=== PATIENT | female | born 1965 | race Caucasian/White ===

== ENCOUNTER 2022-04-06 17:09 | Emergency (ER) | payer OTHER, SELFPAY ==
[2022-04-06 17:21] VITALS: BP 84/70; PULSE 93; RESP 18; O2SAT 96; BMI 19.2
--- NOTE | 2022-04-06 17:26 | W.ED.SYNCOPE ---
HPI - Syncope General: Chief Complaint: Syncope Stated Complaint: SYNCOPAL EPISODE, BACK PAIN Time Seen by Provider: 04/06/22 17:26 History of Present Illness: Ms. Mcguire is a 57-year-old lady with complex past medical history presents to the emergency department due to presyncope. She reports largely being at her baseline health the past few days without specific known changes. She was going to the store earlier and upon getting out of the vehicle had severe back pain and shortness of breath. She attempted albuterol treatments but continued to feel worse. She endorses lightheaded feeling and near syncope associated with her pain. She slumped over a shopping cart and was assisted to the ground however did not fall to the ground and did not suffer head strike. Since that time she has had worsening of her baseline back pain. Shortness of breath is improved. Has had similar episodes in the past with low blood pressure though did not seek medical care for this 1 episode. Intensity symptoms when present was moderate to severe. Course has improved. No other specific changes in health, exacerbating, or alleviating factors identified. Onset (ago): minute(s) Prodromal symptoms: lightheaded and shortness of breath Witnessed: Yes - by Bystander Review of Systems General: Reports: 10 or more systems reviewed and unremarkable except in HPI and below PFSH ED PFSH: Medical History COPD (chronic obstructive pulmonary disease) Fibromyalgia History and physical examination, immigration History of Graves' disease Surgical History History of cervical spinal surgery History of tubal ligation Social History Smoking and tobacco status: former smoker Physical Exam Const: COMMON NORMALS: alert GENERAL APPEARANCE: cooperative and well developed HENMT: COMMON NORMALS: normocephalic and atraumatic HEAD & SCALP: normocephalic and atraumatic THROAT: posterior oropharynx normal Eye: COMMON NORMALS: conjunctivae normal CONJUNCTIVA: Yes conjunctivae normal SCLERA: sclerae normal Neck/C-Spine: COMMON NORMALS: supple GENERAL: Yes trachea midline Resp: COMMON NORMALS: normal respiratory effort and clear to auscultation bilaterally EFFORT & INSPECTION: Yes able to speak in complete sentences AUSCULTATION: clear to auscultation bilaterally Cardio: COMMON NORMALS: regular rate and regular rhythm RATE: regular rate RHYTHM: regular rhythm GI: COMMON NORMALS: Soft to palpation PALPATION: Yes Soft to palpation and No Tenderness to palpation present (GI) PERCUSSION: normal to percussion Extremity: GENERAL: Yes normal exam except as noted and No edema Neuro: COMMON NORMALS: moves all extremities SENSORIUM/ORIENTATION: Yes alert and No Orientation impaired Psych: COMMON NORMALS: mental status grossly normal and Normal thought process present THOUGHT PROCESS: Normal thought process present Course ED course: - Patient was seen and evaluated by me at bedside - Patient placed on cardiac monitors, IV access obtained - Initial evaluation notable for exam as above - Labs and xrays personally interpreted by me. EKGs notable for sinus rhythm with nonspecific st segment abnormalities -Fluids given - Labs notable for leukocytosis, normal hemoglobin. Metabolic end with mild evidence of dehydration. Transaminitis uncertain etiology. Urinalysis without evidence of urinary tract infection. - Imaging notable for no acute pathology defined on CT imaging to explain symptoms. - Upon serial reexamination after treatment the patient was significantly improved - Based on patient history, evaluation, and testing as interpreted the most likely cause of the patient's condition is unclear presyncopal episode associated with pain - The results of ED evaluation were discussed with the patient including prescriptions and/or symptomatic cares (if applicable) including appropriate and responsible use, followup plan, and return precautions. The patient verbalized understanding and felt safe for discharge. - Patient discharged in satisfactory condition. Note: Click bubbles or prepopulated guidry in note writing are used for assistance with data collection and billing and are inherently more limited than narrative and other text portions of this note. Please use narrative for additional clinical history and defer to narrative/free test for any case of contradictory information. If information appears in only free text or click bubble it should be considered present or absent as reported. Please contact note marketing underwriter for clarifications of clinical information or contradictory information. MDM is a brief summary, contradictory or erroneous seeming information should be clarified and full note should be reviewed. Vital Signs: Vital signs: Vital Signs Pulse Rate 79 04/06/22 21:00 Respiratory Rate 16 04/06/22 18:07 Blood Pressure 104/63 04/06/22 21:00 Pulse Oximetry 97 04/06/22 18:07 MDM - Syncope Medical Decision Making 57-year-old lady presenting to the ER with symptoms of presyncope with pain and shortness of breath. No clear etiology identified on ED evaluation. Symptoms improved. Satisfactory outpatient management with strict return precautions. Medical Records I reviewed the patient's medical records. Lab Data I reviewed the patient's lab results. : 04/06/22 17:58 04/06/22 17:58 Radiology Impressions Chest/Abdomen/Pelvis CT 04/06/22 18:24 IMPRESSION: 1. Negative for pulmonary embolus or airspace infiltrate, thoracic aorta is intact. 2. Emphysematous changes. 3. Several prominent subcentimeter short axis mediastinal lymph nodes, nonspecific. IMPRESSION: Negative for acute inflammatory process in the abdomen or pelvis. Laboratory Results WBC 13.2 10^3/uL (4.0-10.0) H 04/06/22 17:58 RBC 4.06 10^6/uL (4.1-5.3) L 04/06/22 17:58 Hgb 13.3 g/dL (11.5-15.3) 04/06/22 17:58 Hct 39.5 % (37.0-47.0) 04/06/22 17:58 MCV 97.3 fl (81-99) 04/06/22 17:58 MCH 32.8 pg (28.0-34.0) 04/06/22 17:58 MCHC 33.7 g/dL (30.0-36.0) 04/06/22 17:58 RDW 13.2 % (12.1-15.1) 04/06/22 17:58 Plt Count 208 10^3/cmm (130-400) 04/06/22 17:58 MPV 10.7 fL (7.4-10.4) H 04/06/22 17:58 Neut % (Auto) 68.4 % 04/06/22 17:58 Lymph % (Auto) 22.8 % 04/06/22 17:58 [place]ison % (Auto) 6.8 % 04/06/22 17:58 Eos % (Auto) 0.9 % 04/06/22 17:58 Baso % (Auto) 0.7 % 04/06/22 17:58 Neut # (Auto) 9.01 10^3/uL (1.8-7.7) H 04/06/22 17:58 Lymph # (Auto) 3.0 10^3/uL (0.8-4.8) 04/06/22 17:58 [place]ison # (Auto) 0.9 10^3/uL (0.2-0.9) 04/06/22 17:58 Eos # (Auto) 0.1 10^3/uL (0.0-0.8) 04/06/22 17:58 Baso # (Auto) 0.1 10^3/uL (0.0-0.1) 04/06/22 17:58 Nucleated RBC % (auto) 0 % 04/06/22 17:58 Nucleated RBCs # 0.0 /100WBC 04/06/22 17:58 PT 12.90 SECONDS (12.1-14.9) 04/06/22 17:58 INR 0.94 (0.8-1.2) 04/06/22 17:58 APTT 25.7 SECONDS (23.9-36.7) 04/06/22 17:58 Sodium 139 mmol/L (136-145) 04/06/22 17:58 Potassium 3.8 mmol/L (3.5-5.1) 04/06/22 17:58 Chloride 102 mmol/L (98-107) 04/06/22 17:58 Carbon Dioxide 25 mmol/L (22-29) 04/06/22 17:58 Anion Gap 15.8 (5-19) 04/06/22 17:58 BUN 21 mg/dL (6-20) H 04/06/22 17:58 Creatinine 0.7 mg/dL (0.5-0.9) 04/06/22 17:58 GFR Calculation 86.6 mL/min (90-130) L 04/06/22 17:58 Glucose 127 mg/dL (65-115) H 04/06/22 17:58 Calculated Osmolality 293 mOsm/kg (285-295) 04/06/22 17:58 Lactic Acid 1.3 mmol/L (0.5-2.2) 04/06/22 18:19 Calcium 9.2 mg/dL (8.5-10.5) 04/06/22 17:58 Total Bilirubin 0.2 mg/dL (0.15-1.2) 04/06/22 17:58 AST 48 U/L (0-32) H 04/06/22 17:58 ALT 70 U/L (0-33) H 04/06/22 17:58 Alkaline Phosphatase 55 IU/L (35-105) 04/06/22 17:58 Troponin T Baseline 6 ng/L (0-10) 04/06/22 17:58 Troponin T 120 Minute 6.00 ng/L (0-10) 04/06/22 20:03 Delta Troponin T Not Reportable 04/06/22 20:03 Total Protein 6.9 g/dL (6.6-8.7) 04/06/22 17:58 Albumin 4.6 g/dL (3.5-5.2) 04/06/22 17:58 Globulin 2.3 g/dL (1.3-4.6) 04/06/22 17:58 Lipase 21 U/L (13-60) 04/06/22 17:58 Urine Color Yellow (Yellow) 04/06/22 18:05 Urine Appearance Clear (CLEAR) 04/06/22 18:05 Urine pH 5 (5-7) 04/06/22 18:05 Ur Specific [place] 1.020 (1.005-1.030) 04/06/22 18:05 Urine Protein Trace (Negative) 04/06/22 18:05 Urine Glucose (UA) Norm (Normal) 04/06/22 18:05 Urine Ketones 1+ (Negative) H 04/06/22 18:05 Urine Blood Neg (Negative) 04/06/22 18:05 Urine Nitrate Negative (Negative) 04/06/22 18:05 Urine Bilirubin 1+ (Negative) H 04/06/22 18:05 Urine Urobilinogen 4 mg/dL (Negative) H 04/06/22 18:05 Ur Leukocyte Esterase Trace (Negative) H 04/06/22 18:05 Urine RBC 5-10 /hpf (0-2) H 04/06/22 18:05 Urine WBC 5-10 /hpf (0-5) H 04/06/22 18:05 Ur Squamous Epith Cells 10-15 /hpf (0-5) H 04/06/22 18:05 Calcium Oxalate Crystal 5-10 /hpf H 04/06/22 18:05 Other Crystals Sulfa /hpf 04/06/22 18:05 Amorphous Sediment Not Reportable 04/06/22 18:05 Urine Bacteria 4+ /hpf (NONE) H 04/06/22 18:05 Urine Mucus 4+ /hpf 04/06/22 18:05 Discharge Plan Discharge Patient Disposition: Home Clinical Impression: Pre-syncope, Transaminitis, Leukocytosis Condition: Stable Prescriptions: No Action trazodone 50 mg tablet 50 - 150 mg PO BEDTIME PRN (Reason: Insomnia) 0RF tizanidine 4 mg tablet 4 mg PO TID PRN (Reason: Muscle Pain) 0RF hydrocodone-acetaminophen 5-325 mg tablet 1 tab PO TID PRN (Reason: Pain) 0RF levothyroxine 88 mcg tablet 88 mcg PO DAILY 0RF nitroglycerin 0.4 mg tablet, sublingual 0.4 mg sublingual Q5MIN PRN (Reason: Chest Pain) 0RF aspirin 81 mg Tablet,Chewable 81 mg PO DAILY 0RF albuterol sulfate 90 mcg/actuation HFA aerosol inhaler 2 puff INHALATION Q6H PRN (Reason: Shortness Of Breath) 0RF lamotrigine 100 mg tablet 50 mg PO BID PRN (Reason: Pain) 0RF ezetimibe 10 mg tablet 10 mg PO DAILY 0RF rosuvastatin 20 mg tablet 20 mg PO DAILY 0RF duloxetine 30 mg capsule,delayed release(DR/EC) 30 mg PO DAILY 0RF Symbicort 80-4.5 mcg/actuation HFA aerosol inhaler 2 puff INHALATION DAILY 0RF Discharge Orders: Discharge ED (Routine); Ordered 04/06/22 Ordered By: Ramy Casarez Referrals: Ruben Bernabe MD [Primary Care Provider] - Discharge Diet: Usual diet Discharge Activity: Increase activity as tolerated Patient Instructions: Near Syncope (ED) Activity Restrictions/Additional Instructions: Thank you for visiting the emergency department. You were seen and evaluated for near syncope. The exact cause of your symptoms is unclear. As discussed you do have mild elevation in your white blood cell count as well as your liver enzymes. Please follow-up with your primary care provider regarding this. Based on ED evaluation I do not believe that you need hospitalization at this time however you likely need further outpatient assessment for other causes of near syncope. Please return to the emergency department for recurrent symptoms or anything else that you are concerned about a feel needs emergency department evaluation. Coding Level of Care Code ED Food Preparer for Chg Fwd Exam Comprehensive
--- NOTE | 2022-04-06 17:34 | ECG_ITS ---
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 Measurements Intervals [place] Rate: 74 P: 80 [place]: 149 QRS: 71 QRSD: 82 T: 70 QT: 416 QTc: 463 Interpretive Statements SINUS RHYTHM NONSPECIFIC T-WAVE ABNORMALITY Compared to ECG 12/06/2018 10:47:20 No significant changes Electronically Signed On 04-06-2022 22:32:37 CDT by Juan Smith M.D. [email or web address] community hospitalMomentum Telecomholzer health systemZamplus Technology/store/[id number]
[2022-04-06 17:53] VITALS: BP 93/69; PULSE 101; RESP 16; O2SAT 97
[2022-04-06 18:07] VITALS: BP 90/71; PULSE 88; RESP 16; O2SAT 97
[2022-04-06] MEDS: sodium chloride 0.9% 1,000 ML 999 ML IV (18:08)
[2022-04-06 18:10] LABS: Basophils # 0.1 10^3/uL (0.0-0.1); Basophils % 0.7 %; Eosinophils # 0.1 10^3/uL (0.0-0.8); Eosinophils % 0.9 %; Hematocrit 39.5 % (37.0-47.0); Hemoglobin 13.3 g/dL (11.5-15.3); Lymphocytes % 22.8 %; Mean Corpuscular HGB Conc 33.7 g/dL (30.0-36.0); Mean Corpuscular Hemoglobin 32.8 pg (28.0-34.0); Mean Corpuscular Volume 97.3 fl (81-99); Mean Platelet Volume 10.7 fL (7.4-10.4); Monocytes # 0.9 10^3/uL (0.2-0.9); Monocytes % 6.8 %; Neutrophils # 9.01 10^3/uL (1.8-7.7); Neutrophils % 68.4 %; Nucleated Red Blood Cells % 0 %; Platelet Count 208 10^3/cmm (130-400); Red Blood Count 4.06 10^6/uL (4.1-5.3); Red Cell Distribution Width 13.2 % (12.1-15.1); White Blood Count 13.2 10^3/uL (4.0-10.0)
--- NOTE | 2022-04-06 18:24 | CTR_ITS ---
PROCEDURE INFORMATION: Exam: CTA Chest With Contrast Exam date and time: 04/06/2022 6:42 PM Age: 57 years old Clinical indication: Pain; Other: Posterior abdomen; On breathing; Prior surgery; Surgery date: 6+ months; Surgery type: Lumbar, thyroid, tubal ligation; Additional info: Back pain, hypotension, near syncope, HX pes TECHNIQUE: Imaging protocol: Computed tomographic angiography of the chest with contrast. 3D rendering (Not supervised by radiologist): MIP and/or 3D reconstructed images were created by the technologist. Radiation optimization: All CT scans at this facility use at least one of these dose optimization techniques: automated exposure control; mA and/or kV adjustment per patient size (includes targeted exams where dose is matched to clinical indication); or iterative reconstruction. Contrast material: OMNIPAQUE 300; Contrast volume: 90 ml; Contrast route: INTRAVENOUS (IV); COMPARISON: CTA Chest-Pulmonary Emb [id number] 01/21/2017 3:56 PM RADIATION DOSE METRICS: Total DLP (mGy-cm): 882.16 FINDINGS: Pulmonary arteries: Normal. No pulmonary emboli. Aorta: Unremarkable. No aortic aneurysm. No aortic dissection. Lungs: Emphysematous changes. Pleural spaces: Unremarkable. No pneumothorax. No pleural effusion. Heart: Unremarkable. No cardiomegaly. No pericardial effusion. Lymph nodes: Several prominent subcentimeter short axis mediastinal lymph nodes, nonspecific. Bones/joints: Unremarkable. No acute fracture. Soft tissues: Unremarkable. PROCEDURE INFORMATION: Exam: CT Abdomen And Pelvis With Contrast Exam date and time: 04/06/2022 6:42 PM Age: 57 years old Clinical indication: Pain; Other: Posterior abdomen; On breathing; Prior surgery; Surgery date: 6+ months; Surgery type: Lumbar, thyroid, tubal ligation; Additional info: Back pain, hypotension, near syncope, HX pes TECHNIQUE: Imaging protocol: Computed tomography of the abdomen and pelvis with contrast. Radiation optimization: All CT scans at this facility use at least one of these dose optimization techniques: automated exposure control; mA and/or kV adjustment per patient size (includes targeted exams where dose is matched to clinical indication); or iterative reconstruction. Contrast material: OMNIPAQUE 300; Contrast volume: 90 ml; Contrast route: INTRAVENOUS (IV); COMPARISON: CT Chest/Abdomen/Pelvis wo IV 12/06/2018 11:47 AM RADIATION DOSE METRICS: Total DLP (mGy-cm): 882.16 FINDINGS: Liver: Normal. No mass. Gallbladder and bile ducts: Normal. No calcified stones. No ductal dilation. Pancreas: Normal. No ductal dilation. Spleen: Normal. No splenomegaly. Adrenal glands: Normal. No mass. Kidneys and ureters: Normal. No hydronephrosis. Stomach and bowel: Unremarkable. No obstruction. No mucosal thickening. Appendix: No evidence of appendicitis. Intraperitoneal space: Unremarkable. No free air. No significant fluid collection. Vasculature: Unremarkable. No abdominal aortic aneurysm. Lymph nodes: Unremarkable. No enlarged lymph nodes. Urinary bladder: Unremarkable as visualized. Reproductive: Unremarkable as visualized. Bones/joints: Unremarkable. No acute fracture. Soft tissues: Unremarkable. CT/CT angio chest w abd pel w con IMPRESSION: 1. Negative for pulmonary embolus or airspace infiltrate, thoracic aorta is intact. 2. Emphysematous changes. 3. Several prominent subcentimeter short axis mediastinal lymph nodes, nonspecific. IMPRESSION: Negative for acute inflammatory process in the abdomen or pelvis.
[2022-04-06 18:31] LABS: Add Urine Microscopic? YES; Bilirubin Urine 1+ (Negative); Blood Urine Neg (Negative); Glucose Urine UA Norm (Normal); Ketones Urine 1+ (Negative); Leukocyte Esterase Urine Trace (Negative); Nitrate Urine Negative (Negative); Protein Urine Trace (Negative); Urine Appearance Clear (CLEAR); Urine Color Yellow (Yellow); Urobilinogen Urine 4 mg/dL (Negative); pH Urine 5 (5-7)
[2022-04-06 18:41] LABS: INR 0.94 (0.8-1.2); Partial Thromboplastin Time 25.7 SECONDS (23.9-36.7)
[2022-04-06 18:41] LABS: Bacteria Urine 4+ /hpf; Mucus Urine 4+ /hpf
[2022-04-06 18:42] LABS: Add Urine Culture? Yes; Other Crystals Urine SULFA /hpf
[2022-04-06] MEDS: iohexol 300 mg/mL 100 mL Btl IV (18:42)
[2022-04-06 18:53] LABS: Troponin(5th) Baseline 6 ng/L (0-10)
[2022-04-06 18:57] LABS: Alanine Aminotransferase 70 U/L (0-33); Albumin Level 4.6 g/dL (3.5-5.2); Alkaline Phosphatase 55 IU/L (35-105); Anion Gap 15.8 (5-19); Aspartate Amino Transferase 48 U/L (0-32); Blood Urea Nitrogen 21 mg/dL (6-20); Calcium 9.2 mg/dL (8.5-10.5); Carbon Dioxide 25 mmol/L (22-29); Chloride 102 mmol/L (98-107); Globulin 2.3 g/dL (1.3-4.6); Glomerular Filtration Rate 86.6 mL/min (90-130); Glucose 127 mg/dL (65-115); Lipase 21 U/L (13-60); Osmolality Calculated 293 mOsm/kg (285-295); Potassium 3.8 mmol/L (3.5-5.1); Sodium 139 mmol/L (136-145); Total Bilirubin 0.2 mg/dL (0.15-1.2); Total Protein 6.9 g/dL (6.6-8.7)
[2022-04-06] MEDS: HYDROcodone-acetaminophen 5-325 mg Tablet 1 TAB PO (19:16)
[2022-04-06 19:20] LABS: Lactic Sepsis W/Reflex 1.3 mmol/L (0.5-2.2)
--- NOTE | 2022-04-06 19:34 | ECG_ITS ---
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 Measurements Intervals [place] Rate: 79 P: 85 [place]: 155 QRS: 77 QRSD: 75 T: 89 QT: 366 QTc: 421 Interpretive Statements SINUS RHYTHM NONSPECIFIC T-WAVE ABNORMALITY Compared to ECG 04/06/2022 18:26:13 No significant changes Electronically Signed On 04-06-2022 22:37:19 CDT by Juan Smith M.D. [email or web address] [email or web address] clinicBobby Bear Fun & Fitness/store/[id number]
[2022-04-06 21:00] VITALS: BP 101/71; BP 104/63; BP 107/75; PULSE 79; PULSE 80; PULSE 82
== END 2022-04-06 21:50 | disposition home or self-care (01) ==
PROVIDERS: Emergency Provider Emergency Medicine; PCP Family Medicine
DX: R55 Syncope and collapse (principal); R74.01 Elevation of levels of liver transaminase levels; D72.829 Elevated white blood cell count, unspecified; M54.9 Dorsalgia, unspecified; Z79.82 Long term (current) use of aspirin; Z87.891 Personal history of nicotine dependence
CPT/HCPCS: 71275; 74177; 80053; 81001; 83605; 83690; 84484; 85025; 85610; 85730; 87040; 87086; 87205; 93005; 96360; 99284; J7030; Q9967

== ENCOUNTER → 2022-06-06 14:50 | Outpatient (BNVA) | payer OTHER, MEDICARE, SELFPAY | PROVIDERS: Visit Provider Family Medicine | DX: E03.9 Hypothyroidism, unspecified (principal); J44.9 Chronic obstructive pulmonary disease, unspecified; M79.7 Fibromyalgia; Z76.89 Persons encountering health services in other specified circumstances; F41.1 Generalized anxiety disorder; E78.2 Mixed hyperlipidemia; F31.61 Bipolar disorder, current episode mixed, mild; G47.00 Insomnia, unspecified | CPT/HCPCS: 80053; 80061; 84439; 84443; 85025 ==

== ENCOUNTER → 2023-03-22 12:46 | Outpatient (BNVA) | payer MEDICARE, SELFPAY | PROVIDERS: PCP Family Medicine; Visit Provider Family Medicine | DX: E03.9 Hypothyroidism, unspecified (principal); M25.511 Pain in right shoulder; M54.12 Radiculopathy, cervical region; E78.2 Mixed hyperlipidemia; M54.2 Cervicalgia; M54.9 Dorsalgia, unspecified; G89.29 Other chronic pain; F31.61 Bipolar disorder, current episode mixed, mild; G47.00 Insomnia, unspecified; J44.9 Chronic obstructive pulmonary disease, unspecified; M79.7 Fibromyalgia; Z76.89 Persons encountering health services in other specified circumstances | CPT/HCPCS: 80048; 80061; 84443 ==

== ENCOUNTER 2023-08-05 14:35 | Emergency (ER) | payer MEDICARE, MEDICAID, SELFPAY ==
[2023-08-05 14:43] VITALS: BP 110/73; PULSE 79; RESP 16; TEMP 36.5; O2SAT 96; BMI 20.1
--- NOTE | 2023-08-05 14:59 | ED_ITS ---
HPI - Back Pain/Injury General: Chief Complaint: Back Pain/Injury Stated Complaint: very bad back pain Time Seen by Provider: 08/05/23 14:52 Source: patient Mode of arrival: ambulatory Limitations: no limitations History of Present Illness: Patient is here with chronic back pain. She states that she used to be followed by local physician for her medications but she missed a couple appointments and has not been to see him since that time. She denies any change in her back pain other than she is increasing more symptoms since she has been out of medications. She denies any fevers or chills loss of bowel or bladder control etc. She is a regular tobacco user. She denies any focal weakness, recent injury etc. MD elicited complaint: back pain Pertinent past history: prior back pain Onset (ago): year(s) Timing: intermittent Associated symptoms: Deny abdominal pain, chills, dysuria, fever(s), nausea or vomiting Review of Systems Const: Denies: fever(s) or chills ENMT: Denies: throat pain, odynophagia, nasal discharge or nasal congestion Card: Denies: chest pain, palpitations or irregular heart rhythm Resp: Denies: dyspnea, productive cough or non-productive cough GI: Denies: abdominal pain, nausea or vomiting : Denies: flank pain, difficulty voiding, dysuria or urinary frequency Musc: Reports: neck pain and back pain; Denies: extremity pain or extremity swelling Skin/Breast: Denies: rash Neuro: Denies: headache(s), numbness in extremities or weakness in extremities PFSH ED PFSH: Medical History Acquired hypothyroidism Bipolar 1 disorder, mixed, mild Chronic neck and back pain COPD (chronic obstructive pulmonary disease) Fibromyalgia Generalized anxiety disorder History of Graves' disease Insomnia Mixed dyslipidemia Surgical History History of cervical spinal surgery C5/6 fusion History of hernia repair History of thyroidectomy History of tubal ligation Family History Mother Lung disease Psychiatric illness Father Psychiatric illness Other Stroke Denies family history of Diabetes CAD (coronary artery disease) Dementia Hyperlipidemia Chronic kidney disease (CKD) Suicide Anesthesia complication Bleeding disorder Family history of premature coronary artery disease Cancer Hypertension Social History (Updated 03/22/23 @ 12:25 by Odessa Ruth MD) Smoking and tobacco status: former smoker Quit status (tobacco): has quit using tobacco Year quit tobacco: 2009 Alcohol intake: never Substance/Drug Use: current Substance/Drug use frequency: daily Adopted: No Lives independently: Yes Household members: spouse, children and other Details: 3 grandchilden Housing: House Marital status: Number of children: 2 Number of grandchildren: 6 Highest education level completed: High School Graduate service: No Current occupational status: disabled Leisure activites: other Leisure activities details: swimming, playing w/ kids Agree to transfusion: Yes Female Reproductive History: Spontaneous abortions: No Physical Exam Narrative: EXAM NARRATIVE: Thin woman who appears to be in no acute distress answers questions appropriately. Const: COMMON NORMALS: no acute distress, patient oriented x3 and alert GENERAL APPEARANCE: cooperative NUTRITIONAL APPEARANCE: thin HENMT: COMMON NORMALS: normocephalic, atraumatic and moist oral mucous membranes HEAD & SCALP: normocephalic and atraumatic Eye: COMMON NORMALS: Equal, round and reactive pupils present, EOMs intact bilaterally and conjunctivae normal CONJUNCTIVA: Yes conjunctivae normal PUPIL: Yes Equal, round and reactive pupils present Neck/C-Spine: COMMON NORMALS: full ROM, Thyroid normal and No carotid bruits THYROID: Thyroid normal Resp: COMMON NORMALS: normal respiratory effort, No retractions, No use of accessory muscles and clear to auscultation bilaterally EFFORT & INSPECTION: Yes able to speak in complete sentences AUSCULTATION: clear to auscultation bilaterally Cardio: COMMON NORMALS: regular rate, regular rhythm, No murmurs present (Cardio) and Peripheral pulses 2+ throughout RATE: regular rate RHYTHM: regular rhythm PERIPHERAL PULSES: Peripheral pulses 2+ throughout GI: COMMON NORMALS: Normal to inspection, nondistended, normoactive bowel sounds present and Soft to palpation PALPATION: Yes Soft to palpation Back/Pelvis: COMMON NORMALS: thoracic and lumbar spine normal to inspection and straight leg raise negative bilaterally SACROILIAC JOINTS: Yes SI joints normal OTHER: She has normal spinal curves. She is tender points throughout the all the soft tissue of her axial spine from her suboccipital region down to her lumbar region. There is no skin changes, ecchymosis,. Extremity: COMMON NORMALS: normal to inspection, full ROM, no calf tenderness and no pedal edema Neuro: COMMON NORMALS: patient oriented x3, moves all extremities, no focal motor deficits, no sensory deficits noted and deep tendon reflexes 2+ bilaterally SENSORIUM/ORIENTATION: Yes alert Course Vital Signs: Vital signs: Vital Signs Temperature 97.7 F 08/05/23 14:43 Pulse Rate 79 08/05/23 14:43 Respiratory Rate 16 08/05/23 14:43 Blood Pressure 110/73 08/05/23 14:43 Pulse Oximetry 96 08/05/23 14:43 Oxygen Delivery Me thod Room Air 08/05/23 14:43 MDM - Back Pain/Injury Medical Decision Making This patient with a history of chronic back pain without any new findings to include injury, fever, neurologic symptoms such as loss of bowel or bowel bladder control focal weakness etc. Clinical examination reveals multiple trigger points without any evidence of focal neurologic findings. Patient was informed that we do not prescribe opiates the emergency department. We were happy to give her a prescription for gabapentin and perhaps a muscle relaxant and a referral for case management for a primary care follow-up. She voiced understanding. We also admonished her that she should discontinue her smoking habit that that is not conducive to her long-term health. No radiology studies performed this visit Discharge Plan Discharge Patient Disposition: Home Clinical Impression: Chronic neck and back pain, Fibromyalgia Condition: Stable Prescriptions: New gabapentin 400 mg capsule 400 mg PO BID Qty: 60 0RF celecoxib [Celebrex] 50 mg capsule 50 mg PO DAILY Qty: 30 0RF No Action prednisone 20 mg tablet 40 mg PO DAILY Qty: 10 0RF doxycycline hyclate 100 mg tablet 100 mg PO DAILY Qty: 11 0RF ondansetron 4 mg tablet,disintegrating 4 mg PO Q8H PRN (Reason: nausea and vomiting) Qty: 10 0RF Symbicort 80-4.5 mcg/actuation HFA aerosol inhaler 2 puff INHALATION DAILY Qty: 10.2 2RF celecoxib 200 mg capsule 200 mg PO BID Qty: 60 1RF duloxetine 60 mg capsule,delayed release(DR/EC) 60 mg PO DAILY Qty: 90 2RF ezetimibe 10 mg tablet 10 mg PO DAILY Qty: 90 1RF hydrocodone-acetaminophen 5-325 mg tablet 1 tab PO TID 30 Days Qty: 90 0RF lamotrigine 100 mg tablet 50 mg PO BID PRN (Reason: Pain) Qty: 60 2RF trazodone 50 mg tablet 50 - 150 mg PO BEDTIME 90 Days Qty: 270 1RF levothyroxine 100 mcg tablet 100 mcg PO DAILY Qty: 60 0RF rosuvastatin 40 mg tablet 40 mg PO DAILY Qty: 90 1RF albuterol sulfate 90 mcg/actuation HFA aerosol inhaler See Rx Instructions .ROUTE .COMPLEX Qty: 6.7 11RF Dose Instruction: INHALE TWO PUFFS BY MOUTH EVERY 6 HOURS NEEDED FOR SHORTNESS OF BREATH OR FOR WHEEZING (BULK) Rx Instructions: INHALE TWO PUFFS BY MOUTH EVERY 6 HOURS NEEDED FOR SHORTNESS OF BREATH OR FOR WHEEZING (BULK) nitroglycerin 0.4 mg tablet, sublingual 0.4 mg sublingual Q5MIN PRN (Reason: Chest Pain) aspirin 81 mg Tablet,Chewable 81 mg PO DAILY Discharge Orders: Discharge ED (Routine); Ordered 08/05/23 Ordered By: Wilfrido Walker Discharge Diet: Usual diet Discharge Activity: Increase activity as tolerated Patient Instructions: Opioid Safety, Pain Management Activity Restrictions/Additional Instructions: Do not smoke cigarettes. We have prescribed prescribed 2 of your medication to help with your pain. We have also placed a consult into case management to arrange a follow-up with her primary care doctor. If you have any new or worsening symptoms you are welcome to return to the emergency department for reevaluation. 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
[2023-08-05] MEDS: ketorolac 30 mg/mL INJ 15 MG IM (15:09)
--- NOTE | 2023-08-06 09:29 | PC.SOCIAL ---
PCP Message sent to [facility] requesting appt to establish care. Clinic will contact patient with appt date/time.
== END 2023-08-05 15:40 | disposition home or self-care (01) ==
PROVIDERS: Emergency Provider Emergency Medicine
DX: G89.29 Other chronic pain (principal); M54.2 Cervicalgia; M54.9 Dorsalgia, unspecified; M79.7 Fibromyalgia; Z79.82 Long term (current) use of aspirin; Z87.891 Personal history of nicotine dependence; J44.9 Chronic obstructive pulmonary disease, unspecified; E78.2 Mixed hyperlipidemia
CPT/HCPCS: 96372; 99284; J1885

== ENCOUNTER → 2023-08-29 11:44 | Outpatient (BNVA) | payer MEDICARE, MEDICAID, SELFPAY | PROVIDERS: PCP Family Medicine; Visit Provider Family Medicine | DX: E03.9 Hypothyroidism, unspecified (principal); E78.2 Mixed hyperlipidemia | CPT/HCPCS: 80061; 84443 ==

== ENCOUNTER → 2024-02-04 08:27 | Outpatient (BNVA) | payer MEDICARE, SELFPAY | PROVIDERS: PCP Family Medicine Adult Medicine; Visit Provider Orthopaedic Surgery | DX: M54.2 Cervicalgia (principal); M54.9 Dorsalgia, unspecified; G89.29 Other chronic pain; M54.6 Pain in thoracic spine | CPT/HCPCS: 72072; 99204 ==

== ENCOUNTER 2024-02-28 15:51 | Emergency (ER) | payer MEDICARE, SELFPAY ==
[2024-02-28 15:58] VITALS: BP 122/80; PULSE 91; RESP 16; TEMP 36.7; O2SAT 98
[2024-02-28] MEDS: orphenadrine 30 mg/mL Inj 2 mL 60 MG IM (17:04)
[2024-02-28] MEDS: ketorolac 30 mg/mL INJ IM (17:05)
[2024-02-28 17:42] LABS: Blood Urine Neg (Negative); Glucose Urine UA Norm (Normal); Ketones Urine Negative (Negative); Nitrate Urine Negative (Negative); Protein Urine Neg (Negative); Urine Appearance Clear (CLEAR); Urine Color Yellow (Yellow); pH Urine 5 (5-7)
[2024-02-28 17:43] LABS: Bilirubin Urine 1+ (Negative); Leukocyte Esterase Urine Negative (Negative); Urobilinogen Urine 4 mg/dL (Negative)
--- NOTE | 2024-02-28 17:48 | W.ED.BACK ---
HPI - Back Pain/Injury General: Chief Complaint: Back Pain/Injury Stated Complaint: back pains Time Seen by Provider: 02/28/24 16:14 History of Present Illness: 59-year-old female presents emerged part with complaints of low back pain for the previous 3 days. She states the pain is currently a 10 out of 10 at this time. She states it is an aching type back pain. She states she has been taking Tylenol and that has not helped her. She states she does have a history of cervical spine surgery and fusion. She denies numbness or tingling to the extremities. She denies urinary retention or incontinence. Review of Systems General: Reports: 10 or more systems reviewed and unremarkable except in HPI and below Musc: Reports: back pain PFSH ED PFSH: Medical History (Updated 02/28/24 @ 18:03 by Terrance Kendall MD) Smoker decreased to 1/2 ppd 09/03/2023 Former smoker, stopped smoking in distant past Chronic neck and back pain Insomnia Bipolar 1 disorder, mixed, mild Mixed dyslipidemia Generalized anxiety disorder Acquired hypothyroidism History of Graves' disease Fibromyalgia COPD (chronic obstructive pulmonary disease) Surgical History History of hernia repair History of thyroidectomy History of tubal ligation History of cervical spinal surgery C5/6 fusion Family History Mother Lung disease Psychiatric illness Father Psychiatric illness Other Stroke Denies family history of Diabetes CAD (coronary artery disease) Dementia Hyperlipidemia Chronic kidney disease (CKD) Suicide Anesthesia complication Bleeding disorder Family history of premature coronary artery disease Cancer Hypertension Social History (Updated 09/03/23 @ 13:54 by Jt Levy MD) Smoking and tobacco/nicotine status: current every day tobacco/nicotine user Quit status (tobacco/nicotine): has tried quititng Alcohol intake: never Substance/Drug Use: current Substance/Drug use frequency: daily Adopted: No Lives independently: Yes Household members: spouse, children and other Details: 3 grandchilden Housing: House Marital status: Number of children: 2 Number of grandchildren: 6 Highest education level completed: High School Graduate service: No Current occupational status: disabled Leisure activites: other Leisure activities details: swimming, playing w/ kids Agree to transfusion: Yes Female Reproductive History: Spontaneous abortions: No Physical Exam Narrative: EXAM NARRATIVE: General: Alert, no acute distress. Skin: Warm, dry, Intact. Head: Normocephalic, atraumatic. Neck: Supple, trachea midline. Eye: Extraocular movements are intact. PERRLA Ears, nose, mouth and throat: mucosa moist. Cardiovascular: Regular, Normal peripheral perfusion. Respiratory: Lungs are clear to auscultation, respirations are non-labored, breath sounds are equal, Symmetrical chest wall expansion. Gastrointestinal: Soft, Nontender, Non distended, Normal bowel sounds. Musculoskeletal: Normal ROM, no deformity. Neurological: Alert and oriented, No focal neurological deficit observed. Psychiatric: Cooperative, appropriate mood & affect. Course Vital Signs: Vital signs: Vital Signs Temperature 98.1 F 02/28/24 15:58 Pulse Rate 91 02/28/24 15:58 Respiratory Rate 16 02/28/24 15:58 Blood Pressure 122/80 02/28/24 15:58 Pulse Oximetry 98 02/28/24 15:58 Oxygen Delivery Me thod Room Air 02/28/24 15:58 MDM - Back Pain/Injury Medical Decision Making Physical exam completed document I did obtain a urinalysis and have provided Toradol and Norflex for muscle relaxer. I will discharge patient home and have her follow-up with her primary care provider. Medical Records I reviewed the patient's medical records. Labs I reviewed the patient's lab results. Laboratory Results Urine Color Yellow (Yellow) 02/28/24 17:32 Urine Appearance Clear (CLEAR) 02/28/24 17:32 Urine pH 5 (5-7) 02/28/24 17:32 Ur Specific [place] 1.020 (1.005-1.030) 02/28/24 17:32 Urine Protein Neg (Negative) 02/28/24 17:32 Urine Glucose (UA) Norm (Normal) 02/28/24 17:32 Urine Ketones Negative (Negative) 02/28/24 17:32 Urine Blood Neg (Negative) 02/28/24 17:32 Urine Nitrate Negative (Negative) 02/28/24 17:32 Urine Bilirubin 1+ (Negative) H 02/28/24 17:32 Urine Urobilinogen 4 mg/dL (Negative) H 02/28/24 17:32 Ur Leukocyte Esterase Negative (Negative) 02/28/24 17:32 Amorphous Sediment Not Reportable 02/28/24 17:32 No radiology studies performed this visit Discharge Plan Discharge Patient Disposition: Home Clinical Impression: Low back pain Qualifiers: Chronicity: acute Back pain laterality: bilateral Sciatica presence: without sciatica Qualified Code(s): M54.50 - Low back pain, unspecified Strain of lumbar region Qualifiers: Encounter type: initial encounter Qualified Code(s): S39.012A - Strain of muscle, fascia and tendon of lower back, initial encounter Condition: Stable Prescriptions: New hydrocodone-acetaminophen 5-325 mg tablet 1 tab PO Q8H PRN (Reason: pain) Qty: 14 0RF No Action celecoxib 200 mg capsule 200 mg PO BID Qty: 60 1RF cyclobenzaprine 10 mg tablet 10 mg PO TID Qty: 90 0RF Symbicort 80-4.5 mcg/actuation HFA aerosol inhaler 2 puff INHALATION DAILY Qty: 10.2 2RF albuterol sulfate 90 mcg/actuation HFA aerosol inhaler See Rx Instructions .ROUTE .COMPLEX Qty: 6.7 11RF Dose Instruction: INHALE TWO PUFFS BY MOUTH EVERY 6 HOURS NEEDED FOR SHORTNESS OF BREATH OR FOR WHEEZING (BULK) Rx Instructions: INHALE TWO PUFFS BY MOUTH EVERY 6 HOURS NEEDED FOR SHORTNESS OF BREATH OR FOR WHEEZING (BULK) levothyroxine 88 mcg tablet 88 mcg PO DAILY Qty: 60 0RF rosuvastatin 40 mg tablet 40 mg PO DAILY Qty: 90 1RF Discharge Orders: Discharge ED (Routine); Ordered 02/28/24 Ordered By: Terrance Kendall Referrals: Jt Levy MD [Primary Care Provider] - Discharge Diet: Usual diet Discharge Activity: Resume usual activity Patient Instructions: Opioid Safety, Pain Management Activity Restrictions/Additional Instructions: Activity Restrictions/Additional Instructions: Thank you for choosing [facility] for your healthcare needs today. Please realize that you were seen in the Emergency Department and that we are providing you with an emergency medical screening exam and this may not be a complete and all inclusive of all the testing and or medical work-up that you may need to determine your ailment or severity of your illness. It is very important that you follow-up as instructed with your Primary care provider or Specialist for additional evaluation and to discuss your medical treatment plan. 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
[2024-02-28 17:53] LABS: Bacteria Urine TRACE /hpf; Mucus Urine 1+ /hpf; Squamous Epithelial Cell Urine 0-4 /hpf (0-5)
[2024-02-28 17:54] LABS: Add Urine Culture? No; Calcium Oxalate Crystals Urine 25-40 /hpf
[2024-02-28 18:13] VITALS: BP 124/78; PULSE 87; RESP 16; TEMP 36.7; O2SAT 97
== END 2024-02-28 18:14 | disposition home or self-care (01) ==
PROVIDERS: Emergency Provider Internal Medicine; PCP Family Medicine Adult Medicine
DX: S39.012A Strain of muscle, fascia and tendon of lower back, initial encounter (principal); Z72.0 Tobacco use; E78.2 Mixed hyperlipidemia; J44.9 Chronic obstructive pulmonary disease, unspecified; X58.XXXA Exposure to other specified factors, initial encounter
CPT/HCPCS: 81001; 96372; 99284; J1885; J2360

== ENCOUNTER 2024-03-21 10:42 | Emergency (ER) | payer MEDICARE, SELFPAY ==
[2024-03-21 11:44] VITALS: BP 119/75; PULSE 64; RESP 18; TEMP 36.8; O2SAT 99; BMI 20.2
--- NOTE | 2024-03-21 12:49 | XRR_ITS ---
PROCEDURE INFORMATION: Exam: XR Thoracic Spine Exam date and time: 03/21/2024 12:53 PM Age: 59 years old Clinical indication: Injury or trauma; Prior surgery; Surgery date: 6+ months; Surgery type: C-spine fusion; Patient HX: Upper mid back pain post fall TECHNIQUE: Imaging protocol: Radiologic exam of the thoracic spine. Views: 3 views. COMPARISON: CR XR thoracic spine 3V* [id number] 02/04/2024 8:42 AM FINDINGS: Bones/joints: Stable mild dextrocurvature and moderate degenerative disc disease. Stable mild wedge deformity of the lower thoracic vertebral body. No new thoracic spine abnormality is seen. Prior ACDF. Soft tissues: No significant soft tissue pathology. Lungs: Coarsening of the basilar pulmonary interstitium again seen. XR/XR thoracic spine 3V* [id number] IMPRESSION: No acute pathology or significant interval change.
--- NOTE | 2024-03-21 13:18 | ED_ITS ---
HPI - Back Pain/Injury General: Chief Complaint: Back Pain/Injury Stated Complaint: back pain Time Seen by Provider: 03/21/24 12:19 Source: patient Mode of arrival: ambulatory History of Present Illness: 59-year-old female presents to the emerg ency room complaining of midthoracic back pain for 1 week she states she fell like she is about to fall off of a porch. This and critically keep her from falling and she twisted a bit and complained of back pain that is since that episode. No difficulty was chest pain. No trauma no previous injury to the mid back. No history of cancer or osteoporosis fractures. MD elicited complaint: back pain Onset (ago): day(s) Timing: constant Severity: moderate Quality: sharp Location: thoracic spine Exacerbating factors: none Relieving factors: none Associated symptoms: Deny abdominal pain, arthralgias, chills, change in bowel habits, difficulty walking, dysuria, fatigue, fecal incontinence, fever(s), hematuria, myalgias, nausea, numbness, syncope, tingling/numbness/burning, urinary frequency, urinary urgency, vomiting or weakness Review of Systems Const: Denies: fever(s), chills, fatigue or malaise Card: Denies: chest pain or syncope Resp: Denies: dyspnea, productive cough or non-productive cough GI: Denies: abdominal pain, nausea, vomiting, fecal incontinence or change in bowel habits : Denies: dysuria, urinary urgency or hematuria Musc: Reports: back pain; Denies: neck pain Skin/Breast: Denies: rash Neuro: Denies: difficulty walking PFS ED PFSH: Medical History Smoker decreased to 1/2 ppd 09/03/2023 Former smoker, stopped smoking in distant past Chronic neck and back pain Insomnia Bipolar 1 disorder, mixed, mild Mixed dyslipidemia Generalized anxiety disorder Acquired hypothyroidism History of Graves' disease Fibromyalgia COPD (chronic obstructive pulmonary disease) Surgical History History of hernia repair History of thyroidectomy History of tubal ligation History of cervical spinal surgery C5/6 fusion Family History Mother Lung disease Psychiatric illness Father Psychiatric illness Other Stroke Denies family history of Diabetes CAD (coronary artery disease) Dementia Hyperlipidemia Chronic kidney disease (CKD) Suicide Anesthesia complication Bleeding disorder Family history of premature coronary artery disease Cancer Hypertension Social History Smoking and tobacco/nicotine status: current every day tobacco/nicotine user Quit status (tobacco/nicotine): has tried quititng Alcohol intake: never Substance/Drug Use: current Substance/Drug use frequency: daily Adopted: No Lives independently: Yes Household members: spouse, children and other Details: 3 grandchilden Housing: House Marital status: Number of children: 2 Number of grandchildren: 6 Highest education level completed: High School Graduate service: No Current occupational status: disabled Leisure activites: other Leisure activities details: swimming, playing w/ kids Agree to transfusion: Yes Female Reproductive History: Spontaneous abortions: No Physical Exam Const: GENERAL APPEARANCE: cooperative ORIENTATION/CONSCIOUSNESS: Yes awake, Yes oriented to person, Yes oriented to place and Yes oriented to time HENMT: COMMON NORMALS: normocephalic, atraumatic and hearing grossly normal bilaterally HEAD & SCALP: normocephalic and atraumatic Resp: COMMON NORMALS: normal respiratory effort, No retractions, No use of accessory muscles and clear to auscultation bilaterally AUSCULTATION: clear to auscultation bilaterally Cardio: COMMON NORMALS: regular rate, regular rhythm and No murmurs present (Cardio) RATE: regular rate RHYTHM: regular rhythm GI: COMMON NORMALS: Soft to palpation and No hepatosplenomegaly present AUSCULTATION: Yes normoactive bowel sounds PALPATION: Yes Soft to palpation, No Tenderness to palpation present (GI), No Guarding due to palpation present (GI) and Yes No hepatosplenomegaly present Back/Pelvis: OTHER: Pain in the mid thoracic spine with palpation no crepitus no deformity Extremity: COMMON NORMALS: normal to inspection, capillary refill normal, no clubbing, cyanosis or edema, no calf tenderness and no pedal edema Neuro: SENSORIUM/ORIENTATION: Yes oriented to person, Yes oriented to place and Yes oriented to time Skin: COMMON NORMALS: no rashes or lesions noted GENERAL SKIN EXAM: no rashes or lesions noted Course Vital Signs: Vital signs: Vital Signs Temperature 98.2 F 03/21/24 14:09 Pulse Rate 67 03/21/24 14:09 Respiratory Rate 16 03/21/24 14:09 Blood Pressure 118/76 03/21/24 14:09 Pulse Oximetry 98 03/21/24 14:09 Oxygen Delivery Me thod Room Air 03/21/24 11:44 MDM - Back Pain/Injury Medical Decision Making Thoracic back pain most likely musculoskeletal in nature thoracic x-rays do not show any acute fractures. Treat for musculoskeletal back pain if symptoms worsen or do not improve follow-up with primary care for referral to PT for further evaluation including advanced imaging if appropriate Medical Records I reviewed the patient's medical records. Labs I reviewed the patient's lab results. Radiology Impressions Thoracic Spine X-Ray 03/21/24 12:49 IMPRESSION: No acute pathology or significant interval change. Laboratory Results Urine Color Yellow (Yellow) 03/21/24 13:48 Urine Appearance Clear (CLEAR) 03/21/24 13:48 Urine pH 7 (5-7) 03/21/24 13:48 Ur Specific [place] 1.005 (1.005-1.030) 03/21/24 13:48 Urine Protein Neg (Negative) 03/21/24 13:48 Urine Glucose (UA) Norm (Normal) 03/21/24 13:48 Urine Ketones Negative (Negative) 03/21/24 13:48 Urine Blood Neg (Negative) 03/21/24 13:48 Urine Nitrate Negative (Negative) 03/21/24 13:48 Urine Bilirubin Neg (Negative) 03/21/24 13:48 Urine Urobilinogen Norm mg/dL (Negative) 03/21/24 13:48 Ur Leukocyte Esterase Negative (Negative) 03/21/24 13:48 All radiology interpretation(s) finalized by discharge Discharge Plan Discharge Patient Disposition: Home Clinical Impression: Back pain, thoracic Condition: Stable Prescriptions: New prednisone 20 mg tablet 20 mg PO TID Qty: 15 0RF Rx Instructions: 1 p.o. 3 times daily x3 days, 1 p.o. twice daily x2 days, 1 p.o. daily x2 days diclofenac sodium 75 mg tablet,delayed release (DR/EC) 75 mg PO Q12H PRN (Reason: pain) Qty: 20 0RF No Action methocarbamol 750 mg tablet 750 mg PO TID Qty: 90 2RF celecoxib 200 mg capsule 200 mg PO BID Qty: 60 1RF Symbicort 80-4.5 mcg/actuation HFA aerosol inhaler 2 puff INHALATION DAILY Qty: 10.2 2RF albuterol sulfate 90 mcg/actuation HFA aerosol inhaler See Rx Instructions .ROUTE .COMPLEX Qty: 6.7 11RF Dose Instruction: INHALE TWO PUFFS BY MOUTH EVERY 6 HOURS NEEDED FOR SHORTNESS OF BREATH OR FOR WHEEZING (BULK) Rx Instructions: INHALE TWO PUFFS BY MOUTH EVERY 6 HOURS NEEDED FOR SHORTNESS OF BREATH OR FOR WHEEZING (BULK) levothyroxine 88 mcg tablet 88 mcg PO DAILY Qty: 60 0RF rosuvastatin 40 mg tablet See Rx Instructions .ROUTE .COMPLEX Qty: 90 0RF Dose Instruction: TAKE ONE TABLET BY MOUTH DAILY AT 5PM Rx Instructions: TAKE ONE TABLET BY MOUTH DAILY AT 5PM hydrocodone-acetaminophen 5-325 mg tablet 1 tab PO Q8H PRN (Reason: pain) Qty: 14 0RF Discharge Orders: Discharge ED (Routine); Ordered 03/21/24 Ordered By: Matt Montano Referrals: Jt Levy MD [Primary Care Provider] - Discharge Diet: Usual diet Discharge Activity: Increase activity as tolerated Patient Instructions: Opioid Safety, Pain Management Activity Restrictions/Additional Instructions: Thank you for choosing [facility] for your healthcare needs today. Please realize this is an emergency room and that we are providing you with a medical screening exam and this may not be complete and all inclusive of all the testing and or work up that you may need to determine your ailment or severity of your illness. It is very important that you follow up as instructed or that you return to the Emergency Department should you have concerns or if your condition changes or worsens in any way. You were seen today for thoracic back pain x-ray of your spine did not show significant abnormality. You are given steroids pain medications and muscle relaxers in the emergency room continue to use the methocarbamol you were prescribed previously we will discharge you home with a steroid taper to begin tomorrow. Diclofenac to take in place of Celebrex. 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
[2024-03-21] MEDS: diazePAM 5 mg Tablet PO (13:42)
[2024-03-21] MEDS: morphine 4 mg/mL SDV 1 mL IM (13:43)
[2024-03-21] MEDS: dexamethasone 10 mg/mL INJ IM (13:43)
[2024-03-21] MEDS: ketorolac 30 mg/mL INJ IM (13:43)
[2024-03-21 14:07] LABS: Add Urine Microscopic? NO; Charge for UA Resulting for Rev
[2024-03-21 14:09] VITALS: BP 118/76; PULSE 67; RESP 16; TEMP 36.8; O2SAT 98
[2024-03-21 14:13] LABS: Bilirubin Urine Neg (Negative); Blood Urine Neg (Negative); Glucose Urine UA Norm (Normal); Ketones Urine Negative (Negative); Leukocyte Esterase Urine Negative (Negative); Nitrate Urine Negative (Negative); Protein Urine Neg (Negative); Specific Gravity, Urine 1.005 (1.005-1.030); Urine Appearance Clear (CLEAR); Urine Color Yellow (Yellow); Urobilinogen Urine Norm (Negative); pH Urine 7 (5-7)
== END 2024-03-21 14:05 | disposition home or self-care (01) ==
PROVIDERS: Emergency Provider Family Medicine; PCP Family Medicine Adult Medicine
DX: M54.6 Pain in thoracic spine (principal); F17.200 Nicotine dependence, unspecified, uncomplicated
CPT/HCPCS: 72072; 81003; 96372; 99284; J1100; J1885; J2270

== ENCOUNTER 2024-03-23 08:51 | Outpatient (CLI) | payer MEDICARE, SELFPAY ==
--- NOTE | 2024-03-23 08:45 | MR_ITS ---
WS: [id number] MRI THORACIC SPINE WITHOUT CONTRAST TECHNIQUE: Sagittal T1, T2 and STIR imaging. Axial T2 imaging. Noncontrast imaging obtained. CLINICAL INFORMATION: back pain COMPARISON: MRI [id number] FINDINGS: Prior postoperative changes ACDF C6-7. Mild thoracic curve. Moderate thoracic kyphosis. No acute comp ression. No high-grade central canal stenosis. Cord signal is normal. No significant disc protrusions or extrusions. Disc space heights and vertebral body heights are well-maintained. Mild disc bulging in the cervical spine at C4-5 and C5-6 with mild central canal stenosis. Normal caliber thoracic aorta. Normal paravertebral soft tissues. MR/MR thoracic spin wo con* [id number] IMPRESSION: 1. Mild thoracic curve with moderate thoracic kyphosis slightly increased comp ared to 2013. 2. Cord signal is normal. No significant central canal stenosis. 3. No significant disc protrusions or extrusions. 4. Mild facet arthropathy lower thoracic spine. 5. Mild central canal stenosis cervical spine at C4-C5 and C5-C6 with small di sc osteophyte protrusions. 6. Prior ACDF C6-7
== END 2024-03-23 08:52 | disposition home or self-care (01) ==
LOC: RAD 08:52
PROVIDERS: PCP Family Medicine Adult Medicine; Visit Provider Orthopaedic Surgery
DX: M40.294 Other kyphosis, thoracic region (principal); M46.94 Unspecified inflammatory spondylopathy, thoracic region; M48.02 Spinal stenosis, cervical region; M43.22 Fusion of spine, cervical region
CPT/HCPCS: 72146

== ENCOUNTER → 2024-03-31 10:24 | Outpatient (BNVA) | payer MEDICARE, SELFPAY | PROVIDERS: PCP Family Medicine Adult Medicine; Visit Provider Orthopaedic Surgery | DX: M54.6 Pain in thoracic spine (principal); G89.29 Other chronic pain | CPT/HCPCS: 99214 ==

== ENCOUNTER → 2024-05-26 11:05 | Outpatient (BNVA) | payer MEDICARE, MEDICAID, SELFPAY | PROVIDERS: PCP Family Medicine Adult Medicine; Visit Provider Orthopaedic Surgery | DX: M40.294 Other kyphosis, thoracic region (principal); S22.080D Wedge compression fracture of T11-T12 vertebra, subsequent encounter for fracture with routine healing; M47.894 Other spondylosis, thoracic region | CPT/HCPCS: 72072; 99214 ==

== ENCOUNTER 2024-08-16 12:31 | Emergency (ER) | payer MEDICARE, MEDICAID, SELFPAY ==
[2024-08-16 13:05] VITALS: BP 172/98; PULSE 65; RESP 16; TEMP 36.4; O2SAT 97
--- NOTE | 2024-08-16 14:50 | XRR_ITS ---
PROCEDURE INFORMATION: Exam: XR Chest Exam date and time: 08/16/2024 3:17 PM Age: 59 years old Clinical indication: Smoker's cough; Patient HX: Cough; Current every day smoker; Mid/upper back pain x 2 mo; No known injury; PT states pain comes and goes but always stays in area between shoulder blades TECHNIQUE: Imaging protocol: Radiologic exam of the chest. Views: 1 view. COMPARISON: CT angio chest w abd pel w con 04/06/2022 6:42 PM FINDINGS: Lungs: COPD morphology of the chest. There are emphysematous changes in the lungs. Pleural spaces: Unremarkable. No pleural effusion. No pneumothorax. Heart/Mediastinum: Unremarkable. No cardiomegaly. Bones/joints: There are degenerative changes in the visualized spine. XR/XR chest 1V portable [id number] IMPRESSION: Pulmonary emphysema.
--- NOTE | 2024-08-16 14:50 | XRR_ITS ---
PROCEDURE INFORMATION: Exam: XR Thoracic Spine Exam date and time: 08/16/2024 3:17 PM Age: 59 years old Clinical indication: Pain in thoracic spine; Prior surgery; Surgery date: 6+ months; Surgery type: Cervical fusion 2009; Patient HX: Mid/upper back pain x 2 mo; No known injury; PT states pain comes and goes but always stays in area between shoulder blades TECHNIQUE: Imaging protocol: Radiologic exam of the thoracic spine. Views: 3 views. COMPARISON: CR XR thoracic spine 3V* [id number] 05/26/2024 11:22 AM FINDINGS: Bones/joints: There are degenerative changes throughout the visualized spine including marginal osteophyte formations, endplate degenerative changes, and facet arthropathy. Multilevel disc space narrowing. Status post C6-C7 anterior cervical discectomy and fusion. An anterior plate and screw fixation device is in place. Soft tissues: Unremarkable. XR/XR thoracic spine 2V [id number] IMPRESSION: There are degenerative changes as described above. No evidence for acute fracture.
[2024-08-16] MEDS: ondansetron 4 MG Tablet PO (15:14)
[2024-08-16] MEDS: ketorolac 30 mg/mL INJ IM (15:15)
[2024-08-16 15:16] VITALS: RESP 18
[2024-08-16] MEDS: morphine 4 mg/mL SDV 1 mL IM (15:16)
[2024-08-16 15:19] VITALS: BP 128/90; PULSE 65; O2SAT 100
[2024-08-16 17:30] VITALS: BP 119/76; PULSE 58; O2SAT 95
--- NOTE | 2024-08-16 19:15 | W.ED.BACK ---
HPI - Back Pain/Injury General: Chief Complaint: Back Pain/Injury Stated Complaint: back pain Time Seen by Provider: 08/16/24 14:44 History of Present Illness: This patient is a 59-year-old white female who presents to the emergency department complaining of thoracic back pain. She states this started about 5 days ago. No injury. She states she had some similar symptoms about 2 years ago. She states she has had some cold symptoms over the past several days as well with some coughing. She does have a history of asthma and COPD. She does continue to smoke. Related Data Previous Rx's Medication Instructions Recorded budesonide-formoterol HFA 80 2 puff inhalation DAILY #10.2 grams 01/14/23 mcg-4.5 mcg/actuation aerosol inhaler (Symbicort) levothyroxine 88 mcg tablet 88 mcg PO DAILY #60 tabs 08/30/23 methocarbamol 750 mg tablet 750 mg PO TID back/muscle spasm 03/04/24 #90 tabs rosuvastatin 40 mg tablet See Rx Instructions .Route 03/13/24 .COMPLEX #90 tabs diclofenac sodium 75 mg 75 mg PO Q12H PRN pain #20 tabs 03/21/24 tablet,delayed release prednisone 20 mg tablet 20 mg PO TID #15 tabs 03/21/24 hydrocodone 5 mg-acetaminophen 325 1 tab PO Q8H PRN pain 7 days #14 05/26/24 mg tablet tabs diazepam 5 mg tablet (Valium) 5 mg PO TID PRN muscle spasm 14 06/10/24 days #42 tabs albuterol sulfate 90 mcg/actuation See Rx Instructions .Route 06/22/24 aerosol inhaler .COMPLEX #6.7 grams celecoxib 200 mg capsule 200 mg PO BID chronic pain #60 caps 07/25/24 methocarbamol 750 mg tablet 750 mg PO Q8H #30 tabs 07/25/24 prednisone 20 mg tablet 20 mg PO DAILY 5 days #15 tabs 07/25/24 hydrocodone 5 mg-acetaminophen 325 1 tab PO Q4H PRN pain #30 tabs 08/16/24 mg tablet Allergies Allergy/AdvReac Type Severity Reaction Status Date / Time aspirin Allergy hives Verified 08/16/24 13:12 Penicillins Allergy ALGY-Anaphy Verified 08/16/24 13:12 laxis tizanidine Allergy tongue Verified 08/16/24 13:12 swelling tramadol Allergy ALGY-Rash Verified 08/16/24 13:12 Review of Systems General: Reports: 10 or more systems reviewed and unremarkable except in HPI and below Musc: Reports: back pain PFSH ED PFSH: Medical History Smoker decreased to 1/2 ppd 09/03/2023 Former smoker, stopped smoking in distant past Chronic neck and back pain Insomnia Bipolar 1 disorder, mixed, mild Mixed dyslipidemia Generalized anxiety disorder Acquired hypothyroidism History of Graves' disease Fibromyalgia COPD (chronic obstructive pulmonary disease) Surgical History History of hernia repair History of thyroidectomy History of tubal ligation History of cervical spinal surgery C5/6 fusion Family History Mother Lung disease Psychiatric illness Father Psychiatric illness Other Stroke Denies family history of Diabetes CAD (coronary artery disease) Dementia Hyperlipidemia Chronic kidney disease (CKD) Suicide Anesthesia complication Bleeding disorder Family history of premature coronary artery disease Cancer Hypertension Social History Smoking and tobacco/nicotine status: unknown if used tobacco/nicotine Quit status (tobacco/nicotine): has tried quititng Alcohol intake: never Substance/Drug Use: current Substance/Drug use frequency: daily Adopted: No Lives independently: Yes Household members: spouse, children and other Details: 3 grandchilden Housing: House Marital status: Number of children: 2 Number of grandchildren: 6 Highest education level completed: High School Graduate service: No Current occupational status: disabled Leisure activites: other Leisure activities details: swimming, playing w/ kids Agree to transfusion: Yes Female Reproductive History: Spontaneous abortions: No Physical Exam Const: COMMON NORMALS: no acute distress, patient oriented x3 and no limitations GENERAL APPEARANCE: cooperative and comfortable HENMT: COMMON NORMALS: normocephalic, atraumatic, Normal nasal mucous membranes and turbinates present, moist oral mucous membranes and oropharynx normal HEAD & SCALP: normal to inspection, normocephalic and atraumatic FACE & SINUS: normal facial exam NOSE: Normal nasal mucous membranes and turbinates present Eye: COMMON NORMALS: Equal, round and reactive pupils present, EOMs intact bilaterally and conjunctivae normal GENERAL EYE: appearance normal, both eyes and all related structures CONJUNCTIVA: Yes conjunctivae normal PUPIL: Yes Equal, round and reactive pupils present Neck/C-Spine: COMMON NORMALS: supple and no JVD Chest: COMMONS NORMALS: normal inspection of the chest Resp: COMMON NORMALS: normal respiratory effort and clear to auscultation bilaterally AUSCULTATION: clear to auscultation bilaterally Cardio: COMMON NORMALS: no JVD, regular rate, regular rhythm, No gallops present (Cardio), No murmurs present (Cardio) and No rub (Cardio) RATE: regular rate RHYTHM: regular rhythm GI: COMMON NORMALS: Normal to inspection, nondistended, normoactive bowel sounds present, Soft to palpation and non-tender AUSCULTATION: Yes normoactive bowel sounds PALPATION: Yes Soft to palpation Back/Pelvis: THORACIC SPINE/UPPER BACK: Yes thoracic spinal tenderness Extremity: COMMON NORMALS: normal to inspection Neuro: COMMON NORMALS: patient oriented x3 and CN's II-XII intact bilaterally Psych: COMMON NORMALS: mental status grossly normal, Normal thought process present and cooperative THOUGHT PROCESS: Normal thought process present Skin: COMMON NORMALS: no rashes or lesions noted, turgor normal and no jaundice GENERAL SKIN EXAM: no rashes or lesions noted and turgor normal Course Vital Signs: Vital signs: Vital Signs Temperature 97.6 F 08/16/24 13:05 Pulse Rate 58 L 08/16/24 17:30 Respiratory Rate 18 08/16/24 15:16 Blood Pressure 119/76 08/16/24 17:30 Pulse Oximetry 95 08/16/24 17:30 Oxygen Delivery Me thod Room Air 08/16/24 15:19 MDM - Back Pain/Injury Medical Decision Making Chest x-ray is consistent with COPD. No infiltrates. Thoracic spine x-rays were read by the radiologist. Diffuse joint degenerative changes. No fractures. Patient was given injections of Toradol and morphine for pain in the emergency department. She is feeling better. I did place her on hydrocodone. Recommended she follow-up with her primary care provider for ongoing management. She was discharged in stable condition. Labs Radiology Impressions Chest X-Ray 08/16/24 14:50 IMPRESSION: Pulmonary emphysema. Thoracic Spine X-Ray 08/16/24 14:50 IMPRESSION: There are degenerative changes as described above. No evidence for acute fracture. All radiology interpretation(s) finalized by discharge Discharge Plan Discharge Patient Disposition: Home Clinical Impression: Thoracic back pain Condition: Stable Prescriptions: New hydrocodone-acetaminophen 5-325 mg tablet 1 tab PO Q4H PRN (Reason: pain) Qty: 30 0RF No Action methocarbamol 750 mg tablet 750 mg PO TID Qty: 90 2RF hydrocodone-acetaminophen 5-325 mg tablet 1 tab PO Q8H PRN (Reason: pain) 7 Days Qty: 14 0RF methocarbamol 750 mg tablet 750 mg PO Q8H Qty: 30 0RF prednisone 20 mg tablet 20 mg PO DAILY 5 Days Qty: 15 0RF celecoxib 200 mg capsule 200 mg PO BID Qty: 60 1RF Symbicort 80-4.5 mcg/actuation HFA aerosol inhaler 2 puff INHALATION DAILY Qty: 10.2 2RF levothyroxine 88 mcg tablet 88 mcg PO DAILY Qty: 60 0RF rosuvastatin 40 mg tablet See Rx Instructions .ROUTE .COMPLEX Qty: 90 0RF Dose Instruction: TAKE ONE TABLET BY MOUTH DAILY AT 5PM Rx Instructions: TAKE ONE TABLET BY MOUTH DAILY AT 5PM diazepam [Valium] 5 mg tablet 5 mg PO TID PRN (Reason: muscle spasm) 14 Days Qty: 42 0RF albuterol sulfate 90 mcg/actuation HFA aerosol inhaler See Rx Instructions .ROUTE .COMPLEX Qty: 6.7 11RF Dose Instruction: INHALE TWO PUFFS BY MOUTH EVERY 6 HOURS NEEDED FOR SHORTNESS OF BREATH OR FOR WHEEZING (BULK) Rx Instructions: INHALE TWO PUFFS BY MOUTH EVERY 6 HOURS NEEDED FOR SHORTNESS OF BREATH OR FOR WHEEZING (BULK) prednisone 20 mg tablet 20 mg PO TID Qty: 15 0RF Rx Instructions: 1 p.o. 3 times daily x3 days, 1 p.o. twice daily x2 days, 1 p.o. daily x2 days diclofenac sodium 75 mg tablet,delayed release (DR/EC) 75 mg PO Q12H PRN (Reason: pain) Qty: 20 0RF Discharge Orders: Discharge ED (Routine); Ordered 08/16/24 Ordered By: Wilmar Olmstead Patient Instructions: Opioid Safety, Pain Management Coding Level of Care Code ED Recycling Coordinator for Gavinog Yesi
== END 2024-08-16 17:30 | disposition home or self-care (01) ==
PROVIDERS: Emergency Provider Emergency Medicine
DX: M54.6 Pain in thoracic spine (principal); E78.2 Mixed hyperlipidemia; J44.9 Chronic obstructive pulmonary disease, unspecified
CPT/HCPCS: 71045; 72070; 96372; 99284; J1885; J2270; Q0162

== ENCOUNTER 2025-01-04 12:32 | Inpatient (IN) | payer MEDICARE, SELFPAY ==
[2025-01-04] VITALS (34 sets, daily range): BP systolic 89–132; BP diastolic 60–94; PULSE 52–82; RESP 9–26; TEMP 36.4–37.1; O2SAT 80–100; BMI 20.5
--- NOTE | 2025-01-04 12:40 | ECG_ITS ---
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 Measurements Intervals [place] Rate: 63 P: -14 ID: 122 QRS: -16 QRSD: 80 T: -28 QT: 384 QTc: 396 Interpretive Statements SINUS RHYTHM INFERIOR MYOCARDIAL INFARCTION , OF INDETERMINATE AGE [40+ ms Q WAVE AND/OR ST/T ABNORMALITY IN II/aVF] Compared to ECG 04/06/2022 20:03:39 Myocardial infarct finding now present T-wave abnormality no longer present Electronically Signed On 01-09-2025 18:16:46 FAST FOOD RESTAURANT MANAGER by Juan Smith M.D. [email or web address]
--- NOTE | 2025-01-04 12:40 | XRR_ITS ---
PROCEDURE INFORMATION: Exam: XR Chest Exam date and time: 01/04/2025 12:59 PM Age: 59 years old Clinical indication: Cough and dyspnea; Additional info: Dyspnea/cough TECHNIQUE: Imaging protocol: Radiologic exam of the chest. Views: 1 view. COMPARISON: CR XR chest 1V portable [id number] 08/16/2024 3:17 PM FINDINGS: Lungs: Interval development of patchy alveolar airspace disease in the left lower lobe. Findings are suspicious for pneumonia. Pleural spaces: No pleural effusion. No pneumothorax. Heart/Mediastinum: Stable mild enlargement of the cardiac silhouette. Mediastinal contours are unremarkable. Bones/joints: Degenerative changes in the spine and shoulders. Bones are diffusely osteopenic. Mild dextroscoliosis in the thoracic spine. Postsurgical changes consistent with previous fusion in the lower cervical spine. Osseous findings are stable. XR/XR chest 1V portable [id number] IMPRESSION: 1. Interval development of patchy alveolar airspace disease in the left lower lobe. Findings are suspicious for pneumonia. Recommend followup chest imaging to insure resolution of these findings. 2. Incidental/nonacute findings are listed in the report.
[2025-01-04] MEDS: ondansetron 2 mg/ML SDV 2 mL 4 MG IVP (12:50)
[2025-01-04] MEDS: dexamethasone 10 mg/mL INJ IM (12:50)
[2025-01-04] MEDS: ipratropium-albuterol 3 mL Neb INHALATION ×2 (12:51→19:56)
[2025-01-04 13:01] LABS: ABG PCO2 55.8 mmHg (35-45); ABG PH Result 7.39 (7.35-7.45); Alveolar-Arterial Oxygen Gradi 18.6 mmHg (5-10); Arterial Blood Gas Hematocrit 38.2 % (37-47); Base Excess ABG 7.1 mmol/L (-2.0-2.0); Blood Gas Allen Test Pos; Blood Gas Operator Identificat MONRO; Blood Gas Sample Site Brachial, right; Blood Gas Sample Type Arterial; Carboxyhemoglobin 1.2 %THgb (0.4-20.1); HCO3 ABG 33.7 mmol/L (22-26); HGB O2 Sat 78.8 % (95-100); Ionized Calcium Level - ABG 1.2 mmol/L (1.1-1.4); Methemoglobin 0.5 % (0.4-1.5); Oxygen Device NC; Oxygen Saturation ABG 80.2; PO2 ABG 46.2 mmHg (80.0-100.0); PO2 FiO2 Ratio Arterial Blood 128; Potassium Level - ABG 3.8 mmol/L (3.5-5.0); Total Hemoglobin 12.5 g/dL (12-16)
[2025-01-04 13:09] LABS: Basophils % 0.3 %; Eosinophils # 0.1 10^3/uL (0.0-0.8); Eosinophils % 0.6 %; Hematocrit 39.3 % (36-47); Lymphocytes # 1.4 10^3/uL (0.8-4.8); Mean Corpuscular HGB Conc 33.3 g/dL (30-55); Mean Corpuscular Hemoglobin 34.4 pg (27-33); Mean Corpuscular Volume 103.1 fl (85-98); Mean Platelet Volume 9.8 fL (7.4-10.4); Monocytes # 0.5 10^3/uL (0.2-0.9); Monocytes % 4.9 %; Neutrophils # 8.41 10^3/uL (1.8-7.7); Neutrophils % 80.8 %; Nucleated Red Blood Cells % 0 %; Platelet Count 223 10^3/cmm (157-399); Red Blood Count 3.81 10^6/uL (3.85-5.65); Red Cell Distribution Width 13.2 % (12.1-15.1)
[2025-01-04 13:41] LABS: Alanine Aminotransferase 48 U/L (0-33); Albumin Level 4.4 g/dL (3.5-5.2); Alkaline Phosphatase 79 U/L (35-105); Anion Gap 13.4 (5-19); Aspartate Amino Transferase 58 U/L (0-32); Blood Urea Nitrogen 16 mg/dL (6-20); Calcium 9.4 mg/dL (8.5-10.5); Carbon Dioxide 33 mmol/L (22-29); Chloride 95 mmol/L (98-107); Creatinine Clr Calc Pharmacy 60.5253; Globulin 3.4 g/dL (1.3-4.6); Glomerular Filtration Rate 73.7 mL/min (90-130); Glucose 94 mg/dL (65-115); Osmolality Calculated 285 mOsm/kg (285-295); Potassium 4.4 mmol/L (3.5-5.1); Sodium 137 mmol/L (136-145); Total Bilirubin 0.2 mg/dL (0.15-1.2); Total Protein 7.8 g/dL (6.6-8.7)
[2025-01-04 13:47] LABS: Troponin(5th) Baseline 61 ng/L (0-10)
[2025-01-04] MEDS: AZITHROMYCIN ADD-Vantage 500 MG in 0.9% NaCl ADD-Vantage 250 ML 250 MG IV (13:57)
[2025-01-04] MEDS: cefTRIAXone 1,000 mg SDV 1000 MG IVP (13:57)
[2025-01-04 14:39] LABS: Troponin 5 2HR 47.19 ng/L (0-10)
[2025-01-04 14:40] LABS: ABG PCO2 52.9 mmHg (35-45); ABG PH Result 7.39 (7.35-7.45); Alveolar-Arterial Oxygen Gradi 66.1 mmHg (5-10); Arterial Blood Gas Hematocrit 36.3 % (37-47); Base Excess ABG 5.4 mmol/L (-2.0-2.0); Blood Gas Allen Test Pos; Blood Gas Operator Identificat MONRO; Blood Gas Sample Site Brachial, left; Blood Gas Sample Type Arterial; Carboxyhemoglobin 0.9 %THgb (0.4-20.1); HCO3 ABG 31.7 mmol/L (22-26); HGB O2 Sat 91.1 % (95-100); Ionized Calcium Level - ABG 1.1 mmol/L (1.1-1.4); Methemoglobin 0.5 % (0.4-1.5); Oxygen Device NC; Oxygen Saturation ABG 92.4; PO2 ABG 67.2 mmHg (80.0-100.0); PO2 FiO2 Ratio Arterial Blood 74; Potassium Level - ABG 3.9 mmol/L (3.5-5.0); Total Hemoglobin 11.9 g/dL (12-16)
[2025-01-04 14:41] LABS: Troponin 5 2HR Delta -13.81 ABS# (0-10)
--- NOTE | 2025-01-04 14:41 | ECG_ITS ---
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 Measurements Intervals [place] Rate: 64 P: 76 MN: 118 QRS: 77 QRSD: 73 T: 87 QT: 419 QTc: 435 Interpretive Statements SINUS RHYTHM WITH SHORT MN INTERVAL NONSPECIFIC T-WAVE ABNORMALITY Compared to ECG 01/04/2025 12:57:07 Short MN interval now present T-wave abnormality now present Myocardial infarct finding no longer present Electronically Signed On 01-09-2025 19:49:16 CHARGING PLUG PLACER by Juan Smith M.D. [email or web address]
--- NOTE | 2025-01-04 15:19 | ED_ITS ---
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 Normally does not wear he has had on arrival here she is on oxime mask satting in the upper 80s. She did receive Solu-Medrol and 2 breathing treatments en route with some improvement she denies any chest pain she has had a mildly productive cough and fever myalgias accompanying this as well. She denies any any vomiting but has had some loose stools. Associated symptoms: Reports chest congestion; Deny abdominal pain, chest pain, fever(s), nausea or vomiting Related Data Home Medications ?Medication ?Instructions ?Recorded ?Confirmed albuterol sulfate 90 mcg/actuation 2 puff inhalation Q 6H PRN 01/04/25 01/04/25 aerosol inhaler Shortness Of Breath Or Wheez ing Allergies Allergy/AdvReac Type Severity Reaction Status Date / Time aspirin Allergy hives Verified 08/27/24 13:48 Penicillins Allergy ALGY-Anaphy Verified 08/27/24 13:48 laxis tizanidine Allergy tongue Verified 08/27/24 13:48 swelling tramadol Allergy ALGY-Rash Verified 08/27/24 13:48 Review of Systems 2 Const: Denies: fever(s) or chills Card: Denies: chest pain Resp: Reports: dyspnea, non-productive cough, wheezing and chest congestion GI: Reports: diarrhea; Denies: abdominal pain, nausea or vomiting : Denies: dysuria, urinary frequency or urinary urgency Musc: Denies: neck pain or back pain Skin/Breast: Denies: rash PFSH ED 2 PFSH: Medical History (Updated 01/08/25 @ 13:00 by Matt Montano DO) 3 para 2 Smoker decreased to 1/2 ppd 09/03/2023 Chronic neck and back pain Insomnia Bipolar 1 disorder, mixed, mild Mixed dyslipidemia Generalized anxiety disorder Acquired hypothyroidism History of Graves' disease Fibromyalgia COPD (chronic obstructive pulmonary disease) Surgical History (Updated 01/04/25 @ 20:01 by Alanna Bo MD) History of carpal tunnel release right History of hernia repair History of thyroidectomy and thyroid ablation History of tubal ligation History of cervical spinal surgery C5/6 fusion Family History Mother Lung disease Psychiatric illness Father Psychiatric illness Other Stroke Denies family history of Diabetes CAD (coronary artery disease) Dementia Hyperlipidemia Chronic kidney disease (CKD) Suicide Anesthesia complication Bleeding disorder Family history of premature coronary artery disease Cancer Hypertension Social History (Updated 01/04/25 @ 19:49 by Alanna Bo MD) Smoking and tobacco/nicotine status: current every day tobacco/nicotine user cigarettes [ Other cigarette details: Half pack a day] Quit status (tobacco/nicotine): has tried quititng Alcohol intake: never Substance/Drug Use: current Substance/Drug use frequency: daily Substance/Drug use type: Marijuana Adopted: No Lives independently: Yes Household members: spouse, children and other Details: 3 grandchilden Housing: House Marital status: Number of children: 2 Number of grandchildren: 6 Highest education level completed: High School Graduate service: No Current occupational status: disabled Leisure activites: other Leisure activities details: swimming, playing w/ kids Agree to transfusion: Yes Female Reproductive History: Spontaneous abortions: No Physical Exam 2 Const: COMMON NORMALS: no acute distress GENERAL APPEARANCE: cooperative and comfortable ORIENTATION/CONSCIOUSNESS: Yes awake, Yes oriented to person, Yes oriented to place and Yes oriented to time HENMT: COMMON NORMALS: normocephalic, atraumatic and hearing grossly normal bilaterally HEAD & SCALP: normocephalic and atraumatic Resp: EFFORT & INSPECTION: Yes tachypneic, Yes respiratory distress and Yes uses accessory muscles AUSCULTATION: rhonchi, wheezes and diminished lung sounds Cardio: COMMON NORMALS: regular rate, regular rhythm and No murmurs present (Cardio) RATE: regular rate RHYTHM: regular rhythm GI: COMMON NORMALS: Soft to palpation and No hepatosplenomegaly present A USCULTATION: Yes normoactive bowel sounds PALPATION: Yes Soft to palpation, No Tenderness to palpation present (GI), No Guarding due to palpation present (GI) and Yes No hepatosplenomegaly present Extremity: COMMON NORMALS: normal to inspection, capillary refill normal, no clubbing, cyanosis or edema, no calf tenderness and no pedal edema Neuro: SENSORIUM/ORIENTATION: Yes oriented to person, Yes oriented to place and Yes oriented to time Skin: COMMON NORMALS: no rashes or lesions noted GENERAL SKIN EXAM: no rashes or lesions noted Course 2 Vital Signs: Vital signs: Vital Signs Temperature 98.7 F 01/08/25 08:06 Pulse Rate 65 01/08/25 08:06 Respiratory Rate 21 H 01/08/25 08:06 Blood Pressure 149/84 01/08/25 08:06 Pulse Oximetry 95 01/08/25 08:06 Oxygen Delivery Me thod Nasal Cannula 01/08/25 08:06 Oxygen Flow Rate 10 01/08/25 08:06 Fraction of Inspir ed Oxygen 51 01/07/25 10:00 MDM - SOB/Dyspnea Medical Decision Making Respiratory distress with exacerbation of COPD and hypoxia caused by RSV. Discussed with hospitalist will admit started on antibiotics for secondary infection aggressive pulmonary toilet. Medical Records I reviewed the patient's medical records. Lab Data I reviewed the patient's lab results. 01/08/25 04:30 01/08/25 04:30 Labs/Radiology: Radiology Impressions Chest X-Ray 01/04/25 12:40 IMPRESSION: 1. Interval development of patchy alveolar airspace disease in the left lower lobe. Findings are suspicious for pneumonia. Recommend followup chest imaging to insure resolution of these findings. 2. Incidental/nonacute findings are listed in the report. Chest CTA 01/04/25 20:06 IMPRESSION: 1. Negative for pulmonary artery embolism. 2. Nonspecific bronchial inflammatory changes. Consider bronchitis, multifocal pneumonia, aspiration not excluded. COMMENTS: The presence of pulmonary emphysema on CT is an independent risk factor for lung cancer. In the absence of a history or active diagnosis of lung cancer, it is recommended that this patient with emphysema be evaluated for enrollment in a low dose CT lung cancer screening program. Laboratory Results WBC 10.40 10^3/uL (3.29-11.43) 01/04/25 12:03 RBC 3.81 10^6/uL (3.85-5.65) L 01/04/25 12:03 Hgb 13.10 g/dL (11.27-16.99) 01/04/25 12:03 Hct 39.3 % (36-47) 01/04/25 12:03 MCV 103.1 fl (85-98) H 01/04/25 12:03 MCH 34.4 pg (27-33) H 01/04/25 12:03 MCHC 33.3 g/dL (30-55) 01/04/25 12:03 RDW 13.2 % (12.1-15.1) 01/04/25 12:03 Plt Count 223 10^3/cmm (157-399) 01/04/25 12:03 MPV 9.8 fL (7.4-10.4) 01/04/25 12:03 Neut % (Auto) 80.8 % 01/04/25 12:03 Lymph % (Auto) 13.0 % 01/04/25 12:03 Ceiba % (Auto) 4.9 % 01/04/25 12:03 Eos % (Auto) 0.6 % 01/04/25 12:03 Baso % (Auto) 0.3 % 01/04/25 12:03 Neut # (Auto) 8.41 10^3/uL (1.8-7.7) H 01/04/25 12:03 Lymph # (Auto) 1.4 10^3/uL (0.8-4.8) 01/04/25 12:03 Ceiba # (Auto) 0.5 10^3/uL (0.2-0.9) 01/04/25 12:03 Eos # (Auto) 0.1 10^3/uL (0.0-0.8) 01/04/25 12:03 Baso # (Auto) 0.0 10^3/uL (0.0-0.1) 01/04/25 12:03 Nucleated RBC % (auto) 0 % 01/04/25 12:03 Nucleated RBCs # 0.0 /100WBC 01/04/25 12:03 Specimen Type Arterial 01/04/25 12:48 Sample Site Brachial, right 01/04/25 12:48 ABG pH 7.39 (7.35-7.45) 01/04/25 12:48 ABG pCO2 55.8 mmHg (35-45) H 01/04/25 12:48 ABG pO2 46.2 mmHg (80.0-100.0) L 01/04/25 12:48 ABG PO2/FiO2 Ratio 128 01/04/25 12:48 ABG HCO3 33.7 mmol/L (22-26) H 01/04/25 12:48 ABG O2 Saturation 80.2 01/04/25 12:48 ABG Base Excess 7.1 mmol/L (-2.0-2.0) H 01/04/25 12:48 Chris Test Pos 01/04/25 12:48 A-a O2 Gradient 18.6 mmHg (5-10) H 01/04/25 12:48 Hematocrit 38.2 % (37-47) 01/04/25 12:48 Hgb O2 Saturation 78.8 % (95-100) L 01/04/25 12:48 Carboxyhemoglobin 1.2 %THgb (0.4-20.1) 01/04/25 12:48 Methemoglobin 0.5 % (0.4-1.5) 01/04/25 12:48 Total Hemoglobin 12.5 g/dL (12-16) 01/04/25 12:48 Sodium 141.0 mmol/L (131-143) 01/04/25 12:48 Potassium 3.8 mmol/L (3.5-5.0) 01/04/25 12:48 Glucose 94.0 mg/dL (70-115) 01/04/25 12:48 Ionized Calcium 1.2 mmol/L (1.1-1.4) 01/04/25 12:48 O2 Delivery Device Nc 01/04/25 12:48 O2 Liters/Min 4.0 % 01/04/25 12:48 FiO2 36.0 % 01/04/25 12:48 Welding Machine Operator Gas Metal Arc ID [place] 01/04/25 12:48 Sodium 137 mmol/L (136-145) 01/04/25 12:03 Potassium 4.4 mmol/L (3.5-5.1) 01/04/25 12:03 Chloride 95 mmol/L (98-107) L 01/04/25 12:03 Carbon Dioxide 33 mmol/L (22-29) H 01/04/25 12:03 Anion Gap 13.4 (5-19) 01/04/25 12:03 BUN 16 mg/dL (6-20) 01/04/25 12:03 Creatinine 0.8 mg/dL (0.5-0.9) 01/04/25 12:03 GFR Calculation 73.7 mL/min (90-130) L 01/04/25 12:03 Glucose 94 mg/dL (65-115) 01/04/25 12:03 Calculated Osmolality 285 mOsm/kg (285-295) 01/04/25 12:03 Calcium 9.4 mg/dL (8.5-10.5) 01/04/25 12:03 Total Bilirubin 0.2 mg/dL (0.15-1.2) 01/04/25 12:03 AST 58 U/L (0-32) H 01/04/25 12:03 ALT 48 U/L (0-33) H 01/04/25 12:03 Alkaline Phosphatase 79 U/L (35-105) 01/04/25 12:03 Troponin T Baseline 61 ng/L (0-10) H 01/04/25 12:03 Troponin T 120 Minute 47.19 ng/L (0-10) H 01/04/25 14:11 Delta Troponin T -13.81 ABS# (0-10) L 01/04/25 14:11 Total Protein 7.8 g/dL (6.6-8.7) 01/04/25 12:03 Albumin 4.4 g/dL (3.5-5.2) 01/04/25 12:03 Globulin 3.4 g/dL (1.3-4.6) 01/04/25 12:03 All radiology interpretation(s) finalized by discharge Discharge Plan Discharge Patient Disposition: Admitted As Inpatient Admit Provider: Alanna Bo Clinical Impression: Acute hypoxic respiratory failure, COPD (chronic obstructive pulmonary disease), Respiratory syncytial virus (RSV) as cause of acute bronchitis, Pneumonia, Elevated troponin Condition: Stable Coding Level of Care Code ED Lead Data Architect for Hannah Key
--- NOTE | 2025-01-04 16:00 | P.HP_ITS ---
Providers/Chief Complaint 2 Admitting Physician: Alanna Bo MD Primary Care Provider: No primary care provider presently; she has had multiple no-shows at multiple providers affiliated with [facility] in the past Chief Complaint: respiratory distress History of Present Illness Nola Mcguire is a 59 year old female who presented to the emergency room with chief complaint of difficulty breathing. Symptoms began 2 days ago. Initial symptom was a cough. She feels like she needs to cough something up but has not been getting anything up. No blood has been noted. Cough is progressively worsened over the past 2 days. She initially had some subjective fevers. She has been very short of breath. She has been using albuterol inhaler without much improvement in her symptoms. Has not been on any recent antibiotics or steroids. Does not currently have a primary care provider. She was brought in by EMS. She had significant distress with oxygen saturations reported to be in the 60s to 70s at home. She received Solu-Medrol, DuoNeb and an additional albuterol treatment and route. She is not normally on oxygen. On arrival here she was satting in the low 80s on 4 L by nasal cannula. She was subsequently switched over to heated high flow at 45 flow rate and 90% FiO2 with improvement in her oxygen saturations. Second ABG was improved though still requiring high FiO2. The hospitalist were called for admission to the intensive care unit. She received dexamethasone in the ER along with ceftriaxone and azithromycin. She has not had any recent healthcare contact. Chest x-ray showed left lower lobe opacity concerning for early pneumonia. Viral testing revealed RSV positivity. She is not sure that she necessarily feels better at the moment but she does not feel that her breathing is any worse. No reports of chest pain. Has only been hospitalized 1 prior time for breathing difficulties. Never required intubation or other assisted respiratory care be on supplemental oxygen that 1 time. She does continue to smoke about a half a pack of cigarettes a day. Review of Systems 2 General: Reports: Other (ROS as per HPI or as otherwise noted here) Const: Reports: fever(s) (Subjective), chills, fatigue and malaise; Denies: change in weight ENMT: Reports: hoarseness and nasal congestion; Denies: throat pain Card: Reports: palpitations and dyspnea on exertion; Denies: chest pain, edema or orthopnea Resp: Reports: dyspnea, non-productive cough, wheezing and chest congestion; Denies: hemoptysis GI: Reports: nausea and diarrhea; Denies: abdominal pain, vomiting, constipation or hematochezia : Denies: difficulty voiding Musc: Reports: neck pain, back pain and other (Muscle aches) Skin/Breast: Denies: rash Neuro: Reports: headache(s); Denies: weakness in extremities or sensory changes Endo: Reports: other (Has been out of her thyroid medication for quite some time) Isaac/Lymph: Denies: easy bleeding Medications/Allergies Home Medications ?Medication ?Instructions ?Recorded ?Confirmed ?Last Taken ?Type albuterol sulfate 90 mcg/actuation 2 puff inhalation Q 6H PRN 01/04/25 01/04/25 Unknown History aerosol inhaler Shortness Of Breath Or Wheez ing Allergies Allergy/AdvReac Type Severity Reaction Status Date / Time aspirin Allergy hives Verified 08/27/24 13:48 Penicillins Allergy ALGY-Anaphy Verified 08/27/24 13:48 laxis tizanidine Allergy tongue Verified 08/27/24 13:48 swelling tramadol Allergy ALGY-Rash Verified 08/27/24 13:48 PFSH Acute 2 PFSH: Medical History (Updated 01/04/25 @ 20:33 by Alanna Bo MD) 3 para 2 Smoker decreased to 1/2 ppd 09/03/2023 Chronic neck and back pain Insomnia Bipolar 1 disorder, mixed, mild Mixed dyslipidemia Generalized anxiety disorder Acquired hypothyroidism History of Graves' disease Fibromyalgia COPD (chronic obstructive pulmonary disease) Surgical History (Updated 01/04/25 @ 20:01 by Alanna Bo MD) History of carpal tunnel release right History of hernia repair History of thyroidectomy and thyroid ablation History of tubal ligation History of cervical spinal surgery C5/6 fusion Family History Mother Lung disease Psychiatric illness Father Psychiatric illness Other Stroke Denies family history of Diabetes CAD (coronary artery disease) Dementia Hyperlipidemia Chronic kidney disease (CKD) Suicide Anesthesia complication Bleeding disorder Family history of premature coronary artery disease Cancer Hypertension Social History (Updated 01/04/25 @ 19:49 by Alanna Bo MD) Smoking and tobacco/nicotine status: current every day tobacco/nicotine user cigarettes [ Other cigarette details: Half pack a day] Quit status (tobacco/nicotine): has tried quititng Alcohol intake: never Substance/Drug Use: current Substance/Drug use frequency: daily Substance/Drug use type: Marijuana Adopted: No Lives independently: Yes Household members: spouse, children and other Details: 3 grandchilden Housing: House Marital status: Number of children: 2 Number of grandchildren: 6 Highest education level completed: High School Graduate service: No Current occupational status: disabled Leisure activites: other Leisure activities details: swimming, playing w/ kids Agree to transfusion: Yes Female Reproductive History: Spontaneous abortions: No Vitals/I&O/Wt Last Vital Signs Temp 97.5 F L 01/04/25 12:33 Pulse 82 01/04/25 15:03 Resp 14 01/04/25 13:42 BP 114/78 01/04/25 15:03 Pulse Ox 96 01/04/25 15:03 O2 Del Method Heated High Flow 01/04/25 15:07 O2 Flow Rate 45 01/04/25 13:42 FiO2 90 01/04/25 13:20 01/04/25 01/04/25 01/04/25 06:59 14:59 22:59 Intake Total 250 / 250 Balance 250 / 250 Weight last 48 hrs Weight 51 kg Weight 49.895 kg Physical Exam 2 Narrative: Patient is asleep, easily arousable. Looks acutely ill. Heated high flow oxygen cannula in place though noted to be mouth breathing when asleep. Maintaining saturations but remains on 90% FiO2. Proptosis noted bilaterally. Pupils are equally round and reactive to light. Extraocular movements are intact. No double vision. Nasopharynx not evaluated. Oropharynx with dry membranes. Neck is supple. Audible wheezing. No rhonchi noted but difficult to hear. Tachypneic with conversation. Supraclavicular retractions with conversation, had some intercostal retractions with sleep. No sputum production during evaluation. Regular rate and rhythm. Heart sounds difficult to hear due to the degree of wheezing. Pulses are equal x 4 with brisk capillary refill. Abdomen is soft, nontender with positive bowel sounds. Extremities no pitting edema or calf tenderness. Moves all extremities. Oriented to person, place and situation. Normal affect, cooperative. Data 01/04/25 12:03 01/04/25 12:03 Other Labs: Radiology Impressions Chest X-Ray 01/04/25 12:40 IMPRESSION: 1. Interval development of patchy alveolar airspace disease in the left lower lobe. Findings are suspicious for pneumonia. Recommend followup chest imaging to insure resolution of these findings. 2. Incidental/nonacute findings are listed in the report. Laboratory Results WBC 10.40 10^3/uL (3.29-11.43) 01/04/25 12:03 RBC 3.81 10^6/uL (3.85-5.65) L 01/04/25 12:03 Hgb 13.10 g/dL (11.27-16.99) 01/04/25 12:03 Hct 39.3 % (36-47) 01/04/25 12:03 MCV 103.1 fl (85-98) H 01/04/25 12:03 MCH 34.4 pg (27-33) H 01/04/25 12:03 MCHC 33.3 g/dL (30-55) 01/04/25 12:03 RDW 13.2 % (12.1-15.1) 01/04/25 12:03 Plt Count 223 10^3/cmm (157-399) 01/04/25 12:03 MPV 9.8 fL (7.4-10.4) 01/04/25 12:03 Neut % (Auto) 80.8 % 01/04/25 12:03 Lymph % (Auto) 13.0 % 01/04/25 12:03 [place] % (Auto) 4.9 % 01/04/25 12:03 Eos % (Auto) 0.6 % 01/04/25 12:03 Baso % (Auto) 0.3 % 01/04/25 12:03 Neut # (Auto) 8.41 10^3/uL (1.8-7.7) H 01/04/25 12:03 Lymph # (Auto) 1.4 10^3/uL (0.8-4.8) 01/04/25 12:03 [place] # (Auto) 0.5 10^3/uL (0.2-0.9) 01/04/25 12:03 Eos # (Auto) 0.1 10^3/uL (0.0-0.8) 01/04/25 12:03 Baso # (Auto) 0.0 10^3/uL (0.0-0.1) 01/04/25 12:03 Nucleated RBC % (auto) 0 % 01/04/25 12:03 Nucleated RBCs # 0.0 /100WBC 01/04/25 12:03 Specimen Type Arterial 01/04/25 14:27 Sample Site Brachial, left 01/04/25 14:27 ABG pH 7.39 (7.35-7.45) 01/04/25 14:27 ABG pCO2 52.9 mmHg (35-45) H 01/04/25 14:27 ABG pO2 67.2 mmHg (80.0-100.0) L 01/04/25 14:27 ABG PO2/FiO2 Ratio 74 01/04/25 14:27 ABG HCO3 31.7 mmol/L (22-26) H 01/04/25 14:27 ABG O2 Saturation 92.4 01/04/25 14:27 ABG Base Excess 5.4 mmol/L (-2.0-2.0) H 01/04/25 14:27 Chris Test Pos 01/04/25 14:27 A-a O2 Gradient 66.1 mmHg (5-10) H 01/04/25 14:27 Hematocrit 36.3 % (37-47) L 01/04/25 14:27 Hgb O2 Saturation 91.1 % (95-100) L 01/04/25 14:27 Carboxyhemoglobin 0.9 %THgb (0.4-20.1) 01/04/25 14:27 Methemoglobin 0.5 % (0.4-1.5) 01/04/25 14:27 Total Hemoglobin 11.9 g/dL (12-16) L 01/04/25 14:27 Sodium 140.0 mmol/L (131-143) 01/04/25 14:27 Potassium 3.9 mmol/L (3.5-5.0) 01/04/25 14:27 Glucose 123.0 mg/dL (70-115) H 01/04/25 14:27 Ionized Calcium 1.1 mmol/L (1.1-1.4) 01/04/25 14:27 O2 Delivery Device Nc 01/04/25 14:27 O2 Liters/Min 45.0 % 01/04/25 14:27 FiO2 90.0 % 01/04/25 14:27 Drier Transfer Car Operator ID Kimberli 01/04/25 14:27 Sodium 137 mmol/L (136-145) 01/04/25 12:03 Potassium 4.4 mmol/L (3.5-5.1) 01/04/25 12:03 Chloride 95 mmol/L (98-107) L 01/04/25 12:03 Carbon Dioxide 33 mmol/L (22-29) H 01/04/25 12:03 Anion Gap 13.4 (5-19) 01/04/25 12:03 BUN 16 mg/dL (6-20) 01/04/25 12:03 Creatinine 0.8 mg/dL (0.5-0.9) 01/04/25 12:03 GFR Calculation 73.7 mL/min (90-130) L 01/04/25 12:03 Glucose 94 mg/dL (65-115) 01/04/25 12:03 Calculated Osmolality 285 mOsm/kg (285-295) 01/04/25 12:03 Calcium 9.4 mg/dL (8.5-10.5) 01/04/25 12:03 Total Bilirubin 0.2 mg/dL (0.15-1.2) 01/04/25 12:03 AST 58 U/L (0-32) H 01/04/25 12:03 ALT 48 U/L (0-33) H 01/04/25 12:03 Alkaline Phosphatase 79 U/L (35-105) 01/04/25 12:03 Troponin T Baseline 61 ng/L (0-10) H 01/04/25 12:03 Troponin T 120 Minute 47.19 ng/L (0-10) H 01/04/25 14:11 Delta Troponin T -13.81 ABS# (0-10) L 01/04/25 14:11 Total Protein 7.8 g/dL (6.6-8.7) 01/04/25 12:03 Albumin 4.4 g/dL (3.5-5.2) 01/04/25 12:03 Globulin 3.4 g/dL (1.3-4.6) 01/04/25 12:03 A&P Assessment and plan (1) Acute hypoxic respiratory failure: As evidenced by degree of hypoxemia noted both in the field and on initial ABG here where PaO2 was in the 40s. With initiation of high flow oxygen at high FiO2 PaO2 has improved though still not within typically normal range. Does have hypercapnia though I suspect that that is likely chronic to some degree. At high risk of progressively worsening respiratory status based on initial presentation differential includes RSV, bacterial pneumonia and do have to also keep in mind thromboembolic disease. AA gradient is elevated though may be in relation to the degree of hypoxemia she had at initial presentation. She has a downward trend of cardiac enzymes but unremarkable EKGs beyond low voltage. Suspect type II process given available information. Unclear at this point in time how untreated hypothyroidism or other medical conditions may be contributing to current presentation. - ICU level care given severity of respiratory status - Continue heated high flow oxygen - Monitor respiratory status closely with low threshold to switch to noninvasive ventilation if needed - Reviewed with patient that intubation with mechanical ventilation is still a possibility should she have any acute worsening - Will repeat ABGs today and again in the morning - CTA of the chest to evaluate given elevated Aa gradient and possible history of blood clots in the past - Systemic steroids with oral prednisone if able to take by mouth versus IV Solu-Medrol - Scheduled and as needed breathing treatments including inhaled steroids - Will continue Rocephin and azithromycin initiated in the emergency room given left shift (2) Respiratory syncytial virus (RSV) as cause of acute bronchitis: Viral pneumonia also within the differential - Breathing treatments - Flutter device - Guaifenesin - Supportive care (3) Pneumonia: Left lower lobe, may be viral related to RSV or secondary bacterial infection. At this point, organism unknown. - Given severity of presentation, antibiotics started - Blood cultures not done before initiation of antibiotics (4) COPD (chronic obstructive pulmonary disease): Acute exacerbation related to RSV and/or pneumonia - Management as noted above Qualifiers: COPD type: COPD with acute exacerbation Qualified Code(s): J44.1 - Chronic obstructive pulmonary disease with (acute) exacerbation (5) Elevated troponin: With downward trend noted. Given degree of hypoxemia at presentation, suspect demand ischemia, type II process with improvement over time. Has had significant difficulty breathing x 2 days. That said, the has had significant elevations in lipid panel lst few times checked. No known CAD. - Continue serial cardiac enzymes - Echo - Statin and plavix, aspirin allergy (6) Acquired hypothyroidism: History of Graves' disease with thyroid ablation and thyroidectomy. Off of thyroid medication for some time due to not having a primary care provider/missed appointments. Has obvious proptosis on examination. - Check TSH - Will start levothyroxine at 25 mcg daily; had been on 88 mcg daily when last prescribed/filled which appears to have been sometime ago (7) Mixed dyslipidemia: Previously on statin therapy. Last time lipid panels have been checked total cholesterol has been around 300. Not on treatment for unclear timeframe but suspect for quite a while. - Check lipid panel - Resume statin therapy with formulary equivalent, had been on Crestor in the past outpatient (8) Chronic neck and back pain: Previously prescribed narcotics in the outpatient setting but has been off for some time. Has been prescribed several different NSAIDs and medications for muscle relaxers in the past. - Supportive care, trying to minimize narcotics as able (9) Smoker: Longtime smoker both tobacco and daily marijuana - Nicotine patch if needed Plan - Macrocystosis, no reported history of ETOH use, will check b12 and folate - eGFR at 73.7, BUN/Cr not - Records indicate a history of generalized anxiety disorder and bipolar disorder type I though not on any chronic medications for such and with normal affect today. Symptoms suggesting these diagnoses may have been related to substance use both prescribed and nonprescribed but not apparent at this moment in time. Inpatient admission Case management for assistance with discharge planning given challenges around primary care provider follow-up VTE prophylaxis: Lovenox GI Prophylaxis: PPI Antibiotics: Azithromycin initiated 01/04/2025, Rocephin initiated 01/04/2025 Pending studies: TSH, lipid panel Telemetry: Ordered secondary to respiratory status Collazo: not currently indicated Line(s): peripheral IVs Disposition plan: Home with outpatient follow up anticipated though review of records shows that she has been dismissed by several physicians due to repeated no-shows. Does not currently have a primary care provider and has not been on needed medications. Recommend utilizing meds to beds at the time of discharge which patient seems agreeable to consider. Code Status: Full Code Supportive care otherwise Findings, concerns and plans were discussed with patient and she was given an opportunity to ask questions PDMP PDMP Reviewed: Last Reviewed 01/04/25 19:43 by Alanna Bo MD Attestations 2 Medical Necessity Statement*: Anticipated stay greater than two midnights in this patient who is requiring significant respiratory support with 90% FiO2 at a flow rate of 45 and may very well end up requiring noninvasive ventilation overnight. She is RSV positive and has evidence of pneumonia. Left shift is concerning for secondary bacterial pneumonia rather than just viral process. Additionally she has elevated troponins which I suspect is due to demand ischemia as well as an elevated AA gradient and possible history of pulmonary emboli in the past. Workup and management for these and other acute issues as noted above. Currently at high risk of rapid clinical decline. Diagnoses Acute hypoxic respiratory failure J96.01 Respiratory syncytial virus (RSV) as cause of acute bronchitis J20.5 Pneumonia J18.9 Chronic obstructive pulmonary disease with acute exacerbation J44.1 COPD type: COPD with acute exacerbation Elevated troponin R79.89 Acquired hypothyroidism E03.9 Mixed dyslipidemia E78.2 Chronic neck and back pain M54.2; M54.9; G89.29 Smoker F17.200
[2025-01-04 16:03] LABS: Influenza A NEGATIVE (Negative); Influenza B NEGATIVE (Negative); SARS-CoV-2 PCR NEGATIVE (Negative)
[2025-01-04 16:13] LABS: Respiratory Syncytial Virus Ce POSITIVE (Negative)
[2025-01-04] MEDS: enoxaparin 40 mg/0.4 mL Syringe SUBCUT (16:27)
--- NOTE | 2025-01-04 17:09 | ECG_ITS ---
[facility] BAG Test Date: 2025-01-04 Pat Name: Nola Mcguire Department: Room: ICU01 Gender: Female Sociology Adjunct Instructor: : 1965 Requested By: Matt Griffith Order Number: [id number] Brandon MD: Juan Smith M.D. Measurements Intervals [place] Rate: 57 P: 84 [place]: 152 QRS: 60 QRSD: 86 T: 92 QT: 421 QTc: 413 Interpretive Statements SINUS BRADYCARDIA NONSPECIFIC ST & T-WAVE ABNORMALITY Compared to ECG 01/04/2025 15:03:16 Sinus rhythm no longer present Short [place] interval no longer present T-wave abnormality still present Electronically Signed On 01-09-2025 19:47:44 ENVIRONMENTAL HEALTH OFFICER by Juan Smith M.D. [email or web address]
[2025-01-04] MEDS: docusate sodium 100 mg Capsule PO (17:24)
[2025-01-04] MEDS: budesonide 0.5 mg/2 mL Neb INHALATION (19:56)
--- NOTE | 2025-01-04 20:06 | CTR_ITS ---
PROCEDURE INFORMATION: Exam: CTA Chest With Contrast Exam date and time: 01/05/2025 5:08 AM Age: 59 years old Clinical indication: Abnormal findings; Abnormal diagnostic tests; Abnormal wbc; Shortness of breath; Prior surgery; Surgery date: 6+ months; Surgery type: Cervical fusion. Thyroidectomy; SOB with hypoxemia. Moderately elevated aa gradient. History of pulmonary embolisim. Rsv positive. ; Additional info: Elevated aa gradient, hypoxemia, rsv positive and May have lll pneumonia but aa gradient TECHNIQUE: Imaging protocol: Computed tomographic angiography of the chest with contrast. Exam focused on the arteries. 3D rendering (Not supervised by radiologist): MIP and/or 3D reconstructed images were created by the technologist. Radiation optimization: All CT scans at this facility use at least one of these dose optimization techniques: automated exposure control; mA and/or kV adjustment per patient size (includes targeted exams where dose is matched to clinical indication); or iterative reconstruction. Contrast material: OMNI 350; Contrast volume: 65 ml; Contrast route: INTRAVENOUS (IV); COMPARISON: CT angio chest w abd pel w con 04/06/2022 6:42 PM RADIATION DOSE METRICS: Total DLP (mGy-cm): 176.2 FINDINGS: Pulmonary arteries: Normal. No pulmonary emboli. Aorta: Unremarkable. No aortic aneurysm. No aortic dissection. Lungs: Pulmonary hyperinflation. Emphysematous lung disease. Bronchial wall thickening. Scattered poorly defined ground-glass foci within posterior left upper lobe and scattered throughout bilateral lower lobes. Lower lobe segmental and subsegmental level endobronchial secretions with mild volume loss. Streaky peribronchial opacities. Subsegmental atelectasis peripherally in the posteroinferior lower lobes. Negative for peripheral honeycombing. Pleural spaces: Unremarkable. No pneumothorax. No pleural effusion. Heart: Unremarkable. No cardiomegaly. No pericardial effusion. Lymph nodes: Unremarkable. No enlarged lymph nodes. Bones/joints: Unremarkable. No acute fracture. Soft tissues: Unremarkable. CT/CT angio chest PE protcl [id number] IMPRESSION: 1. Negative for pulmonary artery embolism. 2. Nonspecific bronchial inflammatory changes. Consider bronchitis, multifocal pneumonia, aspiration not excluded. COMMENTS: The presence of pulmonary emphysema on CT is an independent risk factor for lung cancer. In the absence of a history or active diagnosis of lung cancer, it is recommended that this patient with emphysema be evaluated for enrollment in a low dose CT lung cancer screening program.
[2025-01-04 20:07] LABS: ABG PH Result 7.42 (7.35-7.45); Arterial Blood Gas Hematocrit 37.7 % (37-47); Base Excess ABG 5.5 mmol/L (-2.0-2.0); Blood Gas Allen Test Pos; Blood Gas Sample Type Arterial
[2025-01-04 20:08] LABS: Blood Gas Operator Identificat ED; Blood Gas Sample Site Radial, left; PO2 FiO2 Ratio Arterial Blood 127
[2025-01-04] MEDS: atorvastatin 40 mg Tablet 20 MG PO (21:01)
[2025-01-04 22:24] LABS: Troponin 5 6HR 39.07 ng/L (0-10)
[2025-01-04 22:25] LABS: Troponin 5 6HR Delta -21.93 ng/L (0-12)
[2025-01-05] VITALS (85 sets, daily range): BP systolic 92–146; BP diastolic 60–89; PULSE 46–71; RESP 8–24; TEMP 36–37.2; O2SAT 82–100
[2025-01-05] MEDS: ipratropium-albuterol 3 mL Neb INHALATION ×4 (02:03→20:04)
[2025-01-05 03:56] LABS: ABG PCO2 55.2 mmHg (35-45); ABG PH Result 7.39 (7.35-7.45); Arterial Blood Gas Hematocrit 37.7 % (37-47); Base Excess ABG 6.6 mmol/L (-2.0-2.0); Blood Gas Allen Test Pos; Blood Gas Sample Type Arterial; HCO3 ABG 33.1 mmol/L (22-26); PO2 ABG 88.5 mmHg (80.0-100.0)
[2025-01-05 03:57] LABS: Blood Gas Operator Identificat ED; Blood Gas Sample Site Radial, left; Oxygen Device BIPAP; PO2 FiO2 Ratio Arterial Blood 98
[2025-01-05 04:37] LABS: Basophils % 0.1 %; Hematocrit 35.9 % (36-47); Lymphocytes # 1.2 10^3/uL (0.8-4.8); Mean Corpuscular Hemoglobin 33.5 pg (27-33); Mean Corpuscular Volume 104.7 fl (85-98); Mean Platelet Volume 9.6 fL (7.4-10.4); Monocytes # 0.2 10^3/uL (0.2-0.9); Monocytes % 1.9 %; Neutrophils % 86.6 %; Nucleated Red Blood Cells % 0 %; Platelet Count 211 10^3/cmm (157-399); Red Blood Count 3.43 10^6/uL (3.85-5.65); White Blood Count 10.97 10^3/uL (3.29-11.43)
[2025-01-05 04:59] LABS: Alanine Aminotransferase 44 U/L (0-33); Albumin Level 4.1 g/dL (3.5-5.2); Alkaline Phosphatase 85 U/L (35-105); Anion Gap 15.4 (5-19); Aspartate Amino Transferase 51 U/L (0-32); Blood Urea Nitrogen 15 mg/dL (6-20); Calcium 9.2 mg/dL (8.5-10.5); Carbon Dioxide 31 mmol/L (22-29); Chloride 96 mmol/L (98-107); Creatinine Clr Calc Pharmacy 54.2756; Globulin 3.4 g/dL (1.3-4.6); Glomerular Filtration Rate 64.3 mL/min (90-130); Glucose 119 mg/dL (65-115); Magnesium 2.3 mg/dL (1.7-2.3); Osmolality Calculated 288 mOsm/kg (285-295); Potassium 4.4 mmol/L (3.5-5.1); Sodium 138 mmol/L (136-145); Total Bilirubin 0.2 mg/dL (0.15-1.2); Total Protein 7.5 g/dL (6.6-8.7)
[2025-01-05 05:13] LABS: Folate Level 9.2 ng/mL (4.8-37.3); Vitamin B12 655 pg/mL (232-1245)
[2025-01-05] MEDS: iohexol 350 mg/mL 500 mL Btl (per mL) IV (05:15)
[2025-01-05] MEDS: levothyroxine 25 mcg Tablet PO (05:54)
--- NOTE | 2025-01-05 06:00 | USCV_ITS ---
Nola Mcguire Age: 59 Gender: F : 1965 Exam Date: 01/05/2025 00:41 Ordering Phys: Alanna Bo MD Technologist: JIMMY Exam Location: [facility] Indication: elevated troponins, downard trend, SOB, hypoxia in 60s and 70s. BP: 110 / 60 HR: 49 Rhythm: Sinus bradycardia Technical Quality: Adequate MEASUREMENTS (Male / Female) Normal Values 2D ECHO LV Diastolic Diameter PLAX 3.5 cm 4.2 - 5.9 / 3.9 - 5.3 cm IVS Diastolic Thickness 1.2 cm 0.6 - 1.0 / 0.6 - 0.9 cm IVS Systolic Thickness 1.2 cm LVPW Diastolic Thickness 1.3 cm 0.6 - 1.0 / 0.6 - 0.9 cm LVPW Systolic Thickness 1.3 cm LVOT Diameter 1.7 cm LV Ejection Fraction 2D Teich 56.5 % LV Ejection Fraction MOD 4C 61.2 % LV Ejection Fraction MOD 2C 72.7 % LV Ejection Fraction 2C AL 74.6 % LA Diameter 2.5 cm Aorta at Sinotubular Diameter 2.2 cm IVC Diameter 1.0 cm M-MODE LA Ao Ratio MM 0.8 AV Cusp Separation MM 1.5 cm DOPPLER AV Peak Velocity 125.0 cm/s LVOT Peak Velocity 82.0 cm/s AV Area Cont Eq vti 1.6 cm squared AV Area Cont Eq pk 1.5 cm squared MV Peak Velocity 124.0 cm/s MV Area PHT 3.3 cm squared Mitral E to A Ratio 1.2 TV Peak Velocity 215.0 cm/s TR Peak Velocity 220.0 cm/s TR Peak Gradient 19.4 mmHg TV Peak E Velocity 42.0 cm/s PV Peak Velocity 69.0 cm/s FINDINGS Left Ventricle Normal left ventricular size, systolic function and wall thickness, with no regional wall motion abnormalities. Left ventricular ejection fraction is estimated at 60 %. Normal diastolic function. Right Ventricle The right ventricle is normal in size and function. Right Atrium The right atrium is normal in size. Left Atrium The left atrium is normal in size. Mitral Valve Structurally normal mitral valve without significant stenosis or prolapse. There is no mitral regurgitation. Aortic Valve Structurally normal aortic valve without significant sclerosis or stenosis. There is no aortic regurgitation. Tricuspid Valve Mild tricuspid valve regurgitation. Pulmonic Valve Structurally normal pulmonic valve without significant stenosis. There is no pulmonic regurgitation. Pericardium Normal pericardium without effusion. Aorta Normal ascending aorta dimension. IVC The inferior vena cava appears normal. CONCLUSIONS Normal left ventricular size, systolic function and wall thickness, with no regional wall motion abnormalities. Left ventricular ejection fraction is estimated at 60 %. Normal diastolic function. Mild tricuspid valve regurgitation. There is no pericardial effusion. Right atrial pressure is around 5 mm of mercury. Hilton Lambert MD (Electronically Signed) Final Date: 05 January 2025 08:55 S
[2025-01-05] MEDS: clopidogrel 75 mg Tablet PO (08:16)
[2025-01-05] MEDS: predniSONE 20 mg Tablet 40 MG PO (08:16)
[2025-01-05] MEDS: pantoprazole DR 40 mg Tablet PO (08:16)
[2025-01-05] MEDS: docusate sodium 100 mg Capsule PO ×2 (08:16→17:15)
[2025-01-05] MEDS: budesonide 0.5 mg/2 mL Neb INHALATION ×2 (08:35→20:04)
[2025-01-05 10:27] LABS: Bilirubin Urine Negative (Negative); Blood Urine Negative (Negative); Glucose Urine UA Negative (Normal); Ketones Urine Negative (Negative); Leukocyte Esterase Urine Negative (Negative); Nitrate Urine Positive (Negative); Protein Urine Trace (Negative); Urine Appearance Clear (CLEAR); Urine Color Yellow (Yellow); pH Urine 5.5 (5-7)
[2025-01-05 10:29] LABS: Specific Gravity, Urine 1.049 (1.005-1.030); UA Manual Slide Review YES
[2025-01-05 10:58] LABS: Add Urine Microscopic? YES; RBC Urine RARE /hpf (0-2); Squamous Epithelial Cell Urine 0-4 /hpf (0-5); WBC Urine 0-4 /hpf (0-5)
[2025-01-05 10:59] LABS: Add Urine Culture? No; Bacteria Urine 2+ /hpf; Hyaline Casts Urine 0-4 /lpf; Mucus Urine 2+ /hpf
[2025-01-05] MEDS: AZITHROMYCIN ADD-Vantage 500 MG in 0.9% NaCl ADD-Vantage 250 ML 250 MG IV (15:41)
[2025-01-05] MEDS: enoxaparin 40 mg/0.4 mL Syringe SUBCUT (15:42)
[2025-01-05] MEDS: cefTRIAXone 1,000 mg SDV 1000 MG IVP (15:42)
--- NOTE | 2025-01-05 19:24 | P.PN_ITS ---
Subjective 2 Subjective: She is feeling slightly better this morning. He is not having much cough. No nausea or vomiting. Vitals/I&O/Wt Last Vital Signs Temp 98.9 F 01/05/25 08:15 Pulse 59 L 01/05/25 18:00 Resp 23 H 01/05/25 18:00 BP 109/72 01/05/25 18:00 Pulse Ox 88 L 01/05/25 18:00 O2 Del Method Heated High Flow 01/05/25 18:00 O2 Flow Rate 45 01/05/25 17:53 FiO2 65 01/05/25 18:00 01/05/25 01/05/25 01/05/25 06:59 14:59 22:59 Intake Total 240 / 970 960 / 960 480 / 1440 Output Total 600 / 600 Balance 240 / 970 360 / 360 480 / 840 Weight last 48 hrs Weight 50.998 kg Weight 51 kg Weight 49.895 kg Physical Exam 2 Const: COMMON NORMALS: patient oriented x3 and alert GENERAL APPEARANCE: c ooperative ORIENTATION/CONSCIOUSNESS: Yes awake HENMT: COMMON NORMALS: oropharynx normal Neck/C-Spine: COMMON NORMALS: no JVD Resp: AUSCULTATION: wheezes and diminished lung sounds Cardio: COMMON NORMALS: no JVD, regular rhythm, S1 normal heart sound present, S2 normal heart sound present and No murmurs present (Cardio) RHYTHM: regular rhythm HEART SOUNDS: S1 normal heart sound present and S2 normal heart sound present GI: COMMON NORMALS: Normal to inspection, nondistended, normoactive bowel sounds present, Soft to palpation and non-tender PALPATION: Yes Soft to palpation Extremity: COMMON NORMALS: no joint enlargement and no pedal edema Neuro: COMMON NORMALS: patient oriented x3 and moves all extremities S ENSORIUM/ORIENTATION: Yes alert Skin: COMMON NORMALS: no rashes or lesions noted GENERAL SKIN EXAM: no rashes or lesions noted Data 01/05/25 04:09 01/05/25 04:09 A&P Assessment and plan (1) Acute hypoxic respiratory failure: Still respiratory failure with hypoxia, suspected severe exacerbation of COPD triggered by RSV. Requiring 65% FiO2, although slightly better compared to yesterday. Still with wheezing, diminished air entry, discussed with her switching from oral to IV steroids. Treatment requested Solu-Medrol. Monitor for risk of hyperglycemia, encephalopathy, gastritis, hypertension with IV steroid. Continue breathing treatments. Continue oxygen support, wean down as tolerating. Empiric antibiotics for now continued with ceftriaxone azithromycin. Discussed with respiratory, nursing, case technician. Reviewed CTA. Reviewed vitals, CBC, CMP. (2) Respiratory syncytial virus (RSV) as cause of acute bronchitis: Viral pneumonia also within the differential - Breathing treatments - Flutter device - Guaifenesin - Supportive care (3) Pneumonia: Left lower lobe, may be viral related to RSV or secondary bacterial infection. At this point, organism unknown. - Given severity of presentation, antibiotics started - Blood cultures not done before initiation of antibiotics (4) COPD (chronic obstructive pulmonary disease): Severe exacerbation of COPD with respiratory failure, as above. Acute exacerbation related to RSV and/or pneumonia - Management as noted above Qualifiers: COPD type: COPD with acute exacerbation Qualified Code(s): J44.1 - Chronic obstructive pulmonary disease with (acute) exacerbation (5) Elevated troponin: Reviewed troponin series. She is free of chest pain. Monitor on telemetry. Reviewed echocardiogram. Suspect type II/demand ischemia. With downward trend noted. Given degree of hypoxemia at presentation, suspect demand ischemia, type II process with improvement over time. Has had significant difficulty breathing x 2 days. That said, the has had significant elevations in lipid panel lst few times checked. No known CAD. - Continue serial cardiac enzymes - Echo - Statin and plavix, aspirin allergy (6) Acquired hypothyroidism: History of Graves' disease with thyroid ablation and thyroidectomy. Off of thyroid medication for some time due to not having a primary care provider/missed appointments. Has obvious proptosis on examination. - Check TSH - Will start levothyroxine at 25 mcg daily; had been on 88 mcg daily when last prescribed/filled which appears to have been sometime ago (7) Mixed dyslipidemia: Previously on statin therapy. Last time lipid panels have been checked total cholesterol has been around 300. Not on treatment for unclear timeframe but suspect for quite a while. - Check lipid panel - Resume statin therapy with formulary equivalent, had been on Crestor in the past outpatient (8) Chronic neck and back pain: Previously prescribed narcotics in the outpatient setting but has been off for some time. Has been prescribed several different NSAIDs and medications for muscle relaxers in the past. - Supportive care, trying to minimize narcotics as able (9) Smoker: She is agreeable to nicotine replacement, switch nicotine patch to scheduled, add lozenges as needed for cravings. Longtime smoker both tobacco and daily marijuana Plan - Macrocystosis, no reported history of ETOH use, will check b12 and folate - eGFR at 73.7, BUN/Cr not - Records indicate a history of generalized anxiety disorder and bipolar disorder type I though not on any chronic medications for such and with normal affect today. Symptoms suggesting these diagnoses may have been related to substance use both prescribed and nonprescribed but not apparent at this moment in time. VTE prophylaxis: Lovenox GI Prophylaxis: PPI Antibiotics: Azithromycin initiated 01/04/2025, Rocephin initiated 01/04/2025 Disposition plan: Home with outpatient follow up anticipated though review of records shows that she has been dismissed by several physicians due to repeated no-shows. Does not currently have a primary care provider and has not been on needed medications. Recommend utilizing meds to beds at the time of discharge which patient seems agreeable to consider. Code Status: Full Code PDMP PDMP Reviewed: Not Reviewed Attestations 2 Medical Necessity Statement*: Continue admission for assessment management of respiratory failure. Coding Level of Care Code Critical Care >/= 30 minutes Critical care time (in minutes): 35 The high probability of a clinically significant, sudden or life threatening deterioration, as referenced in this documentation, required my full and direct attention, intervention and personal management. The critical care time shown is in addition to time spent performing any reported separately billable procedures and includes the following: [x] Data and vital sign review and interpretation [x ] Patient assessment, examination and intervention [x] Medication orders and management [x] Patient/Family updates as able [x] Care Coordination and Documentation. Diagnoses Acute hypoxic respiratory failure J96.01 Respiratory syncytial virus (RSV) as cause of acute bronchitis J20.5 Pneumonia J18.9 Chronic obstructive pulmonary disease with acute exacerbation J44.1 COPD type: COPD with acute exacerbation Elevated troponin R79.89 Acquired hypothyroidism E03.9 Mixed dyslipidemia E78.2 Chronic neck and back pain M54.2; M54.9; G89.29 Smoker F17.200
[2025-01-05] MEDS: methylPREDNISolone sod succ 40 mg/mL INJ IVP (20:13)
[2025-01-05] MEDS: atorvastatin 40 mg Tablet 20 MG PO (20:15)
[2025-01-05] MEDS: nicotine 14 mg Patch 1 PATCH TRANSDERMA (20:16)
[2025-01-05] MEDS: LORazepam 2 mg/mL INJ 1 mL 0.5 MG IVP (23:03)
[2025-01-06] VITALS (86 sets, daily range): BP systolic 95–169; BP diastolic 67–105; PULSE 51–89; RESP 10–27; TEMP 36.2–37.7; O2SAT 86–100
[2025-01-06] MEDS: ipratropium-albuterol 3 mL Neb INHALATION ×4 (02:44→20:33)
[2025-01-06] MEDS: methylPREDNISolone sod succ 40 mg/mL INJ IVP ×3 (03:41→18:33)
[2025-01-06 04:08] LABS: Basophils % 0.2 %; Eosinophils % 0.1 %; Hematocrit 36.6 % (36-47); Lymphocytes # 1.4 10^3/uL (0.8-4.8); Lymphocytes % 11.2 %; Mean Corpuscular HGB Conc 32.8 g/dL (30-55); Mean Corpuscular Volume 103.7 fl (85-98); Mean Platelet Volume 9.6 fL (7.4-10.4); Monocytes # 0.3 10^3/uL (0.2-0.9); Monocytes % 2.6 %; Neutrophils # 10.36 10^3/uL (1.8-7.7); Neutrophils % 85.2 %; Nucleated Red Blood Cells % 0 %; Platelet Count 238 10^3/cmm (157-399); Red Blood Count 3.53 10^6/uL (3.85-5.65); Red Cell Distribution Width 12.9 % (12.1-15.1); White Blood Count 12.16 10^3/uL (3.29-11.43)
[2025-01-06 04:37] LABS: Anion Gap 16.4 (5-19); Blood Urea Nitrogen 11 mg/dL (6-20); Calcium 9.2 mg/dL (8.5-10.5); Carbon Dioxide 30 mmol/L (22-29); Chloride 98 mmol/L (98-107); Creatinine Clr Calc Pharmacy 61.0591; Glomerular Filtration Rate 73.7 mL/min (90-130); Glucose 115 mg/dL (65-115); Osmolality Calculated 290 mOsm/kg (285-295); Potassium 4.4 mmol/L (3.5-5.1); Sodium 140 mmol/L (136-145)
[2025-01-06] MEDS: levothyroxine 25 mcg Tablet PO (05:25)
[2025-01-06] MEDS: budesonide 0.5 mg/2 mL Neb INHALATION ×2 (08:18→20:33)
[2025-01-06] MEDS: pantoprazole DR 40 mg Tablet PO (08:44)
[2025-01-06] MEDS: docusate sodium 100 mg Capsule PO ×2 (08:44→17:39)
[2025-01-06] MEDS: clopidogrel 75 mg Tablet PO (08:44)
[2025-01-06] MEDS: nicotine 14 mg Patch 1 PATCH TRANSDERMA (08:45)
--- NOTE | 2025-01-06 12:33 | PC.SOCIAL ---
IMM Update pg 2 of IMM Updated and reviewed w/ patient. Copy provided and copy dated, initialed and placed in chart.
[2025-01-06] MEDS: AZITHROMYCIN ADD-Vantage 500 MG in 0.9% NaCl ADD-Vantage 250 ML 250 MG IV (14:31)
[2025-01-06] MEDS: cefTRIAXone 1,000 mg SDV 1000 MG IVP (14:32)
[2025-01-06] MEDS: enoxaparin 40 mg/0.4 mL Syringe SUBCUT (15:49)
[2025-01-06] MEDS: acetaminophen 325 mg Tablet 650 MG PO ×2 (15:49→17:56)
--- NOTE | 2025-01-06 17:50 | PC.NURSE ---
Patient is reporting back pain. Patient was given Tylenol PRN for pain. Patient was okay then started hurting again. Dr. Wells as notified and he ordered to give an extra dose of Tylenol and to place Lidocaine patch for pain.
--- NOTE | 2025-01-06 18:08 | P.PN_ITS ---
Subjective 2 Subjective: She is feeling slightly better today, showing gradual improvement. Vitals/I&O/Wt Last Vital Signs Temp 98.7 F 01/06/25 16:45 Pulse 75 01/06/25 17:30 Resp 16 01/06/25 16:00 BP 139/92 01/06/25 17:45 Pulse Ox 89 L 01/06/25 17:45 O2 Del Method Heated High Flow 01/06/25 16:45 O2 Flow Rate 60 01/06/25 16:00 FiO2 45 01/06/25 16:45 01/06/25 01/06/25 01/06/25 06:59 14:59 22:59 Intake Total 120 / 2050 960 / 960 240 / 1200 Output Total 1400 / 2000 550 / 550 Balance -1280 / 50 410 / 410 240 / 650 Weight last 48 hrs Weight 52.325 kg Weight 50.998 kg Physical Exam 2 Const: COMMON NORMALS: patient oriented x3 and alert GENERAL APPEARANCE: c ooperative ORIENTATION/CONSCIOUSNESS: Yes awake HENMT: COMMON NORMALS: oropharynx normal Neck/C-Spine: COMMON NORMALS: no JVD Resp: AUSCULTATION: wheezes and diminished lung sounds Cardio: COMMON NORMALS: no JVD, regular rhythm, S1 normal heart sound present, S2 normal heart sound present and No murmurs present (Cardio) RHYTHM: regular rhythm HEART SOUNDS: S1 normal heart sound present and S2 normal heart sound present GI: COMMON NORMALS: Normal to inspection, nondistended, normoactive bowel sounds present, Soft to palpation and non-tender PALPATION: Yes Soft to palpation Extremity: COMMON NORMALS: no joint enlargement and no pedal edema Neuro: COMMON NORMALS: patient oriented x3 and moves all extremities S ENSORIUM/ORIENTATION: Yes alert Skin: COMMON NORMALS: no rashes or lesions noted GENERAL SKIN EXAM: no rashes or lesions noted Data 01/06/25 03:55 01/06/25 03:55 A&P Assessment and plan (1) Acute hypoxic respiratory failure: Slow to improve, still with wheezing, diminished air entry, significant hypoxia, still requiring 60% FiO2 this morning. Increase Solu-Medrol frequency to every 6 hours. Continue to wean down negative high flow oxygen support. Move out of ICU. Reviewed vitals, CBC, noted WBC 12. Continue treatment requested Solu-Medrol. Monitor for risk of hyperglycemia, encephalopathy, gastritis, hypertension with IV steroid. Continue breathing treatments. Continue oxygen support, wean down as tolerating. Empiric antibiotics for now continued with ceftriaxone azithromycin. Discussed with respiratory, nursing, corrections caseworker. Likely will need oxygen at discharge. Additional on review of CTA with possible aspiration pneumonia. Discussed with speech therapist. Dysphagia diet. Reviewed CTA. Reviewed vitals, CBC, CMP. (2) Respiratory syncytial virus (RSV) as cause of acute bronchitis: RSV infection - Breathing treatments - Flutter device - Guaifenesin - Supportive care (3) Pneumonia: Left lower lobe, may be viral related to RSV or secondary bacterial infection. At this point, organism unknown. - Given severity of presentation, antibiotics started - Blood cultures not done before initiation of antibiotics (4) COPD (chronic obstructive pulmonary disease): Severe exacerbation of COPD with respiratory failure, as above. Acute exacerbation related to RSV and/or pneumonia - Management as noted above Qualifiers: COPD type: COPD with acute exacerbation Qualified Code(s): J44.1 - Chronic obstructive pulmonary disease with (acute) exacerbation (5) Elevated troponin: Reviewed troponin series. She is free of chest pain. Monitor on telemetry. Reviewed echocardiogram. Suspect type II/demand ischemia. With downward trend noted. Given degree of hypoxemia at presentation, suspect demand ischemia, type II process with improvement over time. Has had significant difficulty breathing x 2 days. That said, the has had significant elevations in lipid panel lst few times checked. No known CAD. - Continue serial cardiac enzymes - Echo - Statin and plavix, aspirin allergy (6) Acquired hypothyroidism: History of Graves' disease with thyroid ablation and thyroidectomy. Off of thyroid medication for some time due to not having a primary care provider/missed appointments. Has obvious proptosis on examination. -Requested TSH - levothyroxine at 25 mcg daily; had been on 88 mcg daily when last prescribed/filled which appears to have been sometime ago (7) Mixed dyslipidemia: Previously on statin therapy. Last time lipid panels have been checked total cholesterol has been around 300. Not on treatment for unclear timeframe but suspect for quite a while. - Check lipid panel - Resume statin therapy with formulary equivalent, had been on Crestor in the past outpatient (8) Chronic neck and back pain: Previously prescribed narcotics in the outpatient setting but has been off for some time. Has been prescribed several different NSAIDs and medications for muscle relaxers in the past. - Supportive care, trying to minimize narcotics as able (9) Smoker: She is agreeable to nicotine replacement, switch nicotine patch to scheduled, add lozenges as needed for cravings. Longtime smoker both tobacco and daily marijuana Plan - Macrocystosis, no reported history of ETOH use, will check b12 and folate - eGFR at 73.7, BUN/Cr not - Records indicate a history of generalized anxiety disorder and bipolar disorder type I though not on any chronic medications for such and with normal affect today. Symptoms suggesting these diagnoses may have been related to substance use both prescribed and nonprescribed but not apparent at this moment in time. VTE prophylaxis: Lovenox GI Prophylaxis: PPI Antibiotics: Azithromycin initiated 01/04/2025, Rocephin initiated 01/04/2025 Disposition plan: Home with outpatient follow up anticipated though review of records shows that she has been dismissed by several physicians due to repeated no-shows. Does not currently have a primary care provider and has not been on needed medications. Recommend utilizing meds to beds at the time of discharge which patient seems agreeable to consider. Code Status: Full Code PDMP PDMP Reviewed: Not Reviewed Attestations 2 Medical Necessity Statement*: Continue admission for assessment management of respiratory failure with severe COPD exacerbation with RSV infection. and High MDM includes amount and/or complexity of data reviewed/ordered [ previous or external records, resulted lab(s)/test(s), ordered lab(s)/test(s) and other healthcare professional discussion] and described risk of complication, morbidity or mortality of management as documented Diagnoses Acute hypoxic respiratory failure J96.01 Respiratory syncytial virus (RSV) as cause of acute bronchitis J20.5 Pneumonia J18.9 Chronic obstructive pulmonary disease with acute exacerbation J44.1 COPD type: COPD with acute exacerbation Elevated troponin R79.89 Acquired hypothyroidism E03.9 Mixed dyslipidemia E78.2 Chronic neck and back pain M54.2; M54.9; G89.29 Smoker F17.200
[2025-01-06 19:11] LABS: Thyroid Stimulating Hormone 26.64 uIU/mL (0.27-4.20)
[2025-01-06] MEDS: atorvastatin 40 mg Tablet 20 MG PO (21:24)
[2025-01-06] MEDS: lidocaine 5% Patch 1 PATCH TOPICAL (21:25)
[2025-01-07] VITALS (25 sets, daily range): BP systolic 121–168; BP diastolic 76–122; PULSE 57–95; RESP 12–24; TEMP 36.1–36.5; O2SAT 79–100
[2025-01-07] MEDS: methylPREDNISolone sod succ 40 mg/mL INJ IVP ×4 (00:44→17:16)
--- NOTE | 2025-01-07 01:40 | ECG_ITS ---
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 Measurements Intervals [place] Rate: 63 P: 89 NV: 138 QRS: 59 QRSD: 84 T: 70 QT: 401 QTc: 413 Interpretive Statements SINUS RHYTHM MINIMAL ST DEPRESSION [0.025+ mV ST DEPRESSION] Compared to ECG 01/04/2025 17:09:57 ST (T wave) deviation now present Sinus bradycardia no longer present T-wave abnormality no longer present Electronically Signed On 01-09-2025 19:24:09 PRESS LOADER by Juan Smith M.D. [email or web address]
[2025-01-07] MEDS: ipratropium-albuterol 3 mL Neb INHALATION ×4 (02:01→21:17)
--- NOTE | 2025-01-07 04:07 | PC.NURSE ---
Spoke with Dr. Fletcher in reference to patient's increasing back pain and anxiousness with inability to get comfortable. Received order for one time 2mg morphine IVP.
[2025-01-07] MEDS: morphine 4 mg/mL SDV 1 mL 2 MG IVP (04:44)
[2025-01-07 04:54] LABS: Basophils % 0.2 %; Hematocrit 39.6 % (36-47); Lymphocytes % 9.1 %; Mean Corpuscular HGB Conc 32.3 g/dL (30-55); Mean Platelet Volume 9.7 fL (7.4-10.4); Monocytes # 0.3 10^3/uL (0.2-0.9); Monocytes % 2.3 %; Neutrophils # 9.76 10^3/uL (1.8-7.7); Nucleated Red Blood Cells % 0 %; Platelet Count 288 10^3/cmm (157-399); Red Blood Count 3.77 10^6/uL (3.85-5.65); Red Cell Distribution Width 12.9 % (12.1-15.1); White Blood Count 11.22 10^3/uL (3.29-11.43)
[2025-01-07 05:18] LABS: Anion Gap 15.2 (5-19); Blood Urea Nitrogen 7 mg/dL (6-20); Calcium 9.7 mg/dL (8.5-10.5); Carbon Dioxide 33 mmol/L (22-29); Chloride 97 mmol/L (98-107); Creatinine Clr Calc Pharmacy 61.7014; Glomerular Filtration Rate 73.7 mL/min (90-130); Glucose 160 mg/dL (65-115); Osmolality Calculated 293 mOsm/kg (285-295); Potassium 4.2 mmol/L (3.5-5.1); Sodium 141 mmol/L (136-145)
[2025-01-07] MEDS: levothyroxine 25 mcg Tablet PO (06:32)
[2025-01-07] MEDS: budesonide 0.5 mg/2 mL Neb INHALATION ×2 (07:57→21:18)
[2025-01-07 08:27] LABS: ABG PCO2 49.6 mmHg (35-45); ABG PH Result 7.45 (7.35-7.45); Arterial Blood Gas Hematocrit 31.2 % (37-47); Blood Gas Allen Test Pos; Blood Gas Operator Identificat CAK; Blood Gas Sample Site Brachial, left; Blood Gas Sample Type Arterial; HCO3 ABG 34.3 mmol/L (22-26); Oxygen Device HAG; PO2 ABG 59.5 mmHg (80.0-100.0); PO2 FiO2 Ratio Arterial Blood 148
[2025-01-07] MEDS: lidocaine 5% Patch 1 PATCH TOPICAL ×2 (08:42→21:25)
[2025-01-07] MEDS: nicotine 14 mg Patch 1 PATCH TRANSDERMA (08:42)
[2025-01-07] MEDS: pantoprazole DR 40 mg Tablet PO (08:42)
[2025-01-07] MEDS: clopidogrel 75 mg Tablet PO (08:42)
--- NOTE | 2025-01-07 09:56 | P.PN_ITS ---
Subjective 2 Subjective: She is showing some gradual improvement. She is not having a lot of cough. Not bringing up phlegm. Still having wheezing, coarse breath sounds. Vitals/I&O/Wt Last Vital Signs Temp 97.4 F L 01/07/25 04:00 Pulse 69 01/07/25 08:00 Resp 18 01/07/25 08:00 BP 140/91 01/07/25 06:00 Pulse Ox 93 01/07/25 08:00 O2 Del Method Heated High Flow 01/07/25 06:00 O2 Flow Rate 40 01/07/25 08:00 FiO2 55 01/07/25 08:00 01/06/25 01/07/25 01/07/25 22:59 06:59 14:59 Intake Total 490 / 1450 222 / 1672 Output Total 150 / 700 400 / 1100 Balance 340 / 750 -178 / 572 Weight last 48 hrs Weight 52 kg Weight 52.325 kg Physical Exam 2 Const: COMMON NORMALS: patient oriented x3 and alert GENERAL APPEARANCE: c ooperative ORIENTATION/CONSCIOUSNESS: Yes awake HENMT: COMMON NORMALS: oropharynx normal Neck/C-Spine: COMMON NORMALS: no JVD Resp: AUSCULTATION: wheezes and diminished lung sounds Cardio: COMMON NORMALS: no JVD, regular rhythm, S1 normal heart sound present, S2 normal heart sound present and No murmurs present (Cardio) RHYTHM: regular rhythm HEART SOUNDS: S1 normal heart sound present and S2 normal heart sound present GI: COMMON NORMALS: Normal to inspection, nondistended, normoactive bowel sounds present, Soft to palpation and non-tender PALPATION: Yes Soft to palpation Extremity: COMMON NORMALS: no joint enlargement and no pedal edema Neuro: COMMON NORMALS: patient oriented x3 and moves all extremities S ENSORIUM/ORIENTATION: Yes alert Skin: COMMON NORMALS: no rashes or lesions noted GENERAL SKIN EXAM: no rashes or lesions noted Data 01/07/25 03:57 01/07/25 03:57 A&P Assessment and plan (1) Acute hypoxic respiratory failure: Slow improvement. Still wheezing, diminished entry on exam, but with slight improvement. Continue IV steroids 40 mg of Solu-Medrol every 6 hours. Breathing treatments. Empiric antibiotic coverage with ceftriaxone, azithromycin. Appreciate speech therapy evaluation, pur?ed diet for now while awaiting her dentures. Once dentures arrive may transition to soft and bite sized foods. Continue aspiration precautions. Reviewed ABG, still hypoxemic on 55 L, 40% FiO2. pO2 59.5. Trial of high flow nasal cannula 10 L, 51%. Discussed with her due to prolonged recovery, consideration of continued recovery and rehabilitation LTAC. Discussed with clinical case manager. Move to medical surgical floor. Reviewed vitals. Reviewed CBC, leukocytosis resolved. She is afebrile. Continue treatment requested Solu-Medrol. Monitor for risk of hyperglycemia, encephalopathy, gastritis, hypertension with IV steroid. Continue breathing treatments. Continue oxygen support, wean down as tolerating. Empiric antibiotics for now continued with ceftriaxone azithromycin. Discussed with respiratory, nursing, clinical case manager. Likely will need oxygen at discharge. Additional on review of CTA with possible aspiration pneumonia. Discussed with speech therapist. Dysphagia diet. Reviewed CTA. Reviewed vitals, CBC, CMP. Per discussion with speech therapist (2) Respiratory syncytial virus (RSV) as cause of acute bronchitis: RSV infection. Continue isolation. - Breathing treatments - Flutter device - Guaifenesin - Supportive care (3) Pneumonia: Possible aspiration pneumonia. Discussed with speech therapist, appreciate evaluation. Dysphagia diet. Aspiration precautions. Left lower lobe, may be viral related to RSV or secondary bacterial infection. At this point, organism unknown. - Given severity of presentation, antibiotics started - Blood cultures not done before initiation of antibiotics (4) COPD (chronic obstructive pulmonary disease): Continue higher dose IV steroid. Continue breathing treatments. Empiric antibiotic. Has not phlegm to give a sputum sample. Severe exacerbation of COPD with respiratory failure, as above. Acute exacerbation related to RSV and/or pneumonia - Management as noted above Qualifiers: COPD type: COPD with acute exacerbation Qualified Code(s): J44.1 - Chronic obstructive pulmonary disease with (acute) exacerbation (5) Elevated troponin: She is free of chest pain. Monitor on telemetry. Reviewed echocardiogram. Suspect type II/demand ischemia. With downward trend noted. Given degree of hypoxemia at presentation, suspect demand ischemia, type II process with improvement over time. Has had significant difficulty breathing x 2 days. That said, the has had significant elevations in lipid panel lst few times checked. No known CAD. - Continue serial cardiac enzymes - Echo - Statin and plavix, aspirin allergy (6) Acquired hypothyroidism: History of Graves' disease with thyroid ablation and thyroidectomy. Off of thyroid medication for some time due to not having a primary care provider/missed appointments. Has obvious proptosis on examination. -Requested TSH - levothyroxine at 25 mcg daily; had been on 88 mcg daily when last prescribed/filled which appears to have been sometime ago (7) Mixed dyslipidemia: Previously on statin therapy. Last time lipid panels have been checked total cholesterol has been around 300. Not on treatment for unclear timeframe but suspect for quite a while. - Check lipid panel - Resume statin therapy with formulary equivalent, had been on Crestor in the past outpatient (8) Chronic neck and back pain: Previously prescribed narcotics in the outpatient setting but has been off for some time. Has been prescribed several different NSAIDs and medications for muscle relaxers in the past. - Supportive care, trying to minimize narcotics as able (9) Smoker: She is agreeable to nicotine replacement, switch nicotine patch to scheduled, add lozenges as needed for cravings. Longtime smoker both tobacco and daily marijuana Plan - Macrocystosis, no reported history of ETOH use, will check b12 and folate - eGFR at 73.7, BUN/Cr not - Records indicate a history of generalized anxiety disorder and bipolar disorder type I though not on any chronic medications for such and with normal affect today. Symptoms suggesting these diagnoses may have been related to substance use both prescribed and nonprescribed but not apparent at this moment in time. VTE prophylaxis: Lovenox GI Prophylaxis: PPI Antibiotics: Azithromycin initiated 01/04/2025, Rocephin initiated 01/04/2025 Disposition plan: Home with outpatient follow up anticipated though review of records shows that she has been dismissed by several physicians due to repeated no-shows. Does not currently have a primary care provider and has not been on needed medications. Recommend utilizing meds to beds at the time of discharge which patient seems agreeable to consider. Code Status: Full Code PDMP PDMP Reviewed: Not Reviewed Attestations 2 Medical Necessity Statement*: Continue admission for assessment management of respiratory failure with severe COPD exacerbation with RSV infection. and High MDM includes amount and/or complexity of data reviewed/ordered [ resulted lab(s)/test(s), ordered lab(s)/test(s) and other healthcare professional discussion] and described risk of complication, morbidity or mortality of management as documented Diagnoses Acute hypoxic respiratory failure J96.01 Respiratory syncytial virus (RSV) as cause of acute bronchitis J20.5 Pneumonia J18.9 Chronic obstructive pulmonary disease with acute exacerbation J44.1 COPD type: COPD with acute exacerbation Elevated troponin R79.89 Acquired hypothyroidism E03.9 Mixed dyslipidemia E78.2 Chronic neck and back pain M54.2; M54.9; G89.29 Smoker F17.200
--- NOTE | 2025-01-07 10:41 | PC.NURSE ---
Kulwant Mcguire, , called and notified of impedning move to room 259-2. Requested dentures be brought in so she can have a different diet than celar liquids. stated he would bring them in.
--- NOTE | 2025-01-07 10:51 | PC.NURSE ---
Report given to Erum Ken.
--- NOTE | 2025-01-07 11:20 | PC.NURSE ---
Pt transferred to [facility] room 259-2 via W/C. All her belongings( clothing and jewelry) with her.
[2025-01-07] MEDS: AZITHROMYCIN ADD-Vantage 500 MG in 0.9% NaCl ADD-Vantage 250 ML 250 MG IV (14:34)
[2025-01-07] MEDS: cefTRIAXone 1,000 mg SDV 1000 MG IVP (14:34)
[2025-01-07] MEDS: docusate sodium 100 mg Capsule PO (17:16)
[2025-01-07] MEDS: enoxaparin 40 mg/0.4 mL Syringe SUBCUT (17:16)
[2025-01-07] MEDS: HYDROcodone-acetaminophen 5-325 mg Tablet 1 TAB PO (21:23)
[2025-01-07] MEDS: atorvastatin 40 mg Tablet 20 MG PO (21:23)
[2025-01-07] MEDS: acetaminophen 325 mg Tablet 650 MG PO (21:23)
[2025-01-07] MEDS: trazodone 50 mg Tablet 25 MG PO (23:17)
[2025-01-08] VITALS (10 sets, daily range): BP systolic 132–153; BP diastolic 75–91; PULSE 53–82; RESP 16–21; TEMP 36.3–37.1; O2SAT 90–100
[2025-01-08 05:22] LABS: Basophils % 0.1 %; Lymphocytes # 1.3 10^3/uL (0.8-4.8); Lymphocytes % 12.3 %; Mean Corpuscular HGB Conc 32.9 g/dL (30-55); Mean Corpuscular Hemoglobin 34.2 pg (27-33); Mean Corpuscular Volume 104.2 fl (85-98); Mean Platelet Volume 9.7 fL (7.4-10.4); Monocytes # 0.6 10^3/uL (0.2-0.9); Monocytes % 5.9 %; Neutrophils # 8.54 10^3/uL (1.8-7.7); Neutrophils % 80.3 %; Nucleated Red Blood Cells % 0 %; Platelet Count 275 10^3/cmm (157-399); Red Blood Count 3.36 10^6/uL (3.85-5.65); Red Cell Distribution Width 12.7 % (12.1-15.1); White Blood Count 10.64 10^3/uL (3.29-11.43)
[2025-01-08] MEDS: methylPREDNISolone sod succ 40 mg/mL INJ IVP ×3 (05:40→18:23)
[2025-01-08] MEDS: levothyroxine 25 mcg Tablet PO (05:40)
[2025-01-08 05:44] LABS: Anion Gap 14.8 (5-19); Blood Urea Nitrogen 15 mg/dL (6-20); Calcium 9.5 mg/dL (8.5-10.5); Carbon Dioxide 33 mmol/L (22-29); Chloride 99 mmol/L (98-107); Creatinine Clr Calc Pharmacy 67.8922; Glomerular Filtration Rate 85.9 mL/min (90-130); Glucose 112 mg/dL (65-115); Osmolality Calculated 298 mOsm/kg (285-295); Potassium 3.8 mmol/L (3.5-5.1); Sodium 143 mmol/L (136-145)
[2025-01-08] MEDS: ipratropium-albuterol 3 mL Neb INHALATION ×3 (07:26→19:57)
[2025-01-08] MEDS: budesonide 0.5 mg/2 mL Neb INHALATION ×2 (07:26→19:57)
--- NOTE | 2025-01-08 10:10 | PC.SOCIAL ---
IMM Updated Updated pt on IMM. No questions voiced. Provided pt a copy. Initialed, dated, & timed copy in chart.
[2025-01-08] MEDS: clopidogrel 75 mg Tablet PO (10:45)
[2025-01-08] MEDS: pantoprazole DR 40 mg Tablet PO (10:46)
[2025-01-08] MEDS: AZITHROMYCIN ADD-Vantage 500 MG in 0.9% NaCl ADD-Vantage 250 ML 250 MG IV (13:27)
[2025-01-08] MEDS: cefTRIAXone 1,000 mg SDV 1000 MG IVP (13:27)
--- NOTE | 2025-01-08 15:15 | PM.PN ---
Subjective Subjective: She is feeling slightly better today. Breathing is gradually proving. He is not producing phlegm. Vitals/I&O/Wt Last Vital Signs Temp 97.4 F L 01/08/25 11:32 Pulse 71 01/08/25 13:43 Resp 18 01/08/25 13:43 BP 134/83 01/08/25 11:32 Pulse Ox 92 01/08/25 13:43 O2 Del Method High Flow Nasal Cannula 01/08/25 13:43 O2 Flow Rate 10 01/08/25 13:43 FiO2 51 01/07/25 10:00 01/08/25 01/08/25 01/08/25 06:59 14:59 22:59 Intake Total 200 / 1590 640 / 640 Balance 200 / 1590 640 / 640 Weight last 48 hrs Weight 47.582 kg Weight 52 kg Physical Exam Const: COMMON NORMALS: patient oriented x3 and alert GENERAL APPEARANCE: cooperative ORIENTATION/CONSCIOUSNESS: Yes awake HENMT: COMMON NORMALS: oropharynx normal Neck/C-Spine: COMMON NORMALS: no JVD Resp: AUSCULTATION: wheezes (Mild) and diminished lung sounds OTHER: Wheezing is improving. Cardio: COMMON NORMALS: no JVD, regular rhythm, S1 normal heart sound present, S2 normal heart sound present and No murmurs present (Cardio) RHYTHM: regular rhythm HEART SOUNDS: S1 normal heart sound present and S2 normal heart sound present GI: COMMON NORMALS: Normal to inspection, nondistended, normoactive bowel sounds present, Soft to palpation and non-tender PALPATION: Yes Soft to palpation Extremity: COMMON NORMALS: no joint enlargement and no pedal edema Neuro: COMMON NORMALS: patient oriented x3 and moves all extremities SENSORIUM/ORIENTATION: Yes alert Skin: COMMON NORMALS: no rashes or lesions noted GENERAL SKIN EXAM: no rashes or lesions noted Data 01/08/25 04:30 01/08/25 04:30 A&P Assessment and plan (1) Acute hypoxic respiratory failure: Slow to improve respiratory failure. Continues to require high flow oxygen, on 12 L this morning, but able to decrease down to 10 L today. Showing improvement in wheezing, although still mild wheezing is present. Diminished air entry. Continue IV steroids currently unchanged, does not. Responding to treatment. Continue Solu-Medrol 40 mg IV every 6 hours. Monitor for hyperglycemia, hypertension, encephalopathy, gastritis with IV steroids. Glucose currently is doing well, 112. Blood pressure close to target. Continue ceftriaxone and azithromycin. Reviewed BMP, renal function remained stable. Budesonide. Breathing treatments. Continue to mobilize. Discussed with RT, nursing, family preservation caseworker. Consideration of LTAC versus inpatient acute rehabilitation versus SNF. Still requiring bit too much oxygen currently for acute patient rehabilitation, however, if oxygen requirement continues to decrease below 10 L consistently, may be able to proceed to the acute inpatient rehabilitation through [facility] and she would be agreeable to it as per discussion. With her dentures broaden diet advance to soft and bite-size. Maintain aspiration precautions. Reviewed vitals. Reviewed CBC, leukocytosis resolved. She is afebrile. Continue treatment requested Solu-Medrol. Monitor for risk of hyperglycemia, encephalopathy, gastritis, hypertension with IV steroid. Continue breathing treatments. Continue oxygen support, wean down as tolerating. Empiric antibiotics for now continued with ceftriaxone azithromycin. Discussed with respiratory, nursing, family preservation caseworker. Likely will need oxygen at discharge. Additional on review of CTA with possible aspiration pneumonia. Discussed with speech therapist. Dysphagia diet. Reviewed CTA. Reviewed vitals, CBC, CMP. Per discussion with speech therapist (2) Respiratory syncytial virus (RSV) as cause of acute bronchitis: RSV infection. Remains afebrile, gradually improving symptoms, symptoms started last week on Saturday. Can discontinue isolation. - Breathing treatments - Flutter device - Guaifenesin - Supportive care (3) Pneumonia: Possible aspiration pneumonia. Discussed with speech therapist, appreciate evaluation. Dysphagia diet. Aspiration precautions. Continue ceftriaxone, azithromycin. Reviewed CBC, leukocytosis. Afebrile. Is not producing phlegm. Will check procalcitonin, consider de-escalation of antibiotics. Left lower lobe, may be viral related to RSV or secondary bacterial infection. At this point, organism unknown. - Given severity of presentation, antibiotics started - Blood cultures not done before initiation of antibiotics (4) COPD (chronic obstructive pulmonary disease): Continue higher dose IV steroid. Continue breathing treatments. Empiric antibiotic. Has not phlegm to give a sputum sample. Severe exacerbation of COPD with respiratory failure, as above. Acute exacerbation related to RSV and/or pneumonia - Management as noted above Qualifiers: COPD type: COPD with acute exacerbation Qualified Code(s): J44.1 - Chronic obstructive pulmonary disease with (acute) exacerbation (5) Elevated troponin: She is free of chest pain. Monitor on telemetry. Reviewed echocardiogram. Suspect type II/demand ischemia. With downward trend noted. Given degree of hypoxemia at presentation, suspect demand ischemia, type II process with improvement over time. Has had significant difficulty breathing x 2 days. That said, the has had significant elevations in lipid panel lst few times checked. No known CAD. - Continue serial cardiac enzymes - Echo - Statin and plavix, aspirin allergy (6) Acquired hypothyroidism: History of Graves' disease with thyroid ablation and thyroidectomy. Off of thyroid medication for some time due to not having a primary care provider/missed appointments. Has obvious proptosis on examination. -Requested TSH - levothyroxine at 25 mcg daily; had been on 88 mcg daily when last prescribed/filled which appears to have been sometime ago (7) Mixed dyslipidemia: Previously on statin therapy. Last time lipid panels have been checked total cholesterol has been around 300. Not on treatment for unclear timeframe but suspect for quite a while. - Check lipid panel - Resume statin therapy with formulary equivalent, had been on Crestor in the past outpatient (8) Chronic neck and back pain: Previously prescribed narcotics in the outpatient setting but has been off for some time. Has been prescribed several different NSAIDs and medications for muscle relaxers in the past. - Supportive care, trying to minimize narcotics as able (9) Smoker: She is agreeable to nicotine replacement, switch nicotine patch to scheduled, add lozenges as needed for cravings. Longtime smoker both tobacco and daily marijuana Plan - Macrocystosis, no reported history of ETOH use, will check b12 and folate - eGFR at 73.7, BUN/Cr not - Records indicate a history of generalized anxiety disorder and bipolar disorder type I though not on any chronic medications for such and with normal affect today. Symptoms suggesting these diagnoses may have been related to substance use both prescribed and nonprescribed but not apparent at this moment in time. VTE prophylaxis: Lovenox GI Prophylaxis: PPI Antibiotics: Azithromycin initiated 01/04/2025, Rocephin initiated 01/04/2025 Disposition plan: Home with outpatient follow up anticipated though review of records shows that she has been dismissed by several physicians due to repeated no-shows. Does not currently have a primary care provider and has not been on needed medications. Recommend utilizing meds to beds at the time of discharge which patient seems agreeable to consider. Code Status: Full Code PDMP PDMP Reviewed: Not Reviewed Attestations Medical Necessity Statement*: Continue admission for assessment management of respiratory failure with severe COPD exacerbation with RSV infection. and High MDM includes amount and/or complexity of data reviewed/ordered [ resulted lab(s)/test(s) and other healthcare professional discussion] and described risk of complication, morbidity or mortality of management as documented Diagnoses Acute hypoxic respiratory failure J96.01 Respiratory syncytial virus (RSV) as cause of acute bronchitis J20.5 Pneumonia J18.9 Chronic obstructive pulmonary disease with acute exacerbation J44.1 COPD type: COPD with acute exacerbation Elevated troponin R79.89 Acquired hypothyroidism E03.9 Mixed dyslipidemia E78.2 Chronic neck and back pain M54.2; M54.9; G89.29 Smoker F17.200
[2025-01-08] MEDS: trazodone 50 mg Tablet 25 MG PO (19:46)
[2025-01-08] MEDS: atorvastatin 40 mg Tablet 20 MG PO (19:47)
[2025-01-08] MEDS: lidocaine 5% Patch 1 PATCH TOPICAL (23:51)
[2025-01-09] VITALS (10 sets, daily range): BP systolic 107–155; BP diastolic 69–90; PULSE 56–75; RESP 16–19; TEMP 36.3–36.8; O2SAT 93–99
[2025-01-09] MEDS: HYDROcodone-acetaminophen 5-325 mg Tablet 1 TAB PO ×2 (04:16→09:31)
[2025-01-09 04:31] LABS: Basophils % 0.2 %; Hematocrit 34.6 % (36-47); Lymphocytes # 1.1 10^3/uL (0.8-4.8); Lymphocytes % 10.8 %; Mean Corpuscular HGB Conc 31.8 g/dL (30-55); Mean Corpuscular Hemoglobin 33.4 pg (27-33); Mean Corpuscular Volume 105.2 fl (85-98); Mean Platelet Volume 9.7 fL (7.4-10.4); Monocytes # 0.6 10^3/uL (0.2-0.9); Monocytes % 5.7 %; Neutrophils # 8.13 10^3/uL (1.8-7.7); Nucleated Red Blood Cells % 0 %; Platelet Count 261 10^3/cmm (157-399); Red Blood Count 3.29 10^6/uL (3.85-5.65); Red Cell Distribution Width 12.7 % (12.1-15.1); White Blood Count 10.03 10^3/uL (3.29-11.43)
[2025-01-09 04:59] LABS: Procalcitonin 0.06 ng/mL (0-0.5)
[2025-01-09 05:01] LABS: Anion Gap 14.5 (5-19); Blood Urea Nitrogen 19 mg/dL (6-20); Calcium 9.5 mg/dL (8.5-10.5); Carbon Dioxide 33 mmol/L (22-29); Chloride 96 mmol/L (98-107); Creatinine Clr Calc Pharmacy 67.8922; Glomerular Filtration Rate 85.9 mL/min (90-130); Glucose 134 mg/dL (65-115); Osmolality Calculated 292 mOsm/kg (285-295); Potassium 4.5 mmol/L (3.5-5.1); Sodium 139 mmol/L (136-145)
[2025-01-09] MEDS: methylPREDNISolone sod succ 40 mg/mL INJ IVP ×4 (05:53→21:01)
[2025-01-09] MEDS: levothyroxine 25 mcg Tablet PO (05:53)
--- NOTE | 2025-01-09 09:08 | PC.SLP ---
Attempted check on current diet. Patient reported no concerns with current diet but more problem with pain (not related to swallow). Nursing notified.
[2025-01-09] MEDS: budesonide 0.5 mg/2 mL Neb INHALATION ×2 (09:10→19:37)
[2025-01-09] MEDS: ipratropium-albuterol 3 mL Neb INHALATION ×3 (09:10→19:38)
[2025-01-09] MEDS: pantoprazole DR 40 mg Tablet PO (09:31)
[2025-01-09] MEDS: clopidogrel 75 mg Tablet PO (09:31)
[2025-01-09] MEDS: docusate sodium 100 mg Capsule PO (09:31)
[2025-01-09] MEDS: ALPRAZolam 0.5 mg Tablet 0.25 MG PO (12:11)
--- NOTE | 2025-01-09 14:46 | PM.PN ---
Subjective Subjective: Continues to have significant wheezing to auscultation bilaterally. Oxygen requirements are stable at 8 L/min. Patient complaining of generalized weakness. Vitals/I&O/Wt Last Vital Signs Temp 97.9 F 01/09/25 11:43 Pulse 67 01/09/25 13:58 Resp 16 01/09/25 13:58 BP 155/90 01/09/25 11:43 Pulse Ox 96 01/09/25 13:58 O2 Del Method High Flow Nasal Cannula 01/09/25 13:58 O2 Flow Rate 8 01/09/25 13:58 FiO2 51 01/07/25 10:00 01/08/25 01/09/25 01/09/25 22:59 06:59 14:59 Intake Total 450 / 1090 360 / 360 Balance 450 / 1090 360 / 360 Weight last 48 hrs Weight 48.58 kg Weight 47.582 kg Physical Exam Narrative: General: No acute distress, AO x3 HEENT: PERRLA, pupils bilaterally equal and reactive, pallors not present Chest: Normal vesicular breath sounds, no added sounds, equal good air entry bilaterally CVS: S1-S2 regular, no murmurs, no tachycardia, no gallops, no rubs Abdomen: Soft, nontender, no organomegaly, bowel sounds present Neuro: No focal deficits, no facial deformity, AO x3, power 5/5 in all limbs Data 01/09/25 03:36 01/09/25 03:36 A&P Assessment and plan (1) Acute hypoxic respiratory failure: Slow to improve respiratory failure. Continues to require high flow oxygen, on 12 L this morning, but able to decrease down to 10 L today. Showing improvement in wheezing, although still mild wheezing is present. Diminished air entry. Continue IV steroids currently unchanged, does not. Responding to treatment. Continue Solu-Medrol 40 mg IV every 6 hours. Monitor for hyperglycemia, hypertension, encephalopathy, gastritis with IV steroids. Glucose currently is doing well, 112. Blood pressure close to target. Continue ceftriaxone and azithromycin. Reviewed BMP, renal function remained stable. Budesonide. Breathing treatments. Continue to mobilize. Discussed with RT, nursing, machine adjuster leader case trim. Consideration of LTAC versus inpatient acute rehabilitation versus SNF. Still requiring bit too much oxygen currently for acute patient rehabilitation, however, if oxygen requirement continues to decrease below 10 L consistently, may be able to proceed to the acute inpatient rehabilitation through [facility] and she would be agreeable to it as per discussion. With her dentures broaden diet advance to soft and bite-size. Maintain aspiration precautions. Reviewed vitals. Reviewed CBC, leukocytosis resolved. She is afebrile. Continue treatment requested Solu-Medrol. Monitor for risk of hyperglycemia, encephalopathy, gastritis, hypertension with IV steroid. Continue breathing treatments. Continue oxygen support, wean down as tolerating. Empiric antibiotics for now continued with ceftriaxone azithromycin. Discussed with respiratory, nursing, machine adjuster leader case trim. Likely will need oxygen at discharge. Additional on review of CTA with possible aspiration pneumonia. Discussed with speech therapist. Dysphagia diet. Reviewed CTA. Reviewed vitals, CBC, CMP. Per discussion with speech therapist (2) Respiratory syncytial virus (RSV) as cause of acute bronchitis: RSV infection. Remains afebrile, gradually improving symptoms, symptoms started last week on Saturday. Can discontinue isolation. - Breathing treatments - Flutter device - Guaifenesin - Supportive care (3) Pneumonia: Possible aspiration pneumonia. Discussed with speech therapist, appreciate evaluation. Dysphagia diet. Aspiration precautions. Continue ceftriaxone, azithromycin. Reviewed CBC, leukocytosis. Afebrile. Is not producing phlegm. Will check procalcitonin, consider de-escalation of antibiotics. Left lower lobe, may be viral related to RSV or secondary bacterial infection. At this point, organism unknown. - Given severity of presentation, antibiotics started - Blood cultures not done before initiation of antibiotics (4) COPD (chronic obstructive pulmonary disease): Continue higher dose IV steroid. Continue breathing treatments. Empiric antibiotic. Has not phlegm to give a sputum sample. Severe exacerbation of COPD with respiratory failure, as above. Acute exacerbation related to RSV and/or pneumonia - Management as noted above Qualifiers: COPD type: COPD with acute exacerbation Qualified Code(s): J44.1 - Chronic obstructive pulmonary disease with (acute) exacerbation (5) Elevated troponin: She is free of chest pain. Monitor on telemetry. Reviewed echocardiogram. Suspect type II/demand ischemia. With downward trend noted. Given degree of hypoxemia at presentation, suspect demand ischemia, type II process with improvement over time. Has had significant difficulty breathing x 2 days. That said, the has had significant elevations in lipid panel lst few times checked. No known CAD. - Continue serial cardiac enzymes - Echo - Statin and plavix, aspirin allergy (6) Acquired hypothyroidism: History of Graves' disease with thyroid ablation and thyroidectomy. Off of thyroid medication for some time due to not having a primary care provider/missed appointments. Has obvious proptosis on examination. -Requested TSH - levothyroxine at 25 mcg daily; had been on 88 mcg daily when last prescribed/filled which appears to have been sometime ago (7) Mixed dyslipidemia: Previously on statin therapy. Last time lipid panels have been checked total cholesterol has been around 300. Not on treatment for unclear timeframe but suspect for quite a while. - Check lipid panel - Resume statin therapy with formulary equivalent, had been on Crestor in the past outpatient (8) Chronic neck and back pain: Previously prescribed narcotics in the outpatient setting but has been off for some time. Has been prescribed several different NSAIDs and medications for muscle relaxers in the past. - Supportive care, trying to minimize narcotics as able (9) Smoker: She is agreeable to nicotine replacement, switch nicotine patch to scheduled, add lozenges as needed for cravings. Longtime smoker both tobacco and daily marijuana Plan - Macrocystosis, no reported history of ETOH use, will check b12 and folate - eGFR at 73.7, BUN/Cr not - Records indicate a history of generalized anxiety disorder and bipolar disorder type I though not on any chronic medications for such and with normal affect today. Symptoms suggesting these diagnoses may have been related to substance use both prescribed and nonprescribed but not apparent at this moment in time. VTE prophylaxis: Lovenox GI Prophylaxis: PPI Antibiotics: Azithromycin initiated 01/04/2025, Rocephin initiated 01/04/2025 Disposition plan: Home with outpatient follow up anticipated though review of records shows that she has been dismissed by several physicians due to repeated no-shows. Does not currently have a primary care provider and has not been on needed medications. Recommend utilizing meds to beds at the time of discharge which patient seems agreeable to consider. Code Status: Full Code January 09, 2025 Patient continues to have significant wheezing to auscultation bilaterally all areas, no oxygen requirement remained stable. Will continue with methylprednisolone 40 mg IV every 6 hours for now. Continue scheduled nebulization with DuoNeb and budesonide. Continue empiric antibiotic coverage with ceftriaxone and azithromycin. Obtain sputum culture if able to expectorate PDMP PDMP Reviewed: Not Reviewed Attestations Medical Necessity Statement*: Continued need of IV steroids, scheduled nebulization, appropriate disposition planning Coding Level of Care Code Acute Code for Chg Fwd Diagnoses Acute hypoxic respiratory failure J96.01 Respiratory syncytial virus (RSV) as cause of acute bronchitis J20.5 Pneumonia J18.9 Chronic obstructive pulmonary disease with acute exacerbation J44.1 COPD type: COPD with acute exacerbation Elevated troponin R79.89 Acquired hypothyroidism E03.9 Mixed dyslipidemia E78.2 Chronic neck and back pain M54.2; M54.9; G89.29 Smoker F17.200
[2025-01-09] MEDS: AZITHROMYCIN ADD-Vantage 500 MG in 0.9% NaCl ADD-Vantage 250 ML 250 MG IV (15:04)
[2025-01-09] MEDS: cefTRIAXone 1,000 mg SDV 1000 MG IVP (15:04)
[2025-01-09] MEDS: atorvastatin 40 mg Tablet 20 MG PO (20:29)
[2025-01-09] MEDS: trazodone 50 mg Tablet 25 MG PO (20:29)
[2025-01-09] MEDS: lidocaine 5% Patch 1 PATCH TOPICAL (20:33)
[2025-01-10] VITALS (13 sets, daily range): BP systolic 122–153; BP diastolic 71–83; PULSE 67–99; RESP 16–22; TEMP 36.4–36.8; O2SAT 83–98
[2025-01-10] MEDS: ipratropium-albuterol 3 mL Neb INHALATION ×3 (01:25→19:43)
[2025-01-10] MEDS: methylPREDNISolone sod succ 40 mg/mL INJ IVP ×4 (03:32→22:13)
[2025-01-10] MEDS: HYDROcodone-acetaminophen 5-325 mg Tablet 1 TAB PO ×2 (03:33→19:31)
[2025-01-10] MEDS: acetaminophen 325 mg Tablet 650 MG PO (04:12)
[2025-01-10 04:22] LABS: Basophils % 0.3 %; Hematocrit 35.8 % (36-47); Lymphocytes # 0.8 10^3/uL (0.8-4.8); Lymphocytes % 7.5 %; Mean Corpuscular HGB Conc 31.3 g/dL (30-55); Mean Corpuscular Hemoglobin 33.8 pg (27-33); Mean Corpuscular Volume 108.2 fl (85-98); Mean Platelet Volume 9.7 fL (7.4-10.4); Monocytes # 0.6 10^3/uL (0.2-0.9); Monocytes % 5.4 %; Neutrophils # 9.09 10^3/uL (1.8-7.7); Neutrophils % 82.9 %; Nucleated Red Blood Cells % 0 %; Platelet Count 277 10^3/cmm (157-399); Red Blood Count 3.31 10^6/uL (3.85-5.65); Red Cell Distribution Width 12.7 % (12.1-15.1); White Blood Count 10.96 10^3/uL (3.29-11.43)
[2025-01-10 04:42] LABS: Alanine Aminotransferase 80 U/L (0-33); Albumin Level 4.4 g/dL (3.5-5.2); Alkaline Phosphatase 80 U/L (35-105); Anion Gap 12.5 (5-19); Aspartate Amino Transferase 58 U/L (0-32); Blood Urea Nitrogen 23 mg/dL (6-20); Calcium 10.2 mg/dL (8.5-10.5); Carbon Dioxide 38 mmol/L (22-29); Chloride 94 mmol/L (98-107); Creatinine Clr Calc Pharmacy 59.8888; Globulin 2.6 g/dL (1.3-4.6); Glomerular Filtration Rate 73.7 mL/min (90-130); Glucose 148 mg/dL (65-115); Osmolality Calculated 296 mOsm/kg (285-295); Potassium 4.5 mmol/L (3.5-5.1); Sodium 140 mmol/L (136-145); Total Bilirubin 0.2 mg/dL (0.15-1.2)
[2025-01-10] MEDS: levothyroxine 25 mcg Tablet PO (05:00)
[2025-01-10] MEDS: pantoprazole DR 40 mg Tablet PO (08:25)
[2025-01-10] MEDS: nicotine 4 mg lozenge MUCOUS MEM (08:25)
[2025-01-10] MEDS: clopidogrel 75 mg Tablet PO (08:25)
[2025-01-10] MEDS: AZITHROMYCIN ADD-Vantage 500 MG in 0.9% NaCl ADD-Vantage 250 ML 250 MG IV (14:21)
[2025-01-10] MEDS: cefTRIAXone 1,000 mg SDV 1000 MG IVP (14:22)
--- NOTE | 2025-01-10 16:41 | P.PN_ITS ---
Subjective 2 Subjective: Oxygen requirement is improving today at 4 L/min. Patient is extremely anxious. Vitals/I&O/Wt Last Vital Signs Temp 98.2 F 01/10/25 12:00 Pulse 99 01/10/25 14:34 Resp 16 01/10/25 14:34 BP 148/74 01/10/25 12:00 Pulse Ox 95 01/10/25 14:34 O2 Del Method High Flow Nasal Cannula 01/10/25 14:34 O2 Flow Rate 4 01/10/25 14:34 FiO2 51 01/07/25 10:00 01/10/25 01/10/25 01/10/25 07:59 14:59 22:59 Intake Total 840 / 840 250 / 1090 Balance 840 / 840 250 / 1090 Weight last 48 hrs Weight 48.716 kg Weight 48.58 kg Physical Exam 2 Narrative: General: No acute distress, AO x3 HEENT: PERRLA, pupils bilaterally equal and reactive, pallors not present Chest: Normal vesicular breath sounds, no added sounds, equal good air entry bilaterally CVS: S1-S2 regular, no murmurs, no tachycardia, no gallops, no rubs Abdomen: Soft, nontender, no organomegaly, bowel sounds present Neuro: No focal deficits, no facial deformity, AO x3, power 5/5 in all limbs Data 01/10/25 01:56 01/10/25 01:56 A&P Assessment and plan (1) Acute hypoxic respiratory failure: Slow to improve respiratory failure. Continues to require high flow oxygen, on 12 L this morning, but able to decrease down to 10 L today. Showing improvement in wheezing, although still mild wheezing is present. Diminished air entry. Continue IV steroids currently unchanged, does not. Responding to treatment. Continue Solu-Medrol 40 mg IV every 6 hours. Monitor for hyperglycemia, hypertension, encephalopathy, gastritis with IV steroids. Glucose currently is doing well, 112. Blood pressure close to target. Continue ceftriaxone and azithromycin. Reviewed BMP, renal function remained stable. Budesonide. Breathing treatments. Continue to mobilize. Discussed with RT, nursing, case assistant. Consideration of LTAC versus inpatient acute rehabilitation versus SNF. Still requiring bit too much oxygen currently for acute patient rehabilitation, however, if oxygen requirement continues to decrease below 10 L consistently, may be able to proceed to the acute inpatient rehabilitation through [facility] and she would be agreeable to it as per discussion. With her dentures broaden diet advance to soft and bite-size. Maintain aspiration precautions. Reviewed vitals. Reviewed CBC, leukocytosis resolved. She is afebrile. Continue treatment requested Solu-Medrol. Monitor for risk of hyperglycemia, encephalopathy, gastritis, hypertension with IV steroid. Continue breathing treatments. Continue oxygen support, wean down as tolerating. Empiric antibiotics for now continued with ceftriaxone azithromycin. Discussed with respiratory, nursing, case assistant. Likely will need oxygen at discharge. Additional on review of CTA with possible aspiration pneumonia. Discussed with speech therapist. Dysphagia diet. Reviewed CTA. Reviewed vitals, CBC, CMP. Per discussion with speech therapist (2) Respiratory syncytial virus (RSV) as cause of acute bronchitis: RSV infection. Remains afebrile, gradually improving symptoms, symptoms started last week on Saturday. Can discontinue isolation. - Breathing treatments - Flutter device - Guaifenesin - Supportive care (3) Pneumonia: Possible aspiration pneumonia. Discussed with speech therapist, appreciate evaluation. Dysphagia diet. Aspiration precautions. Continue ceftriaxone, azithromycin. Reviewed CBC, leukocytosis. Afebrile. Is not producing phlegm. Will check procalcitonin, consider de-escalation of antibiotics. Left lower lobe, may be viral related to RSV or secondary bacterial infection. At this point, organism unknown. - Given severity of presentation, antibiotics started - Blood cultures not done before initiation of antibiotics (4) COPD (chronic obstructive pulmonary disease): Continue higher dose IV steroid. Continue breathing treatments. Empiric antibiotic. Has not phlegm to give a sputum sample. Severe exacerbation of COPD with respiratory failure, as above. Acute exacerbation related to RSV and/or pneumonia - Management as noted above Qualifiers: COPD type: COPD with acute exacerbation Qualified Code(s): J44.1 - Chronic obstructive pulmonary disease with (acute) exacerbation (5) Elevated troponin: She is free of chest pain. Monitor on telemetry. Reviewed echocardiogram. Suspect type II/demand ischemia. With downward trend noted. Given degree of hypoxemia at presentation, suspect demand ischemia, type II process with improvement over time. Has had significant difficulty breathing x 2 days. That said, the has had significant elevations in lipid panel lst few times checked. No known CAD. - Continue serial cardiac enzymes - Echo - Statin and plavix, aspirin allergy (6) Acquired hypothyroidism: History of Graves' disease with thyroid ablation and thyroidectomy. Off of thyroid medication for some time due to not having a primary care provider/missed appointments. Has obvious proptosis on examination. -Requested TSH - levothyroxine at 25 mcg daily; had been on 88 mcg daily when last prescribed/filled which appears to have been sometime ago (7) Mixed dyslipidemia: Previously on statin therapy. Last time lipid panels have been checked total cholesterol has been around 300. Not on treatment for unclear timeframe but suspect for quite a while. - Check lipid panel - Resume statin therapy with formulary equivalent, had been on Crestor in the past outpatient (8) Chronic neck and back pain: Previously prescribed narcotics in the outpatient setting but has been off for some time. Has been prescribed several different NSAIDs and medications for muscle relaxers in the past. - Supportive care, trying to minimize narcotics as able (9) Smoker: She is agreeable to nicotine replacement, switch nicotine patch to scheduled, add lozenges as needed for cravings. Longtime smoker both tobacco and daily marijuana Plan - Macrocystosis, no reported history of ETOH use, will check b12 and folate - eGFR at 73.7, BUN/Cr not - Records indicate a history of generalized anxiety disorder and bipolar disorder type I though not on any chronic medications for such and with normal affect today. Symptoms suggesting these diagnoses may have been related to substance use both prescribed and nonprescribed but not apparent at this moment in time. VTE prophylaxis: Lovenox GI Prophylaxis: PPI Antibiotics: Azithromycin initiated 01/04/2025, Rocephin initiated 01/04/2025 Disposition plan: Home with outpatient follow up anticipated though review of records shows that she has been dismissed by several physicians due to repeated no-shows. Does not currently have a primary care provider and has not been on needed medications. Recommend utilizing meds to beds at the time of discharge which patient seems agreeable to consider. Code Status: Full Code January 09, 2025 Patient continues to have significant wheezing to auscultation bilaterally all areas, no oxygen requirement remained stable. Will continue with methylprednisolone 40 mg IV every 6 hours for now. Continue scheduled nebulization with DuoNeb and budesonide. Continue empiric antibiotic coverage with ceftriaxone and azithromycin. Obtain sputum culture if able to expectorate January 10, 2025 Patient continues to have significant wheezing to auscultation bilaterally, however it does appear marginally improved compared to yesterday. Her oxygen ox requirement is improved to 4 L/min today. Will continue with scheduled nebulization with DuoNeb and budesonide. Continue methylprednisolone IV. Continue ceftriaxone but discontinue azithromycin as she has completed 6 days of infusion today. Increase Xanax to 0.5 mg 3 times daily as needed PDMP PDMP Reviewed: Not Reviewed Attestations 2 Medical Necessity Statement*: continued admission for iv steroids, scheduled nebs, 02 saturationtrending down today at 4lpm via [facility] Coding Level of Care Code Acute Code for [facility] Diagnoses Acute hypoxic respiratory failure J96.01 Respiratory syncytial virus (RSV) as cause of acute bronchitis J20.5 Pneumonia J18.9 Chronic obstructive pulmonary disease with acute exacerbation J44.1 COPD type: COPD with acute exacerbation Elevated troponin R79.89 Acquired hypothyroidism E03.9 Mixed dyslipidemia E78.2 Chronic neck and back pain M54.2; M54.9; G89.29 Smoker F17.200
[2025-01-10] MEDS: budesonide 0.5 mg/2 mL Neb INHALATION (19:43)
[2025-01-10] MEDS: trazodone 50 mg Tablet 25 MG PO (20:18)
[2025-01-10] MEDS: atorvastatin 40 mg Tablet 20 MG PO (20:18)
[2025-01-10] MEDS: lidocaine 5% Patch 1 PATCH TOPICAL (20:22)
[2025-01-10] MEDS: ALPRAZolam 0.5 mg Tablet PO (21:39)
[2025-01-11] VITALS (11 sets, daily range): BP systolic 108–149; BP diastolic 68–86; PULSE 61–101; RESP 14–28; TEMP 36.3–37; O2SAT 90–96
[2025-01-11] MEDS: ipratropium-albuterol 3 mL Neb INHALATION ×5 (01:24→21:39)
[2025-01-11 03:02] LABS: Basophils % 0.3 %; Hematocrit 33.6 % (36-47); Mean Corpuscular HGB Conc 31.8 g/dL (30-55); Mean Corpuscular Hemoglobin 33.1 pg (27-33); Mean Platelet Volume 9.8 fL (7.4-10.4); Monocytes # 0.6 10^3/uL (0.2-0.9); Monocytes % 6.3 %; Neutrophils # 7.88 10^3/uL (1.8-7.7); Neutrophils % 78.6 %; Nucleated Red Blood Cells % 0 %; Platelet Count 266 10^3/cmm (157-399); Red Blood Count 3.23 10^6/uL (3.85-5.65); Red Cell Distribution Width 12.5 % (12.1-15.1); White Blood Count 10.02 10^3/uL (3.29-11.43)
[2025-01-11 03:26] LABS: Alanine Aminotransferase 90 U/L (0-33); Alkaline Phosphatase 71 U/L (35-105); Anion Gap 11.3 (5-19); Aspartate Amino Transferase 67 U/L (0-32); Blood Urea Nitrogen 19 mg/dL (6-20); Calcium 9.4 mg/dL (8.5-10.5); Carbon Dioxide 36 mmol/L (22-29); Chloride 96 mmol/L (98-107); Globulin 2.7 g/dL (1.3-4.6); Glomerular Filtration Rate 64.3 mL/min (90-130); Glucose 153 mg/dL (65-115); Osmolality Calculated 293 mOsm/kg (285-295); Potassium 4.3 mmol/L (3.5-5.1); Sodium 139 mmol/L (136-145); Total Bilirubin 0.2 mg/dL (0.15-1.2); Total Protein 6.7 g/dL (6.6-8.7)
[2025-01-11] MEDS: methylPREDNISolone sod succ 40 mg/mL INJ IVP ×4 (04:05→22:03)
[2025-01-11] MEDS: levothyroxine 25 mcg Tablet PO (06:02)
[2025-01-11] MEDS: budesonide 0.5 mg/2 mL Neb INHALATION ×2 (08:34→21:38)
[2025-01-11] MEDS: nicotine 4 mg lozenge MUCOUS MEM (09:46)
[2025-01-11] MEDS: clopidogrel 75 mg Tablet PO (09:46)
[2025-01-11] MEDS: pantoprazole DR 40 mg Tablet PO (09:46)
[2025-01-11] MEDS: ALPRAZolam 0.5 mg Tablet PO ×2 (11:18→19:54)
--- NOTE | 2025-01-11 12:15 | PC.SOCIAL ---
IMM Update pg 2 of IMM Updated and reviewed w/ patient. Copy provided and copy dated, initialed and placed in chart.
--- NOTE | 2025-01-11 13:22 | PM.PN ---
Subjective Subjective: Seen this morning. Patient is requiring 6L nasal cannula at this time. She gets very short of breath 70 surgeon. She is saturating 89 to 90% on 6 L. At baseline she is very active and takes care of her grandchildren. Patient prefers to stay longer in the hospital to get better as opposed to going to a [facility] facility however will consider it if it is needed. Vitals/I&O/Wt Last Vital Signs Temp 97.4 F L 01/11/25 11:14 Pulse 71 01/11/25 11:20 Resp 20 H 01/11/25 11:20 BP 140/71 01/11/25 11:14 Pulse Ox 90 01/11/25 11:20 O2 Del Method High Flow Nasal Cannula 01/11/25 11:20 O2 Flow Rate 6 01/11/25 11:20 FiO2 51 01/07/25 10:00 01/10/25 01/11/25 01/11/25 22:59 06:59 14:59 Intake Total 730 / 1570 960 / 960 Balance 730 / 1570 960 / 960 Weight last 48 hrs Weight 49.442 kg Weight 50.077 kg Weight 48.716 kg Physical Exam Narrative: General: No acute distress, AO x3 HEENT: PERRLA, pupils bilaterally equal and reactive, pallors not present Chest: Normal vesicular breath sounds, no added sounds, equal good air entry bilaterally CVS: S1-S2 regular, no murmurs, no tachycardia, no gallops, no rubs Abdomen: Soft, nontender, no organomegaly, bowel sounds present Neuro: No focal deficits, no facial deformity, AO x3, power 5/5 in all limbs Data 01/11/25 02:30 01/11/25 02:30 A&P Assessment and plan (1) Acute hypoxic respiratory failure: Slow to improve respiratory failure. Continues to require high flow oxygen, on 12 L this morning, but able to decrease down to 10 L today. Showing improvement in wheezing, although still mild wheezing is present. Diminished air entry. Continue IV steroids currently unchanged, does not. Responding to treatment. Continue Solu-Medrol 40 mg IV every 6 hours. Monitor for hyperglycemia, hypertension, encephalopathy, gastritis with IV steroids. Glucose currently is doing well, 112. Blood pressure close to target. Continue ceftriaxone and azithromycin. Reviewed BMP, renal function remained stable. Budesonide. Breathing treatments. Continue to mobilize. Discussed with RT, nursing, caseworker protective services. Consideration of LTAC versus inpatient acute rehabilitation versus SNF. Still requiring bit too much oxygen currently for acute patient rehabilitation, however, if oxygen requirement continues to decrease below 10 L consistently, may be able to proceed to the acute inpatient [facility] through [facility] and she would be agreeable to it as per discussion. With her dentures broaden diet advance to soft and bite-size. Maintain aspiration precautions. Reviewed vitals. Reviewed CBC, leukocytosis resolved. She is afebrile. Continue treatment requested Solu-Medrol. Monitor for risk of hyperglycemia, encephalopathy, gastritis, hypertension with IV steroid. Continue breathing treatments. Continue oxygen support, wean down as tolerating. Empiric antibiotics for now continued with ceftriaxone azithromycin. Discussed with respiratory, nursing, caseworker protective services. Likely will need oxygen at discharge. Additional on review of CTA with possible aspiration pneumonia. Discussed with speech therapist. Dysphagia diet. Reviewed CTA. Reviewed vitals, CBC, CMP. Per discussion with speech therapist (2) Respiratory syncytial virus (RSV) as cause of acute bronchitis: RSV infection. Remains afebrile, gradually improving symptoms, symptoms started last week on Saturday. Can discontinue isolation. - Breathing treatments - Flutter device - Guaifenesin - Supportive care (3) Pneumonia: Possible aspiration pneumonia. Discussed with speech therapist, appreciate evaluation. Dysphagia diet. Aspiration precautions. Continue ceftriaxone, azithromycin. Reviewed CBC, leukocytosis. Afebrile. Is not producing phlegm. Will check procalcitonin, consider de-escalation of antibiotics. Left lower lobe, may be viral related to RSV or secondary bacterial infection. At this point, organism unknown. - Given severity of presentation, antibiotics started - Blood cultures not done before initiation of antibiotics (4) COPD (chronic obstructive pulmonary disease): Continue higher dose IV steroid. Continue breathing treatments. Empiric antibiotic. Has not phlegm to give a sputum sample. Severe exacerbation of COPD with respiratory failure, as above. Acute exacerbation related to RSV and/or pneumonia - Management as noted above Qualifiers: COPD type: COPD with acute exacerbation Qualified Code(s): J44.1 - Chronic obstructive pulmonary disease with (acute) exacerbation (5) Elevated troponin: She is free of chest pain. Monitor on telemetry. Reviewed echocardiogram. Suspect type II/demand ischemia. With downward trend noted. Given degree of hypoxemia at presentation, suspect demand ischemia, type II process with improvement over time. Has had significant difficulty breathing x 2 days. That said, the has had significant elevations in lipid panel lst few times checked. No known CAD. - Continue serial cardiac enzymes - Echo - Statin and plavix, aspirin allergy (6) Acquired hypothyroidism: History of Graves' disease with thyroid ablation and thyroidectomy. Off of thyroid medication for some time due to not having a primary care provider/missed appointments. Has obvious proptosis on examination. -Requested TSH - levothyroxine at 25 mcg daily; had been on 88 mcg daily when last prescribed/filled which appears to have been sometime ago (7) Mixed dyslipidemia: Previously on statin therapy. Last time lipid panels have been checked total cholesterol has been around 300. Not on treatment for unclear timeframe but suspect for quite a while. - Check lipid panel - Resume statin therapy with formulary equivalent, had been on Crestor in the past outpatient (8) Chronic neck and back pain: Previously prescribed narcotics in the outpatient setting but has been off for some time. Has been prescribed several different NSAIDs and medications for muscle relaxers in the past. - Supportive care, trying to minimize narcotics as able (9) Smoker: She is agreeable to nicotine replacement, switch nicotine patch to scheduled, add lozenges as needed for cravings. Longtime smoker both tobacco and daily marijuana Plan - Macrocystosis, no reported history of ETOH use, will check b12 and folate - eGFR at 73.7, BUN/Cr not - Records indicate a history of generalized anxiety disorder and bipolar disorder type I though not on any chronic medications for such and with normal affect today. Symptoms suggesting these diagnoses may have been related to substance use both prescribed and nonprescribed but not apparent at this moment in time. VTE prophylaxis: Lovenox GI Prophylaxis: PPI Antibiotics: Azithromycin initiated 01/04/2025, Rocephin initiated 01/04/2025 Disposition plan: Home with outpatient follow up anticipated though review of records shows that she has been dismissed by several physicians due to repeated no-shows. Does not currently have a primary care provider and has not been on needed medications. Recommend utilizing meds to beds at the time of discharge which patient seems agreeable to consider. Code Status: Full Code January 09, 2025 Patient continues to have significant wheezing to auscultation bilaterally all areas, no oxygen requirement remained stable. Will continue with methylprednisolone 40 mg IV every 6 hours for now. Continue scheduled nebulization with DuoNeb and budesonide. Continue empiric antibiotic coverage with ceftriaxone and azithromycin. Obtain sputum culture if able to expectorate January 10, 2025 Patient continues to have significant wheezing to auscultation bilaterally, however it does appear marginally improved compared to yesterday. Her oxygen ox requirement is improved to 4 L/min today. Will continue with scheduled nebulization with DuoNeb and budesonide. Continue methylprednisolone IV. Continue ceftriaxone but discontinue azithromycin as she has completed 6 days of infusion today. Increase Xanax to 0.5 mg 3 times daily as needed 01/11/2025 Patient continues to have significant wheezing bilaterally. She is on 6 L nasal cannula however was on 4 L yesterday. I will continue methylprednisolone every 6 hours at this time. Continue ceftriaxone. Continue Xanax 0.5 3 times daily. Referral to LTAC has been placed. PDMP PDMP Reviewed: Not Reviewed Attestations Medical Necessity Statement*: continued admission for iv steroids, scheduled nebs, she is requiring high oxygen requirement at this time. Diagnoses Acute hypoxic respiratory failure J96.01 Respiratory syncytial virus (RSV) as cause of acute bronchitis J20.5 Pneumonia J18.9 Chronic obstructive pulmonary disease with acute exacerbation J44.1 COPD type: COPD with acute exacerbation Elevated troponin R79.89 Acquired hypothyroidism E03.9 Mixed dyslipidemia E78.2 Chronic neck and back pain M54.2; M54.9; G89.29 Smoker F17.200
[2025-01-11] MEDS: cefTRIAXone 1,000 mg SDV 1000 MG IVP (14:30)
[2025-01-11] MEDS: acetaminophen 325 mg Tablet 650 MG PO (19:54)
[2025-01-11] MEDS: atorvastatin 40 mg Tablet 20 MG PO (19:54)
[2025-01-11] MEDS: lidocaine 5% Patch 1 PATCH TOPICAL (19:55)
[2025-01-11] MEDS: trazodone 50 mg Tablet 25 MG PO (19:55)
[2025-01-12] VITALS (11 sets, daily range): BP systolic 107–165; BP diastolic 56–83; PULSE 60–86; RESP 14–20; TEMP 36.3–36.9; O2SAT 91–98; BMI 19.9
[2025-01-12] MEDS: HYDROcodone-acetaminophen 5-325 mg Tablet 1 TAB PO ×4 (02:12→22:28)
[2025-01-12] MEDS: ipratropium-albuterol 3 mL Neb INHALATION ×4 (02:19→22:40)
[2025-01-12] MEDS: methylPREDNISolone sod succ 40 mg/mL INJ IVP ×3 (03:06→18:06)
[2025-01-12] MEDS: ALPRAZolam 0.5 mg Tablet PO ×3 (04:22→22:34)
[2025-01-12 04:40] LABS: Basophils % 0.3 %; Hematocrit 37.3 % (36-47); Lymphocytes # 0.8 10^3/uL (0.8-4.8); Mean Corpuscular HGB Conc 32.4 g/dL (30-55); Mean Corpuscular Hemoglobin 34.1 pg (27-33); Mean Corpuscular Volume 105.1 fl (85-98); Mean Platelet Volume 9.8 fL (7.4-10.4); Monocytes # 0.5 10^3/uL (0.2-0.9); Monocytes % 4.5 %; Neutrophils # 9.58 10^3/uL (1.8-7.7); Neutrophils % 82.6 %; Nucleated Red Blood Cells % 0 %; Platelet Count 364 10^3/cmm (157-399); Red Blood Count 3.55 10^6/uL (3.85-5.65); Red Cell Distribution Width 12.7 % (12.1-15.1); White Blood Count 11.59 10^3/uL (3.29-11.43)
[2025-01-12 04:58] LABS: Anion Gap 14.5 (5-19); Blood Urea Nitrogen 23 mg/dL (6-20); Calcium 9.9 mg/dL (8.5-10.5); Carbon Dioxide 35 mmol/L (22-29); Chloride 97 mmol/L (98-107); Glomerular Filtration Rate 73.7 mL/min (90-130); Glucose 148 mg/dL (65-115); Magnesium 2.4 mg/dL (1.7-2.3); Osmolality Calculated 300 mOsm/kg (285-295); Potassium 4.5 mmol/L (3.5-5.1); Sodium 142 mmol/L (136-145)
[2025-01-12 05:22] LABS: Slide Review Slide Review Perform
[2025-01-12] MEDS: levothyroxine 25 mcg Tablet PO (05:41)
[2025-01-12] MEDS: budesonide 0.5 mg/2 mL Neb INHALATION ×2 (07:39→22:40)
[2025-01-12] MEDS: docusate sodium 100 mg Capsule PO ×2 (08:00→18:05)
[2025-01-12] MEDS: pantoprazole DR 40 mg Tablet PO (08:00)
[2025-01-12] MEDS: lidocaine 5% Patch 1 PATCH TOPICAL ×2 (08:01→20:16)
[2025-01-12] MEDS: clopidogrel 75 mg Tablet PO (08:01)
--- NOTE | 2025-01-12 11:25 | P.PN_ITS ---
Subjective 2 Subjective: Patient reports significant shortness of breath, worse with any exertion. She is currently on 6 L. She denies prior home oxygen needs. Denies fevers or chills. Reports appetite is okay. Spoke with her partner via phone and gave update. Medications: Reviewed: Yes Vitals/I&O/Wt Last Vital Signs Temp 97.8 F 01/12/25 08:02 Pulse 63 01/12/25 08:02 Resp 14 01/12/25 08:02 BP 126/77 01/12/25 08:02 Pulse Ox 97 01/12/25 08:02 O2 Del Method Nasal Cannula 01/12/25 08:02 O2 Flow Rate 6 01/12/25 07:41 FiO2 51 01/07/25 10:00 01/11/25 01/12/25 01/12/25 22:59 06:59 14:59 Intake Total 480 / 1440 240 / 240 Balance 480 / 1440 240 / 240 Weight last 48 hrs Weight 49.442 kg Weight 49.442 kg Weight 50.077 kg Physical Exam 2 Narrative: General: Patient is awake and alert. Head: Normocephalic. Atraumatic. EOM intact. Neck: No JVD. Cardiovascular: RRR. No gallops. No murmurs. No peripheral edema. Lungs: Very poor air movement throughout bilateral lung guidry. End expiratory wheezing throughout bilateral lung guidry. Conversational dyspnea. Increased work of breathing. On supplemental oxygen support. Skin: No jaundice. No rashes. Abdomen: Normal bowel sounds, abdomen soft and nontender. Genito Urinary: Genital exam not performed since complaints not related. Rectal: Rectal exam not performed since no symptoms indicated blood loss. Extremities: No cyanosis or clubbing. Musculoskeletal: No swollen or erythematous joints. Neurological: Moves all 4 extremities. No myoclonus. Data 01/12/25 04:00 01/12/25 04:00 A&P Assessment and plan (1) Acute hypoxic respiratory failure: Acute COPD exacerbation Continue Pulmicort Continue scheduled breathing treatments Continue IV steroids, will reduce dose Encourage pulmonary toilet Continue supplemental oxygen support, wean as tolerated She has had a prolonged recovery, referrals have been sent for inpatient rehabilitation (2) Pneumonia: Aspiration pneumonia Continue broad-spectrum antibiotics Speech therapy has evaluated (3) COPD (chronic obstructive pulmonary disease): Management as above Qualifiers: COPD type: COPD with acute exacerbation Qualified Code(s): J44.1 - Chronic obstructive pulmonary disease with (acute) exacerbation (4) Elevated troponin: No signs or symptoms of ischemia Telemetry monitoring (5) Acquired hypothyroidism: TSH was elevated on admission Request free thyroxine level Continue current Synthroid dosing (6) Mixed dyslipidemia: Continue atorvastatin (7) Chronic neck and back pain: Supportive care (8) Smoker: Continue nicotine replacement (9) Respiratory syncytial virus (RSV) as cause of acute bronchitis: Now off isolation Plan Debility and physical deconditioning -Continue therapy, will likely need postacute care Anxiety -Continue Xanax Dysphagia -Continue modified diet -Speech therapy following DVT prophylaxis: Lovenox PDMP PDMP Reviewed: Not Reviewed Attestations 2 Medical Necessity Statement*: Patient requires ongoing hospitalization for IV antibiotics, IV steroids, breathing treatments, therapy, and supportive care. Coding Level of Care Code Acute Code for [facility] Diagnoses Acute hypoxic respiratory failure J96.01 Pneumonia J18.9 Chronic obstructive pulmonary disease with acute exacerbation J44.1 COPD type: COPD with acute exacerbation Elevated troponin R79.89 Acquired hypothyroidism E03.9 Mixed dyslipidemia E78.2 Chronic neck and back pain M54.2; M54.9; G89.29 Smoker F17.200 Respiratory syncytial virus (RSV) as cause of acute bronchitis J20.5
[2025-01-12] MEDS: cefTRIAXone 1,000 mg SDV 1000 MG IVP (13:55)
[2025-01-12] MEDS: enoxaparin 40 mg/0.4 mL Syringe SUBCUT (16:29)
[2025-01-12] MEDS: acetaminophen 325 mg Tablet 650 MG PO (20:12)
[2025-01-12] MEDS: atorvastatin 40 mg Tablet 20 MG PO (20:12)
[2025-01-12] MEDS: trazodone 50 mg Tablet 25 MG PO (20:15)
[2025-01-13] VITALS (13 sets, daily range): BP systolic 124–157; BP diastolic 70–90; PULSE 65–88; RESP 16–20; TEMP 36.4–36.8; O2SAT 91–99; BMI 19.9
[2025-01-13] MEDS: ipratropium-albuterol 3 mL Neb INHALATION ×4 (03:37→21:03)
[2025-01-13] MEDS: levothyroxine 25 mcg Tablet PO (06:08)
[2025-01-13] MEDS: methylPREDNISolone sod succ 40 mg/mL INJ IVP ×2 (06:08→10:27)
[2025-01-13] MEDS: budesonide 0.5 mg/2 mL Neb INHALATION ×2 (07:38→21:03)
--- NOTE | 2025-01-13 10:25 | PC.SOCIAL ---
IMM Update pg 2 of IMM Updated and reviewed w/ patient. Copy provided and copy dated, initialed and placed in chart.
[2025-01-13] MEDS: docusate sodium 100 mg Capsule PO ×2 (10:26→17:24)
[2025-01-13] MEDS: ALPRAZolam 0.5 mg Tablet PO ×2 (10:26→20:48)
[2025-01-13] MEDS: clopidogrel 75 mg Tablet PO (10:26)
[2025-01-13] MEDS: HYDROcodone-acetaminophen 5-325 mg Tablet 1 TAB PO ×3 (10:27→22:35)
[2025-01-13] MEDS: pantoprazole DR 40 mg Tablet PO (10:27)
--- NOTE | 2025-01-13 11:46 | P.PN_ITS ---
Subjective 2 Subjective: Patient reports her breathing is about the same today. She reports respiratory distress when trying to get to the restroom. She has been on 3 to 6 L. Notified by case management this morning regarding peer to peer for postacute. Daughter is bedside inquires about skilled rehabilitation. Medications: Reviewed: Yes Vitals/I&O/Wt Last Vital Signs Temp 97.5 F L 01/13/25 07:35 Pulse 69 01/13/25 07:45 Resp 18 01/13/25 07:37 BP 150/90 01/13/25 07:35 Pulse Ox 98 01/13/25 07:37 O2 Del Method Nasal Cannula 01/13/25 07:37 O2 Flow Rate 6 01/13/25 07:37 FiO2 51 01/07/25 10:00 01/12/25 01/13/25 01/13/25 22:59 06:59 14:59 Intake Total 240 / 840 480 / 480 Balance 240 / 840 480 / 480 Weight last 48 hrs Weight 49.442 kg Weight 49.442 kg Physical Exam 2 Narrative: General: Patient is awake and alert. Mild respiratory distress. Head: Normocephalic. Atraumatic. EOM intact. Neck: No JVD. Cardiovascular: RRR. No gallops. No murmurs. No peripheral edema. Lungs: Persistently poor air movement throughout bilateral lung guidry. End expiratory wheezing throughout bilateral lung guidry, similar to prior exam. Conversational dyspnea. Increased work of breathing. On supplemental oxygen support. Skin: No jaundice. No rashes. Abdomen: Normal bowel sounds, abdomen soft and nontender. Genito Urinary: Genital exam not performed since complaints not related. Rectal: Rectal exam not performed since no symptoms indicated blood loss. Extremities: No cyanosis or clubbing. Musculoskeletal: No swollen or erythematous joints. Neurological: Moves all 4 extremities. No myoclonus. Data 01/12/25 04:00 01/12/25 04:00 A&P Assessment and plan (1) Acute hypoxic respiratory failure: Acute COPD exacerbation Continue Pulmicort Continue scheduled breathing treatments Continue IV steroids, will reduce dose to daily; hope to transition to prednisone soon Encourage pulmonary toilet Continue supplemental oxygen support, wean as tolerated She has had a prolonged recovery, referrals have been sent for inpatient rehabilitation Attempted peer to peer with insurance; left voice mail as recording said no one was currently available (2) Pneumonia: Aspiration pneumonia Continue broad-spectrum antibiotics Speech therapy has evaluated (3) COPD (chronic obstructive pulmonary disease): Management as above Qualifiers: COPD type: COPD with acute exacerbation Qualified Code(s): J44.1 - Chronic obstructive pulmonary disease with (acute) exacerbation (4) Elevated troponin: No signs or symptoms of ischemia Telemetry monitoring (5) Acquired hypothyroidism: TSH was elevated on admission Request free thyroxine level Continue Synthroid (6) Mixed dyslipidemia: Continue atorvastatin (7) Chronic neck and back pain: Supportive care (8) Smoker: Continue nicotine replacement (9) Respiratory syncytial virus (RSV) as cause of acute bronchitis: Now off isolation Plan Debility and physical deconditioning -Continue therapy Anxiety -Continue Xanax Dysphagia -Continue modified diet DVT prophylaxis: Lovenox PDMP PDMP Reviewed: Not Reviewed Attestations 2 Medical Necessity Statement*: Patient requires ongoing hospitalization for IV antibiotics, IV steroids, breathing treatments, therapy, and supportive care. Coding Level of Care Code Acute Code for [facility] Diagnoses Acute hypoxic respiratory failure J96.01 Pneumonia J18.9 Chronic obstructive pulmonary disease with acute exacerbation J44.1 COPD type: COPD with acute exacerbation Elevated troponin R79.89 Acquired hypothyroidism E03.9 Mixed dyslipidemia E78.2 Chronic neck and back pain M54.2; M54.9; G89.29 Smoker F17.200 Respiratory syncytial virus (RSV) as cause of acute bronchitis J20.5
[2025-01-13 12:57] LABS: Free T4 Free Thyroxine 0.16 ng/dL (0.82-1.77)
[2025-01-13] MEDS: cefTRIAXone 1,000 mg SDV 1000 MG IVP (17:24)
[2025-01-13] MEDS: enoxaparin 40 mg/0.4 mL Syringe SUBCUT (17:24)
[2025-01-13] MEDS: atorvastatin 40 mg Tablet 20 MG PO (20:48)
[2025-01-13] MEDS: trazodone 50 mg Tablet 25 MG PO (20:48)
[2025-01-13] MEDS: guaiFENesin 100 mg/5 mL UDC 10 mL 200 MG PO (21:36)
--- NOTE | 2025-01-13 21:39 | ECG_ITS ---
[facility] Date: 2025-01-13 Pat Name: Nola Mcguire Department: Room: 259 Gender: Female Mononitrotoluene Operator: : 1965 Requested By: Hilton Fletcher Order Number: [id number] Taylor MD: Juan Smith M.D. Measurements Intervals [place] Rate: 74 P: 74 NM: 137 QRS: 31 QRSD: 78 T: 59 QT: 377 QTc: 420 Interpretive Statements SINUS RHYTHM Compared to ECG 01/07/2025 01:40:28 ST (T wave) deviation no longer present Electronically Signed On 01-15-2025 19:08:22 CDT by Juan Smith M.D. [email or web address]
[2025-01-14] VITALS (12 sets, daily range): BP systolic 122–150; BP diastolic 72–84; PULSE 68–97; RESP 16–20; TEMP 36.6–36.8; O2SAT 90–97; BMI 19.9
[2025-01-14] MEDS: ipratropium-albuterol 3 mL Neb INHALATION ×4 (02:40→19:56)
[2025-01-14] MEDS: guaiFENesin 100 mg/5 mL UDC 10 mL 200 MG PO (04:23)
[2025-01-14] MEDS: HYDROcodone-acetaminophen 5-325 mg Tablet 1 TAB PO ×4 (04:23→19:15)
[2025-01-14] MEDS: levothyroxine 25 mcg Tablet PO (06:02)
[2025-01-14] MEDS: predniSONE 20 mg Tablet 40 MG PO (08:05)
[2025-01-14] MEDS: pantoprazole DR 40 mg Tablet PO (08:06)
[2025-01-14] MEDS: docusate sodium 100 mg Capsule PO ×2 (08:06→17:32)
[2025-01-14] MEDS: clopidogrel 75 mg Tablet PO (08:06)
[2025-01-14] MEDS: ALPRAZolam 0.5 mg Tablet PO ×2 (08:06→20:09)
[2025-01-14] MEDS: budesonide 0.5 mg/2 mL Neb INHALATION ×2 (08:55→19:56)
--- NOTE | 2025-01-14 10:19 | PM.PN ---
Subjective Subjective: Patient reports her breathing is about the same as yesterday. She is currently on 3 L nasal cannula support. Discussed at length that [facility] refused to pay for inpatient rehabilitation. Discussed with medical economics consultant at [facility] yesterday. She stated that she would not qualify for postacute SNF based upon their qualification criteria. I discussed this with the patient. [facility] medical economics consultant did note that she likely qualify for home health services. Patient does not have a nebulizer at home. She likely would benefit from a nebulizer at home. Discussed thyroid results. No castillo currently managing her thyroid. She states that she needs a new PCP. Discussed recommendation I will increase her thyroid medication but she will need repeat thyroid function testing in 4 to 8 weeks. Medications: Reviewed: Yes Vitals/I&O/Wt Last Vital Signs Temp 98.2 F 01/14/25 07:31 Pulse 68 01/14/25 08:55 Resp 20 H 01/14/25 08:55 BP 132/80 01/14/25 07:31 Pulse Ox 90 01/14/25 08:55 O2 Del Method Nasal Cannula 01/14/25 08:55 O2 Flow Rate 3 01/14/25 08:55 FiO2 4 01/14/25 02:41 01/13/25 01/14/25 01/14/25 22:59 06:59 14:59 Intake Total 480 / 1320 240 / 240 Balance 480 / 1320 240 / 240 Weight last 48 hrs Weight 49.85 kg Weight 49.442 kg Weight 49.442 kg Weight 49.442 kg Physical Exam Narrative: General: Patient is awake and alert. Conversational. Appears fatigued. Head: Normocephalic. Atraumatic. EOM intact. Neck: No JVD. Cardiovascular: RRR. No gallops. No murmurs. No peripheral edema. Lungs: Moderate air movement throughout bilateral lung guidry. End expiratory wheezing throughout bilateral lung guidry. Conversational dyspnea. On 3 L nasal cannula. Skin: No jaundice. No rashes. Abdomen: Normal bowel sounds, abdomen soft and nontender. Extremities: No cyanosis or clubbing. Musculoskeletal: No swollen or erythematous joints. Neurological: Moves all 4 extremities. No myoclonus. Data 01/12/25 04:00 01/12/25 04:00 A&P Assessment and plan (1) Acute hypoxic respiratory failure: Acute COPD exacerbation Continue Pulmicort Continue scheduled breathing treatments Continue prednisone Encourage pulmonary toilet Continue supplemental oxygen support, wean as tolerated Insurance has denied inpatient rehabilitation (2) Pneumonia: Aspiration pneumonia Continue antibiotics Speech therapy has evaluated (3) COPD (chronic obstructive pulmonary disease): Management as above Qualifiers: COPD type: COPD with acute exacerbation Qualified Code(s): J44.1 - Chronic obstructive pulmonary disease with (acute) exacerbation (4) Elevated troponin: No signs or symptoms of ischemia Telemetry monitoring (5) Acquired hypothyroidism: Continue Synthroid, dose was increased She will need thyroid function rechecked in 4 to 8 weeks, discussed with patient (6) Mixed dyslipidemia: Continue atorvastatin (7) Chronic neck and back pain: Supportive care (8) Smoker: Continue nicotine replacement (9) Respiratory syncytial virus (RSV) as cause of acute bronchitis: Now off isolation Plan Debility and physical deconditioning -Continue optimizing respiratory status Anxiety -Continue Xanax Dysphagia -Continue modified diet DVT prophylaxis: Lovenox PDMP PDMP Reviewed: Not Reviewed Attestations Medical Necessity Statement*: Patient requires ongoing hospitalization for antibiotics, steroids, breathing treatments, arrangement of postacute plans, and supportive care. Coding Level of Care Code Acute Code for [facility] Diagnoses Acute hypoxic respiratory failure J96.01 Pneumonia J18.9 Chronic obstructive pulmonary disease with acute exacerbation J44.1 COPD type: COPD with acute exacerbation Elevated troponin R79.89 Acquired hypothyroidism E03.9 Mixed dyslipidemia E78.2 Chronic neck and back pain M54.2; M54.9; G89.29 Smoker F17.200 Respiratory syncytial virus (RSV) as cause of acute bronchitis J20.5
[2025-01-14] MEDS: cefdinir 300 MG CAPSULE PO (17:32)
[2025-01-14] MEDS: atorvastatin 40 mg Tablet 20 MG PO (20:08)
[2025-01-14] MEDS: trazodone 50 mg Tablet 25 MG PO (20:08)
[2025-01-15] VITALS: BP 128/72; PULSE 94; RESP 18; TEMP 36.5; O2SAT 93
[2025-01-15] MEDS: HYDROcodone-acetaminophen 5-325 mg Tablet 1 TAB PO (01:17)
[2025-01-15 04:00] VITALS: BP 128/62; PULSE 78; RESP 16; TEMP 36.6; O2SAT 93
[2025-01-15] MEDS: levothyroxine 25 mcg Tablet 50 MCG PO (05:45)
[2025-01-15 07:45] VITALS: BP 130/77; PULSE 73; RESP 18; TEMP 36.6; O2SAT 93
[2025-01-15 07:51] VITALS: PULSE 72; RESP 18; O2SAT 95
[2025-01-15] MEDS: budesonide 0.5 mg/2 mL Neb INHALATION (07:51)
[2025-01-15] MEDS: ipratropium-albuterol 3 mL Neb INHALATION (07:51)
[2025-01-15] MEDS: predniSONE 20 mg Tablet 40 MG PO (08:26)
[2025-01-15] MEDS: cefdinir 300 MG CAPSULE PO (08:27)
[2025-01-15] MEDS: clopidogrel 75 mg Tablet PO (08:27)
[2025-01-15] MEDS: docusate sodium 100 mg Capsule PO (08:27)
[2025-01-15] MEDS: pantoprazole DR 40 mg Tablet PO (08:27)
--- NOTE | 2025-01-15 08:40 | P.DS_ITS ---
Discharge Providers Date of Admission: 01/04/25 14:25 Date of Discharge: January 15, 2025 Attending Provider at Admission: Alanna Bo MD Attending Provider at Discharge: Tristen Diaz MD Diagnoses at Discharge Discharge Diagnosis (1) Acute hypoxic respiratory failure: Status: Acute (2) Pneumonia: Status: Resolved (3) COPD (chronic obstructive pulmonary disease): Status: Chronic Qualifiers: COPD type: COPD with acute exacerbation Qualified Code(s): J44.1 - Chronic obstructive pulmonary disease with (acute) exacerbation (4) Elevated troponin: Status: Resolved (5) Acquired hypothyroidism: Status: Chronic (6) Mixed dyslipidemia: Status: Chronic (7) Chronic neck and back pain: Status: Chronic (8) Smoker: Status: Acute Permanent problem details: decreased to 1/2 ppd 09/03/2023 (9) Respiratory syncytial virus (RSV) as cause of acute bronchitis: Status: Resolved Reason for Visit Reason for Visit: respiratory distress Hospital Course Hospital Course Nola Mcguire is a 59-year-old female with a past medical history significant for insomnia, bipolar 1 disorder, dyslipidemia, generalized anxiety disorder history of Graves' disease, hypothyroidism, fibromyalgia, and COPD who presented with respiratory distress, found to have severe COPD exacerbation, RSV infection, acute hypoxic respiratory failure, community-acquired aspiration pneumonia, elevated troponin, abnormal thyroid function, and multiple other comorbidities. She is treated with IV steroids, IV antibiotics, breathing treatments and pulmonary toilet. Her recovery was slow and longer than expected due to persistent respiratory symptoms and persistent respiratory failure. She worked with therapy. She did show some improvement throughout her hospitalization. Patient is being discharged for postacute skilled rehabilitation. Patient discharged to rehab in stable condition. She is to establish care with outpatient providers upon completion of her rehab stent. The patient was a tobacco smoker prior to admission. She was counseled on 5 minutes on the day of discharge regarding smoking cessation. She will be discharged home continue nicotine replacement treatment. She was found to have significant hypothyroidism with underdosed Synthroid. Her Synthroid dose was changed from 25 mcg to 75 mcg daily. Patient will need repeat thyroid function testing in 4 to 8 weeks to monitor response to dose change. Physical Exam Narrative: General: Patient is awake and alert. Very pleasant. Head: Normocephalic. Atraumatic. EOM intact. Neck: No JVD. Cardiovascular: RRR. No gallops. No murmurs. No peripheral edema. Lungs: Moderate air movement throughout bilateral lung guidry. Improved wheezing. On supplemental nasal cannula support. Skin: No jaundice. No rashes. Abdomen: Normal bowel sounds, abdomen soft and nontender. Extremities: No cyanosis or clubbing. Musculoskeletal: No swollen or erythematous joints. Neurological: Moves all 4 extremities. No myoclonus. Discharge Data Studies Completed and Pending Completed Studies During Hospitalization Category Date Time Status CTA chest [CT angio chest PE protcl [id number]] Urgent Cat Scan 01/04/25 20:06 Completed XR chest 1V portable [id number] Stat Exams 01/04/25 12:40 Completed CV. echo complete* [id number] Routine Ultrasound 01/05/25 06:00 Completed Pending at discharge Category Date Time Status SARS Covid-2 Antigen Routine Lab 01/15/25 06:00 Uncollected Radiology Impressions Chest X-Ray 01/04/25 12:40 IMPRESSION: 1. Interval development of patchy alveolar airspace disease in the left lower lobe. Findings are suspicious for pneumonia. Recommend followup chest imaging to insure resolution of these findings. 2. Incidental/nonacute findings are listed in the report. Chest CTA 01/04/25 20:06 IMPRESSION: 1. Negative for pulmonary artery embolism. 2. Nonspecific bronchial inflammatory changes. Consider bronchitis, multifocal pneumonia, aspiration not excluded. COMMENTS: The presence of pulmonary emphysema on CT is an independent risk factor for lung cancer. In the absence of a history or active diagnosis of lung cancer, it is recommended that this patient with emphysema be evaluated for enrollment in a low dose CT lung cancer screening program. Laboratory Results WBC 11.59 10^3/uL (3.29-11.43) H 01/12/25 04:00 RBC 3.55 10^6/uL (3.85-5.65) L 01/12/25 04:00 Hgb 12.10 g/dL (11.27-16.99) 01/12/25 04:00 Hct 37.3 % (36-47) 01/12/25 04:00 MCV 105.1 fl (85-98) H 01/12/25 04:00 MCH 34.1 pg (27-33) H 01/12/25 04:00 MCHC 32.4 g/dL (30-55) 01/12/25 04:00 RDW 12.7 % (12.1-15.1) 01/12/25 04:00 Plt Count 364 10^3/cmm (157-399) D 01/12/25 04:00 MPV 9.8 fL (7.4-10.4) 01/12/25 04:00 Neut % (Auto) 82.6 % 01/12/25 04:00 Lymph % (Auto) 7.0 % 01/12/25 04:00 [place] % (Auto) 4.5 % 01/12/25 04:00 Eos % (Auto) 0.0 % 01/12/25 04:00 Baso % (Auto) 0.3 % 01/12/25 04:00 Neut # (Auto) 9.58 10^3/uL (1.8-7.7) H 01/12/25 04:00 Lymph # (Auto) 0.8 10^3/uL (0.8-4.8) 01/12/25 04:00 [place] # (Auto) 0.5 10^3/uL (0.2-0.9) 01/12/25 04:00 Eos # (Auto) 0.0 10^3/uL (0.0-0.8) 01/12/25 04:00 Baso # (Auto) 0.0 10^3/uL (0.0-0.1) 01/12/25 04:00 Nucleated RBC % (auto) 0 % 01/12/25 04:00 Nucleated RBCs # 0.0 /100WBC 01/12/25 04:00 Specimen Type Arterial 01/07/25 08:10 Sample Site Brachial, left 01/07/25 08:10 ABG pH 7.45 (7.35-7.45) 01/07/25 08:10 ABG pCO2 49.6 mmHg (35-45) H 01/07/25 08:10 ABG pO2 59.5 mmHg (80.0-100.0) L 01/07/25 08:10 ABG PO2/FiO2 Ratio 148 01/07/25 08:10 ABG HCO3 34.3 mmol/L (22-26) H 01/07/25 08:10 ABG O2 Saturation 92.4 01/04/25 14:27 ABG Base Excess 9.0 mmol/L (-2.0-2.0) H 01/07/25 08:10 Chris Test Pos 01/07/25 08:10 A-a O2 Gradient 66.1 mmHg (5-10) H 01/04/25 14:27 Hematocrit 31.2 % (37-47) L 01/07/25 08:10 Hgb O2 Saturation 91.1 % (95-100) L 01/04/25 14:27 Carboxyhemoglobin 0.9 %THgb (0.4-20.1) 01/04/25 14:27 Methemoglobin 0.5 % (0.4-1.5) 01/04/25 14:27 Total Hemoglobin 11.9 g/dL (12-16) L 01/04/25 14:27 Sodium 140.0 mmol/L (131-143) 01/04/25 14:27 Potassium 3.9 mmol/L (3.5-5.0) 01/04/25 14:27 Glucose 123.0 mg/dL (70-115) H 01/04/25 14:27 Ionized Calcium 1.1 mmol/L (1.1-1.4) 01/04/25 14:27 O2 Delivery Device Hag 01/07/25 08:10 O2 Liters/Min 55.0 % 01/07/25 08:10 FiO2 40.0 % 01/07/25 08:10 Spanish Speaking Nanny ID Cak 01/07/25 08:10 Sodium 142 mmol/L (136-145) 01/12/25 04:00 Potassium 4.5 mmol/L (3.5-5.1) 01/12/25 04:00 Chloride 97 mmol/L (98-107) L 01/12/25 04:00 Carbon Dioxide 35 mmol/L (22-29) H 01/12/25 04:00 Anion Gap 14.5 (5-19) 01/12/25 04:00 BUN 23 mg/dL (6-20) H 01/12/25 04:00 Creatinine 0.8 mg/dL (0.5-0.9) 01/12/25 04:00 GFR Calculation 73.7 mL/min (90-130) L 01/12/25 04:00 Glucose 148 mg/dL (65-115) H 01/12/25 04:00 Calculated Osmolality 300 mOsm/kg (285-295) H 01/12/25 04:00 Calcium 9.9 mg/dL (8.5-10.5) 01/12/25 04:00 Magnesium 2.4 mg/dL (1.7-2.3) H 01/12/25 04:00 Total Bilirubin 0.2 mg/dL (0.15-1.2) 01/11/25 02:30 AST 67 U/L (0-32) H 01/11/25 02:30 ALT 90 U/L (0-33) H 01/11/25 02:30 Alkaline Phosphatase 71 U/L (35-105) 01/11/25 02:30 Troponin T Baseline 61 ng/L (0-10) H 01/04/25 12:03 Troponin T 120 Minute 47.19 ng/L (0-10) H 01/04/25 14:11 Delta Troponin T -13.81 ABS# (0-10) L 01/04/25 14:11 Troponin T Hi Sens 6Hr 39.07 ng/L (0-10) H 01/04/25 21:35 Troponin T Hi Sens 6Hr Delta -21.93 ng/L (0-12) L 01/04/25 21:35 Total Protein 6.7 g/dL (6.6-8.7) 01/11/25 02:30 Albumin 4.0 g/dL (3.5-5.2) 01/11/25 02:30 Globulin 2.7 g/dL (1.3-4.6) 01/11/25 02:30 Vitamin B12 655 pg/mL (232-1245) 01/05/25 04:09 Folate 9.2 ng/mL (4.8-37.3) 01/05/25 04:09 Procalcitonin 0.06 ng/mL (0-0.5) 01/09/25 03:36 TSH 26.64 uIU/mL (0.27-4.20) H 01/06/25 03:55 Free T4 0.16 ng/dL (0.82-1.77) L 01/13/25 04:00 Urine Color Yellow (Yellow) 01/05/25 10:21 Urine Appearance Clear (CLEAR) 01/05/25 10:21 Urine pH 5.5 (5-7) 01/05/25 10:21 Ur Specific [place] 1.049 (1.005-1.030) H 01/05/25 10:21 Urine Protein Trace (Negative) A 01/05/25 10:21 Urine Glucose (UA) Negative (Normal) 01/05/25 10:21 Urine Ketones Negative (Negative) 01/05/25 10:21 Urine Blood Negative (Negative) 01/05/25 10:21 Urine Nitrate Positive (Negative) A 01/05/25 10:21 Urine Bilirubin Negative (Negative) 01/05/25 10:21 Urine Urobilinogen 1.0 mg/dL (Negative) 01/05/25 10:21 Ur Leukocyte Esterase Negative (Negative) 01/05/25 10:21 Urine RBC Rare /hpf (0-2) 01/05/25 10:21 Urine WBC 0-4 /hpf (0-5) H 01/05/25 10:21 Ur Squamous Epith Cells 0-4 /hpf (0-5) H 01/05/25 10:21 Amorphous Sediment Not Reportable 01/05/25 10:21 Urine Bacteria 2+ /hpf (NONE) H 01/05/25 10:21 Hyaline Casts 0-4 /lpf H 01/05/25 10:21 Urine Mucus 2+ /hpf 01/05/25 10:21 Influenza A (PCR) Negative (Negative) 01/04/25 15:00 Influenza Type B (PCR) Negative (Negative) 01/04/25 15:00 RSV (PCR) Positive (Negative) A 01/04/25 15:00 SARS-CoV-2 (PCR) Negative (Negative) 01/04/25 15:00 Vitals Last Vital Signs Temp 97.8 F 01/15/25 07:45 Pulse 72 01/15/25 07:51 Resp 18 01/15/25 07:51 BP 130/77 01/15/25 07:45 Pulse Ox 95 01/15/25 07:51 O2 Del Method Nasal Cannula 01/15/25 07:51 O2 Flow Rate 3 01/15/25 07:51 FiO2 4 01/14/25 02:41 Discharge Plan Discharge Patient Disposition: Xfer SNF Condition: Stable Prescriptions: New trazodone 50 mg Tablet 25 mg PO BEDTIME Qty: 30 0RF prednisone 20 mg Tablet See Taper PO DAILY Qty: 19 0RF Taper: predniSONE 60-10 60 mg Daily for 3 Days and 0 Hour 40 mg Daily for 3 Days and 0 Hour 20 mg Daily for 3 Days and 0 Hour 10 mg Daily for 2 Days and 0 Hour Rx Instructions: TAPER: 60 mg daily for 3 Days; 40 mg daily for 3 Days; 20 mg daily for 3 Days; 10 mg daily for 2 Days atorvastatin 40 mg Tablet 20 mg PO BEDTIME 30 Days Qty: 30 0RF nicotine 14 mg/24 hr Patch 24 Hour 1 patch transdermal DAILY 30 Days Qty: 30 0RF ipratropium-albuterol 0.5 mg-3 mg(2.5 mg base)/3 mL Solution For Nebulization 3 ml inhalation Q4H 30 Days Qty: 540 0RF hydrocodone-acetaminophen 5-325 mg Tablet 1 tab PO Q4H PRN (Reason: Mild Pain) 7 Days Qty: 20 0RF clopidogrel 75 mg Tablet 75 mg PO DAILY 30 Days Qty: 30 0RF guaifenesin 100 mg/5 mL Liquid 200 mg PO Q4H PRN (Reason: Cough And Congestion) 30 Days Qty: 120 0RF alprazolam 0.5 mg Tablet 0.5 mg PO TID PRN (Reason: Anxiety) 30 Days Qty: 90 0RF lidocaine 5 % Adhesive Patch,Medicated 1 patch topical [id number] 30 Days Qty: 30 0RF nicotine (polacrilex) 4 mg Lozenge 4 mg mucous membrane Q4H PRN (Reason: Nicotine Cravings) 30 Days Qty: 100 0RF budesonide-formoterol [Symbicort] 160-4.5 mcg/actuation HFA aerosol inhaler 1 inh inhalation BID Qty: 10.2 0RF levothyroxine 75 mcg capsule 75 mcg PO DAILY 30 Days Qty: 30 0RF Continued albuterol sulfate 90 mcg/actuation HFA aerosol inhaler 2 puff inhalation Q6H PRN (Reason: Shortness Of Breath Or Wheezing) Discharge Orders: Discharge Order (Routine); Ordered 01/15/25 Ordered By: Tristen Diaz Other Ambulatory Orders: DME: Camilo (Order) Location: None Selected Ordered By: Zane Wells Referrals: [facility] [Outside] Petty Horton, [employer] [Referring] - (Patient will need a follow up appointment with PCP or facility physician within 4-7 days. ) Discharge Diet: Advance as tolerated and Usual diet Discharge Activity: Resume usual activity and Increase activity as tolerated Patient Instructions: COPD, Bacterial Pneumonia (DC), Acute Respiratory Failure (GEN), Opioid Safety Activity Restrictions/Additional Instructions: Take medications as prescribed. Establish care with provider at facility within 7 days of arrival. Will need to establish PCP prior to the end of your rehab stent. Would recommend home nebulizer near the end of your rehab stay. Continue postacute rehabilitation. Discharge Attestations Time Spent in Discharge Care*: greater than 30 min Quality Metrics Clinical Quality Measures [ No reported AMI, CVA or VTE this stay] Coding Level of Care Code Acute Code for [facility] Diagnoses Acute hypoxic respiratory failure J96.01 Pneumonia J18.9 Chronic obstructive pulmonary disease with acute exacerbation J44.1 COPD type: COPD with acute exacerbation Elevated troponin R79.89 Acquired hypothyroidism E03.9 Mixed dyslipidemia E78.2 Chronic neck and back pain M54.2; M54.9; G89.29 Smoker F17.200 Respiratory syncytial virus (RSV) as cause of acute bronchitis J20.5
[2025-01-15 10:44] LABS: SARS Covid-2 Antigen Negative (Negative)
--- NOTE | 2025-01-15 11:18 | PC.NURSE ---
Called report to [facility] and spoke to Licha to give report.
[2025-01-15 11:20] VITALS: BP 153/74; PULSE 78; RESP 18; TEMP 36.6; O2SAT 91
[2025-01-15 12:52] VITALS: BP 153/74; PULSE 78; RESP 16; TEMP 36.4; O2SAT 91
--- NOTE | 2025-01-15 12:57 | PC.SOCIAL ---
IMM Update pg 2 of IMM Updated and reviewed w/ patient. Copy provided and copy dated, initialed and placed in chart.
== END 2025-01-15 12:54 | disposition skilled nursing facility (03) | DRG 177 ==
LOC: ER 12:40 → ICU 14:26 → MEDSURG 01-07 11:12
PROVIDERS: Internal Medicine; Student in an Organized Health Care Education/Training Program; Admitting Provider Hospitalist; Emergency Provider Family Medicine; Visit Provider Internal Medicine
DX: J69.0 Pneumonitis due to inhalation of food and vomit (principal); J96.01 Acute respiratory failure with hypoxia; J44.0 Chronic obstructive pulmonary disease with (acute) lower respiratory infection; J44.1 Chronic obstructive pulmonary disease with (acute) exacerbation; I24.89 Other forms of acute ischemic heart disease; F31.61 Bipolar disorder, current episode mixed, mild; J20.5 Acute bronchitis due to respiratory syncytial virus; F17.210 Nicotine dependence, cigarettes, uncomplicated; E78.2 Mixed hyperlipidemia; M79.7 Fibromyalgia; E89.0 Postprocedural hypothyroidism; M54.9 Dorsalgia, unspecified; M54.2 Cervicalgia; G89.29 Other chronic pain; G47.00 Insomnia, unspecified; F41.1 Generalized anxiety disorder; Z88.5 Allergy status to narcotic agent; Z88.8 Allergy status to other drugs, medicaments and biological substances; Z88.0 Allergy status to penicillin; Z98.1 Arthrodesis status; Z11.52 Encounter for screening for COVID-19
CPT/HCPCS: 36415; 36600; 71045; 71275; 80048; 80051; 80053; 81001; 82330; 82607; 82746; 82803; 82805; 83735; 84145; 84439; 84443; 84484; 85025; 87426; 87637; 92526; 92610; 93005; 93306; 94640; 94660; 96365; 96372; 96374; 96375; 96376; 97110; 97116; 97161; 97167; 97530; 97535; 99285; A9281; J0456; J0696; J1100; J1650; J2060; J2270; J2405; J2919; J7050; J7512; J7626; J9999

== ENCOUNTER 2025-05-08 10:48 | Emergency (ER) | payer MEDICARE, SELFPAY ==
--- OUTSIDE RECORDS SUMMARY | 2021-04-28 09:45 | XMS_ITS | Continuity of Care Document ---
Author Organization [facility] Address [id number] [address] Phone Care Team Providers Care Director Web Name Role Phone Luis Gordon DDS Unavailable Unavailable Allergies, Adverse Reactions, Alerts Substance Reaction Status Criticality tramadol Active No Information aspirin Active No Information PENICILLIN Active No Information Medications Medication Instructions Dosage Effective Dates (start - stop) Status Comments Eliquis 5 mg tablet take 1 tablet by oral route 2 times every day 5 MG - Active All Day Allergy (cetirizine) 10 mg capsule - Active Tirosint 75 mcg capsule take 1 capsule by oral route every day 75 MCG - Active hydrocodone 5 mg-acetaminophen 325 mg tablet take 1 tablet by oral route every 6 hours as needed for pain 1.00 tablet - Active trazodone 50 mg tablet take 1 tablet by oral route every day at bedtime 50 MG - Active gabapentin 600 mg tablet take 1 tablet by oral route 3 times every day 600 MG - Active duloxetine 30 mg capsule,delayed release take 1 capsule by oral route every day 30 MG - Active tizanidine 4 mg capsule take 1 capsule by oral route every 6 - 8 hours as needed not to exceed 3 doses in 24 hours 4 MG - Active rosuvastatin 20 mg tablet take 1 tablet by oral route every day 20 MG - Active Procedures Procedure Date Treatment Plan Complete Denture Adjustment EDR Approval Note Complete Denture Maxillary Complete Denture Mandibular EDR Approval Note Wax Try-In EDR Approval Note Denture Bites And Records EDR Approval Note Denture Impression Secondary EDR Approval Note Denture Impression Primary EDR Approval Note Extraction, Erupted Tooth Or Exposed Ewa t (Elevati Extraction, Erupted Tooth Or Exposed Ewa t (Elevati Extraction, Erupted Tooth Or Exposed Ewa t (Elevati Extraction, Erupted Tooth Or Exposed Ewa t (Elev Extraction, Erupted Tooth Or Exposed Ewa t (Elev Extraction, Erupted Tooth Or Exposed Ewa t (Elevati Extraction, Erupted Tooth Or Exposed Ewa t (Elev Extraction, Erupted Tooth Or Exposed Ewa t (Elev Extraction, Erupted Tooth Or Exposed Ewa t (Elevati Extraction, Erupted Tooth Or Exposed Ewa t (Elevati Extraction, Erupted Tooth Or Exposed Ewa t (Elev Extraction, Erupted Tooth Or Exposed Ewa t (Elev Extraction, Erupted Tooth Or Exposed Ewa t (Elev Extraction, Erupted Tooth Or Exposed Ewa t (Elev Extraction, Erupted Tooth Or Exposed Ewa t (Elev Extraction, Erupted Tooth Or Exposed Ewa t (Elev Analgesia, Anxiolysis, Inhalation Of Nit donnell Oxide EDR Approval Note Pre-Pay For Services Panoramic Film Bitewings Four Films Intraoral Periapical First Film Intraoral Periapical Each Additional Film Intraoral Periapical Each Additional Film Intraoral Periapical Each Additional Film Comprehensive Oral Evaluatio n New Or Established Extraction, Erupted Tooth Or Exposed Ewa t (Elevati Extraction, Erupted Tooth Or Exposed Ewa t (Elevati Extraction, Erupted Tooth Or Exposed Ewa t (Elevati Comprehensive exam & x-ray EDR Approval Note EDR Approval Note Limited Oral Evaluation Problem Focused Intraoral Periapical First Film Extraction, Erupted Tooth Or Exposed Ewa t (Elevati Limited oral eval, x-ray & 1st extractio n EDR Approval Note Advance Directives Directive Yes / No Effective Date File Name No Information Encounters Encounter Description Practice Location Reason(s) For Visit Diagnoses Date Provider Providers Copied on Encounter [facility], [id number], [id number], [place] tel:[phone] [facility] Encounter for dental exam and cleaning w/o abnormal findings Evan Smith. [address] [place], [address], [place]. tel:[phone] Referring Provider: Luis Dominguez, [address] [place], [address]. tel:[phone] [facility], [id number], [id number], [place] tel:[phone] [facility] Encounter for dental exam and cleaning w/o abnormal findings Evan Smith. [address] [place], [address], [place]. tel:[phone] Referring Provider: Luis Dominguez, [address] [place], [address]. tel:[phone] [facility], [id number], [id number], [place] tel:[phone] [facility] Encounter for dental exam and cleaning w/o abnormal findings Evan Smith. [address] [place], [address], [place]. tel:[phone] Referring Provider: Luis Dominguez, [address] [place], [address]. tel:[phone] [facility], [id number], [id number], [place] tel:[phone] [facility] Encounter for dental exam and cleaning w/o abnormal findings Evan Smith. [address] [place], [address], [place]. tel:[phone] Referring Provider: Luis Dominguez, [address] [place], [address]. tel:[phone] [facility], [id number], [id number], [place] tel:[phone] [facility] Encounter for dental exam and cleaning w/o abnormal findings Evan Smith. [address] [place], [address], [place]. tel:[phone] Referring Provider: Luis Dominguez, [address] [place], [address]. tel:[phone] [facility], [id number] [place], [place], [id number], [place] tel:[phone] [facility] Encounter for dental exam and cleaning w/o abnormal findings Evan Smith. [address] [place], [address], [place]. tel:[phone] Referring Provider: Luis Dominguez, [address] [place], [address]. tel:[phone] [facility], [id number]-D[place]Middle [place], [id number], [place] tel:[phone] [facility] Encounter for dental exam and cleaning w/o abnormal findings Evan Smith. [address] [place], [address], [place]. tel:[phone] Referring Provider: Luis Gordon T, [address] [place], [address]. tel:[phone] [facility], [id number]-Iw [facility], [place], [place], [id number], [place] tel:[phone] [facility] Encounter for dental exam and cleaning w/o abnormal findings No Information [facility], [id number]-Et [facility], [place], [place], [id number], [place] tel:[phone] [facility] Encounter for dental exam and cleaning w/o abnormal findings No Information Family History Family Member Type Diagnosis Age At Onset No Information Payers Payer name Insurance type Covered democrat ID Authoriza tion(s) No Information Social History Type Description Quantity Date Captured Comments Alcohol Use Details No Caffeine Use Details Unknown Tobacco Use Status Smoking Status No Information Sex Female Chief Complaint And Reason For Visit No Information Reason For Referral Reason For Referral No Information Plan Of Treatment Date Type Action Status Goal Tobacco cessation counseling completed Goal Tobacco cessation counseling completed Goal Tobacco cessation counseling completed Goal Tobacco cessation counseling completed Goal Tobacco cessation counseling completed History Of Present Illness Encounter Date Complaint History Of Prese nt Illness No Information Functional Status Date Functional Assessmen t No Information Instructions Date Instruction Additional Infor mation Lifestyle education Related to D ental Examination Lifestyle education Related to D ental Examination Lifestyle education Related to D ental Examination Lifestyle education Related to D ental Examination Assessments Type Assessment Date No Information Patient Care Teams Name Effective Dates (start - stop) Status Members No Information
--- OUTSIDE RECORDS SUMMARY | 2025-05-06 10:20 | XMS_ITS | Encounter Summary ---
Author Organization [facility] Address [address] [place] [id number] Care Team Providers Care Harvest Supervisor Name Role Phone Rosalia Valentinoorah Gladis SNYDER Primary Care Provider Reason for Referral * Eval and Treat (Routine) - Open Specialty Diagnoses / Procedures Referred By Surya schreiber Referred To Contact Diagnoses Cervical radiculopathy Chronic bilateral thoracic back pain Procedures [facility] OFFICE/OUTPATIENT ESTABLISHED MOD MDM 30 MIN [facility] OFFICE/OUTPATIENT NEW MODERATE MDM 45 MINUTES Aminah Arguelles FNP [address] [place] [address] Phone: tel: fax: Referral ID Status Reason Start Date Expiration Date Visits Re quested Visits Authorized [id number] Open 05/06/2025 05/06/2026 1 1 Reason for Visit * Reason Comments Chronic Conditions Coordination Follow Up 3 month Encounter Details Date Type Department Care Team (Latest Contact Info) Description 05/06/2025 10:20 AM CDT Office Visit [facility] [place] [address] [place] [address] Aminah Arguelles FNP [address] [place] [address] Cervical radiculopathy (Primary Dx); Chronic bilateral thoracic back pain; Primary insomnia; Anxiety; Severe episode of recurrent major depressive disorder, without psychotic features (CMS/HCC); Acquired hypothyroidism; Anemia, unspecified type; Bipolar disorder, current episode mixed, mild (CMS/HCC) Social History Tobacco Use Types Packs/Day Years Used Date Smoking Tobacco: Former Cigarettes Passive Smoke Exposure: Past Tobacco Cessation:Counseling Given: No Comments:Quit smoking: cutting down-/2 pk now01/27/2010 Alcohol Use Standard Drinks/Week Comments Not Currently 0 (1 standard drink = 0.6 oz pur e alcohol) Comments No Sex and Gender Information Value Date Recorded Sex Assigned at Not on file 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 Gender Identity Not on file Sexual Orientation Not on file documented as of this encounter Last Filed Vital Signs Vital Sign Reading Time Taken Comments Blood Pressure 124/68 05/06/2025 10:27 AM CDT Pulse 84 05/06/2025 10:27 AM CDT Temperature 36.4 C (97.5 F) 05/06/2025 10:27 AM CDT Respiratory Rate 18 05/06/2025 10:27 AM CDT Oxygen Saturation 100% 05/06/2025 10:27 AM CDT Inhaled Oxygen Concentration - - Weight 49.9 kg (110 lb) 05/06/2025 10:27 AM CDT Height 157.5 cm (5' 2 ) 05/06/2025 10:27 AM CDT Body Mass Index 20.12 05/06/2025 10:27 AM CDT documented in this encounter Progress Notes * Arguelles, February, BROKE WORKER - 05/06/2025 10:35 AM CDT Images from the original note were not included. Chief Complaint Patient presents with Chronic Conditions Coordination Follow Up 3 month History of Present Illness The patient is a 60-year-old female who presents to the clinic for a chronic condition visit. She reports severe mid-back pain that has been progressively worsening over the past 3 to 4 months. The pain is so intense that it disrupts her sleep and daily activities, including standing, dishwashing, and vacuuming. She has undergone x-rays at [facility] in [place] but has not received any feedback. An MRI was also suggested, but she has not followed up due to the distance of 200 miles. Tj tried Tylenol, ibuprofen, and two other pain medications without relief. She experiences shortness of breath when in pain but does not require oxygen regularly. She has a home oxygen monitor. She reports severe insomnia, often staying awake until 4:00 AM and waking up around 7:00 or 8:00 AM. She is currently caring for her six grandchildren, which is causing her significant stress and irritability. She has been on Celexa for an extended period, but it does not alleviate her depression. She was previously on hydroxyzine but discontinued it due to lack of efficacy. She also tried BuSpar but had an adverse reaction and was taken off the medication. She reports no presence of blood in her stool or dark/tarry stools. 10 point review of systems is otherwise negative except as mentioned above. Past Medical History: Diagnosis Date Anxiety Asthma COPD (chronic obstructive pulmonary disease) ([facility]) Dental caries 01/27/2010 broken teeth, needs dental care-unable to locate assist. Depression manic depression Headache(784.0) HTN (hypertension) Hypothyroidism Normal vaginal delivery x 2 Obstructive sleep apnea (adult) (pediatric) Seizure disorder ([facility]) per pt 6mo ago Thyroid disease Wears glasses Current Outpatient Medications Medication Instructions albuterol sulfate HFA 90 mcg/actuation aerosol inhaler 2 Puffs, Inhalation, EVERY 6 HOURS PRN Breztri Aerosphere 160 mcg-9mcg-4.8mcg/actuation HFA aerosol inhaler 2 Puffs, Inhalation, TWO TIMESDAILY citalopram (CELEXA) 40 mg, Oral, DAILY HYDROcodone-acetaminophen (NORCO) 5-325 mg tablet hydrOXYzine HCL (ATARAX) 25 mg, Oral, THREE TIMES DAILY PRN levothyroxine (SYNTHROID) 100 mcg, Oral, DAILY EARLY omeprazole (PRILOSEC) 40 mg, Oral, DAILY portable oxygen Face to Face completed within 30 days: yes Length of Need: 99 months By: Nasal Cannula Continuously at 2 L/min. Please provide concentrator with portable oxygen therapy Xanax 0.5 mg, NIGHTLY PRN Past Surgical History: Procedure Laterality Date HX APPENDECTOMY HX HERNIA REPAIR HX TUBAL LIGATION [facility] ARTHRD ANT INTERBODY MIN DSC CRV BELOW C2 02/03/2010 CERVICAL DISCECTOMY FUSION ANTERIOR APPROACH performed by RIO ROSENTHAL at [facility] OR SURGERY [facility] NEUROPLASTY &/TRANSPOS MEDIAN NRV CARPAL TUNNE 04/13/2010 CARPAL TUNNEL RELEASE performed by RIO ROSENTHAL at [facility] OR SURGERY Past social, family, and medical history reviewed. BP 124/68 Pulse 84 Temp 97.5 ??F (36.4 ??C) Resp 18 Ht 5' 2 (1.575 m) Wt 49.9 kg (110 lb) SpO2 100% BMI 20.12 kg/m?? Physical Exam Physical Exam Constitutional: Appearance: Normal appearance. HENT: Head: Normocephalic. Right Ear: External ear normal. Left Ear: External ear normal. Eyes: Conjunctiva/sclera: Conjunctivae normal. Cardiovascular: Rate and Rhythm: Normal rate and regular rhythm. Pulses: Normal pulses. Heart sounds: Normal heart sounds. Pulmonary: Effort: Pulmonary effort is normal. Breath sounds: Normal breath sounds. Abdominal: General: Bowel sounds are normal. Palpations: Abdomen is soft. Musculoskeletal: General: Normal range of motion. Cervical back: Neck supple. Thoracic back: Tenderness (Midline) present. Back: Skin: General: Skin is warm. Neurological: General: No focal deficit present. Mental Status: She is alert. Psychiatric: Mood and Affect: Mood normal. Behavior: Behavior normal. Assessment & Plan 1. Cervical radiculopathy (Primary) - She needs pain clinic closer to home. Will refer to pain clinic at [facility] in [place]. - AMB REFERRAL TO PAIN CLINIC 2. Chronic bilateral thoracic back pain - Reports severe mid-back pain persisting for three to four months, unrelieved by Tylenol or ibuprofen. - An x-ray of the mid-back will be ordered to investigate the cause. - Prescription for Toradol will be provided for short-term use to manage the pain. Advised not to take any other NSAIDs while taking Toradol. - XR THORACIC SPINE 3 VW; Future - ketorolac tromethamine (TORADOL) 10 mg tablet; Take 1 Tablet (10 mg) by mouth every 6 hours as needed for Pain. Dispense: 20 Tablet; Refill: 0 - AMB REFERRAL TO PAIN CLINIC 3. Primary insomnia - Reports severe insomnia, often staying awake until 4:00 AM and waking up around 7:00 or 8:00 AM. - Prescription for trazodone 50 mg will be provided, with instructions to increase the dose to 100 mg if the initial dose is ineffective. - Advised to monitor for excessive daytime sleepiness. - Discussed the impact of insomnia on daily functioning and potential benefits of trazodone. - traZODone (DESYREL) 50 mg tablet; Take 1 Tablet (50 mg) by mouth daily at bedtime. Dispense: 90 Tablet; Refill: 2 4. Anxiety - Has been on Celexa for a long time but reports it does not help with her depression or anxiety. - Will taper off Celexa by taking it every other day for a week. - Prescription for duloxetine will be provided, which she can start after discontinuing Celexa. - DULoxetine (CYMBALTA) 30 mg Capsule, Delayed Release(E.C.); Take 1 Capsule (30 mg) by mouth daily. Dispense: 30 Capsule; Refill: 3 5. Severe episode of recurrent major depressive disorder, without psychotic features (CMS/HCC) - DULoxetine (CYMBALTA) 30 mg Capsule, Delayed Release(E.C.); Take 1 Capsule (30 mg) by mouth daily. Dispense: 30 Capsule; Refill: 3 6. Acquired hypothyroidism - Thyroid levels were previously elevated. - A recheck of her thyroid levels will be conducted today. - Discussed the importance of monitoring thyroid function and potential adjustments to treatment based on results. - Will review thyroid function results at the next follow-up visit. - TSH; Future - TSH 7. Anemia, unspecified type - Blood count was slightly low during the last check. - A recheck of her blood count will be conducted today. - Discussed potential causes of low blood count and the importance of follow-up testing. - CBC WITH DIFFERENTIAL; Future - CBC WITH DIFFERENTIAL ANA LILIA Velazco The author of this note, patient (or authorized retail wireless sales representative), and all other persons present consent to the audio recording of this visit for charting documentation purposes. This note was automatically generated, edited by a Quality Service Delivery Director, and finalized by LASHA Velazco. documented in this encounter Plan of Treatment Scheduled Orders Name Type Priority Associated Diagnoses Orde r Schedule XR THORACIC SPINE 3 VW Imaging Routine Chronic bilateral thoracic back pain 1 Occurrences starting 05/06/2025 until 05/06/2026 TSH Lab Routine Acquired hypothyroidism Expected: 05/06/2025, Expires: 05/06/2026 CBC WITH DIFFERENTIAL Lab Routine Anemia, unspecified type Expected: 05/06/2025, Expires: 05/06/2026 MICROALBUMIN/CREATININE RATIO, RANDOM UR Lab Routine Expected: 05/06, Expires: 05/06/2026 Scheduled Referrals Name Type Priority Associated Diagnoses Orde r Schedule AMB REFERRAL TO PAIN CLINIC Outpatient Referral Routine Cervical radiculopathy Chronic bilateral thoracic back pain Ordered: 05/06/2025 documented as of this encounter Visit Diagnoses Diagnosis Cervical radiculopathy- Primary Brachial neuritis or radiculitis nos Chronic bilateral thoracic back pain Primary insomnia Persistent disorder of initiating or maintaining sleep Anxiety Anxiety state, unspecified Severe episode of recurrent major depressive disorder, without psychotic features (CMS/HCC) Acquired hypothyroidism Unspecified hypothyroidism Anemia, unspecified type Bipolar disorder, current episode mixed, mild (CMS/HCC) Bipolar I disorder, most recent episode (or current) mixed, mild documented in this encounter Care Teams Harvest Supervisor Relationship Specialty Start Date End Date Hyun Valentino DO [address] [place] [address] PCP - General Family Practice 02/04/25 documented as of this encounter
--- OUTSIDE RECORDS SUMMARY | 2025-05-08 10:52 | XMS_ITS | Clinical Summary ---
Author Organization [facility] Address [address] [place] [address] Care Team Providers Care Learning Operations Specialist Name Role Phone Srinivasa Huntley MD, Ruben Langley Primary Care Provider Allergies Active Allergy Reactions Criticality Noted Date Comments Aspirin Rash Low 12/27/2009 Penicillins Anaphylaxis High 12/27/2009 Tramadol-Acetaminophen Nausea and Vomiting Low 12/06 Medications XANAX 0.5 mg Oral Tab Take by mouth.1/2 or 1 pill bid as needed Active ADVAIR DISKUS 250-50 mcg/Dose Inhalation DsDv Take 1 Puff by inhalation 2 times daily. Active VENTOLIN HFA 90 mcg/Actuation Inhalation HFAA Take 1 Puff by inhalation every 6 hours as needed. Active citalopram (CELEXA) 20 mg Oral Tab Take 20 mg by mouth daily at bedtime. Active tiotropium (SPIRIVA WITH HANDIHALER) 18 mcg Inhalation CpDv Take 18 mcg by inhalation daily. Active levothyroxine (SYNTHROID) 88 mcg Oral Tab Take 1 Tab by mouth daily. 90 Tab 1 9 Active gabapentin (NEURONTIN) 100 mg Oral tablet Take 1 Tab by mouth 3 times daily. 90 Tab 1 0 Active traZODone (DESYREL) 300 mg Oral tabletIndication s:Facet arthropathy Take 300 mg by mouth daily at bedtime. Active carisoprodol (SOMA) 350 mg Oral tabletIndication s:Facet arthropathy Take 1 Tab by mouth every 8 hours. 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 Gender Identity Not on file Sexual Orientation Not on file Last Filed Vital Signs Vital Sign Reading Time Taken Comments Blood Pressure 116/62 01/05/2011 10:43 AM DISTILLERY WORKER Pulse 90 01/05/2011 10:43 AM DISTILLERY WORKER Temperature 36.1 C (97 F) 01/05/2011 10:43 AM DISTILLERY WORKER Respiratory Rate 20 01/05/2011 10:43 AM DISTILLERY WORKER Oxygen Saturation 100% 01/05/2011 10:43 AM DISTILLERY WORKER Inhaled Oxygen Concentration - - Weight 49.9 kg (110 lb) 01/05/2011 10:43 AM DISTILLERY WORKER Height 158.8 cm (5' 2.5 ) 01/05/2011 10:43 AM CS T Body Mass Index 19.8 01/05/2011 10:43 AM DISTILLERY WORKER Plan of Treatment Health Maintenance Due Date Last Done Comments DTAP/TDAP/TD VACCINES (1 - Tdap) 1985 HEPATITIS B VACCINES (1 of 3 - 19+ 3-dose series) 01/1985 HPV/Cotest (21-29) 1987 CERVICAL CANCER SCREENING 02/05/1996 HPV/Cotest (30-65) 02/05/1996 PAP SMEAR 02/05/1996 BREAST CANCER SCREENING 2006 COLORECTAL SCREENING 2011 Colorectal Cancer Screening 2011 FIT-DNA Q 3 years 2011 FIT/FOBT Q 1 year 2011 Flex Sig/CT Colonography Q 5 years 2011 ZOSTER VACCINE (1 of 2) 02/05/2016 INFLUENZA VACCINE (#1) 2025 Medical Devices Implanted Type Area Mud Mixer Helper Device Identifier Shelf Expiration Date Model / Serial / Lot Log [id number] - Tissue Substitutes & Biologicals - 1 - Vitoss Foam Ba 1.2ml Implanted:Qty: 1 on 02/03/2010 at [facility] Biological N/A: Neck ORTHOVITA [id number] / / [id number] Log [id number] - Tissue Substitutes & Biologicals - 1 - Cage Anatomic Peek [id number] Implanted:Qty: 1 on 02/03/2010 at [facility] Cage N/A: Neck MEDTRONIC- SOFAMOR DANEK 08/03/2017 [id number] / / [id number] Log [id number] - David Trinica Cervical Plating System - 1 - Plate Trinica Select 22mm [id number] Implanted:Qty: 1 on 02/03/2010 at [facility] Plate N/A: Neck zzzzZIMMER-SPIN E [id number] / [id number] / Log [id number] - David Trinica Cervical Plating System - 1 - Screw Trnca Sd Reyna 4.2x14mm [id number] Implanted:Qty: 4 on 02/03/2010 at [facility] Screw N/A: Neck zzzzZIMMER-SPIN E [id number] 05 / [id number] / Insurance [place], [place] [id number] [place]ICAID [facility] Advance Directives For more information, please contact: [phone] Documents on File Type Date Recorded Patient Med Dir Expl anation Advance Directive POA 11/17/2008 * Full Code (Latest Code Status on File) Date Activated Date Inactivated Comments 04/13/2010 8:40 AM 04/13/2010 3:56 PM * Full Code Date Activated Date Inactivated Comments 04/13/2010 7:26 AM 04/13/2010 8:40 AM * Full Code Date Activated Date Inactivated Comments 04/13/2010 5:29 AM 04/13/2010 7:26 AM * Full Code Date Activated Date Inactivated Comments 02/03/2010 12:32 PM 2010 3:28 PM * Full Code Date Activated Date Inactivated Comments 02/03/2010 8:44 AM 02/03/2010 12:32 PM Care Teams Learning Operations Specialist Relationship Specialty Start Date End Date Ruben Bernabe Jr., MD [address] [place] [address] PCP - General Family Practice 01/03/11
--- OUTSIDE RECORDS SUMMARY | 2025-05-08 10:52 | XMS_ITS | Continuity of Care Document ---
Author Organization [facility] ([facility]) Address [address] [place] [address] Insurance Providers Payer Plan Claims Address Claims Phone Policy Number Group Number Relation Employer Guarantor Name Guarantor Guarantor Address Guarantor Phone [employer] [facility] [id number], [place] [address] tel:[phone] [place] [id number] Self Nola Mcguire [address] [place] [id number] [employer] tel:[phone] [id number] Self Nola Mcguire [address] [place], [place] [id number] Problems Condition ICD9 code ICD10 code SNOMED code Start Date End Date S tatus Chronic obstructive pulmonary disease with (acute) exacerbation J44.1 01/15/2025 Acti ve Difficulty in walking, not elsewhere classified R26.2 01/18/2025 Active Muscle weakness (generalized) M62.81 01/18/2025 Active Emphysema, unspecified J43.9 01/15/2025 Active Tobacco use Z72.0 01/15/2025 Active Acute respiratory failure with hypoxia J96.01 01/15/2025 Active penitentiary (current) use of inhaled steroids Z79.51 01/15/2025 Activ e Other specified abnormal findings of blood chemistry R79.89 01/15/2025 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 Z79.02 01/15/2025 Active Generalized anxiety disorder F41.1 01/15/2025 Active Mixed hyperlipidemia E78.2 01/15/2025 Active Hypothyroidism, unspecified E03.9 01/15/2025 Active Postprocedural hypothyroidism E89.0 01/15/2025 Active Insomnia, unspecified G47.00 01/15/2025 Active Cervicalgia M54.2 01/15/2025 Active Dorsalgia, unspecified M54.9 01/15/2025 Active Unvaccinated for COVID-19 Z28.310 01/15/2025 Active Depression, unspecified F32.A 01/18/2025 Active Results Test Value / Unit Interpretation Reference Ran ge Tuberculosis reaction wheal[ 01648-1] Tuberculosis reaction wheal [84307-6] 0 mm NEG Tuberculosis reaction wheal[ 05841-9] Tuberculosis reaction wheal [42388-4] See note TB test Tuberculosis reaction wheal[ 62213-5] Tuberculosis reaction wheal [13198-1] 0 mm NEG Allergies, adverse reactions, alerts Substance Reaction Date Status Type Aspirin (ASA) 01/15/2025 Non Drug Penicillins (PCN) 01/15/2025 Non Kalpesh g tizanidine 01/15/2025 Non Drug tramadol 01/15/2025 Non Drug Immunizations Vaccine Route Date Status COVID-19 Vaccine Unassigned Route of Administration Refused Medications Medication Instructions Route Dosage Frequency Start Date Stop Date Indications Status albuterol sulfate 90 mcg/actuation HFA aerosol inhaler (albuterol sulfate) 2 INH, inhalation, Every 6 Hours - PRN, For SOB or wheezing inhalation 1.0 6.0 h 02/02 Active alprazolam 0.5 mg tablet (alprazolam) 1 TAB, oral, Three Times A Day - PRN, For anxiety for 14 days. Exempt F41.9 oral 1.0 8.0 h 01/29 Active atorvastatin 40 mg tablet (atorvastatin) 1 TAB, oral, At Bedtime oral 1.0 02/02 Active clopidogrel 75 mg tablet (clopidogrel) 1 TAB, oral, Once A Day oral 1.0 1.0 d 02/02 Active Dulcolax (bisacodyl) (bisacodyl) 5 mg tablet,delayed release (DR/EC) (Dulcolax (bisacodyl) (bisacodyl)) 2 tabs/10mg, oral, Once A Day - PRN, Give if no results from [facility] oral 1.0 1.0 d 02/02 Active Dulcolax (bisacodyl) (bisacodyl) 10 mg suppository (Dulcolax (bisacodyl) (bisacodyl)) 1 suppository, rectal, Once A Day - PRN, Give rectally if can't take p/o, if no results from [facility] rectal 1.0 1.0 d 02/02 Active fluticasone propion-salmet jon 250-50 mcg/dose blister with device (fluticasone propion-salmet jon) 1 inhalation, inhalation, Twice A Day, Rinse mouth with water and spit after use, TI for Symbicort. inhalation 1.0 12.0 h 02/02 Active guaifenesin 100 mg/5 mL liquid (guaifenesin) 10ml (200mg), oral, Every 4 Hours - PRN, For cough and congestion oral 1.0 4.0 h 02/02 Active hydrocodone-ac etaminophen 5-325 mg tablet (hydrocodone-a cetaminophen) 1 TAB, oral, Every 4 Hours - PRN, For pain. Exempt R52 for 7 days oral 1.0 4.0 h 01/22 Active ipratropium-al buterol 0.5 mg-3 mg(2.5 mg base)/ solution for nebulization (ipratropium-a lbuterol) 1 neb, inhalation, Every 4 Hours inhalation 1.0 4.0 h 02/02 Active levothyroxine 75 mcg tablet (levothyroxine ) 1 TAB, oral, Once A Day oral 1.0 1.0 d 02/02 Active lidocaine 4 % adhesive patch,medicate d (lidocaine) 1 patch, topical, Twice A Day, ON in the AM, OFF in the PM, dosing per TI topical 1.0 12.0 h 02/02 Active Milk of Magnesia (magnesium hydroxide) 400 mg/5 mL suspension (Milk of Magnesia (magnesium hydroxide)) 30 ml, oral, Every 72 Hours - PRN, if no BM in 3 daysDO NOT GIVE TO RENAL PATIENTS--GO TO DULCOLAX ORDERS oral 1.0 72.0 h 02/02 Active nicotine 14 mg/24 hr patch 24 hour (nicotine) 1 PATCH, transdermal, Once A Day, Remove old patch before applying new one transdermal 1.0 1.0 d 02/01 Active nicotine (polacrilex) 4 mg lozenge (nicotine (polacrilex)) 1 LOZENGE, buccal, Every 4 Hours - PRN, For nicotine cravings buccal 1.0 4.0 h 02/01 Active prednisone 20 mg tablet (prednisone) 3 TABS (60 mg), oral, Once A Day, Taper dose for 3 days oral 1.0 1.0 d 01/18 Active trazodone 50 mg tablet (trazodone) 0.5 TAB (25 mg), oral, At Bedtime oral 1.0 02/02 Active Tylenol (acetaminophen ) 325 mg tablet (Tylenol (acetaminophen )) 2 tabs/650mg, oral, Every 6 Hours - PRN, as needed for PRN pain/increase d tempMay give rectally if necessary oral 1.0 6.0 h 02/02 Active Tubersol (tuberculin ppd) 5 tub. unit /0.1 mL solution (Tubersol (tuberculin ppd)) 0.1ml, intradermal, Once - One Time, Administer the morning after admission intradermal 1.0 01/16 Active Zoloft (sertraline) 25 mg tablet (Zoloft (sertraline)) 1, oral, At Bedtime oral 1.0 02/01 Active prednisone 20 mg tablet (prednisone) 2 TABS (40 mg), oral, Once A Day, Taper dose for 3 days oral 1.0 1.0 d 01/21 Active hydrocodone-ac etaminophen 5-325 mg tablet (hydrocodone-a cetaminophen) 1 TAB, oral, Every 4 Hours - PRN, For pain. Exempt R52 for 7 days oral 1.0 4.0 h 02/02 Active hydrocodone-ac etaminophen 5-325 mg tablet (hydrocodone-a cetaminophen) 1 TAB, oral, Every 4 Hours - PRN, For pain. Exempt R52 for 7 days oral 1.0 4.0 h 01/21 Active prednisone 20 mg tablet (prednisone) 1 TAB, oral, Once A Day, Taper dose for 3 days oral 1.0 1.0 d 01/24 Active Tubersol (tuberculin ppd) 5 tub. unit /0.1 mL solution (Tubersol (tuberculin ppd)) 0.1ml, intradermal, Once - One Time, Administer on the day shift intradermal 1.0 01/24 Active prednisone 10 mg tablet (prednisone) 1 TAB, oral, Once A Day, End of taper dose, for 2 days. oral 1.0 1.0 d 01/26 Active nitroglycerin 0.4 mg tablet, sublingual (nitroglycerin ) 1, sublingual, Other, up to 3 tabs as directed sublingual 1.0 02/02 Active Zoloft (sertraline) 50 mg tablet (Zoloft (sertraline)) 1, oral, At Bedtime oral 1.0 02/02 Active alprazolam 0.5 mg tablet (alprazolam) 1 TAB, oral, Three Times A Day - PRN, For anxiety for 14 days. Exempt F41.9 oral 1.0 8.0 h 02/02 Active prednisone 20 mg tablet (prednisone) 3 TABS (60 mg), oral, Once A Day, Taper dose for 3 days oral 1.0 1.0 d 02/02 Active prednisone 20 mg tablet (prednisone) 2 TABS (40 mg), oral, Once A Day, Taper dose for 3 days oral 1.0 1.0 d 02/02 Active prednisone 20 mg tablet (prednisone) 1 TAB, oral, Once A Day, Taper dose for 3 days oral 1.0 1.0 d 02/02 Active prednisone 10 mg tablet (prednisone) 1 TAB, oral, Once A Day, End of taper dose, for 2 days. oral 1.0 1.0 d 02/02 Active Tubersol (tuberculin ppd) 5 tub. unit /0.1 mL solution (Tubersol (tuberculin ppd)) 0.1ml, intradermal, Once - One Time, Administer the morning after admission intradermal 1.0 02/02 Active Tubersol (tuberculin ppd) 5 tub. unit /0.1 mL solution (Tubersol (tuberculin ppd)) 0.1ml, intradermal, Once - One Time, Administer on the day shift intradermal 1.0 02/02 Active Zoloft (sertraline) 25 mg tablet (Zoloft (sertraline)) 1, oral, At Bedtime oral 1.0 02/02 Active Vital Signs Date Vital Result Comment 01/15/2025 03:42 PM Temperature 96.8 [degF] Oxygen Saturation 97 % Respiratory Rate 18 /min Heart Rate 75 /min Blood Pressure Systolic 126 mm[Hg] Blood Pressure Diastolic 70 mm[Hg] Body Height 62 [in_us] Body Weight 84.8 [lb_av] Body Mass Index 15.51 kg/m2 01/15/2025 02:44 PM Body Weight 84.8 [lb_av] Body Mass Index 15.51 kg/m2 01/15/2025 10:38 PM Oxygen Saturation 92 % Respiratory Rate 22 /min Heart Rate 78 /min 01/15/2025 07:58 PM Temperature 100 [degF] Blood Pressure Systolic 136 mm[Hg] Blood Pressure Diastolic 83 mm[Hg] 01/15/2025 07:57 PM Oxygen Saturation 91 % Respiratory Rate 21 /min Heart Rate 82 /min 01/16/2025 09:07 AM Temperature 96.9 [degF] Blood Pressure Systolic 120 mm[Hg] Blood Pressure Diastolic 68 mm[Hg] 01/16/2025 09:05 AM Oxygen Saturation 92 % Respiratory Rate 19 /min Heart Rate 66 /min 01/16/2025 08:23 AM Body Weight 104 [lb_av] Body Mass Index 19.02 kg/m2 01/16/2025 05:25 AM Oxygen Saturation 94 % Respiratory Rate 19 /min Heart Rate 81 /min 01/16/2025 03:11 PM Oxygen Saturation 95 % Respiratory Rate 18 /min Heart Rate 74 /min 01/16/2025 01:59 PM Oxygen Saturation 96 % Respiratory Rate 21 /min Heart Rate 91 /min 01/16/2025 10:19 AM Oxygen Saturation 95 % Respiratory Rate 17 /min Heart Rate 68 /min 01/16/2025 08:25 PM Temperature 99.5 [degF] Respiratory Rate 23 /min Heart Rate 78 /min Blood Pressure Systolic 111 mm[Hg] Blood Pressure Diastolic 71 mm[Hg] 01/16/2025 07:23 PM Oxygen Saturation 93 % Respiratory Rate 23 /min Heart Rate 78 /min 01/17/2025 05:34 AM Oxygen Saturation 94 % Respiratory Rate 19 /min Heart Rate 75 /min 01/17/2025 02:29 PM Respiratory Rate 18 /min Heart Rate 70 /min 01/17/2025 02:27 PM Body Weight 104.6 [lb_av] Body Mass Index 19.13 kg/m2 01/17/2025 02:26 PM Respiratory Rate 20 /min Heart Rate 64 /min 01/17/2025 12:56 PM Respiratory Rate 19 /min Heart Rate 76 /min 01/17/2025 12:54 PM Temperature 97.5 [degF] Oxygen Saturation 97 % Respiratory Rate 16 /min Heart Rate 88 /min Blood Pressure Systolic 120 mm[Hg] Blood Pressure Diastolic 66 mm[Hg] 01/17/2025 11:56 AM Respiratory Rate 18 /min Heart Rate 89 /min 01/17/2025 09:25 AM Oxygen Saturation 98 % 01/17/2025 09:55 PM Temperature 99.4 [degF] Heart Rate 79 /min Blood Pressure Systolic 132 mm[Hg] Blood Pressure Diastolic 74 mm[Hg] 01/17/2025 09:54 PM Oxygen Saturation 92 % Respiratory Rate 23 /min Heart Rate 79 /min 01/18/2025 08:52 AM Temperature 98.7 [degF] Respiratory Rate 20 /min Heart Rate 67 /min Blood Pressure Systolic 103 mm[Hg] Blood Pressure Diastolic 64 mm[Hg] 01/18/2025 08:51 AM Oxygen Saturation 93 % 01/18/2025 05:20 AM Oxygen Saturation 92 % Respiratory Rate 21 /min Heart Rate 72 /min 01/18/2025 05:07 AM Oxygen Saturation 93 % Respiratory Rate 21 /min Heart Rate 74 /min 01/18/2025 04:50 PM Body Weight 105.6 [lb_av] Body Mass Index 19.31 kg/m2 01/18/2025 03:30 PM Respiratory Rate 20 /min Heart Rate 77 /min 01/18/2025 02:46 PM Oxygen Saturation 94 % Respiratory Rate 20 /min Heart Rate 64 /min 01/18/2025 11:27 AM Oxygen Saturation 94 % Respiratory Rate 20 /min Heart Rate 77 /min 01/18/2025 11:02 AM Respiratory Rate 18 /min Heart Rate 71 /min 01/18/2025 09:16 PM Oxygen Saturation 94 % Respiratory Rate 20 /min Heart Rate 70 /min 01/18/2025 07:06 PM Temperature 98 [degF] Blood Pressure Systolic 112 mm[Hg] Blood Pressure Diastolic 66 mm[Hg] 01/18/2025 07:05 PM Oxygen Saturation 92 % Respiratory Rate 18 /min Heart Rate 78 /min 01/19/2025 07:40 AM Respiratory Rate 18 /min Heart Rate 71 /min 01/19/2025 07:09 AM Oxygen Saturation 94 % Respiratory Rate 20 /min Heart Rate 66 /min 01/19/2025 05:35 PM Body Weight 105.8 [lb_av] Body Mass Index 19.35 kg/m2 01/19/2025 02:22 PM Oxygen Saturation 95 % Respiratory Rate 18 /min Heart Rate 75 /min 01/19/2025 12:15 PM Respiratory Rate 20 /min Heart Rate 68 /min 01/19/2025 12:14 PM Blood Pressure Systolic 125 mm[Hg] Blood Pressure Diastolic 67 mm[Hg] 01/19/2025 12:12 PM Oxygen Saturation 94 % Respiratory Rate 20 /min Heart Rate 65 /min 01/19/2025 07:38 AM Temperature 98.5 [degF] Respiratory Rate 18 /min Heart Rate 65 /min 01/20/2025 07:09 AM Oxygen Saturation 90 % Respiratory Rate 20 /min Heart Rate 79 /min 01/20/2025 07:02 AM Oxygen Saturation 90 % 01/20/2025 07:01 AM Oxygen Saturation 90 % 01/20/2025 06:33 AM Oxygen Saturation 94 % Respiratory Rate 20 /min Heart Rate 81 /min 01/20/2025 01:50 AM Oxygen Saturation 98 % Respiratory Rate 20 /min Heart Rate 77 /min 01/20/2025 01:18 AM Oxygen Saturation 95 % Respiratory Rate 18 /min Heart Rate 70 /min 01/19/2025 09:05 PM Oxygen Saturation 97 % Respiratory Rate 20 /min Heart Rate 76 /min 01/19/2025 07:39 PM Temperature 98.2 [degF] Blood Pressure Systolic 120 mm[Hg] Blood Pressure Diastolic 70 mm[Hg] 01/19/2025 07:35 PM Oxygen Saturation 98 % 01/19/2025 06:43 PM Respiratory Rate 20 /min Heart Rate 80 /min 01/20/2025 06:21 PM Oxygen Saturation 97 % Respiratory Rate 20 /min Heart Rate 80 /min 01/20/2025 05:51 PM Oxygen Saturation 94 % Respiratory Rate 18 /min Heart Rate 76 /min 01/20/2025 03:48 PM Oxygen Saturation 98 % Respiratory Rate 16 /min Heart Rate 88 /min 01/20/2025 02:13 PM Oxygen Saturation 93 % Respiratory Rate 18 /min Heart Rate 84 /min 01/20/2025 11:33 AM Oxygen Saturation 95 % Respiratory Rate 18 /min Heart Rate 65 /min 01/20/2025 11:29 AM Body Weight 109.8 [lb_av] Body Mass Index 20.08 kg/m2 01/20/2025 09:44 PM Oxygen Saturation 95 % Respiratory Rate 20 /min Heart Rate 74 /min 01/20/2025 09:03 PM Oxygen Saturation 95 % Respiratory Rate 18 /min Heart Rate 70 /min 01/20/2025 07:00 PM Temperature 98.7 [degF] Respiratory Rate 18 /min Heart Rate 76 /min Blood Pressure Systolic 109 mm[Hg] Blood Pressure Diastolic 62 mm[Hg] 01/20/2025 06:59 PM Oxygen Saturation 94 % 01/21/2025 09:18 AM Oxygen Saturation 98 % Respiratory Rate 20 /min Heart Rate 50 /min 01/21/2025 09:15 AM Temperature 98.4 [degF] Oxygen Saturation 95 % Respiratory Rate 16 /min Heart Rate 66 /min Blood Pressure Systolic 115 mm[Hg] Blood Pressure Diastolic 79 mm[Hg] 01/21/2025 07:17 AM Oxygen Saturation 95 % 01/21/2025 05:39 AM Oxygen Saturation 95 % Respiratory Rate 20 /min Heart Rate 77 /min 01/21/2025 05:08 AM Oxygen Saturation 95 % Respiratory Rate 20 /min Heart Rate 73 /min 01/21/2025 03:06 AM Oxygen Saturation 97 % Respiratory Rate 18 /min Heart Rate 77 /min 01/21/2025 03:05 AM Oxygen Saturation 96 % Respiratory Rate 18 /min Heart Rate 70 /min 01/21/2025 02:08 PM Oxygen Saturation 94 % Respiratory Rate 16 /min Heart Rate 73 /min 01/21/2025 10:18 AM Oxygen Saturation 94 % Respiratory Rate 20 /min Heart Rate 75 /min 01/21/2025 01:16 PM Oxygen Saturation 92 % Respiratory Rate 20 /min Heart Rate 71 /min 01/21/2025 05:23 PM Oxygen Saturation 97 % Respiratory Rate 16 /min Heart Rate 72 /min 01/21/2025 09:41 PM Oxygen Saturation 96 % Respiratory Rate 20 /min Heart Rate 75 /min 01/21/2025 09:07 PM Oxygen Saturation 93 % Respiratory Rate 20 /min Heart Rate 70 /min 01/21/2025 07:46 PM Temperature 98.6 [degF] Oxygen Saturation 91 % Respiratory Rate 19 /min Heart Rate 73 /min Blood Pressure Systolic 113 mm[Hg] Blood Pressure Diastolic 67 mm[Hg] 01/21/2025 06:28 PM Oxygen Saturation 99 % Respiratory Rate 18 /min Heart Rate 76 /min 01/22/2025 08:21 AM Temperature 98 [degF] Oxygen Saturation 91 % Respiratory Rate 18 /min Heart Rate 66 /min Blood Pressure Systolic 129 mm[Hg] Blood Pressure Diastolic 56 mm[Hg] 01/22/2025 08:20 AM Oxygen Saturation 91 % 01/22/2025 08:13 AM Oxygen Saturation 91 % Respiratory Rate 18 /min Heart Rate 66 /min 01/22/2025 03:02 AM Oxygen Saturation 95 % Respiratory Rate 16 /min Heart Rate 76 /min 01/22/2025 01:40 AM Oxygen Saturation 92 % Respiratory Rate 18 /min Heart Rate 71 /min 01/22/2025 03:28 PM Oxygen Saturation 95 % Respiratory Rate 18 /min Heart Rate 68 /min 01/22/2025 12:16 PM Oxygen Saturation 94 % Respiratory Rate 20 /min Heart Rate 72 /min 01/22/2025 08:24 PM Temperature 99.2 [degF] Respiratory Rate 21 /min Heart Rate 72 /min Blood Pressure Systolic 118 mm[Hg] Blood Pressure Diastolic 66 mm[Hg] 01/22/2025 07:57 PM Respiratory Rate 20 /min 01/22/2025 07:42 PM Oxygen Saturation 96 % Respiratory Rate 21 /min Heart Rate 72 /min 01/23/2025 07:06 AM Temperature 98 [degF] Respiratory Rate 16 /min Heart Rate 105 /min Blood Pressure Systolic 106 mm[Hg] Blood Pressure Diastolic 60 mm[Hg] 01/23/2025 07:05 AM Oxygen Saturation 96 % Respiratory Rate 18 /min Heart Rate 71 /min 01/23/2025 01:38 PM Oxygen Saturation 96 % Respiratory Rate 16 /min Heart Rate 80 /min 01/23/2025 11:07 AM Oxygen Saturation 95 % Respiratory Rate 18 /min Heart Rate 95 /min 01/23/2025 09:36 PM Temperature 99.8 [degF] Oxygen Saturation 93 % Respiratory Rate 25 /min Heart Rate 93 /min Blood Pressure Systolic 111 mm[Hg] Blood Pressure Diastolic 75 mm[Hg] 01/23/2025 06:47 PM Respiratory Rate 22 /min Heart Rate 77 /min 01/23/2025 06:46 PM Oxygen Saturation 97 % Respiratory Rate 20 /min Heart Rate 77 /min 01/24/2025 08:30 AM Temperature 98.3 [degF] Oxygen Saturation 91 % Respiratory Rate 20 /min Heart Rate 79 /min Blood Pressure Systolic 114 mm[Hg] Blood Pressure Diastolic 62 mm[Hg] 01/24/2025 05:25 PM Oxygen Saturation 98 % Respiratory Rate 19 /min Heart Rate 74 /min 01/24/2025 02:09 PM Oxygen Saturation 99 % Respiratory Rate 17 /min Heart Rate 77 /min 01/24/2025 10:36 AM Oxygen Saturation 93 % Respiratory Rate 19 /min Heart Rate 79 /min 01/24/2025 09:51 AM Oxygen Saturation 91 % Respiratory Rate 20 /min Heart Rate 79 /min 01/24/2025 08:21 PM Oxygen Saturation 94 % Respiratory Rate 19 /min Heart Rate 70 /min 01/24/2025 08:20 PM Temperature 99.5 [degF] Oxygen Saturation 94 % Respiratory Rate 20 /min Heart Rate 67 /min Blood Pressure Systolic 121 mm[Hg] Blood Pressure Diastolic 63 mm[Hg] 01/24/2025 05:26 PM Oxygen Saturation 98 % Respiratory Rate 18 /min Heart Rate 72 /min 01/25/2025 05:04 AM Heart Rate 74 /min 01/25/2025 05:00 AM Oxygen Saturation 96 % Respiratory Rate 22 /min 01/25/2025 04:35 AM Respiratory Rate 22 /min Heart Rate 72 /min 01/25/2025 04:20 PM Oxygen Saturation 98 % Respiratory Rate 18 /min Heart Rate 84 /min 01/25/2025 10:22 AM Temperature 97.4 [degF] Oxygen Saturation 91 % Respiratory Rate 19 /min Heart Rate 66 /min Blood Pressure Systolic 107 mm[Hg] Blood Pressure Diastolic 67 mm[Hg] 01/25/2025 07:36 PM Oxygen Saturation 94 % Respiratory Rate 18 /min Heart Rate 74 /min 01/25/2025 06:30 PM Temperature 98.7 [degF] Oxygen Saturation 94 % Respiratory Rate 18 /min Heart Rate 74 /min Blood Pressure Systolic 112 mm[Hg] Blood Pressure Diastolic 61 mm[Hg] 01/26/2025 07:28 AM Oxygen Saturation 94 % Respiratory Rate 19 /min Heart Rate 80 /min 01/26/2025 07:18 AM Temperature 97.6 [degF] Oxygen Saturation 92 % Respiratory Rate 21 /min Heart Rate 77 /min Blood Pressure Systolic 120 mm[Hg] Blood Pressure Diastolic 77 mm[Hg] 01/26/2025 11:06 AM Oxygen Saturation 96 % Respiratory Rate 19 /min Heart Rate 78 /min 01/26/2025 10:21 PM Oxygen Saturation 93 % Respiratory Rate 18 /min Heart Rate 79 /min 01/26/2025 09:50 PM Oxygen Saturation 90 % Respiratory Rate 20 /min Heart Rate 73 /min 01/26/2025 08:48 PM Temperature 97.2 [degF] Oxygen Saturation 93 % Respiratory Rate 19 /min Heart Rate 79 /min Blood Pressure Systolic 127 mm[Hg] Blood Pressure Diastolic 55 mm[Hg] 01/26/2025 08:31 PM Oxygen Saturation 96 % Respiratory Rate 20 /min Heart Rate 80 /min 01/26/2025 06:43 PM Oxygen Saturation 95 % Respiratory Rate 20 /min Heart Rate 76 /min 01/27/2025 05:35 AM Oxygen Saturation 95 % Respiratory Rate 20 /min Heart Rate 81 /min 01/27/2025 05:01 AM Oxygen Saturation 92 % Respiratory Rate 18 /min Heart Rate 71 /min 01/27/2025 03:41 AM Oxygen Saturation 94 % Respiratory Rate 20 /min Heart Rate 80 /min 01/27/2025 02:11 AM Oxygen Saturation 91 % 01/27/2025 02:10 AM Respiratory Rate 20 /min Heart Rate 73 /min 01/27/2025 02:34 PM Oxygen Saturation 95 % Respiratory Rate 19 /min Heart Rate 84 /min 01/27/2025 02:33 PM Oxygen Saturation 94 % Respiratory Rate 21 /min Heart Rate 79 /min 01/27/2025 12:44 PM Body Weight 111 [lb_av] Body Mass Index 20.3 kg/m2 01/27/2025 11:02 AM Oxygen Saturation 94 % Respiratory Rate 20 /min Heart Rate 80 /min 01/27/2025 10:08 AM Temperature 98.4 [degF] Oxygen Saturation 97 % Respiratory Rate 20 /min Heart Rate 75 /min Blood Pressure Systolic 127 mm[Hg] Blood Pressure Diastolic 68 mm[Hg] 01/27/2025 10:07 AM Oxygen Saturation 97 % 01/27/2025 10:04 PM Oxygen Saturation 97 % Respiratory Rate 20 /min Heart Rate 77 /min 01/27/2025 09:14 PM Oxygen Saturation 97 % Respiratory Rate 20 /min Heart Rate 70 /min 01/27/2025 07:31 PM Temperature 96.8 [degF] Oxygen Saturation 98 % Respiratory Rate 18 /min Heart Rate 76 /min Blood Pressure Systolic 97 mm[Hg] Blood Pressure Diastolic 74 mm[Hg] 01/28/2025 09:04 AM Temperature 99 [degF] Respiratory Rate 20 /min Heart Rate 79 /min Blood Pressure Systolic 144 mm[Hg] Blood Pressure Diastolic 74 mm[Hg] 01/28/2025 09:00 AM Oxygen Saturation 95 % Respiratory Rate 16 /min Heart Rate 76 /min 01/28/2025 02:04 AM Oxygen Saturation 97 % Respiratory Rate 20 /min Heart Rate 83 /min 01/28/2025 01:29 AM Oxygen Saturation 95 % Respiratory Rate 18 /min Heart Rate 80 /min 01/28/2025 04:38 PM Oxygen Saturation 97 % Respiratory Rate 18 /min Heart Rate 70 /min 01/28/2025 04:14 PM Oxygen Saturation 95 % Respiratory Rate 20 /min Heart Rate 66 /min 01/28/2025 11:47 AM Oxygen Saturation 96 % Respiratory Rate 18 /min Heart Rate 67 /min 01/29/2025 12:12 AM Temperature 97.9 [degF] Blood Pressure Systolic 116 mm[Hg] Blood Pressure Diastolic 58 mm[Hg] 01/29/2025 12:11 AM Oxygen Saturation 96 % Respiratory Rate 18 /min Heart Rate 89 /min 01/29/2025 09:09 AM Oxygen Saturation 99 % Respiratory Rate 16 /min Heart Rate 55 /min 01/29/2025 06:23 AM Oxygen Saturation 96 % Respiratory Rate 20 /min Heart Rate 67 /min 01/29/2025 03:16 PM Oxygen Saturation 96 % Respiratory Rate 18 /min Heart Rate 57 /min 01/29/2025 01:51 PM Oxygen Saturation 98 % 01/29/2025 01:49 PM Oxygen Saturation 99 % Heart Rate 61 /min 01/29/2025 01:47 PM Temperature 98.1 [degF] Respiratory Rate 16 /min Heart Rate 45 /min Blood Pressure Systolic 118 mm[Hg] Blood Pressure Diastolic 76 mm[Hg] 01/29/2025 12:09 PM Oxygen Saturation 98 % 01/29/2025 10:42 PM Temperature 98.9 [degF] Oxygen Saturation 97 % Respiratory Rate 18 /min Heart Rate 80 /min Blood Pressure Systolic 115 mm[Hg] Blood Pressure Diastolic 81 mm[Hg] 01/29/2025 08:23 PM Respiratory Rate 22 /min Heart Rate 71 /min 01/29/2025 08:22 PM Oxygen Saturation 95 % Respiratory Rate 20 /min Heart Rate 72 /min 01/30/2025 08:39 AM Temperature 98.4 [degF] Oxygen Saturation 99 % Respiratory Rate 19 /min Heart Rate 74 /min Blood Pressure Systolic 109 mm[Hg] Blood Pressure Diastolic 66 mm[Hg] 01/30/2025 08:38 AM Oxygen Saturation 99 % 01/30/2025 06:46 AM Oxygen Saturation 92 % Respiratory Rate 19 /min Heart Rate 74 /min 01/30/2025 04:18 PM Respiratory Rate 18 /min Heart Rate 80 /min 01/30/2025 01:43 PM Oxygen Saturation 98 % Respiratory Rate 17 /min Heart Rate 74 /min 01/30/2025 10:01 AM Oxygen Saturation 99 % Respiratory Rate 18 /min Heart Rate 78 /min 01/30/2025 08:16 AM Oxygen Saturation 99 % Respiratory Rate 16 /min Heart Rate 81 /min 01/30/2025 09:48 PM Temperature 98.5 [degF] Respiratory Rate 20 /min Heart Rate 75 /min Blood Pressure Systolic 140 mm[Hg] Blood Pressure Diastolic 78 mm[Hg] 01/30/2025 06:48 PM Oxygen Saturation 95 % Respiratory Rate 22 /min Heart Rate 76 /min 01/31/2025 05:16 AM Respiratory Rate 21 /min 01/31/2025 05:13 AM Oxygen Saturation 96 % Respiratory Rate 23 /min Heart Rate 78 /min 01/31/2025 03:59 PM Oxygen Saturation 96 % Respiratory Rate 20 /min Heart Rate 75 /min 01/31/2025 03:58 PM Temperature 97.7 [degF] Blood Pressure Systolic 112 mm[Hg] Blood Pressure Diastolic 60 mm[Hg] 01/31/2025 03:57 PM Respiratory Rate 18 /min Heart Rate 78 /min 01/31/2025 11:37 AM Oxygen Saturation 95 % Respiratory Rate 20 /min Heart Rate 76 /min 01/31/2025 07:23 PM Oxygen Saturation 91 % Respiratory Rate 20 /min Heart Rate 85 /min 02/01/2025 09:18 AM Oxygen Saturation 90 % 02/01/2025 05:18 AM Oxygen Saturation 93 % Respiratory Rate 20 /min Heart Rate 78 /min 02/01/2025 05:15 AM Respiratory Rate 18 /min Heart Rate 82 /min 02/01/2025 02:33 AM Temperature 98.2 [degF] Respiratory Rate 20 /min Heart Rate 83 /min Blood Pressure Systolic 117 mm[Hg] Blood Pressure Diastolic 69 mm[Hg] 02/01/2025 10:33 AM Oxygen Saturation 94 % Respiratory Rate 19 /min Heart Rate 74 /min 02/01/2025 10:32 AM Temperature 98.3 [degF] Oxygen Saturation 90 % Respiratory Rate 19 /min Heart Rate 69 /min Blood Pressure Systolic 102 mm[Hg] Blood Pressure Diastolic 61 mm[Hg] 02/01/2025 08:13 PM Temperature 97.6 [degF] Oxygen Saturation 87 % Respiratory Rate 16 /min Heart Rate 87 /min Blood Pressure Systolic 101 mm[Hg] Blood Pressure Diastolic 51 mm[Hg] 02/02/2025 09:31 AM Respiratory Rate 20 /min Heart Rate 79 /min 02/02/2025 09:29 AM Temperature 97.3 [degF] Oxygen Saturation 97 % Respiratory Rate 21 /min Heart Rate 80 /min Blood Pressure Systolic 113 mm[Hg] Blood Pressure Diastolic 68 mm[Hg] 02/02/2025 05:49 AM Oxygen Saturation 92 % Respiratory Rate 19 /min Heart Rate 78 /min Social History Element Description Date Comment Tobacco smoking status NHIS Current some day smoker Encounters Type CPT Code Date Location Provider Indication s encounter report 01/15/2025 01:2 9 PM - 02/02/2025 02:16 PM Jaden Last DO 01 Advance Directives Directive Description Verification Date Supporting Document(s) Other Directive
--- OUTSIDE RECORDS SUMMARY | 2025-05-08 10:53 | XMS_ITS | Encounter Summary ---
Author Organization [facility] Address [address] [place] [address] Care Team Providers Care Sausage Inspector Name Role Phone Srinivasa Huntley MD, Ruben Langley Primary Care Provider Encounter Details Date Type Department Care Team (Latest Contact Info) Description 03/14/1999 Outpatient Historical [facility] Seng Walker MD NO ADDRESS ON FILE Disorders of bursae and tendons in shoulder region, unspecified (Primary Dx) Social History Tobacco Use Types Packs/Day Years Used Date Smoking Tobacco: Never Assessed Comments Unknown Sex and Gender Information Value Date Recorded Sex Assigned at Not on file Legal Sex Female 5:33 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
--- OUTSIDE RECORDS SUMMARY | 2025-05-08 10:53 | XMS_ITS | Clinical Summary ---
Author Organization [facility] Address [address] Ramirez: [place] [address] Care Team Providers Care Edi Architect Name Role Phone Hyun Valentino Primary Care Provider Allergies Active Allergy Reactions Criticality Noted Date Comments Aspirin Rash Low 12/27/2009 Penicillins Anaphylaxis High 12/27/2009 Tramadol-Acetaminophen Nausea and Vomiting,Swelling Low 12/27/2009 Ultracet Medications HYDROcodone-aceta minophen (NORCO) 5-325 mg tablet 01/29/20 25 Active Xanax 0.5 mg tablet Take 0.5 mg by mouth nightly as needed. Active Breztri Aerosphere 160 mcg-9mcg-4.8mcg/a ctuation HFA aerosol inhalerIndication s:Chronic obstructive pulmonary disease, unspecified COPD type (CMS/HCC) Take 2 Puffs by inhalation 2 times daily. 10.7 Gram 3 02/05/20 25 Active albuterol sulfate HFA 90 mcg/actuation aerosol inhalerIndication s:Chronic obstructive pulmonary disease, unspecified COPD type (CMS/HCC) Take 2 Puffs by inhalation every 6 hours as needed for Shortness of Breath or Wheezing. 8.5 Gram 2 02/05/20 25 Active levothyroxine 100 mcg tabletIndications :Acquired hypothyroidism Take 1 Tablet (100 mcg) by mouth daily in the morning. 30 Tablet 3 02/09/20 25 Active portable oxygenIndications :Panlobular emphysema (CMS/HCC) Face to Face completed within 30 days: yes Length of Need: 99 months By: Nasal Cannula Continuously at 2 L/min. Please provide concentrator with portable oxygen therapy 1 Each 3 03/10/20 25 Active hydrOXYzine HCL (ATARAX) 25 mg tabletIndications :Anxiety Take 1 Tablet (25 mg) by mouth 3 times daily as needed for Anxiety. 90 Tablet 3 03/10/20 25 Active omeprazole (PriLOSEC) 40 mg Capsule, Delayed Release(E.C.)Mikala cations:Anemia, unspecified type take 1 capsule BY MOUTH EVERY DAY 30 Capsule 1 03/30/20 25 Active ketorolac tromethamine (TORADOL) 10 mg tabletIndications :Chronic bilateral thoracic back pain Take 1 Tablet (10 mg) by mouth every 6 hours as needed for Pain. 20 Tablet 05/06/20 25 025 Active traZODone (DESYREL) 50 mg tabletIndications :Primary insomnia Take 1 Tablet (50 mg) by mouth daily at bedtime. 90 Tablet 2 05/06/20 25 Active DULoxetine (CYMBALTA) 30 mg Capsule, Delayed Release(E.C.)Mikala cations:Anxiety,S evere episode of recurrent major depressive disorder, without psychotic features (CMS/HCC) Take 1 Capsule (30 mg) by mouth daily. 30 Capsule 3 05/06/20 25 Active citalopram (CeleXA) 40 mg tabletIndications :Anxiety,Severe episode of recurrent major depressive disorder, without psychotic features (CMS/HCC) Take 1 Tablet (40 mg) by mouth daily. 90 Tablet 3 03/10/20 25 025 Discontinu ed(Alterna te therapy prescribed ) Active Problems Problem Noted Date Diagnosed Date Anxiety 03/10/2025 Severe episode of recurrent major depressive disorder, without psychotic features 03/10/2025 Bipolar disorder, current episode mixed, mild Overview (03/10/2025): Outside Claims Data/ [employer] 03/04/2024, Bipolar 1 disorder, mixed, mild. Outside Records/[employer] Continuity of Care 02/28/2024 lists Bipolar 1 disorder, mixed, mild as an active condition. Moderate recurrent major depression 04/05/2017 Essential hypertension 02/21/2017 Lumbosacral spondylosis without myelopathy 01/11 Pure hypercholesterolemia 02/14/2015 Panlobular emphysema 12/14/2010 Overview (03/10/2025): Chronic Obstructive Lung Disease; 12/15/2010 10:36AM by Aubree Renae CMT, Office Visit; Promoted; acuity set as *; Cervical radiculopathy 03/24/2010 Carpal tunnel syndrome 12/27/2009 Encounters Date Type Department Care Team Description 05/06/2025 10:20 AM CDT Office Visit [facility] [address] [place] [address] Arguelles, February, CASH APPLICATIONS SPECIALIST Cervical radiculopathy (Primary Dx); Chronic bilateral thoracic back pain; Primary insomnia; Anxiety; Severe episode of recurrent major depressive disorder, without psychotic features (CMS/HCC); Acquired hypothyroidism; Anemia, unspecified type; Bipolar disorder, current episode mixed, mild (CMS/HCC) 04/20/2025 External Device Data [facility] Provider, Abstract 03/30/2025 Refill [facility] [address] [place] [address] February, CASH APPLICATIONS SPECIALIST Anemia, unspecified type 03/24/2025 Refill [facility] [address] [place] [address] Alexia Granados FNP 03/16/2025 External Device Data [facility] Provider, Abstract 03/16/2025 External Device Data [facility] Provider, Abstract 03/16/2025 External Device Data [facility] Provider, Abstract 03/15/2025 Telephone [facility] [address] [place] [address] Alexia Granados FNP Primary Care Outreach ([facility] doesn't accept patients insurance for Oxygen so I called [facility] in [place] and they will. Tried calling pt to see if she is ok with going through [facility], if so I will fax the order over ) 03/12/2025 Telephone [facility] [address] [place] [address] February, CASH APPLICATIONS SPECIALIST Provider Call 03/11/2025 Telephone [facility] [address] [place] [address] February, CASH APPLICATIONS SPECIALIST Provider Call 03/10/2025 9:40 AM CDT Office Visit [facility] [address] [place] [address] Alexia Granados, CASH APPLICATIONS SPECIALIST Panlobular emphysema (CMS/HCC) (Primary Dx); Anxiety; Lumbosacral spondylosis without myelopathy; Cervical radiculopathy; Severe episode of recurrent major depressive disorder, without psychotic features (CMS/HCC) 03/05/2025 Orders Only [facility] [address] [place] [address] February, CASH APPLICATIONS SPECIALIST 03/05/2025 Telephone [facility] [address] [place] [address] February, CASH APPLICATIONS SPECIALIST Medication Assistance; Patient Communication 03/05/2025 Telephone [facility] [address] [place] [address] February, CASH APPLICATIONS SPECIALIST Medication Assistance; Patient Communication 03/02/2025 Telephone [facility] [address] [place] [address] February, CASH APPLICATIONS SPECIALIST Provider Call 02/25/2025 Telephone [facility] [address] [place] [address] February, CASH APPLICATIONS SPECIALIST Provider Call 02/18/2025 Telephone [facility] [address] [place] [address] Hyun Valentino DO Provider Call 02/16/2025 External Device Data [facility] Provider, Abstract 02/11/2025 2:20 PM CDT Ancillary Procedure [facility] [address] [place] [id number] Humble Stockton MD Cervical spondylosis 02/11/2025 2:00 PM CDT Office Visit [facility] [address] [place] [phone] Humble Stockton MD Cervical spondylosis (Primary Dx); Cervical radiculopathy; Other chronic pain 02/08/2025 Orders Only [facility] [address] [place] [phone] Arguelles, February, CASH APPLICATIONS SPECIALIST Acquired hypothyroidism (Primary Dx) 02/07/2025 Results Follow-Up [facility] [address] [place] [address] Arguellesfebruary, CASH APPLICATIONS SPECIALIST CBC WITH DIFFERENTIAL, TSH, COMPREHENSIVE METABOLIC PANEL, Additional followed-up results: 3 from Last 3 Months Family History Medical History Relation Name Comments Cancer Father Other Mother Relation Name Status Comments Father Mother Social History Tobacco Use Types Packs/Day Years Used Date Smoking Tobacco: Former Cigarettes Passive Smoke Exposure: Past Tobacco Cessation:Counseling Given: No Comments:Quit smoking: cutting down-1/2 pk now01/27/2010 Alcohol Use Standard Drinks/Week Comments Not Currently 0 (1 standard drink = 0.6 oz pur e alcohol) Comments No Sex and Gender Information Value Date Recorded Sex Assigned at Not on file Legal Sex Female 2:41 AM VISUAL COORDINATOR Gender Identity Not on file Sexual Orientation [...] Mass Index 20.12 05/06/2025 10:27 AM CDT Plan of Treatment Health Maintenance Due Date Last Done Comments FIT/ DNA Q 3 YEARS (AUTO ORDER) 02/05/1984 FIT/FOBT Q 1 YEAR (AUTO ORDER) 02/05/1984 FLEX SIG/CT COLONOGRAPHY Q 5 YEARS (AUTO ORDER) 02/05/1984 HEPATITIS B VACCINES (1 of 3 - 19+ 3-dose series) 1985 HPV/Cotest (21-29) 1987 CERVICAL CANCER SCREENING 02/05/1996 HPV/Cotest (30-65) 02/05/1996 PAP SMEAR 02/05/1996 BREAST CANCER SCREENING 2006 COLORECTAL CANCER SCREENING (AUTO ORDER) 2011 COLORECTAL SCREENING 2011 Colorectal Cancer Screening (AUTO ORDER) 2011 Colorectal Cancer Screening 2011 FIT-DNA Q 3 years 2011 FIT/FOBT Q 1 year 2011 Flex Sig/CT Colonography Q 5 years 2011 DTAP/TDAP/TD VACCINES (1 - Tdap) 10/11/2012 10/10/20 12 ZOSTER VACCINE (1 of 2) 02/05/2016 [place] ([place]) Prev entative Visit/Annual Wellness Visit 11/04/2024 INFLUENZA VACCINE (#1) 2025 , 02/28/2024, 10/19/2010 Medical Devices Implanted Type Area Organic Chemist Device Identifier Shelf Expiration Date Model / Serial / Lot Log [id number] - Tissue Substitutes & Biologicals - 1 - Vitoss Foam Ba 1.2ml Implanted:Qty: 1 on 02/03/2010 Biological N/A: Neck ORTHOVITA 07/05/2011 / / [id number] Log [id number] - Tissue Substitutes & Biologicals - 1 - Cage Anatomic Peek [id number] Implanted:Qty: 1 on 02/03/2010 Cage N/A: Neck MEDTRONIC- SOFAMOR DANEK 08/03/2017 [id number] / / [id number] Log [id number] - David Trinica Cervical Plating System - 1 - Plate Trinica Select 22mm [id number] Implanted:Qty: 1 on 02/03/2010 Plate N/A: Neck zzzzZIMMER-SPIN E [id number] 01 / [id number] / Log [id number] - David Trinica Cervical Plating System - 1 - Screw Trnca Sd Reyna 4.2x14mm [id number] Implanted:Qty: 4 on 02/03/2010 Screw N/A: Neck zzzzZIMMER-SPIN E [id number] 05 / [id number] / Procedures Procedure Name Priority Date/Time Associated Diagnosis Comments XR CERVICAL SPINE 2 OR 3 VIEWS Routine 02/11/2025 2:22 PM CDT Cervical spondylosis from Last 3 Months Results * XR CERVICAL SPINE 2 OR 3 VIEWS (02/11/2025 2:22 PM CDT) Anatomical Region Laterality Modality Spine Computed Radiogr aphy 02/11/2025 2:22 PM CDT Impressions 02/12/2025 5:25 AM CDT IMPRESSION: Please see below. Exam: XR CERVICAL SPINE 2 OR 3 VIEWS Date/Time of Exam: 02/11/2025 2:22 PM Reason For Exam: See Diagnosis. Diagnosis: Cervical spondylosis. Comparison: 03/24/2010. Findings: Stable appearance of the anterior fusion postoperative changes at C6-7. Development of moderate to severe degenerative disc disease at C5-6. Minimal degenerative changes at C4-5. No prevertebral soft tissue swelling. Multilevel uncovertebral and facet arthropathy. IMPRESSION: 1. Postoperative and degenerative changes. Narrative Procedure Note Mingo Herrera MD - 02/12/2025 IMPRESSION: Please see below. Exam: XR CERVICAL SPINE 2 OR 3 VIEWS Date/Time of Exam: 02/11/2025 2:22 PM Reason For Exam: See Diagnosis. Diagnosis: Cervical spondylosis. Comparison: 03/24/2010. Findings: Stable appearance of the anterior fusion postoperative changes at C6-7. Development of moderate to severe degenerative disc disease at C5-6. Minimal degenerative changes at C4-5. No prevertebral soft tissue swelling. Multilevel uncovertebral and facet arthropathy. IMPRESSION: 1. Postoperative and degenerative changes. Humble Stockton MD DIAGNOSTIC IMAGING ORDERABLES Fi nal Result from Last [address] [place] [address] MEDICAID [place] [employer] O NP Care Teams Edi Architect Relationship Specialty Start Date End Date Hyun Valentino DO [address] [place] [address] PCP - General Family Practice 02/04/25
--- OUTSIDE RECORDS SUMMARY | 2025-05-08 10:53 | XMS_ITS | Patient Health Record ---
Author Organization [facility] Address [address] [place] [address] Care Team Providers Care Instrument Tester Name Role Phone Ruben Bernabe Primary Care Provider [phone] Allergies Allergen (clinical drug ingredient) Drug/Non Drug Allergy documented on EMR Reaction Allergy Type Onset Date Status aspirin Aspirin Unknown Drug Allergy 12/21/2010 Active Ultracet Unknown Drug Allergy 12/21/2010 Active Penicillin Unknown Drug Allergy 12/21/2010 Activ e Reason For Referral No Information Medications Medication SIG (Take, Route, Frequency, Duration) Notes Start Date End Date Status Ezetimibe 10 MG Take 1 tablet by darrian th once daily for 30 days for 30 Active Synthroid 88 MCG Take 1 tablet(s) by mouth daily Oral Once a day for 90 days 01/15/2014 Active Nitroglycerin 0.4 MG as directed Subling ual Once a day for 30 days Active LaMICtal 100 MG TAKE 1/2 TABLET BY M OUTH DAILY IN THE MORNING AND 1/2 TABLET IN THE EVENING for 90 Active Albuterol Sulfate (2.5 MG/3ML) 0.083% 3 ml as needed Inhalation every 6 hrs for 30 days 08/12/2020 Active DULoxetine HCl 30 MG Take 1 capsule by m outh once daily for 30 Active Ventolin HFA 90 MCG/ACT 2 puff as needed Inhalation every 6 hrs prn for 30 days Active Ondansetron HCl 4 MG 1 tablet as needed Orally every 8 hours for 14 days 03/05/2022 Active busPIRone HCl 5 MG 1 tablet Orally Thre e times a day for 90 days Active Gabapentin 600 MG 1 tablet Orally Once a day for 30 days Active Rosuvastatin Calcium 20 MG TAKE 1 TABLET BY MOUTH EVERY DAY IN THE EVENING FOR CHOLESTEROL ALONG WITH A COQ10 100MG TABLET for 90 Active tiZANidine HCl 4 MG 1 tablet as needed O rally Three times a day for 30 Active traZODone HCl 50 MG TAKE 1 TO 3 TABLETS BY MOUTH ONCE DAILY AT BEDTIME for 30 Active Cetirizine HCl 10 MG TAKE 1 TABLET BY MO UTH DAILY FOR ALLERGIES for 30 Active Immunizations Vaccine Route Administration Date Status Comme nts Flu vaccine no Preserv 3 and > IM Intramuscular 08/27/2012 Administered Flu vaccine no Preserv 3 and > IM Intramuscular 08/12/2013 Administered Pneumococcal polysaccharide PPV23 IM Intramuscular 08/27/2012 Administered Pneumococcal polysaccharide PPV23 Unknown 08/27/2012 Administered Td (adult) preservative free Unknown 10/10/2012 Administered Social History Tobacco Use: Social History Observation Description Date Details (start date - stop date) Never Smoker NA - NA xTobacco Use/Smoking Question Answer Notes Are you a nonsmoker Section Notes: 01/18/21 smoking 01/18/21 depr ession 01/18/21 smoking 01/18/21 depr ession 01/18/21 smoking 01/18/21 depr ession 01/18/21 smoking 01/18/21 depr ession 01/18/21 smoking 01/18/21 depr ession 01/18/21 smoking 01/18/21 depr ession 01/18/21 smoking 01/18/21 depr ession 01/18/21 smoking 01/18/21 depr ession 01/18/21 smoking 01/18/21 depr ession 01/18/21 smoking 01/18/21 depr ession 01/18/21 smoking 01/18/21 depr ession 01/18/21 smoking 01/18/21 depr ession 01/18/21 smoking 01/18/21 depr ession 01/18/21 smoking 01/18/21 depr ession 01/18/21 smoking 01/18/21 depr ession 01/18/21 smoking 01/18/21 depr ession 01/18/21 smoking 01/18/21 depr ession 01/18/21 smoking 01/18/21 depr ession 01/18/21 smoking 01/18/21 depr ession Problems Problem Type SNOMED Code ICD Code Onset Dates Problem Status W/U Status Risk Notes Problem Essential hypertension (84931849) Essential hypertension (I10) Active confirmed Problem Pure hypercholesterolemia (566677464) Hypercholesteremia (E78.00) Active confirmed Problem Anxiety (86545685) Anxiety (F41.9) Active confi rmed Problem 41031033 Severe episode o f recurrent major depressive disorder, without psychotic features (F33.2) Active confirmed Problem Hypothyroidism (34961808) Hypothyroidism (E03.9) Active confirmed Problem Lumbosacral spondylosis without myelopathy (15857159) 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 confirmed Problem Hypothyroidism (74494151) Hypothyroidism (244.9) 2016 Active confirmed [id number]- Problem Lumbosacral spondylosis without myelopathy (81749999) Lumbar spondylarthritis (721.3) 2016 Active confirmed [id number]- Problem Moderate recurrent major depression (56214369) Major depression, recurrent episode, moderate (296.32) 2016 Active confirmed [id number]- Problem Pure hypercholesterolemia (703786371) Essential hypercholesterolemia (272.0) 2014 Active confirmed [id number]- Problem Osteoarthritis of shoulder (50402137) Osteoarthritis of shoulder (715.11) 2017 Active confirmed [id number]-[id number]- Problem Eczema (22209674) Eczema (691.8) 2013 Active confirmed [id number]- Problem Essential hypertension (45181568) Essential hypertension (401.1) 2016 Active confirmed [id number]- Problem Acute sinusitis (73811661) Acute sinusitis, unspecified (461.9) 2018 Problem resolved confirmed [id number]-[id number]- Problem Non-plaque induced gingival disease (370491678) Acute gingivitis, non-plaque induced (523.01) 2018 Problem resolved confirmed [id number]- Problem Impetigo (79503544) Impetigo (684) 2017 Problem resolved confirmed [id number]- Problem Pain in thoracic spine (993253339) Pain in thoracic spine (724.1) 2016 Problem resolved confirmed [id number]-[id number] [id number]- Problem Weight decreased (212899813) Loss of weight (783.21) 2010 Problem resolved confirmed [id number][id number] [id number]- Problem Shortness of breath (280331259) Shortness of breath (786.05) 2010 Problem resolved confirmed [id number][id number] [id number]- Problem Cough (02884842) Cough (786.2) 2013 Problem resolved confirmed [id number]-[id number]- Problem Gynecological examination normal (386879206598212) Routine gynecological examination (V72.31) 2011 Problem resolved confirmed [id number]-[id number]- Problem History of pulmonary embolus (372822058) Personal history of pulmonary embolism (V12.55) 2016 Problem resolved confirmed [id number]-[id number] [id number]- Problem Fever blister (2072597) Fever blister (054.9) 2011 Problem resolved confirmed [id number]-[id number] [id number]- Problem Generalized anxiety disorder (48166473) Anxiety, generalized (300.02) 2010 Problem resolved confirmed [id number]-[id number] [id number]- Problem Fibromyalgia (514738474) Fibromyalgia (729.1) 2010 Problem resolved confirmed [id number][id number] [id number]- Problem Rash (968850255) Rash (782.1) 2010 Problem resolved confirmed [id number]-[id number] [id number]- Problem Low back pain (042376552) Low back pain (724.2) 2018 Problem resolved confirmed [id number][id number] [id number]- Problem Neck pain (91307613) Neck pain (723.1) 2016 Problem resolved confirmed [id number]-[id number] [id number]- Problem Vitamin D deficiency (27989046) Vitamin D deficiency (268.9) 2010 Problem resolved confirmed [id number]-[id number] [id number]- Problem Thoracic back pain (288886055) Upper back pain (724.1) 2010 Problem resolved confirmed [facility]-[id number] [id number]- Problem Spontaneous ecchymosis (736177719) Excessive bruising (782.7) 2010 Problem resolved confirmed [facility]-[id number] [id number]- Problem Sleep disturbance (60966136) Insomnia secondary to hot flashes (780.59) 2012 Problem resolved confirmed [facility]98 [id number]- Problem Nondependent cannabi s abuse, continuous (065145904) Marijuana abuse - continuous (305.21) 2010 Problem resolved confirmed [id number][id number] [id number]- Problem 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 Problem resolved confirmed [facility][id number] [id number]- Problem Muscle weakness (53591359) Muscle weakness (729.89) 2010 Problem resolved confirmed [facility]-[id number] [id number]- Problem Shoulder pain (82387399) Shoulder pain (719.41) 2016 Problem resolved confirmed [facility][id number] 5911- Problem Backache (541382004) Mid back pa in (724.5) 2017 Problem resolved confirmed [facility]-[id number] 5911- Problem Screening for colon cancer (188557855) Screening for colon cancer (V76.49) 2015 Problem resolved confirmed [facility]-98 5911- Problem Acute sinusitis (23457205) Acute sinusitis (461.9) 2016 Problem resolved confirmed [facility]-98 5911- Problem Allergic rhinitis caused by pollen (20692511) Allergies (477.0) 2010 Problem resolved confirmed [facility][id number] 5911- Problem Disorder of hematopoietic system (23018669) Other abnormal findings on blood examination (790.99) 2015 Problem resolved confirmed [facility]-98 5911- Problem Convulsion (09184967) Seizure(s) ; other (780.39) 2015 Problem resolved confirmed [facility]-98 5911- Problem Tobacco dependence (66524803) Tobacco dependence (305.1) 2011 Problem resolved confirmed [facility]-98 [id number]- Problem Acute exacerbation o f chronic obstructive airways disease (281404854) Acute exacerbation of chronic obstructive pulmonary disease (COPD) (491.21) 2012 Problem resolved confirmed [facility]98 5911- Problem Generalized aches an d pains (16615546) Body aches (729.1) 2016 Problem resolved confirmed [facility]-[id number] 5911- Problem Chest pain (13991094) Chest pain (786.51) 2014 Problem resolved confirmed [facility]-98 5911- Problem Emphysema (17115605) Emphysema (492.8) 2010 Problem resolved confirmed [facility]-98 5911- Problem Influenza with non-respiratory manifestation (48252634) Flu like symptoms (487.8) 2010 Problem resolved confirmed [facility]-98 5911- Problem Influenza (1322289) Influenza, w ith other respiratory manifestation (487.1) 2017 Problem resolved confirmed [facility]98 5911- Problem Pneumococcal pneumonia (272436967) Lobar pneumonia, organism unspecified (481) 2012 Problem resolved confirmed [facility]98 5911- Problem Herpes simplex without complication (073226362) Herpes simplex, without complication (054.9) 2016 Problem resolved confirmed [facility]-98 5911- Problem Bursitis of shoulder (826668735) Shoulder bursitis (726.0) 2016 Problem resolved confirmed [facility]-98 5911- Problem Disorder of cervical spine (824974468) Cervical root impingement (723.8) 2016 Problem resolved confirmed [facility]-98 5911- Problem Continuous opioid dependence (395808489) Opioid dependence, continuous (304.01) 2018 Problem resolved confirmed [facility]-98 5911- Problem Anxiety state (616478187) Situational stress with anxiety (300.09) 2015 Problem resolved confirmed [facility]-98 5911- Problem Tobacco user (799819813) Tobacco abuse affecting health (305.1) 2013 Problem resolved confirmed [facility]-98 5911- Problem Needs influenza immunization (446790503) Vaccination against other viral diseases, Influenza (V04.81) 2011 Problem resolved confirmed [id number]-98 5911- Problem Allergic rhinitis (75835014) Allergic rhinitis, unspecified cause (477.9) 2015 Problem resolved confirmed [facility]-98 5911- Problem Closed fracture of one rib (06948513) Closed rib fracture, of one rib (807.01) 2014 Problem resolved confirmed [facility]-98 5911- Problem Persistent insomnia (855693649) Persistent insomnia (307.42) 2017 Problem resolved confirmed [facility]98 5911- Problem Akathisia (389817936) Akathisia (781.0) 0 2015 Problem resolved confirmed [facility]98 5911- Problem Contact dermatitis (95436600) Contact dermatitis (692.9) 2016 Problem resolved confirmed [facility]-98 5911- Problem Thyroid function tests abnormal (969954629) Abnormal thyroid findings (794.5) 2014 Problem resolved confirmed [facility]-98 5911- Problem Knee pain (7597118895) Knee pain (719.46) 2015 Problem resolved confirmed [facility]-98 5911- Problem Acquired hypothyroidism (668641098) Acquired hypothyroidism (244.8) 2011 Problem resolved confirmed [facility]-98 5911- Problem Erythrocyte sedimentation rate raised (894641050) Elevated sed rate (ESR) (790.1) 2013 Problem resolved confirmed [facility]-98 5911- Problem Pneumococcal pneumonia (564169475) Acute lobar pneumonia (481) 2010 Problem resolved confirmed [facility]-98 5911- Problem Administration of vaccine product containing only Streptococcus pneumoniae antigen (procedure) (94499565) Vaccination against pneumococcal pneumonia (V03.82) 2011 Problem resolved confirmed [facility]-98 5911- Problem Mixed anxiety and depressive disorder (890239274) Depression with anxiety (300.4) 2010 Problem resolved confirmed [facility]-98 5911- Problem Emphysema (71243407) Emphysema, other (492.8) 2017 Problem resolved confirmed [facility]-98 5911- Problem Nausea and vomiting (50163977) Nausea and vomiting (787.01) 2010 Problem resolved confirmed [facility]-98 5911- Problem Hypertrophy of tonsils (28251232) Hypertrophy of tonsils (474.11) 2017 Problem resolved confirmed [facility]-98 5911- Problem Influenza vaccinatio n (71660050) Influenza vaccination (V04.81) 2013 Problem resolved confirmed [facility]-98 5911- Problem Pleural thickening (10291123) Pleural thickening (511.0) 2016 Problem resolved confirmed [facility]-98 5911- Problem Screening for malignant neoplasm of breast (623802075) Screening for breast cancer, unspecified (V76.10) 2015 Problem resolved confirmed [facility]-98 5911- Problem Screening mammograph y (72056994) Screening mammogram - other (V76.12) 2015 Problem resolved confirmed [facility]-98 5911- Plan Of Treatment No Information Insurance Providers Payer Name Payer Address Payer Phone Subscriber Number Group Number Insured Name Patient Relationship to Insured Coverage Start Date Coverage End Date Out of Network [employer] Medicare Replacement [address] [address] [place] [address] [id number] Boles, Nola Self - patient is the insured Medical (General) History Medical History History ICD Code abdominal aortic aneurysm palpitation COPD dx 2006 Pulmonary Embolism Dx: 01/2017 chronic pain affecting the mid back Fibromyalgia Graves Allergies Anxiety Depression menopause at age 35 or 36 Surgical History Surgery Date(Month/Year) Fusion C6 and C7 Right hand Back surgery Bilateral tubal ligation Hernia repair
[2025-05-08 10:59] VITALS: BP 137/87; PULSE 65; RESP 18; TEMP 36.5; O2SAT 99; BMI 20.1
[2025-05-08 11:24] LABS: Glucose Urine UA Negative (Normal); Nitrate Urine Negative (Negative); Specific Gravity, Urine 1.010 (1.005-1.030)
[2025-05-08 11:27] LABS: Add Urine Microscopic? YES
[2025-05-08] MEDS: orphenadrine 30 mg/mL Inj 2 mL 60 MG IVP (11:27)
[2025-05-08 12:02] VITALS: BP 157/94; PULSE 57; RESP 16; O2SAT 100
--- NOTE | 2025-05-08 12:09 | W.ED.BACK ---
HPI - Back Pain/Injury General: Chief Complaint: Back Pain/Injury Stated Complaint: Low back pain Time Seen by Provider: 05/08/25 10:49 History of Present Illness: 60-year-old female presents emergency complaining of neck and low back pain. No recent trauma. She states she has had problems with her back and neck in the past she woke up with her symptoms she denies dysuria urgency or frequency no fecal incontinence or urinary retention denies any chest pain or shortness of breath. She takes muscle relaxers at home states have not been helping pretty much. Associated symptoms: Deny abdominal pain, chills, dysuria, fever(s) or urinary urgency Related Data Home Medications ?Medication ?Instructions ?Recorded ?Confirmed albuterol sulfate 90 mcg/actuation 2 puff inhalation Q6H PRN 01/04/25 05/08/25 aerosol inhaler Shortness Of Breath Or Wheezing budesonide 160 mcg-glycopyr 9 2 inh inhalation DAILY 05/08/25 05/08/25 mcg-formot 4.8 mcg/actuation HFA inhaler ([employer]) citalopram 40 mg tablet 40 mg PO DAILY 05/08/25 05/08/25 duloxetine 30 mg capsule,delayed 30 mg PO DAILY 05/08/25 05/08/25 release hydroxyzine HCl 25 mg tablet 25 mg PO TID PRN anxiety 05/08/25 05/08/25 ketorolac 10 mg tablet 10 mg PO Q6H PRN Pain 05/08/25 05/08/25 levothyroxine 100 mcg tablet 100 mcg PO QAM 05/08/25 05/08/25 trazodone 50 mg tablet 50 mg PO BEDTIME 05/08/25 05/08/25 Previous Rx's ?Medication ?Instructions ?Recorded cyclobenzaprine 10 mg tablet 10 mg PO TID PRN muscle spasm #30 05/08/25 tabs diclofenac sodium 75 mg 75 mg PO Q12H PRN pain #20 tabs 05/08/25 tablet,delayed release prednisone 20 mg tablet 20 mg PO TID #15 tabs 05/08/25 Allergies Allergy/AdvReac Type Severity Reaction Status Date / Time aspirin Allergy hives Verified 08/27/24 13:48 Penicillins Allergy ALGY-Anaphy Verified 08/27/24 13:48 laxis tizanidine Allergy tongue Verified 08/27/24 13:48 swelling tramadol Allergy ALGY-Rash Verified 08/27/24 13:48 Review of Systems Const: Denies: fever(s) or chills Card: Denies: chest pain Resp: Denies: dyspnea GI: Denies: abdominal pain : Denies: dysuria, urinary frequency or urinary urgency Musc: Reports: neck pain and back pain Skin/Breast: Denies: rash PFSH ED PFSH: Medical History 3 para 2 Smoker decreased to 1/2 ppd 09/03/2023 Chronic neck and back pain Insomnia Bipolar 1 disorder, mixed, mild Mixed dyslipidemia Generalized anxiety disorder Acquired hypothyroidism History of Graves' disease Fibromyalgia COPD (chronic obstructive pulmonary disease) Surgical History History of carpal tunnel release right History of hernia repair History of thyroidectomy and thyroid ablation History of tubal ligation History of cervical spinal surgery C5/6 fusion Family History Mother Lung disease Psychiatric illness Father Psychiatric illness Other Stroke Denies family history of Diabetes CAD (coronary artery disease) Dementia Hyperlipidemia Chronic kidney disease (CKD) Suicide Anesthesia complication Bleeding disorder Family history of premature coronary artery disease Cancer Hypertension Social History Smoking and tobacco/nicotine status: current every day tobacco/nicotine user cigarettes [ Other cigarette details: Half pack a day] Quit status (tobacco/nicotine): has tried quititng Alcohol intake: never Substance/Drug Use: current Substance/Drug use frequency: daily Adopted: No Lives independently: Yes Household members: spouse, children and other Details: 3 grandchilden Housing: House Marital status: Number of children: 2 Number of grandchildren: 6 Highest education level completed: High School Graduate service: No Current occupational status: disabled Leisure activites: other Leisure activities details: swimming, playing w/ kids Agree to transfusion: Yes Female Reproductive History: Spontaneous abortions: No Physical Exam Const: COMMON NORMALS: no acute distress GENERAL APPEARANCE: cooperative and comfortable ORIENTATION/CONSCIOUSNESS: Yes awake, Yes oriented to person, Yes oriented to place and Yes oriented to time HENMT: COMMON NORMALS: normocephalic, atraumatic and hearing grossly normal bilaterally HEAD & SCALP: normocephalic and atraumatic Resp: COMMON NORMALS: normal respiratory effort, No retractions, No use of accessory muscles and clear to auscultation bilaterally AUSCULTATION: clear to auscultation bilaterally Cardio: COMMON NORMALS: regular rate, regular rhythm and No murmurs present (Cardio) RATE: regular rate RHYTHM: regular rhythm GI: COMMON NORMALS: Soft to palpation and No hepatosplenomegaly present AUSCULTATION: Yes normoactive bowel sounds PALPATION: Yes Soft to palpation, No Tenderness to palpation present (GI), No Guarding due to palpation present (GI) and Yes No hepatosplenomegaly present Extremity: COMMON NORMALS: normal to inspection, capillary refill normal, no clubbing, cyanosis or edema, no calf tenderness and no pedal edema Neuro: SENSORIUM/ORIENTATION: Yes oriented to person, Yes oriented to place and Yes oriented to time Skin: COMMON NORMALS: no rashes or lesions noted GENERAL SKIN EXAM: no rashes or lesions noted Course Vital Signs: Vital signs: Vital Signs Temperature 97.7 F 05/08/25 10:59 Pulse Rate 57 L 05/08/25 12:02 Respiratory Rate 16 05/08/25 12:02 Blood Pressure 157/94 05/08/25 12:02 Pulse Oximetry 100 05/08/25 12:02 Oxygen Delivery Me thod Room Air 05/08/25 10:59 MDM - Back Pain/Injury Medical Decision Making Improved with medicines given no traumatic event no red flag symptoms at this time will discharge patient home steroid taper diclofenac in place of ketorolac. Use cyclobenzaprine follow-up with primary care if not improving may need referral to spine clinic Medical Records I reviewed the patient's medical records. Labs I reviewed the patient's lab results. Laboratory Results Urine Color Yellow (Yellow) 05/08/25 11:13 Urine Appearance Clear (CLEAR) 05/08/25 11:13 Urine pH 8.0 (5-7) A 05/08/25 11:13 Ur Specific [place] 1.010 (1.005-1.030) 05/08/25 11:13 Urine Protein Negative (Negative) 05/08/25 11:13 Urine Glucose (UA) Negative (Normal) 05/08/25 11:13 Urine Ketones Negative (Negative) 05/08/25 11:13 Urine Blood Negative (Negative) 05/08/25 11:13 Urine Nitrate Negative (Negative) 05/08/25 11:13 Urine Bilirubin Negative (Negative) 05/08/25 11:13 Urine Urobilinogen 0.2 mg/dL (Negative) 05/08/25 11:13 Ur Leukocyte Esterase Trace (Negative) A 05/08/25 11:13 Urine RBC 0-2 /hpf (0-2) 05/08/25 11:13 Urine WBC 6-10 /hpf (0-5) 05/08/25 11:13 Ur Squamous Epith Cells 6-10 /hpf (0-5) 05/08/25 11:13 Amorphous Sediment Not Reportable 05/08/25 11:13 Urine Bacteria 1+ /hpf (NONE) H 05/08/25 11:13 Hyaline Casts 0-4 /lpf H 05/08/25 11:13 No radiology studies performed this visit Discharge Plan Discharge Patient Disposition: Home Clinical Impression: Chronic neck and back pain Condition: Stable Prescriptions: New prednisone 20 mg tablet 20 mg PO TID Qty: 15 0RF Rx Instructions: 1 p.o. 3 times daily x3 days, 1 p.o. twice daily x2 days, 1 p.o. daily x2 days cyclobenzaprine 10 mg tablet 10 mg PO TID PRN (Reason: muscle spasm) Qty: 30 0RF diclofenac sodium 75 mg tablet,delayed release (DR/EC) 75 mg PO Q12H PRN (Reason: pain) Qty: 20 0RF No Action albuterol sulfate 90 mcg/actuation HFA aerosol inhaler 2 puff inhalation Q6H PRN (Reason: Shortness Of Breath Or Wheezing) citalopram 40 mg tablet 40 mg PO DAILY ketorolac 10 mg tablet 10 mg PO Q6H PRN (Reason: Pain) levothyroxine 100 mcg tablet 100 mcg PO QAM hydroxyzine HCl 25 mg tablet 25 mg PO TID PRN (Reason: anxiety ) duloxetine 30 mg capsule,delayed release(DR/EC) 30 mg PO DAILY Breztri [employer] 160-9-4.8 mcg/actuation HFA aerosol inhaler 2 inh INHALATION DAILY trazodone 50 mg tablet 50 mg PO BEDTIME Discharge Orders: Discharge ED (Routine); Ordered 05/08/25 Ordered By: Matt Montano Discharge Diet: Usual diet Discharge Activity: Increase activity as tolerated Patient Instructions: Back Pain (ED), Chronic Neck Pain (DC), Opioid Safety, Pain Management, Patient Portal & Jian Instructions Activity Restrictions/Additional Instructions: Thank you for choosing [facility] for your healthcare needs today. It is very important that you follow up as instructed or that you return to the Emergency Department should you have concerns or if your condition changes or worsens in any way. You are seen in the emergency room with complaints of neck and back pain that has been chronic. Will discharge you home on a steroid taper continue to use anti-inflammatories and the muscle relaxers prescribed as needed. Print Language: Azeri Coding Level of Care Code ED [place] [employer] for [facility]
[2025-05-08 13:09] VITALS: BP 157/94; PULSE 55; RESP 16; O2SAT 99
== END 2025-05-08 13:10 | disposition home or self-care (01) ==
PROVIDERS: Emergency Provider Family Medicine
DX: M54.2 Cervicalgia (principal); M54.9 Dorsalgia, unspecified; F17.210 Nicotine dependence, cigarettes, uncomplicated; J44.9 Chronic obstructive pulmonary disease, unspecified; E78.2 Mixed hyperlipidemia
CPT/HCPCS: 81001; 96374; 96375; 99284; J1100; J1885; J2360

== ENCOUNTER 2025-09-14 14:03 | Emergency (ER) | payer OTHER, SELFPAY ==
--- OUTSIDE RECORDS SUMMARY | 2025-09-14 14:08 | XMS_ITS | Clinical Summary ---
Author Organization [facility] Address [address] [place] [address] Care Team Providers Care Boiler Operator Name Role Phone Srinivasa Huntley MD, Ruben [...] on file Legal Sex Female 5:33 AM CLEANING STAFF SUPERVISOR Gender Identity Not on file Sexual Orientation Not on file Last Filed Vital Signs Vital Sign Reading Time Taken Comments Blood Pressure 116/62 01/05/2011 10:43 AM CLEANING STAFF SUPERVISOR Pulse 90 01/05/2011 10:43 AM CLEANING STAFF SUPERVISOR Temperature 36.1 C (97 F) 01/05/2011 10:43 AM CLEANING STAFF SUPERVISOR Respiratory Rate 20 01/05/2011 10:43 AM CLEANING STAFF SUPERVISOR Oxygen Saturation 100% 01/05/2011 10:43 AM CLEANING STAFF SUPERVISOR Inhaled Oxygen Concentration - - Weight 49.9 kg (110 lb) 01/05/2011 10:43 AM CLEANING STAFF SUPERVISOR Height 158.8 cm (5' 2.5 ) 01/05/2011 10:43 AM CS T Body Mass Index 19.8 01/05/2011 10:43 AM CLEANING STAFF SUPERVISOR Plan of Treatment Health Maintenance Due Date [...] (#1) 2025 Medical Devices Implanted Type Area Community Artist Device Identifier Shelf Expiration Date Model / Serial / Lot Log [id number] - Tissue Substitutes & Biologicals - 1 - Vitoss Foam Ba 1.2ml Implanted:Qty: 1 on 02/03/2010 at [facility] Biological N/A: Neck ORTHOVITA [id number] / / [id number] Log [id number] - Tissue Substitutes & Biologicals - 1 - Cage Anatomic Peek [id number] Implanted:Qty: 1 on 02/03/2010 at [facility] Cage N/A: Neck MEDTRONIC- SOFAMOR DANEK 08/03/2017 [id number] / / [id number] Log [id number] - David Trinica Cervical Plating System - 1 - Plate Trinica Select 22mm [id number] Implanted:Qty: 1 on 02/03/2010 at [facility] Plate N/A: Neck zzzzZIMMER-SPIN E [id number] 01 / [id number] / Log [id number] - David Trinica Cervical Plating System - 1 - Screw Trnca Sd Reyna 4.2x14mm [id number] Implanted:Qty: 4 on 02/03/2010 at [facility] Screw N/A: Neck zzzzZIMMER-SPIN E [id number] 05 / [id number] / Insurance [place], [place] [id number] [place] [facility] Advance Directives For more information, please contact: [phone] Documents on File Type Date Recorded Patient Pattern Cleaner Expl anation Advance Directive POA 11/17/2008 * [...] 8:44 AM 02/03/2010 12:32 PM Care Teams Boiler Operator Relationship Specialty Start Date End Date Ruben Bernabe Jr., MD [address] [place] [address] PCP - General Family Practice 01/03/11
--- OUTSIDE RECORDS SUMMARY | 2025-09-14 14:09 | XMS_ITS | Encounter Summary ---
Author Organization [facility] Address [address] [place] [address] Care Team Providers Care Industrial Truck Mechanic Name Role Phone Hyun Valentino DO Primary Care Provider Reason for Visit * Reason Onset Date Comments Referral 05/12/2025 Encounter Details Date Type Department Care Team (Late st Contact Info) Description 05/12/2025 Telephone [facility] [address] [place] [address] February, [facility] [address] [place] [address] Referral Social History Tobacco Use Types Packs/Day Years Used Date Smoking Tobacco: Former Cigarettes Passive Smoke Exposure: Past Comments:Quit smoking: cutti ng down-11/05 pk now01/27/2010 Alcohol Use Standard Drinks/Week Comments Not Currently 0 (1 standard drink = 0.6 oz pur e alcohol) Comments No Sex and Gender Information Value Date Recorded Sex Assigned at Not on file Legal Sex Female 2:41 AM CHIEF LIBRARIAN CIRCULATION DEPARTMENT Gender Identity Not on file Sexual Orientation Not on file documented as of this encounter Miscellaneous Notes * Telephone Encounter - Mona Gordon LPN - 05/12/2025 8:21 AM CDT Attempted to call pt. Unable to be seen @ [facility] pain management. Dr Gonzales declined referral. Will send to Dr Vázquez in [place] with Rikki Gordon LPN, 05/12/2025 8:21 AM documented in this encounter Plan of Treatment Not on file documented as of this encounter Visit Diagnoses Not on filedocumented in this encounter Care Teams Industrial Truck Mechanic Relationship Specialty Start Date End Date Hyun Valentino DO [address] [place] [address] PCP - General Family Practice 02/04/25 documented as of this encounter
--- OUTSIDE RECORDS SUMMARY | 2025-09-14 14:09 | XMS_ITS | Patient Health Record ---
Author Organization [facility] Address [address] [place] [address] Care Team Providers Care Provider Scribe Name Role Phone Srinivasa Ruben Primary Care Provider Augustina Mckenzie Allergies Allergen (clinical drug ingredient) Drug/Non Drug Allergy documented on EMR Reaction Allergy Type Onset Date Status aspirin Aspirin Unknown Drug Allergy 12/21/2010 Active Ultracet Unknown Drug Allergy 12/21/2010 Active Penicillin Unknown Drug Allergy 12/21/2010 Activ e Reason For Referral Reason Eval adn Treat Diagnosis 1 Cervical radiculopat hy (M54.12) Diagnosis 2 Chronic bilateral th oracic back pain (M54.6) Referring Provider First Name FEBRUARY Referring Provider Last Name Referring Provider Speciality Nurse Prac titioner Referred Organization [facility] [place] Referred Provider Chelsea Mckenzie Referred Address [address] [place], [place], Referred Provider Specialty Pain Medicin e General Notes Padma Kenyon 05/20 10:39:49 AM CDT > double check insurance. her referral says she has BCBS but there is no ID number, Denita Fletcher 05/24/2025 12:42:42 PM CDT > atc, Jerzy rowland Cynthia 06/23/2025 10:13:30 AM CDT > Spoke to patient, scheduled appt. 09/14 @ 1:40. She is calling me back with her new [employer] MCR info. this chart may be addressed once we have [employer] entered as primary payor., Bertrand, Ela 07/14/2025 01:41:48 PM CDT > Spoke to patient, she stated she is awaiting her new [employer] card and will call [facility] office as soon as she can provide the info., Ela Bertrand 07/14/2025 01:41:58 PM CDT > Mailed NPPW, Denita Fletcher Garry 07/22/2025 11:20:50 AM CDT > pt is scheduled Referral Priority Routine Medications Medication SIG (Take, Route, Frequency, Duration) Notes Start Date End Date Status Ezetimibe 10 MG Tablet Take 1 tablet by mouth once daily for 30 days; Duration: 30 Active Synthroid 88 MCG Tablet Take 1 tablet(s) by mouth daily Oral Once a day; Duration: 90 days 01/15/2014 Active Nitroglycerin 0.4 MG Tablet Sublingual as directed Sublingual Once a day; Duration: 30 days Active LaMICtal 100 MG Tablet TAKE 1/2 TABLET B Y MOUTH DAILY IN THE MORNING AND 1/2 TABLET IN THE EVENING; Duration: 90 Active Albuterol Sulfate (2.5 MG/3ML) 0.083% Nebulization Solution 3 ml as needed Inhalation every 6 hrs; Duration: 30 days 08/12/2020 Active DULoxetine HCl 30 MG Capsule Delayed Release Particles Take 1 capsule by mouth once daily; Duration: 30 Active Ventolin HFA 90 MCG/ACT Aerosol Solution 2 puff as needed Inhalation every 6 hrs prn; Duration: 30 days Active Ondansetron HCl 4 MG Tablet 1 tablet as needed Orally every 8 hours; Duration: 14 days 03/05/2022 Active busPIRone HCl 5 MG Tablet 1 tablet Orall y Three times a day; Duration: 90 days Active Gabapentin 600 MG Tablet 1 tablet Orally Once a day; Duration: 30 days Active Rosuvastatin Calcium 20 MG Tablet TAKE 1 TABLET BY MOUTH EVERY DAY IN THE EVENING FOR CHOLESTEROL ALONG WITH A COQ10 100MG TABLET; Duration: 90 Active tiZANidine HCl 4 MG Tablet 1 tablet as n eeded Orally Three times a day; Duration: 30 Active traZODone HCl 50 MG Tablet TAKE 1 TO 3 T ABLETS BY MOUTH ONCE DAILY AT BEDTIME; Duration: 30 Active Cetirizine HCl 10 MG Tablet TAKE 1 TABLE T BY MOUTH DAILY FOR ALLERGIES; Duration: 30 Active Immunizations Vaccine Route Administration Date [...] stop date) Never Smoker NA - NA Social History Depression Screening Social Info Question Answer Notes PHQ-9 Little interest or pleasure in doing thin gs Several days Feeling down, depressed, or hopeless Several day s Trouble falling or staying asleep, or sleeping t oo much Several days Feeling tired or having little energy Several da ys Poor appetite or overeating Several days Feeling bad about yourself, or that you are a failure, or have let yourself or your family down Several days Trouble concentrating on thi ngs, such as reading the newspaper or watching television Several days Moving or speaking so slowly that other people could have noticed. Or the opposite ? being so fidgety or restless that you have been moving around a lot more than usual Not at all Thoughts that you would be b aster off , or of hurting yourself in some way Not at all Total Score 7 Interpretation Mild Depression Drugs/Alcohol: Social Info Question Answer Notes Alcohol Screen (Audit-C) Did you have a drink containing alcohol in the past year? No Points 0 Interpretation Negative Drugs Have you used drugs other than those for medical reasons in the past 12 months? Yes Marijuana? Yes smokes Household: Social Info Question Answer Notes Household Level of education: finished high school Tobacco Use: Social Info Question Answer Notes xTobacco Use/Smoking Are you a nonsmoker Additional Details Category Social Info Options Details Drugs/Alcohol: Do you smoke marijuana? Ad mits Do you drink alcohol? No Section Notes: 01/18/21 smoking 01/18/21 depr ession [...] Problem Status W/U Status Risk Notes Problem Chronic pain syndrom e (010005474) Chronic pain syndrome (G89.4) Active confirmed Problem Essential hypertension (45251661) Essential hypertension (I10) Active confirmed Problem Cervical radiculopathy (93412500) Cervical radiculopathy (M54.12) Active confirmed Problem hypercholesterolemia (disorder) (27221777) Hypercholesteremia (E78.00) Active confirmed Problem Anxiety (95065556) Anxiety (F41.9) Active confi rmed Problem Severe recurrent major depression without psychotic features (07245921) Severe episode of recurrent major depressive disorder, without psychotic features (F33.2) Active confirmed Problem Hypothyroidism (22283303) Hypothyroidism (E03.9) Active confirmed Problem Lumbar spondylosis with myelopathy (disorder) (42396105) 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 confirmed Problem Hypothyroidism (19420648) Hypothyroidism (244.9) 2016 Active confirmed [id number]-98 [id number]- Problem Lumbosacral spondylosis without myelopathy (17557042) Lumbar spondylarthritis (721.3) 2016 Active confirmed [id number]-[id number] [id number]- Problem Moderate recurrent major depression (91565419) Major depression, recurrent episode, moderate (296.32) 2016 Active confirmed [id number]-[id number] [id number]- Problem Pure hypercholesterolemia (041986609) Essential hypercholesterolemia (272.0) 2014 Active confirmed Gurjit-98 [id number]- Problem Osteoarthritis of shoulder (48765591) Osteoarthritis of shoulder (715.11) 2017 Active confirmed Gurjit-98 [id number]- Problem Eczema (08138825) Eczema (691.8) 2013 Active confirmed Gurjit-98 [id number]- Problem Essential hypertension (77097341) Essential hypertension (401.1) 2016 Active confirmed Gurjit-[id number] [id number]- Problem Acute sinusitis (98041082) Acute sinusitis, unspecified (461.9) 2018 Problem resolved confirmed Gurjit-98 [id number]- Problem Non-plaque induced gingival disease (950451108) Acute gingivitis, non-plaque induced (523.01) 2018 Problem resolved confirmed [id number]-[id number] [id number]- Problem Impetigo (38995951) Impetigo (684) 2017 Problem resolved confirmed Gurjit-98 [id number]- Problem Pain in thoracic spine (163079582) Pain in thoracic spine (724.1) 2016 Problem resolved confirmed Gurjit-98 5911- Problem Weight decreased (842441471) Loss of weight (783.21) 2010 Problem resolved confirmed Gurjit-98 [id number]- Problem Shortness of breath (538193651) Shortness of breath (786.05) 2010 Problem resolved confirmed Gurjit-98 5911- Problem Cough (39063164) Cough (786.2) 2013 Problem resolved confirmed Gurjit-98 5911- Problem Gynecological examination normal (646742399262950) Routine gynecological examination (V72.31) 2011 Problem resolved confirmed Gurjit-98 5911- Problem History of pulmonary embolus (024868576) Personal history of pulmonary embolism (V12.55) 2016 Problem resolved confirmed Gurjit-98 5911- Problem Fever blister (0458096) Fever blister (054.9) 2011 Problem resolved confirmed Gurjit-98 5911- Problem Generalized anxiety disorder (54635383) Anxiety, generalized (300.02) 2010 Problem resolved confirmed Gurjit-98 5911- Problem Fibromyalgia (966478795) Fibromyalgia (729.1) 2010 Problem resolved confirmed Gurjit-98 5911- Problem Rash (123354705) Rash (782.1) 2010 Problem resolved confirmed Gurjit-98 5911- Problem Low back pain (666080230) Low back pain (724.2) 2018 Problem resolved confirmed Gurjit-98 5911- Problem Neck pain (14320185) Neck pain (723.1) 2016 Problem resolved confirmed Gurjit-98 5911- Problem Vitamin D deficiency (39492649) Vitamin D deficiency (268.9) 2010 Problem resolved confirmed Gurjit-98 5911- Problem Thoracic back pain (960073091) Upper back pain (724.1) 2010 Problem resolved confirmed Gurjit-98 5911- Problem Spontaneous ecchymosis (088873638) Excessive bruising (782.7) 2010 Problem resolved confirmed Gurjit-98 5911- Problem Sleep disturbance (19119873) Insomnia secondary to hot flashes (780.59) 2012 Problem resolved confirmed Gurjit-98 5911- Problem Nondependent cannabi s abuse, continuous (621968490) Marijuana abuse - continuous (305.21) 2010 Problem resolved confirmed Gurjit-98 5911- Problem 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 Problem resolved confirmed [facility]jit-98 5911- Problem Muscle weakness (01282199) Muscle weakness (729.89) 2010 Problem resolved confirmed Gurjit-98 5911- Problem Shoulder pain (92459734) Shoulder pain (719.41) 2016 Problem resolved confirmed Gurjit-98 5911- Problem Backache (851567885) Mid back pa in (724.5) 2017 Problem resolved confirmed Gurjit-98 5911- Problem Screening for colon cancer (386969935) Screening for colon cancer (V76.49) 2015 Problem resolved confirmed Gurjit-98 5911- Problem Acute sinusitis (87105892) Acute sinusitis (461.9) 2016 Problem resolved confirmed Gurjit-98 5911- Problem Allergic rhinitis caused by pollen (37566349) Allergies (477.0) 2010 Problem resolved confirmed Gurjit-98 5911- Problem Disorder of hematopoietic system (25346998) Other abnormal findings on blood examination (790.99) 2015 Problem resolved confirmed Gurjit-98 5911- Problem Convulsion (67993999) Seizure(s) ; other (780.39) 2015 Problem resolved confirmed Gurjit-98 5911- Problem Tobacco dependence (33877023) Tobacco dependence (305.1) 2011 Problem resolved confirmed Gurjit-98 5911- Problem Acute exacerbation o f chronic obstructive airways disease (396681878) Acute exacerbation of chronic obstructive pulmonary disease (COPD) (491.21) 2012 Problem resolved confirmed Gurjit-98 5911- Problem Generalized aches an d pains (75346478) Body aches (729.1) 2016 Problem resolved confirmed Gurjit-98 5911- Problem Chest pain (75014261) Chest pain (786.51) 2014 Problem resolved confirmed Gurjit-98 5911- Problem Emphysema (33673175) Emphysema (492.8) 2010 Problem resolved confirmed Gurjit-98 5911- Problem Influenza with non-respiratory manifestation (35387734) Flu like symptoms (487.8) 2010 Problem resolved confirmed Gurjit-98 5911- Problem Influenza (9405366) Influenza, w ith other respiratory manifestation (487.1) 2017 Problem resolved confirmed Gurjit-98 5911- Problem Pneumococcal pneumonia (726401674) Lobar pneumonia, organism unspecified (481) 2012 Problem resolved confirmed Gurjit-98 5911- Problem Herpes simplex without complication (574900787) Herpes simplex, without complication (054.9) 2016 Problem resolved confirmed Gurjit-98 5911- Problem Bursitis of shoulder (964558850) Shoulder bursitis (726.0) 2016 Problem resolved confirmed Gurjit-98 5911- Problem Disorder of cervical spine (774227021) Cervical root impingement (723.8) 2016 Problem resolved confirmed Gurjit-98 5911- Problem Continuous opioid dependence (355071164) Opioid dependence, continuous (304.01) 2018 Problem resolved confirmed Gurjit-98 5911- Problem Anxiety state (450418675) Situational stress with anxiety (300.09) 2015 Problem resolved confirmed Gurjit-98 5911- Problem Tobacco user (916021538) Tobacco abuse affecting health (305.1) 2013 Problem resolved confirmed Gurjit-98 5911- Problem Needs influenza immunization (621437092) Vaccination against other viral diseases, Influenza (V04.81) 2011 Problem resolved confirmed Gurjit-98 5911- Problem Allergic rhinitis (31849954) Allergic rhinitis, unspecified cause (477.9) 2015 Problem resolved confirmed Gurjit-98 5911- Problem Closed fracture of one rib (67073558) Closed rib fracture, of one rib (807.01) 2014 Problem resolved confirmed Gurjit-98 5911- Problem Persistent insomnia (993801711) Persistent insomnia (307.42) 2017 Problem resolved confirmed Gurjit-98 5911- Problem Akathisia (667197647) Akathisia (781.0) 0 2015 Problem resolved confirmed Gurjit-98 5911- Problem Contact dermatitis (45481929) Contact dermatitis (692.9) 2016 Problem resolved confirmed Gurjit-98 5911- Problem Thyroid function tests abnormal (002822988) Abnormal thyroid findings (794.5) 2014 Problem resolved confirmed Gurjit-98 5911- Problem Knee pain (1547420819) Knee pain (719.46) 2015 Problem resolved confirmed Gurjit-98 5911- Problem Acquired hypothyroidism (831580076) Acquired hypothyroidism (244.8) 2011 Problem resolved confirmed Gurjit-98 5911- Problem Erythrocyte sedimentation rate raised (400892355) Elevated sed rate (ESR) (790.1) 2013 Problem resolved confirmed Gurjit-98 5911- Problem Pneumococcal pneumonia (997638701) Acute lobar pneumonia (481) 2010 Problem resolved confirmed Gurjit-98 5911- Problem Administration of vaccine product containing only Streptococcus pneumoniae antigen (procedure) (03972819) Vaccination against pneumococcal pneumonia (V03.82) 2011 Problem resolved confirmed Gurjit-98 5911- Problem Mixed anxiety and depressive disorder (782477820) Depression with anxiety (300.4) 2010 Problem resolved confirmed Gurjit-98 5911- Problem Emphysema (45895262) Emphysema, other (492.8) 2017 Problem resolved confirmed Gurjit-98 5911- Problem Nausea and vomiting (94416554) Nausea and vomiting (787.01) 2010 Problem resolved confirmed Gurjit-98 5911- Problem Hypertrophy of tonsils (21810672) Hypertrophy of tonsils (474.11) 2017 Problem resolved confirmed Gurjit-98 5911- Problem Influenza vaccinatio n (25081123) Influenza vaccination (V04.81) 2013 Problem resolved confirmed Gurjit-98 5911- Problem Pleural thickening (49880039) Pleural thickening (511.0) 2016 Problem resolved confirmed Gurjit-98 5911- Problem Screening for malignant neoplasm of breast (421814944) Screening for breast cancer, unspecified (V76.10) 2015 Problem resolved confirmed Gurjit-98 5911- Problem Screening mammograph y (52489550) Screening mammogram - other (V76.12) 2015 Problem resolved confirmed Gurjit-98 5911- Plan Of Treatment No Information Insurance Providers Payer Name Payer Address Payer Phone Subscriber Number Group Number Insured Name Patient Relationship to Insured Coverage Start Date Coverage End Date [employer] [address] [place] [address] [id number] Nola Mcguire Self - patient is the insured Out of Network [employer] Replacement [address] [address] [place] [address] [id number] Nola Mcguire Self - patient is the insured Medical (General) History Medical History History ICD Code abdominal aortic aneurysm palpitation COPD dx 2006 Pulmonary Embolism Dx: 01/2017 chronic pain affecting the mid back Fibromyalgia Graves Allergies Anxiety Depression menopause at age 35 or 36 Surgical History Surgery Date(Month/Year) Hernia repair Bilateral tubal ligation Back surgery Right hand Fusion C6 and C7
--- OUTSIDE RECORDS SUMMARY | 2025-09-14 14:09 | XMS_ITS | Encounter Summary ---
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
--- OUTSIDE RECORDS SUMMARY | 2025-09-14 14:09 | XMS_ITS | Data Portability ---
Author Organization Jan Leos [facility] Address [address] [id number] Assessment No assessment recorded. Plan of Treatment Reminders Order Date Submit Date Provider Last Modified By Organization Details Last Modified Time Details Appointments None record ed. Lab None record ed. Referral None record ed. Procedures None record ed. Surgeries None record ed. Imaging None record ed. Medication Orders None record ed. Patient TargetsNo targets recorded. Patient Instructions Encounter Date Encounter Id Patient Instructions Last Modified By Organization Details Last Modified Time 01/18/2025 [id number] records reviewed ; admitted with hypoxic respiratory failure with rsv and copd exacerbation also found to be underdosed on thyroid with plan to repeat tsh in 6 weeks she is struggling with anxiety, depression and sleep; willing to start zoloft at hs. Labs Saturday. [email or web address] Not available 01/19/2025 17:37:29 01/28/2025 [id number] Planning to d/c home soon. will need home oxygen, home health and a front wheeled walker. she will need to establish with new PCP. Breathing doing well with oxygen. Mood good. [email or web address] Not available 01/28/2025 13:58:57 Reason for Referral None Reported. Problems Name Problem SNOMED Code Status Onset Date Resolution Date Notes Provider Name and Address Organization Details Recorded Time Bipolar disorder 37536400 Active 2010 Bipolar Disorder; Recorded 12/15/2010 10:36AM by Aubree Renae CMT, Office Visit; Promoted; acuity set as *; Not Available [facility] 03:10:56 Chronic obstructiv e pulmonary disease 08878385 Active 2010 Chronic Obstructiv e Lung Disease; 12/15/2010 10:36AM by Aubree Renae CMT, Office Visit; Promoted; acuity set as *; Not Available [facility] 3 03:10:57 Hyperthyro idism 25906047 Active 2010 Hyperthyro idism; Recorded 12/15/2010 10:36AM by Aubree Renae CMT, Office Visit; Promoted; acuity set as *; Not Available [facility] 3 03:10:57 Problem Notes None recorded. Medical Equipment None Reported. Allergies Allergen ID Allergen Name Allergen Category Reaction Reaction Severity Criticality Documentation Date Start Date Code Code System Note Provider Name and Address Organization Details Recorded Time 44346 codeine phosphate medicatio n rash Not available Not available 06/01/2023 2672 RxNorm React ion: Rash; Comme nt: Recor ded 12/15 10:36 AM by Abelardo rocha CMT, Offic e Visit ; Promo joe; Signi ficjessika ce: *; ; Not Available [facility] 3 02:28:08 73643 Ultracet medicatio n swelling Not available Not available 06/01/2023 24839 2 RxNorm React ion: Swell ing; Comme nt: Recor ded 12/15 10:36 AM by Abelardo rocha CMT, Offic e Visit ; Promo joe; Signi ficjessika ce: *; ; Not Available [facility] 3 02:28:08 45474 aspirin medicatio n anaphylax is Not available Not available 06/01/2023 1191 RxNorm React ion: Anaph ylaxi s, Diffi culty breat alpohnso, Pruri tus, Rash, Swell ing; Comme nt: Recor ded 12/15 10:36 AM by Abelardo rocha CMT, Offic e Visit ; Promo joe; Signi ficjessika ce: *; ; Not Available [facility] 3 02:28:08 Medications Name Sig Start Date Stop Date Status Note LastModified by Organization Details LastModified Time fluticason e 250 mcg-salmet jon 50 mcg/dose blistr powdr for inhalation INHALE 1 PUFF TWICE DAILY active Not Available Not Available No t Available Xanax 0.5 mg tablet as needed active 0; Recorded 1 10:43AM by Aubree Renae CMT, Office Visit; Not Available Not Available Not Available ipratropiu m 0.5 mg-albuter ol 3 mg (2.5 mg base)/3 mL nebulizati on soln use 1 vial in nebulizer EVERY 4 HOURS active Not Available Not Available No t Available trazodone 50 mg tablet take 1/2 tablet BY MOUTH EVERY DAY active Not Available Not Available No t Available Topamax 25 mg tablet three times daily active 0; Recorded 1 10:43AM by Aubree Renae CMT, Office Visit; Not Available Not Available Not Available Medrol (Yan) 4 mg tablets in a dose pack 2010 active Take as directed on package; Recorded 1 10:57AM by Prakash Cartagena PA-C, Office Visit; Refill Quantity: 0; Tab; Not Available Not Available Not Available clopidogre l 75 mg tablet TAKE 1 TABLET BY MOUTH EVERY DAY active Not Available Not Available No t Available nitroglyce rin 0.4 mg sublingual tablet DISSOLVE 1 TABLET UNDER THE TONGUE EVERY 5 MINUTES NEEDED FOR CHEST PAIN. DO NOT EXCEED A TOTAL OF 3 DOSES IN 15 MINUTES. active Not Available Not Available No t Available sertraline 25 mg tablet TAKE 1 TABLET BY MOUTH AT BEDTIME active Not Available Not Available No t Available Ventolin 90 mcg/actuat ion aerosol inhaler as needed 2009 active VO LB/dc; Recorded 1 10:43AM by Aubree Renae CMT, Office Visit; Refill Quantity: 1; Aerosol Soln; Not Available Not Available Not Available Advair Diskus daily active 0; Recorded 1 10:43AM by Aubree Renae CMT, Office Visit; Not Available Not Available Not Available Vitals Date Recorded Body weight Heart rate Respiratory rate Body temperature Oxygen saturation Oxygen saturation in Arterial blood by Pulse oximetry Systolic And Diastolic Provider Name and Address Organization Details Last Updated DateTime 5 12940.6 1 g 64 /min 20 /min 98.7 [degF] 94 % 94 % 103/64 mm[Hg] GEETHA ACUÑA [facility] 5 16:04:40 Date Recorded Body weight Heart rate Respiratory rate Body temperature Oxygen saturation Oxygen saturation in Arterial blood by Pulse oximetry Systolic And Diastolic Provider Name and Address Organization Details Last Updated DateTime 5 95232.7 5 g 67 /min 18 /min 98.8 [degF] 96 % 96 % 144/74 mm[Hg] GEETHA ACUÑA [facility] Jan 5 13:57:13 Social History None recorded. Functional Status None recorded. Mental Status None recorded. Family History Nothing Reported. Medical History No medical history recorded. Gynecological HistoryNo gynecological history recorded. Obstetrics History GPAL:G 0 P 0 0 0 0 Immunizations Vaccine Type Date Status Note Provider Nam e and Address Organization Details Recorded Time Influenza, split virus, trivalent, preservative 0 completed Not Available [facility] 06/01/2023 02:32:41 Past Encounters Encounter ID Performer Location Encounter Start Date Encounter Closed Date Diagnosis/Indication Diagnosis SNOMED-CT Code Diagnosis ICD10 Code Diagnosis IMO Codes Diagnosis Note [id number] Jaden Last [facility]) [address] [place] [phone] 01/18/2025 14:52:01 01/20/2025 06:49:38 Bipolar disorder 86075976 F31.9 Chronic ob structive pulmonary disease 87530586 J44.9 Hospital i npatient stay within past 30 days 0100215323 106 Z76.89 Respirator y syncytial virus infection 91157185 B97.4 Graves' disease 09861130 4 E05.00 Acquired hypothyroidism 629777038 E03.9 [id number] Jaden Last [facility]) [address] [place] [phone] 01/28/2025 09:30:16 02/02/2025 13:55:19 Chronic obstructive pulmonary disease 85173443 J44.9 Bipolar disorder 6010719 4 F31.9 Hyperthyroidism 03954534 E05.90 Health Concerns Section Related Observation LastModified by Organization Detai ls LastModified Time None Recorded Concern Status LastModified by Organization Details LastModified Time None Recorded Advance Directives Directive None Recorded Payers Insurance Date Sequence Insurance Name Policy Number Policy Chun Covered Member ID Chun Member ID Guarantor Name 02/02/2025 1 [employer] (MEDICARE REPLACEMENT/A DVANTAGE - PPO) [id number] Nola Mcguire [id number] Nola Mcguire 01/18/2025 1 *SELF PAY* Ti roz Mcguire Notes Date Note Type Note Provider Name and Address Organization Details Recorded Time 01/19/20 25 text/ht ml COPDReported by PatientHPI:For onset/timing, patient reportsintermittentandmultiple times per day. For duration, patient reportschronicandhas noted for years. For severity, patient reportsmoderate.ROS as noted in the HPI Jaden Last DO [address] [place] [address], [phone], [facility] 01/19/2025 17:38:24 01/29/20 25 text/ht ml COPDReported by PatientHPI:For onset/timing, patient reportsintermittentandmultiple times per day. For duration, patient reportschronicandhas noted for years. For severity, patient reportsmoderate.ROS as noted in the HPI Jaden Last DO [address] [place] [address], [phone], [facility] 02/01/2025 17:37:27 OBGyn Episode No OBEpisode recorded.
--- OUTSIDE RECORDS SUMMARY | 2025-09-14 14:09 | XMS_ITS | Continuity of Care Document ---
Author Organization [facility] ([facility]) Address [address] [place] [address] Insurance Providers Payer Plan Claims Address Claims Phone Policy Number Group Number Relation Employer Guarantor Name Guarantor Guarantor Address Guarantor Phone [employer] [facility] [address], [place] [address] tel:[phone] [place] [phone] Self Nola Mcguire [address] [place] [id number] [employer] tel:[phone] [id number] Self Nola Mcguire [address] [place], [place] [address] Problems Condition ICD9 code ICD10 code SNOMED code Start Date End Date S tatus Chronic obstructive pulmonary disease with (acute) exacerbation J44.1 01/15/2025 Acti ve Difficulty in walking, not elsewhere classified R26.2 01/18/2025 Active Muscle weakness (generalized) M62.81 01/18/2025 Active Emphysema, unspecified J43.9 01/15/2025 Active Tobacco use Z72.0 01/15/2025 Active Acute respiratory failure with hypoxia J96.01 01/15/2025 Active FDC (current) use of inhaled steroids Z79.51 01/15/2025 Activ e Other specified abnormal findings of blood chemistry R79.89 01/15/2025 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 Refere nce Range Tuberculosis reaction wheal[ 23058-0] Tuberculosis reaction wheal [25828-5] 01/24/2025 02:45 PM 0 mm NEG Tuberculosis reaction wheal[ 56957-2] Tuberculosis reaction wheal [55223-0] 01/24/2025 02:45 PM See note TB test Tuberculosis reaction wheal[ 51210-5] Tuberculosis reaction wheal [10668-4] 01/16/2025 12:35 PM 0 mm NEG Allergies, adverse reactions, alerts [...] can't take p/o, if no results from MOM rectal 1.0 1.0 d 02/02 Active fluticasone [...] Vital Result Comment 01/15/2025 03:42 PM Temperature (8310-5) 96.8 [degF] Oxygen Saturation (24544-0) 97 % Respiratory Rate (9279-1) 18 /min Heart Rate (8867-4) 75 /min Blood Pressure Systolic (8480-6) 126 mm[Hg] Blood Pressure Diastolic (8462-4) 70 mm[Hg] Body Height (8302-2) 62 [in_us] Body Weight (87676-1) 84.8 [lb_av] Body Mass Index (03356-2) 15.51 kg/m2 01/15/2025 02:44 PM Body Weight (04122-2) 84.8 [lb_av] Body Mass Index (90275-9) 15.51 kg/m2 01/15/2025 10:38 PM Oxygen Saturation (21603-0) 92 % Respiratory Rate (9279-1) 22 /min Heart Rate (8867-4) 78 /min 01/15/2025 07:58 PM Temperature (8310-5) 100 [degF] Blood Pressure Systolic (8480-6) 136 mm[Hg] Blood Pressure Diastolic (8462-4) 83 mm[Hg] 01/15/2025 07:57 PM Oxygen Saturation (03014-6) 91 % Respiratory Rate (9279-1) 21 /min Heart Rate (8867-4) 82 /min 01/16/2025 09:07 AM Temperature (8310-5) 96.9 [degF] Blood Pressure Systolic (8480-6) 120 mm[Hg] Blood Pressure Diastolic (8462-4) 68 mm[Hg] 01/16/2025 09:05 AM Oxygen Saturation (78468-1) 92 % Respiratory Rate (9279-1) 19 /min Heart Rate (8867-4) 66 /min 01/16/2025 08:23 AM Body Weight (25834-2) 104 [lb_av] Body Mass Index (54352-5) 19.02 kg/m2 01/16/2025 05:25 AM Oxygen Saturation (00892-8) 94 % Respiratory Rate (9279-1) 19 /min Heart Rate (8867-4) 81 /min 01/16/2025 03:11 PM Oxygen Saturation (84994-0) 95 % Respiratory Rate (9279-1) 18 /min Heart Rate (8867-4) 74 /min 01/16/2025 01:59 PM Oxygen Saturation (70669-5) 96 % Respiratory Rate (9279-1) 21 /min Heart Rate (8867-4) 91 /min 01/16/2025 10:19 AM Oxygen Saturation (30809-7) 95 % Respiratory Rate (9279-1) 17 /min Heart Rate (8867-4) 68 /min 01/16/2025 08:25 PM Temperature (8310-5) 99.5 [degF] Respiratory Rate (9279-1) 23 /min Heart Rate (8867-4) 78 /min Blood Pressure Systolic (8480-6) 111 mm[Hg] Blood Pressure Diastolic (8462-4) 71 mm[Hg] 01/16/2025 07:23 PM Oxygen Saturation (97926-6) 93 % Respiratory Rate (9279-1) 23 /min Heart Rate (8867-4) 78 /min 01/17/2025 05:34 AM Oxygen Saturation (93587-1) 94 % Respiratory Rate (9279-1) 19 /min Heart Rate (8867-4) 75 /min 01/17/2025 02:29 PM Respiratory Rate (9279-1) 18 /min Heart Rate (8867-4) 70 /min 01/17/2025 02:27 PM Body Weight (03653-1) 104.6 [lb_av ] Body Mass Index (69694-0) 19.13 kg/m2 01/17/2025 02:26 PM Respiratory Rate (9279-1) 20 /min Heart Rate (8867-4) 64 /min 01/17/2025 12:56 PM Respiratory Rate (9279-1) 19 /min Heart Rate (8867-4) 76 /min 01/17/2025 12:54 PM Temperature (8310-5) 97.5 [degF] Oxygen Saturation (85988-3) 97 % Respiratory Rate (9279-1) 16 /min Heart Rate (8867-4) 88 /min Blood Pressure Systolic (8480-6) 120 mm[Hg] Blood Pressure Diastolic (8462-4) 66 mm[Hg] 01/17/2025 11:56 AM Respiratory Rate (9279-1) 18 /min Heart Rate (8867-4) 89 /min 01/17/2025 09:25 AM Oxygen Saturation (26061-3) 98 % 01/17/2025 09:55 PM Temperature (8310-5) 99.4 [degF] Heart Rate (8867-4) 79 /min Blood Pressure Systolic (8480-6) 132 mm[Hg] Blood Pressure Diastolic (8462-4) 74 mm[Hg] 01/17/2025 09:54 PM Oxygen Saturation (35410-2) 92 % Respiratory Rate (9279-1) 23 /min Heart Rate (8867-4) 79 /min 01/18/2025 08:52 AM Temperature (8310-5) 98.7 [degF] Respiratory Rate (9279-1) 20 /min Heart Rate (8867-4) 67 /min Blood Pressure Systolic (8480-6) 103 mm[Hg] Blood Pressure Diastolic (8462-4) 64 mm[Hg] 01/18/2025 08:51 AM Oxygen Saturation (83870-4) 93 % 01/18/2025 05:20 AM Oxygen Saturation (25340-2) 92 % Respiratory Rate (9279-1) 21 /min Heart Rate (8867-4) 72 /min 01/18/2025 05:07 AM Oxygen Saturation (85551-7) 93 % Respiratory Rate (9279-1) 21 /min Heart Rate (8867-4) 74 /min 01/18/2025 04:50 PM Body Weight (95726-1) 105.6 [lb_av ] Body Mass Index (47361-7) 19.31 kg/m2 01/18/2025 03:30 PM Respiratory Rate (9279-1) 20 /min Heart Rate (8867-4) 77 /min 01/18/2025 02:46 PM Oxygen Saturation (44308-1) 94 % Respiratory Rate (9279-1) 20 /min Heart Rate (8867-4) 64 /min 01/18/2025 11:27 AM Oxygen Saturation (29957-9) 94 % Respiratory Rate (9279-1) 20 /min Heart Rate (8867-4) 77 /min 01/18/2025 11:02 AM Respiratory Rate (9279-1) 18 /min Heart Rate (8867-4) 71 /min 01/18/2025 09:16 PM Oxygen Saturation (87978-9) 94 % Respiratory Rate (9279-1) 20 /min Heart Rate (8867-4) 70 /min 01/18/2025 07:06 PM Temperature (8310-5) 98 [degF] Blood Pressure Systolic (8480-6) 112 mm[Hg] Blood Pressure Diastolic (8462-4) 66 mm[Hg] 01/18/2025 07:05 PM Oxygen Saturation (10207-0) 92 % Respiratory Rate (9279-1) 18 /min Heart Rate (8867-4) 78 /min 01/19/2025 07:40 AM Respiratory Rate (9279-1) 18 /min Heart Rate (8867-4) 71 /min 01/19/2025 07:09 AM Oxygen Saturation (74309-0) 94 % Respiratory Rate (9279-1) 20 /min Heart Rate (8867-4) 66 /min 01/19/2025 05:35 PM Body Weight (28726-0) 105.8 [lb_av ] Body Mass Index (28351-1) 19.35 kg/m2 01/19/2025 02:22 PM Oxygen Saturation (76728-1) 95 % Respiratory Rate (9279-1) 18 /min Heart Rate (8867-4) 75 /min 01/19/2025 12:15 PM Respiratory Rate (9279-1) 20 /min Heart Rate (8867-4) 68 /min 01/19/2025 12:14 PM Blood Pressure Systolic (8480-6) 1 25 mm[Hg] Blood Pressure Diastolic (8462-4) 67 mm[Hg] 01/19/2025 12:12 PM Oxygen Saturation (03345-4) 94 % Respiratory Rate (9279-1) 20 /min Heart Rate (8867-4) 65 /min 01/19/2025 07:38 AM Temperature (8310-5) 98.5 [degF] Respiratory Rate (9279-1) 18 /min Heart Rate (8867-4) 65 /min 01/20/2025 07:09 AM Oxygen Saturation (22375-0) 90 % Respiratory Rate (9279-1) 20 /min Heart Rate (8867-4) 79 /min 01/20/2025 07:02 AM Oxygen Saturation (35578-1) 90 % 01/20/2025 07:01 AM Oxygen Saturation (33257-0) 90 % 01/20/2025 06:33 AM Oxygen Saturation (19531-4) 94 % Respiratory Rate (9279-1) 20 /min Heart Rate (8867-4) 81 /min 01/20/2025 01:50 AM Oxygen Saturation (99085-8) 98 % Respiratory Rate (9279-1) 20 /min Heart Rate (8867-4) 77 /min 01/20/2025 01:18 AM Oxygen Saturation (53100-9) 95 % Respiratory Rate (9279-1) 18 /min Heart Rate (8867-4) 70 /min 01/19/2025 09:05 PM Oxygen Saturation (63378-1) 97 % Respiratory Rate (9279-1) 20 /min Heart Rate (8867-4) 76 /min 01/19/2025 07:39 PM Temperature (8310-5) 98.2 [degF] Blood Pressure Systolic (8480-6) 120 mm[Hg] Blood Pressure Diastolic (8462-4) 70 mm[Hg] 01/19/2025 07:35 PM Oxygen Saturation (92773-2) 98 % 01/19/2025 06:43 PM Respiratory Rate (9279-1) 20 /min Heart Rate (8867-4) 80 /min 01/20/2025 06:21 PM Oxygen Saturation (48866-3) 97 % Respiratory Rate (9279-1) 20 /min Heart Rate (8867-4) 80 /min 01/20/2025 05:51 PM Oxygen Saturation (71583-8) 94 % Respiratory Rate (9279-1) 18 /min Heart Rate (8867-4) 76 /min 01/20/2025 03:48 PM Oxygen Saturation (51190-3) 98 % Respiratory Rate (9279-1) 16 /min Heart Rate (8867-4) 88 /min 01/20/2025 02:13 PM Oxygen Saturation (94338-9) 93 % Respiratory Rate (9279-1) 18 /min Heart Rate (8867-4) 84 /min 01/20/2025 11:33 AM Oxygen Saturation (13259-1) 95 % Respiratory Rate (9279-1) 18 /min Heart Rate (8867-4) 65 /min 01/20/2025 11:29 AM Body Weight (89967-2) 109.8 [lb_av ] Body Mass Index (73436-8) 20.08 kg/m2 01/20/2025 09:44 PM Oxygen Saturation (55748-9) 95 % Respiratory Rate (9279-1) 20 /min Heart Rate (8867-4) 74 /min 01/20/2025 09:03 PM Oxygen Saturation (52985-9) 95 % Respiratory Rate (9279-1) 18 /min Heart Rate (8867-4) 70 /min 01/20/2025 07:00 PM Temperature (8310-5) 98.7 [degF] Respiratory Rate (9279-1) 18 /min Heart Rate (8867-4) 76 /min Blood Pressure Systolic (8480-6) 109 mm[Hg] Blood Pressure Diastolic (8462-4) 62 mm[Hg] 01/20/2025 06:59 PM Oxygen Saturation (50787-0) 94 % 01/21/2025 09:18 AM Oxygen Saturation (04719-7) 98 % Respiratory Rate (9279-1) 20 /min Heart Rate (8867-4) 50 /min 01/21/2025 09:15 AM Temperature (8310-5) 98.4 [degF] Oxygen Saturation (74596-2) 95 % Respiratory Rate (9279-1) 16 /min Heart Rate (8867-4) 66 /min Blood Pressure Systolic (8480-6) 115 mm[Hg] Blood Pressure Diastolic (8462-4) 79 mm[Hg] 01/21/2025 07:17 AM Oxygen Saturation (95435-8) 95 % 01/21/2025 05:39 AM Oxygen Saturation (27090-8) 95 % Respiratory Rate (9279-1) 20 /min Heart Rate (8867-4) 77 /min 01/21/2025 05:08 AM Oxygen Saturation (51164-3) 95 % Respiratory Rate (9279-1) 20 /min Heart Rate (8867-4) 73 /min 01/21/2025 03:06 AM Oxygen Saturation (15120-6) 97 % Respiratory Rate (9279-1) 18 /min Heart Rate (8867-4) 77 /min 01/21/2025 03:05 AM Oxygen Saturation (74657-3) 96 % Respiratory Rate (9279-1) 18 /min Heart Rate (8867-4) 70 /min 01/21/2025 02:08 PM Oxygen Saturation (75036-3) 94 % Respiratory Rate (9279-1) 16 /min Heart Rate (8867-4) 73 /min 01/21/2025 10:18 AM Oxygen Saturation (70788-2) 94 % Respiratory Rate (9279-1) 20 /min Heart Rate (8867-4) 75 /min 01/21/2025 01:16 PM Oxygen Saturation (58519-1) 92 % Respiratory Rate (9279-1) 20 /min Heart Rate (8867-4) 71 /min 01/21/2025 05:23 PM Oxygen Saturation (07169-7) 97 % Respiratory Rate (9279-1) 16 /min Heart Rate (8867-4) 72 /min 01/21/2025 09:41 PM Oxygen Saturation (01353-4) 96 % Respiratory Rate (9279-1) 20 /min Heart Rate (8867-4) 75 /min 01/21/2025 09:07 PM Oxygen Saturation (90897-6) 93 % Respiratory Rate (9279-1) 20 /min Heart Rate (8867-4) 70 /min 01/21/2025 07:46 PM Temperature (8310-5) 98.6 [degF] Oxygen Saturation (21139-4) 91 % Respiratory Rate (9279-1) 19 /min Heart Rate (8867-4) 73 /min Blood Pressure Systolic (8480-6) 113 mm[Hg] Blood Pressure Diastolic (8462-4) 67 mm[Hg] 01/21/2025 06:28 PM Oxygen Saturation (11525-4) 99 % Respiratory Rate (9279-1) 18 /min Heart Rate (8867-4) 76 /min 01/22/2025 08:21 AM Temperature (8310-5) 98 [degF] Oxygen Saturation (78795-1) 91 % Respiratory Rate (9279-1) 18 /min Heart Rate (8867-4) 66 /min Blood Pressure Systolic (8480-6) 129 mm[Hg] Blood Pressure Diastolic (8462-4) 56 mm[Hg] 01/22/2025 08:20 AM Oxygen Saturation (52592-6) 91 % 01/22/2025 08:13 AM Oxygen Saturation (39734-8) 91 % Respiratory Rate (9279-1) 18 /min Heart Rate (8867-4) 66 /min 01/22/2025 03:02 AM Oxygen Saturation (55479-3) 95 % Respiratory Rate (9279-1) 16 /min Heart Rate (8867-4) 76 /min 01/22/2025 01:40 AM Oxygen Saturation (52365-2) 92 % Respiratory Rate (9279-1) 18 /min Heart Rate (8867-4) 71 /min 01/22/2025 03:28 PM Oxygen Saturation (39027-6) 95 % Respiratory Rate (9279-1) 18 /min Heart Rate (8867-4) 68 /min 01/22/2025 12:16 PM Oxygen Saturation (64033-3) 94 % Respiratory Rate (9279-1) 20 /min Heart Rate (8867-4) 72 /min 01/22/2025 08:24 PM Temperature (8310-5) 99.2 [degF] Respiratory Rate (9279-1) 21 /min Heart Rate (8867-4) 72 /min Blood Pressure Systolic (8480-6) 118 mm[Hg] Blood Pressure Diastolic (8462-4) 66 mm[Hg] 01/22/2025 07:57 PM Respiratory Rate (9279-1) 20 /min 01/22/2025 07:42 PM Oxygen Saturation (38586-6) 96 % Respiratory Rate (9279-1) 21 /min Heart Rate (8867-4) 72 /min 01/23/2025 07:06 AM Temperature (8310-5) 98 [degF] Respiratory Rate (9279-1) 16 /min Heart Rate (8867-4) 105 /min Blood Pressure Systolic (8480-6) 106 mm[Hg] Blood Pressure Diastolic (8462-4) 60 mm[Hg] 01/23/2025 07:05 AM Oxygen Saturation (33280-1) 96 % Respiratory Rate (9279-1) 18 /min Heart Rate (8867-4) 71 /min 01/23/2025 01:38 PM Oxygen Saturation (92321-3) 96 % Respiratory Rate (9279-1) 16 /min Heart Rate (8867-4) 80 /min 01/23/2025 11:07 AM Oxygen Saturation (05124-3) 95 % Respiratory Rate (9279-1) 18 /min Heart Rate (8867-4) 95 /min 01/23/2025 09:36 PM Temperature (8310-5) 99.8 [degF] Oxygen Saturation (73961-3) 93 % Respiratory Rate (9279-1) 25 /min Heart Rate (8867-4) 93 /min Blood Pressure Systolic (8480-6) 111 mm[Hg] Blood Pressure Diastolic (8462-4) 75 mm[Hg] 01/23/2025 06:47 PM Respiratory Rate (9279-1) 22 /min Heart Rate (8867-4) 77 /min 01/23/2025 06:46 PM Oxygen Saturation (61955-2) 97 % Respiratory Rate (9279-1) 20 /min Heart Rate (8867-4) 77 /min 01/24/2025 08:30 AM Temperature (8310-5) 98.3 [degF] Oxygen Saturation (09123-3) 91 % Respiratory Rate (9279-1) 20 /min Heart Rate (8867-4) 79 /min Blood Pressure Systolic (8480-6) 114 mm[Hg] Blood Pressure Diastolic (8462-4) 62 mm[Hg] 01/24/2025 05:25 PM Oxygen Saturation (31528-0) 98 % Respiratory Rate (9279-1) 19 /min Heart Rate (8867-4) 74 /min 01/24/2025 02:09 PM Oxygen Saturation (81937-6) 99 % Respiratory Rate (9279-1) 17 /min Heart Rate (8867-4) 77 /min 01/24/2025 10:36 AM Oxygen Saturation (46521-4) 93 % Respiratory Rate (9279-1) 19 /min Heart Rate (8867-4) 79 /min 01/24/2025 09:51 AM Oxygen Saturation (23865-5) 91 % Respiratory Rate (9279-1) 20 /min Heart Rate (8867-4) 79 /min 01/24/2025 08:21 PM Oxygen Saturation (15212-6) 94 % Respiratory Rate (9279-1) 19 /min Heart Rate (8867-4) 70 /min 01/24/2025 08:20 PM Temperature (8310-5) 99.5 [degF] Oxygen Saturation (26259-2) 94 % Respiratory Rate (9279-1) 20 /min Heart Rate (8867-4) 67 /min Blood Pressure Systolic (8480-6) 121 mm[Hg] Blood Pressure Diastolic (8462-4) 63 mm[Hg] 01/24/2025 05:26 PM Oxygen Saturation (47431-8) 98 % Respiratory Rate (9279-1) 18 /min Heart Rate (8867-4) 72 /min 01/25/2025 05:04 AM Heart Rate (8867-4) 74 /min 01/25/2025 05:00 AM Oxygen Saturation (00119-5) 96 % Respiratory Rate (9279-1) 22 /min 01/25/2025 04:35 AM Respiratory Rate (9279-1) 22 /min Heart Rate (8867-4) 72 /min 01/25/2025 04:20 PM Oxygen Saturation (84339-2) 98 % Respiratory Rate (9279-1) 18 /min Heart Rate (8867-4) 84 /min 01/25/2025 10:22 AM Temperature (8310-5) 97.4 [degF] Oxygen Saturation (85338-8) 91 % Respiratory Rate (9279-1) 19 /min Heart Rate (8867-4) 66 /min Blood Pressure Systolic (8480-6) 107 mm[Hg] Blood Pressure Diastolic (8462-4) 67 mm[Hg] 01/25/2025 07:36 PM Oxygen Saturation (94544-2) 94 % Respiratory Rate (9279-1) 18 /min Heart Rate (8867-4) 74 /min 01/25/2025 06:30 PM Temperature (8310-5) 98.7 [degF] Oxygen Saturation (37160-1) 94 % Respiratory Rate (9279-1) 18 /min Heart Rate (8867-4) 74 /min Blood Pressure Systolic (8480-6) 112 mm[Hg] Blood Pressure Diastolic (8462-4) 61 mm[Hg] 01/26/2025 07:28 AM Oxygen Saturation (63854-6) 94 % Respiratory Rate (9279-1) 19 /min Heart Rate (8867-4) 80 /min 01/26/2025 07:18 AM Temperature (8310-5) 97.6 [degF] Oxygen Saturation (85228-4) 92 % Respiratory Rate (9279-1) 21 /min Heart Rate (8867-4) 77 /min Blood Pressure Systolic (8480-6) 120 mm[Hg] Blood Pressure Diastolic (8462-4) 77 mm[Hg] 01/26/2025 11:06 AM Oxygen Saturation (64033-6) 96 % Respiratory Rate (9279-1) 19 /min Heart Rate (8867-4) 78 /min 01/26/2025 10:21 PM Oxygen Saturation (30892-6) 93 % Respiratory Rate (9279-1) 18 /min Heart Rate (8867-4) 79 /min 01/26/2025 09:50 PM Oxygen Saturation (31152-1) 90 % Respiratory Rate (9279-1) 20 /min Heart Rate (8867-4) 73 /min 01/26/2025 08:48 PM Temperature (8310-5) 97.2 [degF] Oxygen Saturation (84203-2) 93 % Respiratory Rate (9279-1) 19 /min Heart Rate (8867-4) 79 /min Blood Pressure Systolic (8480-6) 127 mm[Hg] Blood Pressure Diastolic (8462-4) 55 mm[Hg] 01/26/2025 08:31 PM Oxygen Saturation (61272-0) 96 % Respiratory Rate (9279-1) 20 /min Heart Rate (8867-4) 80 /min 01/26/2025 06:43 PM Oxygen Saturation (52367-1) 95 % Respiratory Rate (9279-1) 20 /min Heart Rate (8867-4) 76 /min 01/27/2025 05:35 AM Oxygen Saturation (41531-8) 95 % Respiratory Rate (9279-1) 20 /min Heart Rate (8867-4) 81 /min 01/27/2025 05:01 AM Oxygen Saturation (95463-7) 92 % Respiratory Rate (9279-1) 18 /min Heart Rate (8867-4) 71 /min 01/27/2025 03:41 AM Oxygen Saturation (04814-4) 94 % Respiratory Rate (9279-1) 20 /min Heart Rate (8867-4) 80 /min 01/27/2025 02:11 AM Oxygen Saturation (48332-7) 91 % 01/27/2025 02:10 AM Respiratory Rate (9279-1) 20 /min Heart Rate (8867-4) 73 /min 01/27/2025 02:34 PM Oxygen Saturation (67795-8) 95 % Respiratory Rate (9279-1) 19 /min Heart Rate (8867-4) 84 /min 01/27/2025 02:33 PM Oxygen Saturation (37724-4) 94 % Respiratory Rate (9279-1) 21 /min Heart Rate (8867-4) 79 /min 01/27/2025 12:44 PM Body Weight (95228-4) 111 [lb_av] Body Mass Index (53859-6) 20.3 kg/m2 01/27/2025 11:02 AM Oxygen Saturation (48324-0) 94 % Respiratory Rate (9279-1) 20 /min Heart Rate (8867-4) 80 /min 01/27/2025 10:08 AM Temperature (8310-5) 98.4 [degF] Oxygen Saturation (95904-1) 97 % Respiratory Rate (9279-1) 20 /min Heart Rate (8867-4) 75 /min Blood Pressure Systolic (8480-6) 127 mm[Hg] Blood Pressure Diastolic (8462-4) 68 mm[Hg] 01/27/2025 10:07 AM Oxygen Saturation (99463-8) 97 % 01/27/2025 10:04 PM Oxygen Saturation (67590-5) 97 % Respiratory Rate (9279-1) 20 /min Heart Rate (8867-4) 77 /min 01/27/2025 09:14 PM Oxygen Saturation (07607-0) 97 % Respiratory Rate (9279-1) 20 /min Heart Rate (8867-4) 70 /min 01/27/2025 07:31 PM Temperature (8310-5) 96.8 [degF] Oxygen Saturation (01171-3) 98 % Respiratory Rate (9279-1) 18 /min Heart Rate (8867-4) 76 /min Blood Pressure Systolic (8480-6) 97 mm[Hg] Blood Pressure Diastolic (8462-4) 74 mm[Hg] 01/28/2025 09:04 AM Temperature (8310-5) 99 [degF] Respiratory Rate (9279-1) 20 /min Heart Rate (8867-4) 79 /min Blood Pressure Systolic (8480-6) 144 mm[Hg] Blood Pressure Diastolic (8462-4) 74 mm[Hg] 01/28/2025 09:00 AM Oxygen Saturation (25331-4) 95 % Respiratory Rate (9279-1) 16 /min Heart Rate (8867-4) 76 /min 01/28/2025 02:04 AM Oxygen Saturation (51282-1) 97 % Respiratory Rate (9279-1) 20 /min Heart Rate (8867-4) 83 /min 01/28/2025 01:29 AM Oxygen Saturation (06590-5) 95 % Respiratory Rate (9279-1) 18 /min Heart Rate (8867-4) 80 /min 01/28/2025 04:38 PM Oxygen Saturation (88079-5) 97 % Respiratory Rate (9279-1) 18 /min Heart Rate (8867-4) 70 /min 01/28/2025 04:14 PM Oxygen Saturation (58130-5) 95 % Respiratory Rate (9279-1) 20 /min Heart Rate (8867-4) 66 /min 01/28/2025 11:47 AM Oxygen Saturation (82711-9) 96 % Respiratory Rate (9279-1) 18 /min Heart Rate (8867-4) 67 /min 01/29/2025 12:12 AM Temperature (8310-5) 97.9 [degF] Blood Pressure Systolic (8480-6) 116 mm[Hg] Blood Pressure Diastolic (8462-4) 58 mm[Hg] 01/29/2025 12:11 AM Oxygen Saturation (44419-7) 96 % Respiratory Rate (9279-1) 18 /min Heart Rate (8867-4) 89 /min 01/29/2025 09:09 AM Oxygen Saturation (36130-0) 99 % Respiratory Rate (9279-1) 16 /min Heart Rate (8867-4) 55 /min 01/29/2025 06:23 AM Oxygen Saturation (81499-1) 96 % Respiratory Rate (9279-1) 20 /min Heart Rate (8867-4) 67 /min 01/29/2025 03:16 PM Oxygen Saturation (15938-7) 96 % Respiratory Rate (9279-1) 18 /min Heart Rate (8867-4) 57 /min 01/29/2025 01:51 PM Oxygen Saturation (99063-2) 98 % 01/29/2025 01:49 PM Oxygen Saturation (28332-0) 99 % Heart Rate (8867-4) 61 /min 01/29/2025 01:47 PM Temperature (8310-5) 98.1 [degF] Respiratory Rate (9279-1) 16 /min Heart Rate (8867-4) 45 /min Blood Pressure Systolic (8480-6) 118 mm[Hg] Blood Pressure Diastolic (8462-4) 76 mm[Hg] 01/29/2025 12:09 PM Oxygen Saturation (41671-7) 98 % 01/29/2025 10:42 PM Temperature (8310-5) 98.9 [degF] Oxygen Saturation (27418-8) 97 % Respiratory Rate (9279-1) 18 /min Heart Rate (8867-4) 80 /min Blood Pressure Systolic (8480-6) 115 mm[Hg] Blood Pressure Diastolic (8462-4) 81 mm[Hg] 01/29/2025 08:23 PM Respiratory Rate (9279-1) 22 /min Heart Rate (8867-4) 71 /min 01/29/2025 08:22 PM Oxygen Saturation (45173-7) 95 % Respiratory Rate (9279-1) 20 /min Heart Rate (8867-4) 72 /min 01/30/2025 08:39 AM Temperature (8310-5) 98.4 [degF] Oxygen Saturation (04003-2) 99 % Respiratory Rate (9279-1) 19 /min Heart Rate (8867-4) 74 /min Blood Pressure Systolic (8480-6) 109 mm[Hg] Blood Pressure Diastolic (8462-4) 66 mm[Hg] 01/30/2025 08:38 AM Oxygen Saturation (72079-0) 99 % 01/30/2025 06:46 AM Oxygen Saturation (87990-0) 92 % Respiratory Rate (9279-1) 19 /min Heart Rate (8867-4) 74 /min 01/30/2025 04:18 PM Respiratory Rate (9279-1) 18 /min Heart Rate (8867-4) 80 /min 01/30/2025 01:43 PM Oxygen Saturation (65125-5) 98 % Respiratory Rate (9279-1) 17 /min Heart Rate (8867-4) 74 /min 01/30/2025 10:01 AM Oxygen Saturation (71213-5) 99 % Respiratory Rate (9279-1) 18 /min Heart Rate (8867-4) 78 /min 01/30/2025 08:16 AM Oxygen Saturation (82718-7) 99 % Respiratory Rate (9279-1) 16 /min Heart Rate (8867-4) 81 /min 01/30/2025 09:48 PM Temperature (8310-5) 98.5 [degF] Respiratory Rate (9279-1) 20 /min Heart Rate (8867-4) 75 /min Blood Pressure Systolic (8480-6) 140 mm[Hg] Blood Pressure Diastolic (8462-4) 78 mm[Hg] 01/30/2025 06:48 PM Oxygen Saturation (27597-0) 95 % Respiratory Rate (9279-1) 22 /min Heart Rate (8867-4) 76 /min 01/31/2025 05:16 AM Respiratory Rate (9279-1) 21 /min 01/31/2025 05:13 AM Oxygen Saturation (62700-5) 96 % Respiratory Rate (9279-1) 23 /min Heart Rate (8867-4) 78 /min 01/31/2025 03:59 PM Oxygen Saturation (08720-3) 96 % Respiratory Rate (9279-1) 20 /min Heart Rate (8867-4) 75 /min 01/31/2025 03:58 PM Temperature (8310-5) 97.7 [degF] Blood Pressure Systolic (8480-6) 112 mm[Hg] Blood Pressure Diastolic (8462-4) 60 mm[Hg] 01/31/2025 03:57 PM Respiratory Rate (9279-1) 18 /min Heart Rate (8867-4) 78 /min 01/31/2025 11:37 AM Oxygen Saturation (40521-3) 95 % Respiratory Rate (9279-1) 20 /min Heart Rate (8867-4) 76 /min 01/31/2025 07:23 PM Oxygen Saturation (44079-5) 91 % Respiratory Rate (9279-1) 20 /min Heart Rate (8867-4) 85 /min 02/01/2025 09:18 AM Oxygen Saturation (20055-6) 90 % 02/01/2025 05:18 AM Oxygen Saturation (79510-5) 93 % Respiratory Rate (9279-1) 20 /min Heart Rate (8867-4) 78 /min 02/01/2025 05:15 AM Respiratory Rate (9279-1) 18 /min Heart Rate (8867-4) 82 /min 02/01/2025 02:33 AM Temperature (8310-5) 98.2 [degF] Respiratory Rate (9279-1) 20 /min Heart Rate (8867-4) 83 /min Blood Pressure Systolic (8480-6) 117 mm[Hg] Blood Pressure Diastolic (8462-4) 69 mm[Hg] 02/01/2025 10:33 AM Oxygen Saturation (34812-7) 94 % Respiratory Rate (9279-1) 19 /min Heart Rate (8867-4) 74 /min 02/01/2025 10:32 AM Temperature (8310-5) 98.3 [degF] Oxygen Saturation (10190-6) 90 % Respiratory Rate (9279-1) 19 /min Heart Rate (8867-4) 69 /min Blood Pressure Systolic (8480-6) 102 mm[Hg] Blood Pressure Diastolic (8462-4) 61 mm[Hg] 02/01/2025 08:13 PM Temperature (8310-5) 97.6 [degF] Oxygen Saturation (42505-2) 87 % Respiratory Rate (9279-1) 16 /min Heart Rate (8867-4) 87 /min Blood Pressure Systolic (8480-6) 101 mm[Hg] Blood Pressure Diastolic (8462-4) 51 mm[Hg] 02/02/2025 09:31 AM Respiratory Rate (9279-1) 20 /min Heart Rate (8867-4) 79 /min 02/02/2025 09:29 AM Temperature (8310-5) 97.3 [degF] Oxygen Saturation (77417-1) 97 % Respiratory Rate (9279-1) 21 /min Heart Rate (8867-4) 80 /min Blood Pressure Systolic (8480-6) 113 mm[Hg] Blood Pressure Diastolic (8462-4) 68 mm[Hg] 02/02/2025 05:49 AM Oxygen Saturation (80651-0) 92 % Respiratory Rate (9279-1) 19 /min Heart Rate (8867-4) 78 /min Social History Element Description Date Comment Tobacco smoking status NHIS Current some day smoker Encounters Type CPT Code Date Location Provider Indication s encounter report 01/15/2025 01:2 9 PM - 02/02/2025 02:16 PM Jaden Last DO 01 Advance Directives Directive Description Verification Date Supporting Document(s) Other Directive
--- OUTSIDE RECORDS SUMMARY | 2025-09-14 14:09 | XMS_ITS | Clinical Summary ---
Author Organization [facility] Address [address] Gantn: Epic [place] [address] Care Team Providers Care Agriculture Consultant Name Role Phone Hyun Valentino Primary Care Provider [phone] Allergies Active Allergy Reactions Criticality Noted Date Comments Aspirin Rash Low 12/27/2009 Penicillins Anaphylaxis High 12/27/2009 Tramadol-Acetaminophen Nausea and Vomiting,Swelling Low 12/27/2009 Ultracet Medications Xanax 0.5 mg tablet Take 0.5 mg by mouth nightly as needed. Active albuterol sulfate HFA 90 mcg/actuation aerosol inhalerIndications :Chronic obstructive pulmonary disease, unspecified COPD type (CMS/HCC) Take 2 Puffs by inhalation every 6 hours as needed for Shortness of Breath or Wheezing. 8.5 Gram 2 02/05/20 25 Active levothyroxine 100 mcg tabletIndications: Acquired hypothyroidism Take 1 Tablet (100 mcg) by mouth daily in the morning. 30 Tablet 3 02/09/20 25 Active portable oxygenIndications: Panlobular emphysema (CMS/HCC) Face to Face completed within 30 days: yes Length of Need: 99 months By: Nasal Cannula Continuously at 2 L/min. Please provide concentrator with portable oxygen therapy 1 Each 3 03/10/20 25 Active hydrOXYzine HCL (ATARAX) 25 mg tabletIndications: Anxiety Take 1 Tablet (25 mg) by mouth 3 times daily as needed for Anxiety. 90 Tablet 3 03/10/20 25 Active omeprazole (PriLOSEC) 40 mg Capsule, Delayed Release(E.C.)Indic ations:Anemia, unspecified type take 1 capsule BY MOUTH EVERY DAY 30 Capsule 1 03/30/20 25 Active traZODone (DESYREL) 50 mg tabletIndications: Primary insomnia Take 1 Tablet (50 mg) by mouth daily at bedtime. 90 Tablet 2 05/06/20 25 Active DULoxetine (CYMBALTA) 30 mg Capsule, Delayed Release(E.C.)Indic ations:Anxiety,Sev ere episode of recurrent major depressive disorder, without psychotic features (CMS/HCC) Take 1 Capsule (30 mg) by mouth daily. 30 Capsule 3 05/06/20 25 Active Additional Information Patient not taking.Reason: Other (Comments) (not helping), Reported on 06/18/2025 fluticasone propion-salmeteroL (ADVAIR DISKUS,WIXELA INHUB) 250-50 mcg/dose disk inhaler Take 1 Puff by inhalation 2 times daily. Active ipratropium-albute roL (DUONEB) 0.5 mg-3 mg(2.5 mg base)/3 mL Solution for Nebulization Take 3 mL by inhalation every 4 hours as needed for Shortness of Breath or Wheezing. Active nitroglycerin (NITROSTAT) 0.4 mg Tablet, Sublingual Place 0.4 mg under tongue every 5 minutes as needed for Chest Pain. Active sertraline (ZOLOFT) 25 mg tablet Take 25 mg by mouth daily at bedtime. Active predniSONE (DELTASONE) 10 mg tabletIndications: Chronic bilateral thoracic back pain,DDD (degenerative disc disease), cervical Take 3 tablet once per day for 3 days, then 2 tabs once per day for 3 days, then 1 tab once per day for 3 days 18 Tablet 06/18/20 25 Active tiZANidine (ZANAFLEX) 4 mg TabletIndications: Chronic bilateral thoracic back pain Take 1 Tablet (4 mg) by mouth every 6 hours as needed for Spasm. 90 Tablet 1 06/18/20 25 Active HYDROcodone-acetam inophen (NORCO) 5-325 mg tabletIndications: Chronic bilateral thoracic back pain,Cervical radiculopathy Take 1 Tablet by mouth every 8 hours as needed for Pain, Moderate. Short term only Max Daily Amount: 3 Tablets 20 Tablet 06/20/20 25 Active Active Problems Problem Noted Date Diagnosed Date Anxiety 03/10/2025 Severe episode of recurrent major depressive disorder, without psychotic features 03/10/2025 Bipolar disorder, current episode mixed, mild Overview (03/10/2025): Outside Claims Data/ [employer] 03/04/2024, Bipolar 1 disorder, mixed, mild. 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, 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 Chronic bilateral thoracic back pain (Primary Dx); DDD (degenerative disc disease), cervical 06/18/2025 Refill [facility] [address] [place] [address] Hyun Valetnino DO Chronic bilateral thoracic back pain; Cervical radiculopathy 06/15/2025 External Device Data [facility] Provider, Abstract from Last 3 Months Family History Medical [...] on file 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 Gender Identity Not on file Sexual Orientation Not on file Last Filed Vital Signs Vital Sign Reading Time Taken Comments Blood Pressure 148/80 06/18/2025 1:04 PM CDT Pulse 101 06/18/2025 1:04 PM CDT Temperature 36.5 C (97.7 F) 06/18/2025 1:04 PM CDT Respiratory Rate 18 05/25/2025 9:56 AM CDT Oxygen Saturation 99% 05/25/2025 9:56 AM CDT Inhaled Oxygen Concentration - - Weight 48.6 kg (107 lb 4 oz) 06/18/2025 1:04 PM CDT Height 157.5 cm (5' 2 ) 05/25/2025 9:56 AM CDT Body Mass Index 19.62 05/25/2025 9:56 AM CDT Plan of Treatment Health Maintenance Due Date Last Done Comments FIT/ DNA Q 3 YEARS (AUTO ORDER) 02/05/1984 FIT/FOBT Q 1 YEAR (AUTO ORDER) 02/05/1984 FLEX SIG/CT COLONOGRAPHY Q 5 YEARS (AUTO ORDER) 1983 HEPATITIS B VACCINES (1 of 3 - [...] VACCINE (1 of 2) 02/05/2016 Medicare Ad[place]age [place] Prev entative Visit/Annual Wellness Visit 11/04/2024 INFLUENZA VACCINE (#1) 2025 10/19/2010 Medical Devices Implanted Type Area Fast Food Cashier Device Identifier Shelf Expiration Date Model / Serial / Lot Log [id number] - Tissue Substitutes & Biologicals - 1 - Vitoss Foam Ba 1.2ml Implanted:Qty: 1 on 02/03/2010 Biological N/A: Neck ORTHOVITA [id number] / / [id number] Log [id number] - Tissue Substitutes & Biologicals - 1 - Cage Anatomic Peek [id number] Implanted:Qty: 1 on 02/03/2010 Cage N/A: Neck MEDTRONIC- SOFAMOR DANEK 08/03/2017 [id number] / / [id number] Log [id number] - David Trinica Cervical Plating System - 1 - Plate Trinica Select 22mm [id number] Implanted:Qty: 1 on 02/03/2010 Plate N/A: Neck zzzzZIMMER-SPIN E [id number] 01 / [id number] / Log [id number] - David Trinica Cervical Plating System - 1 - Screw Trnca Sd Reyna 4.2x14mm [id number] Implanted:Qty: 4 on 02/03/2010 Screw N/A: Neck zzzzZIMMER-SPIN E [id number] / [id number] / Insurance [address] [facility] [place] [address] MEDICAID [place] HMO DSNP Care Teams Agriculture Consultant Relationship Specialty Start Date End Date Hyun Valentino DO [address] [place] [address] PCP - General Family Practice 02/04/25
--- OUTSIDE RECORDS SUMMARY | 2025-09-14 14:09 | XMS_ITS | Continuity of Care Document ---
Author Organization [facility] Address [address] [place] [address] Care Team Providers Care Server Support Technician Name Role Phone Dr. Jaden Last DO Attending Physician [phone] Medications Medication Frequency Instructions Diagnosis Start Date End Date Status Last Administered albuterol sulfate 90 mcg/actuation HFA aerosol inhaler Every 6 Hours - PRN 2 INH, inhalation, Every 6 Hours - PRN, For SOB or wheezing 2024 Not Active alprazolam 0.5 mg tablet Three Times A Day - PRN 1 TAB, oral, Three Times A Day - PRN, For anxiety for 14 days. Exempt F41.9 2024 Not Active 01/28/2025 02:11 PM atorvastatin 40 mg tablet At Bedtime 1 TAB, oral, At Bedtime 025 2024 Not Active 02/01/2025 07:08 PM clopidogrel 75 mg tablet Once A Day 1 TAB, oral, Once A Day 2024 Not Active 02/02/2025 09:31 AM Dulcolax (bisacodyl) (bisacodyl) 5 mg tablet,delayed release (DR/EC) Once A Day - PRN 2 tabs/10mg, oral, Once A Day - PRN, Give if no results from [facility] 2024 Not Active Dulcolax (bisacodyl) (bisacodyl) 10 mg suppository Once A Day - PRN 1 suppository, rectal, Once A Day - PRN, Give rectally if can't take p/o, if no results from [facility] 2024 Not Active fluticasone propion-salmete rol 250-50 mcg/dose blister with device Twice A Day 1 inhalation, inhalation, Twice A Day, Rinse mouth with water and spit after use, TI for Symbicort. 2024 Not Active 02/02/2025 09:31 AM guaifenesin 100 mg/5 mL liquid Every 4 Hours - PRN 10ml (200mg), oral, Every 4 Hours - PRN, For cough and congestion 2024 Not Active hydrocodone-mohna taminophen 5-325 mg tablet Every 4 Hours - PRN 1 TAB, oral, Every 4 Hours - PRN, For pain. Exempt R52 for 7 days 2024 Not Active 01/21/2025 09:19 AM hydrocodone-mohan taminophen 5-325 mg tablet Every 4 Hours - PRN 1 TAB, oral, Every 4 Hours - PRN, For pain. Exempt R52 for 7 days 2024 Not Active 02/02/2025 08:12 AM ipratropium-alb uterol 0.5 mg-3 mg(2.5 mg base)/ solution for nebulization Every 4 Hours 1 neb, inhalation, Every 4 Hours 2024 Not Active 02/02/2025 09:31 AM levothyroxine 75 mcg tablet Once A Day 1 TAB, oral, Once A Day 2024 Not Active 02/02/2025 05:49 AM lidocaine 4 % adhesive patch,medicated Twice A Day 1 patch, topical, Twice A Day, ON in the AM, OFF in the PM, dosing per TI 2024 Not Active 02/02/2025 09:31 AM Milk of Magnesia (magnesium hydroxide) 400 mg/5 mL suspension Every 72 Hours - PRN 30 ml, oral, Every 72 Hours - PRN, if no BM in 3 days DO NOT GIVE TO RENAL PATIENTS--GO TO DULCOLAX ORDERS 2024 Not Active nicotine 14 mg/24 hr patch 24 hour Once A Day 1 PATCH, transdermal, Once A Day, Remove old patch before applying new one 2024 Not Active 01/20/2025 07:09 AM nicotine (polacrilex) 4 mg lozenge Every 4 Hours - PRN 1 LOZENGE, buccal, Every 4 Hours - PRN, For nicotine cravings 2024 Not Active nitroglycerin 0.4 mg tablet, sublingual Other 1, sublingual, Other, up to 3 tabs as directed 2024 Not Active prednisone 20 mg tablet Once A Day 3 TABS (60 mg), oral, Once A Day, Taper dose for 3 days 2024 Not Active 01/18/2025 06:40 AM prednisone 20 mg tablet Once A Day 2 TABS (40 mg), oral, Once A Day, Taper dose for 3 days 2024 Not Active 01/21/2025 08:08 AM prednisone 20 mg tablet Once A Day 1 TAB, oral, Once A Day, Taper dose for 3 days 2024 Not Active 01/24/2025 06:29 AM prednisone 10 mg tablet Once A Day 1 TAB, oral, Once A Day, End of taper dose, for 2 days. 2024 Not Active 01/26/2025 07:25 AM trazodone 50 mg tablet At Bedtime 0.5 TAB (25 mg), oral, At Bedtime 2024 Not Active 02/01/2025 07:08 PM Tubersol (tuberculin ppd) 5 tub. unit /0.1 mL solution Once - One Time 0.1ml, intradermal, Once - One Time, Administer the morning after admission 2024 Not Active 01/17/2025 12:43 AM Tubersol (tuberculin ppd) 5 tub. unit /0.1 mL solution Once - One Time 0.1ml, intradermal, Once - One Time, Administer on the day shift 025 2024 Not Active 01/24/2025 09:51 AM Tylenol (acetaminophen) 325 mg tablet Every 6 Hours - PRN 2 tabs/650mg, oral, Every 6 Hours - PRN, as needed for PRN pain/increased temp May give rectally if necessary 025 2024 Not Active 01/31/2025 10:43 PM Zoloft (sertraline) 25 mg tablet At Bedtime 1, oral, At Bedtime 025 2024 Not Active 02/01/2025 07:08 PM Zoloft (sertraline) 50 mg tablet At Bedtime 1, oral, At Bedtime 025 2024 Not Active Problems Code Type Problem ICD Code Effective Date Status ICD-10 Chronic obstructive pulmonary disease with (acute) exacerbation J44.1 01/15/2025 Active ICD-10 Emphysema, unspecified J43.9 01/15/2025 Ac tive ICD-10 [facility] (current) use of inhaled steroids Z79 .51 01/15/2025 Active ICD-10 Tobacco use Z72.0 01/15/2025 Active ICD-10 Acute respiratory failure with hypoxia J96.01 01/15/2025 Active ICD-10 Difficulty in walkin g, not elsewhere classified R26.2 01/18/2025 Active ICD-10 Muscle weakness (generalized) M62.81 2024 Active ICD-10 [facility] (current) use of antithrombotics/antiplatelets Z79.02 01/15/2025 Active ICD-10 Depression, unspecified F32.A 01/18/2025 A ctive ICD-10 Generalized anxiety disorder F41.1 025 Active ICD-10 Mixed hyperlipidemia E78.2 01/15/2025 Acti ve ICD-10 Hypothyroidism, unspecified E03.9 01/16/20 25 Active ICD-10 Postprocedural hypothyroidism E89.0 2024 Active ICD-10 Insomnia, unspecified G47.00 01/15/2025 Act ana ICD-10 Cervicalgia M54.2 01/15/2025 Active ICD-10 Dorsalgia, unspecified M54.9 01/15/2025 Ac tive ICD-10 Unvaccinated for COVID-19 Z28.310 01/15/2025 Active Current Allergies and Intolerances Category Substance Type Reaction Severity Begin Date Status Drug allergy Aspirin (ASA) Allergy 01/15/2025 Ac tive Drug allergy Penicillins (PCN) Allergy Active Drug allergy tizanidine Allergy 01/15/2025 Activ e Drug allergy tramadol Allergy 01/15/2025 Active Vital Signs Height: Date / Time Temperature Pulse (per minute) Respirations (per minute) Systolic BP (mmHg) Diastolic BP (mmHg) O2 Saturation (%) Weight BMI 2024 09:31 AM 79 20 2024 09:29 AM 97.3 F 80 21 113 68 97.0 2024 05:49 AM 78 19 92.0 2024 08:13 PM 97.6 F 87 16 101 51 87.0 2024 10:33 AM 74 19 94.0 2024 10:32 AM 98.3 F 69 19 102 61 90.0 2024 09:18 AM 90.0 2024 05:18 AM 78 20 93.0 2024 05:15 AM 82 18 2024 02:33 AM 98.2 F 83 20 117 69 2024 07:23 PM 85 20 91.0 2024 03:59 PM 96.0 2024 03:58 PM 97.7 F 112 60 2024 11:37 AM 95.0 2024 09:48 PM 98.5 F 140 78 2024 08:39 AM 98.4 F 109 66 2024 10:42 PM 98.9 F 115 81 2024 01:47 PM 98.1 F 118 76 2024 12:12 AM 97.9 F 116 58 2024 12:44 PM 111.0 lbs 2024 11:29 AM 109.8 lbs Advance Directives Directive Note Full Code Insurance Providers Payer Policy type Group Name Group number Policy ID Address Phone Medicare Part A Medicare Part A [id number] Phone: Fax: Alcides RAMOS - Ciara Like Medicare Part A [id number] Phone: Fax: Outlier - % of Charges - [employer] Commercial [employer] [id number] [address] [address] [place] [id number] Phone: Fax: Medicaid [place] Medicaid ([facility]) [id number] Phone: Fax: [place] ([facility]) [id number] Phone: Fax: Medicaid [place] Pending Medicaid ([facility]) [id number] Phone: Fax: Patient Liability Private Phone: Fax: Private Private Phone: Fax: Private Interest Private Phone: Fax: Immunizations Vaccine Concierge Date Status Dose Series Complete COVID-19 Vaccine 01/15/2025 Refused Influenza Vaccine 01/15/2025 Refused Procedures Not available for this record Results Not available for this record Goals No Goals are on file for this resident Social History Subject Status Smoking status Current some day smo ker Encounters Admission Date Discharge Date Description MRN Visit Count 01/15/2025 13:29 02/02/2025 14:16 LTPAC Admission [id number]
[2025-09-14 14:14] VITALS: BP 135/83; PULSE 108; RESP 16; TEMP 36.4; O2SAT 96; BMI 21.5
--- NOTE | 2025-09-14 14:29 | XR_ITS ---
WS: [email or web address] Exam: XR thoracic spine 3V* [id number] Date/Time of Exam: 09/14/2025 2:43 PM Reason For Exam: pain Comparison 08/16/2024. No fracture or malalignment noted. There is spondylosis and degenerative disc change at all levels. Increased thoracic kyphosis. Pronounced osteopenia. Mild dextroscoliosis of the upper T-spine. Normal paraspinal soft tissues. XR/XR thoracic spine 3V* [id number] IMPRESSION: 1. No fracture or malalignment. 2. Degenerative change, mild scoliosis and osteopenia.
--- NOTE | 2025-09-14 14:29 | XR_ITS ---
WS: [email or web address] Exam: XR chest 1V portable [id number] Date/Time of Exam: 09/14/2025 2:43 PM Reason For Exam: dyspnea/cough Comparison 01/04/2025. The lungs are hyperinflated and clear. Normal cardiomediastinal silhouette. No pleural effusion. Fusion hardware in the lower C-spine. Bony structures are intact. Slight upper thoracic dextroscoliosis. XR/XR chest 1V portable [id number] IMPRESSION: 1. Pulmonary hyperinflation. No acute process.
--- NOTE | 2025-09-14 14:52 | W.ED.BACK ---
HPI - Back Pain/Injury General: Chief Complaint: Back Pain/Injury Stated Complaint: back pain Time Seen by Provider: 09/14/25 14:19 History of Present Illness: 60-year-old female presents to the emergency room with complaint of upper back pain. Said pain in her upper back between her shoulder blades for the last week at times so going to her left arm. No known injury she denies any neck pain. She denies any chest pain or associated shortness of breath. No trauma or fall. Associated symptoms: Deny abdominal pain, chills, dysuria, fever(s) or urinary urgency Related Data Home Medications ?Medication ?Instructions ?Recorded ?Confirmed albuterol sulfate 90 mcg/actuation 2 puff inhalation Q6H PRN 01/04/25 05/08/25 aerosol inhaler Shortness Of Breath Or Wheezing budesonide 160 mcg-glycopyr 9 2 inh inhalation DAILY 05/08/25 05/08/25 mcg-formot 4.8 mcg/actuation HFA inhaler ([employer]) citalopram 40 mg tablet 40 mg PO DAILY 05/08/25 05/08/25 duloxetine 30 mg capsule,delayed 30 mg PO DAILY 05/08/25 05/08/25 release hydroxyzine HCl 25 mg tablet 25 mg PO TID PRN anxiety 05/08/25 05/08/25 ketorolac 10 mg tablet 10 mg PO Q6H PRN Pain 05/08/25 05/08/25 levothyroxine 100 mcg tablet 100 mcg PO QAM 05/08/25 05/08/25 trazodone 50 mg tablet 50 mg PO BEDTIME 05/08/25 05/08/25 Previous Rx's ?Medication ?Instructions ?Recorded cyclobenzaprine 10 mg tablet 10 mg PO TID PRN muscle spasm #30 05/08/25 tabs diclofenac sodium 75 mg 75 mg PO Q12H PRN pain #20 tabs 05/08/25 tablet,delayed release prednisone 20 mg tablet 20 mg PO TID #15 tabs 05/08/25 cyclobenzaprine 10 mg tablet 10 mg PO TID PRN muscle spasm #20 09/14/25 tabs diclofenac sodium 75 mg 75 mg PO Q12H PRN pain #20 tabs 09/14/25 tablet,delayed release Allergies Allergy/AdvReac Type Severity Reaction Status Date / Time aspirin Allergy hives Verified 09/14/25 14:18 Penicillins Allergy ALGY-Anaphy Verified 09/14/25 14:18 laxis tizanidine Allergy tongue Verified 09/14/25 14:18 swelling tramadol Allergy ALGY-Rash Verified 09/14/25 14:18 Review of Systems Const: Denies: fever(s) or chills Card: Denies: chest pain Resp: Denies: dyspnea GI: Denies: abdominal pain : Denies: dysuria, urinary frequency or urinary urgency Musc: Reports: back pain (Thoracic); Denies: neck pain Skin/Breast: Denies: rash PFSH ED PFSH: Medical History 3 para 2 Smoker decreased to 1/2 ppd 09/03/2023 Chronic neck and back pain Insomnia Bipolar 1 disorder, mixed, mild Mixed dyslipidemia Generalized anxiety disorder Acquired hypothyroidism History of Graves' disease Fibromyalgia COPD (chronic obstructive pulmonary disease) Surgical History History of carpal tunnel release right History of hernia repair History of thyroidectomy and thyroid ablation History of tubal ligation History of cervical spinal surgery C5/6 fusion Family History Mother Lung disease Psychiatric illness Father Psychiatric illness Other Stroke Denies family history of Diabetes CAD (coronary artery disease) Dementia Hyperlipidemia Chronic kidney disease (CKD) Suicide Anesthesia complication Bleeding disorder Family history of premature coronary artery disease Cancer Hypertension Social History Smoking and tobacco/nicotine status: current every day tobacco/nicotine user cigarettes [ Other cigarette details: Half pack a day] Quit status (tobacco/nicotine): has tried quititng Alcohol intake: never Substance/Drug Use: current Substance/Drug use frequency: daily Adopted: No Lives independently: Yes Household members: spouse, children and other Details: 3 grandchilden Housing: House Marital status: Number of children: 2 Number of grandchildren: 6 Highest education level completed: High School Graduate service: No Current occupational status: disabled Leisure activites: other Leisure activities details: swimming, playing w/ kids Agree to transfusion: Yes Female Reproductive History: Spontaneous abortions: No Physical Exam Const: COMMON NORMALS: no acute distress GENERAL APPEARANCE: cooperative and comfortable ORIENTATION/CONSCIOUSNESS: Yes awake, Yes oriented to person, Yes oriented to place and Yes oriented to time HENMT: COMMON NORMALS: normocephalic, atraumatic and hearing grossly normal bilaterally HEAD & SCALP: normocephalic and atraumatic Resp: COMMON NORMALS: normal respiratory effort, No retractions, No use of accessory muscles and clear to auscultation bilaterally AUSCULTATION: clear to auscultation bilaterally Cardio: COMMON NORMALS: regular rate, regular rhythm and No murmurs present (Cardio) RATE: regular rate RHYTHM: regular rhythm GI: COMMON NORMALS: Soft to palpation and No hepatosplenomegaly present AUSCULTATION: Yes normoactive bowel sounds PALPATION: Yes Soft to palpation, No Tenderness to palpation present (GI), No Guarding due to palpation present (GI) and Yes No hepatosplenomegaly present Back/Pelvis: OTHER: Reproducible pain with palpation on the medial edge of the left scapula Extremity: COMMON NORMALS: normal to inspection, capillary refill normal, no clubbing, cyanosis or edema, no calf tenderness and no pedal edema Neuro: SENSORIUM/ORIENTATION: Yes oriented to person, Yes oriented to place and Yes oriented to time Skin: COMMON NORMALS: no rashes or lesions noted GENERAL SKIN EXAM: no rashes or lesions noted Course Vital Signs: Vital signs: Vital Signs Temperature 97.6 F 09/14/25 14:14 Pulse Rate 60 09/14/25 15:20 Respiratory Rate 16 09/14/25 14:14 Blood Pressure 130/75 09/14/25 15:20 Pulse Oximetry 98 09/14/25 15:20 Oxygen Delivery Me thod Room Air 09/14/25 14:14 MDM - Back Pain/Injury Medical Decision Making Thoracic back pain. Chest x-ray was normal thoracic spine did not show any sign of compression fractures will discharge patient home with cyclobenzaprine and diclofenac to use. Follow-up with primary care doctor return if has further problems Labs Radiology Impressions Chest X-Ray 09/14/25 14:29 IMPRESSION: 1. Pulmonary hyperinflation. No acute process. Thoracic Spine X-Ray 09/14/25 14:29 IMPRESSION: 1. No fracture or malalignment. 2. Degenerative change, mild scoliosis and osteopenia. All radiology interpretation(s) finalized by discharge Discharge Plan Discharge Patient Disposition: Home Clinical Impression: Thoracic back pain Qualifiers: Chronicity: chronic Back pain laterality: midline Qualified Code(s): M54.6 - Pain in thoracic spine Condition: Stable Prescriptions: New diclofenac sodium 75 mg tablet,delayed release (DR/EC) 75 mg PO Q12H PRN (Reason: pain) Qty: 20 0RF cyclobenzaprine 10 mg tablet 10 mg PO TID PRN (Reason: muscle spasm) Qty: 20 0RF No Action albuterol sulfate 90 mcg/actuation HFA aerosol inhaler 2 puff inhalation Q6H PRN (Reason: Shortness Of Breath Or Wheezing) citalopram 40 mg tablet 40 mg PO DAILY ketorolac 10 mg tablet 10 mg PO Q6H PRN (Reason: Pain) levothyroxine 100 mcg tablet 100 mcg PO QAM hydroxyzine HCl 25 mg tablet 25 mg PO TID PRN (Reason: anxiety ) duloxetine 30 mg capsule,delayed release(DR/EC) 30 mg PO DAILY Breztri Aerosphere 160-9-4.8 mcg/actuation HFA aerosol inhaler 2 inh INHALATION DAILY trazodone 50 mg tablet 50 mg PO BEDTIME prednisone 20 mg tablet 20 mg PO TID Qty: 15 0RF Rx Instructions: 1 p.o. 3 times daily x3 days, 1 p.o. twice daily x2 days, 1 p.o. daily x2 days cyclobenzaprine 10 mg tablet 10 mg PO TID PRN (Reason: muscle spasm) Qty: 30 0RF diclofenac sodium 75 mg tablet,delayed release (DR/EC) 75 mg PO Q12H PRN (Reason: pain) Qty: 20 0RF Discharge Orders: Discharge ED (Routine); Ordered 09/14/25 Ordered By: Matt Montano Referrals: Jt Levy MD [Primary Care Provider, Family Practice] Discharge Diet: Usual diet Discharge Activity: Increase activity as tolerated Patient Instructions: Opioid Safety, Pain Management, Patient Portal & Jian Instructions Activity Restrictions/Additional Instructions: Thank you for choosing [facility] for your healthcare needs today. It is very important that you follow up as instructed or that you return to the Emergency Department should you have concerns or if your condition changes or worsens in any way. Emergency department visits are focused on emergent conditions, in some cases you may require further evaluation on an outpatient basis. You were seen in the emergency room with complaints of thoracic back pain x-rays of your chest and of your thoracic spine were normal. This most likely musculoskeletal back pain based on the exam findings recommend you use diclofenac and cyclobenzaprine as needed follow-up with your primary care doctor (Please note that included in your discharge packet is information concerning opioid safety and pain management. This information is given to all patients were discharged from the ER regardless of their discharge diagnosis or the medicines they usually take or are prescribed.) Print Language: Welsh Coding Level of Care Code ED Metal Trim Erector for Hannah Key
--- NOTE | 2025-09-14 14:54 | ECG_ITS ---
[facility] Test Date: 2025-09-14 Pat Name: Nola Mcguire Department: Room: Gender: Female E Learning Developer: : 1965 Requested By: Matt Griffith Order Number: [id number] Brandon MD: Ruy Rodriguez M.D. Measurements Intervals Brogue Rate: 58 P: 80 IA: 162 QRS: 47 QRSD: 75 T: 88 QT: 410 QTc: 404 Interpretive Statements SINUS BRADYCARDIA NONSPECIFIC ST & T-WAVE ABNORMALITY Compared to ECG 01/13/2025 21:35:58 T-wave abnormality now present Sinus rhythm no longer present Electronically Signed On 09-15-2025 20:20:26 FINANCIAL ADVISER by Ruy Rodriguez M.D. [email or web address]
[2025-09-14] MEDS: methylPREDNISolone sod succ 125 mg/2 mL INJ IVP (15:04)
[2025-09-14] MEDS: morphine 4 mg/mL SDV 1 mL 2 MG IVP (15:04)
[2025-09-14 15:20] VITALS: BP 130/75; PULSE 60; O2SAT 98
== END 2025-09-14 15:21 | disposition home or self-care (01) ==
PROVIDERS: Emergency Provider Family Medicine; PCP Family Medicine Adult Medicine
DX: M54.6 Pain in thoracic spine (principal); F17.210 Nicotine dependence, cigarettes, uncomplicated; E78.2 Mixed hyperlipidemia; J44.9 Chronic obstructive pulmonary disease, unspecified
CPT/HCPCS: 71045; 72072; 93005; 96374; 96375; 99284; J1885; J2270; J2919

== ENCOUNTER 2025-10-29 06:32 | Emergency (ER) | payer MEDICARE, SELFPAY ==
[2025-10-29 06:33] VITALS: BP 123/75; PULSE 72; RESP 16; TEMP 36.8; O2SAT 93; BMI 20.5
--- NOTE | 2025-10-29 06:41 | XR_ITS ---
WS: [id number] PORTABLE CHEST HISTORY: sob COMPARISON: 09/14/2025 Mild pulmonary hyperexpansion. No mass or nodule. No pneumonia. Bilateral upper lobe pleural thickening and scarring greatest on the RIGHT is stable. No pleural effusion or pneumothorax. Cardiac size: Normal. Mediastinum/Aorta: Normal mediastinum. Prior cervical fusion. XR/XR chest 1V portable [id number] IMPRESSION: 1. Chronic emphysema. 2. No pneumonia. Normal vasculature.
--- NOTE | 2025-10-29 06:41 | ECG_ITS ---
[facility] Date: 2025-10-29 Pat Name: Nola Mcugire Department: Room: Gender: Female Supervisor Insecticide: : 1965 Requested By: Brendan Soto Order Number: [id number] Reading MD: BENJY WATKINS Measurements Intervals [place] Rate: 68 P: 74 NE: 154 QRS: 54 QRSD: 81 T: 66 QT: 387 QTc: 412 Interpretive Statements SINUS RHYTHM NONSPECIFIC T-WAVE ABNORMALITY Compared to ECG 09/14/2025 15:14:39 Sinus bradycardia no longer present T-wave abnormality still present Electronically Signed On 10-31-2025 23:08:17 PULP MILL SUPERVISOR by BENJY WATKINS [id number]
--- OUTSIDE RECORDS SUMMARY | 2025-10-29 06:43 | XMS_ITS | Data Portability ---
Author Organization [facility] Address [address] [address] Assessment No assessment recorded. Plan of Treatment [...] By Organization Details Last Modified Time 01/18/2025 [id number] records reviewed ; admitted with hypoxic respiratory failure with rsv and copd exacerbation also found to be underdosed on thyroid with plan to repeat tsh in 6 weeks she is struggling with anxiety, depression and sleep; willing to start zoloft at hs. Labs Saturday. [email or web address] Not available 01/19/2025 17:37:29 01/28/2025 [id number] Planning to d/c home soon. will need home oxygen, home health and a front wheeled walker. she will need to establish with new PCP. Breathing doing well with oxygen. Mood good. [email or web address] Not available 01/28/2025 13:58:57 Reason for Referral None Reported. Problems Name Problem SNOMED Code Status Onset Date Resolution Date Notes Provider Name and Address Organization Details Recorded Time Bipolar disorder 40758621 Active 2010 Bipolar Disorder; Recorded 12/15/2010 10:36AM by Aubree Renae CMT, Office Visit; Promoted; acuity set as *; Not Available [facility] 03:10:56 Chronic obstructiv e pulmonary disease 02685649 Active 2010 Chronic Obstructiv e Lung Disease; 12/15/2010 10:36AM by Aubree Renae CMT, Office Visit; Promoted; acuity set as *; Not Available [facility] 3 03:10:57 Hyperthyro idism 62846859 Active 2010 Hyperthyro idism; Recorded 12/15/2010 10:36AM by Aubree Renae CMT, Office Visit; Promoted; acuity set as *; Not Available [facility] 3 03:10:57 Problem Notes None recorded. Medical Equipment None Reported. Allergies Allergen ID Allergen Name Allergen Category Reaction Reaction Severity Criticality Documentation Date Start Date Code Code System Note Provider Name and Address Organization Details Recorded Time 71188 codeine phosphate medicatio n rash Not available Not available 06/01/2023 2672 RxNorm React ion: Rash; Comme nt: Recor ded 12/15 10:36 AM by Abelardo rocha CMT, Offic e Visit ; Promo joe; Signi ficjessika ce: *; ; Not Available [facility] 3 02:28:08 16927 Ultracet medicatio n swelling Not available Not available 06/01/2023 93836 2 RxNorm React ion: Swell ing; Comme nt: Recor ded 12/15 10:36 AM by Abelardo rocha CMT, Offic e Visit ; Promo joe; Signi ficjessika ce: *; ; Not Available [facility] 3 02:28:08 69888 aspirin medicatio n anaphylax is Not available Not available 06/01/2023 1191 RxNorm React ion: Anaph ylaxi s, Diffi culty breat alphonso, Pruri tus, Rash, Swell ing; Comme nt: Recor ded 12/15 10:36 AM by Abelardo rocha CMT, Offic e Visit ; Promo joe; Signi ficjessika ce: *; ; Not Available [facility] 3 02:28:08 Medications Name Sig Start [...] rate Respiratory rate Body temperature Oxygen saturation Systolic And Diastolic Provider Name and Address Organization Details Last Updated DateTime 5 61127.6 1 g 64 /min 20 /min 98.7 [degF] 94 % 103/64 mm[Hg] GEETHA ACUÑA [facility] 5 16:04:40 Date Recorded Body weight Heart rate Respiratory rate Body temperature Oxygen saturation Systolic And Diastolic Provider Name and Address Organization Details Last Updated DateTime 5 31132.7 5 g 67 /min 18 /min 98.8 [degF] 96 % 144/74 mm[Hg] GEETHA ACUÑA [facility] 13:57:13 Social History None recorded. Functional Status None recorded. Mental Status None recorded. Family History Nothing Reported. Medical History No medical history recorded. Gynecological HistoryNo gynecological history recorded. Obstetrics History GPAL:G 0 P 0 0 0 0 Immunizations Vaccine Type Date Status Note Provider Nam e and Address Organization Details Recorded Time Influenza, split virus, trivalent, preservative 0 completed Not Available [facility] 06/01/2023 02:32:41 Past Encounters Encounter ID Performer Location Encounter Start Date Encounter Closed Date Diagnosis/Indication Diagnosis SNOMED-CT Code Diagnosis ICD10 Code Diagnosis IMO Codes Diagnosis Note [id number] Jaden Last DO [facility] ([facility]) [address] [place] [id number] 01/18/2025 14:52:01 01/20/2025 06:49:38 Bipolar disorder 94961533 F31.9 Chronic ob structive pulmonary disease 28067888 J44.9 Hospital i npatient stay within past 30 days 4175262690 106 Z76.89 Respirator y syncytial virus infection 39823568 B97.4 Graves' disease 88728533 4 E05.00 Acquired hypothyroidism 302048223 E03.9 [id number] Jaden Last DO [facility] ([facility]) [address] [place] [id number] 01/28/2025 09:30:16 02/02/2025 13:55:19 Chronic obstructive pulmonary disease 93804488 J44.9 Bipolar disorder 4940834 4 F31.9 Hyperthyroidism 70112641 E05.90 Health Concerns Section Related Observation LastModified by Organization Detai ls LastModified Time None Recorded Concern Status LastModified by Organization Details LastModified Time None Recorded Advance Directives Directive None Recorded Payers Insurance Date Sequence Insurance Name Policy Number Policy Chun Covered Member ID Chun Member ID Guarantor Name 02/02/2025 1 [employer] (MEDICARE REPLACEMENT/A DVANTAGE - PPO) [id number] Nola Mcguire [id number] Nola Mcguire 01/18/2025 1 *SELF PAY* Mohsen Mcguire Notes Date Note Type Note Provider Name and Address Organization Details Recorded Time 01/19/20 25 text/ht ml COPDReported by PatientHPI:For onset/timing, patient reportsintermittentandmultiple times per day. For duration, patient reportschronicandhas noted for years. For severity, patient reportsmoderate.ROS as noted in the [facility] Jaden Last [address], [address], [facility] 01/19/2025 17:38:24 01/29/20 25 text/ht ml COPDReported by PatientHPI:For onset/timing, patient reportsintermittentandmultiple times per day. For duration, patient reportschronicandhas noted for years. For severity, patient reportsmoderate.ROS as noted in the [facility] Jaden Last DO [address] [place] [address], [phone], [facility] 02/01/2025 17:37:27 OBGyn Episode No OBEpisode recorded.
--- OUTSIDE RECORDS SUMMARY | 2025-10-29 06:43 | XMS_ITS | Encounter Summary ---
Author Organization [facility] Address [address] [place] [address] Care Team Providers Care Middleware Engineer Name Role Phone Hyun Valentino Primary Care Provider [phone] Reason for Visit * Reason Onset Date Comments Referral 05/12/2025 Encounter Details Date Type Department Care Team (Late st Contact Info) Description 05/12/2025 Telephone [facility] Medicine [place] [address] [place] [address] February, [facility] [address] [place] [address] Referral Social History Tobacco Use Types Packs/Day Years Used Date Smoking Tobacco: Former Cigarettes Passive Smoke Exposure: Past Comments:Quit smoking: cutti ng down-/2 pk now01/27/2010 Alcohol Use Standard Drinks/Week Comments Not Currently 0 (1 standard drink = 0.6 oz pur e alcohol) Comments No Sex and Gender Information Value Date Recorded Sex Assigned at Not on file Legal Sex Female 2:41 AM PAPER TUBE CUTTER Gender Identity Not on file Sexual Orientation Not on file documented as of this encounter Miscellaneous Notes * Telephone Encounter - Mona Gordon LPN - 05/12/2025 8:21 AM CDT Attempted to call pt. Unable to be seen @ [facility] pain management. Dr Gonzales declined referral. Will send to Dr Vázquez in [place] with Rikki Gordon LPN, 05/12/2025 8:21 AM documented in this encounter Plan of Treatment Not on file documented as of this encounter Visit Diagnoses Not on filedocumented in this encounter Care Teams Middleware Engineer Relationship Specialty Start Date End Date Hyun Valentino DO [address] [place] [address] PCP - General Family Practice 02/04/25 documented as of this encounter
--- OUTSIDE RECORDS SUMMARY | 2025-10-29 06:43 | XMS_ITS | Clinical Summary ---
Author Organization [facility] Address [address] [place] [address] Care Team Providers Care Brick Unloader Tender Name Role Phone Srinivasa Huntley MD, Ruben [...] on file Legal Sex Female 5:33 AM LOG LOADER HELPER Gender Identity Not on file Sexual Orientation Not on file Last Filed Vital Signs Vital Sign Reading Time Taken Comments Blood Pressure 116/62 01/05/2011 10:43 AM LOG LOADER HELPER Pulse 90 01/05/2011 10:43 AM LOG LOADER HELPER Temperature 36.1 C (97 F) 01/05/2011 10:43 AM LOG LOADER HELPER Respiratory Rate 20 01/05/2011 10:43 AM LOG LOADER HELPER Oxygen Saturation 100% 01/05/2011 10:43 AM LOG LOADER HELPER Inhaled Oxygen Concentration - - Weight 49.9 kg (110 lb) 01/05/2011 10:43 AM LOG LOADER HELPER Height 158.8 cm (5' 2.5 ) 01/05/2011 10:43 AM CS T Body Mass Index 19.8 01/05/2011 10:43 AM LOG LOADER HELPER Plan of Treatment Health Maintenance Due Date [...] (#1) 2025 Medical Devices Implanted Type Area Retention Representative Device Identifier Shelf Expiration Date Model / Serial / Lot Log [id number] - Tissue Substitutes & Biologicals - 1 - Vitoss Foam Ba 1.2ml Implanted:Qty: 1 on 02/03/2010 at [facility] Biological N/A: Neck ORTHOVITA [id number] / / [id number] Log [id number] - Tissue Substitutes & Biologicals - 1 - Cage Anatomic Peek [id number] Implanted:Qty: 1 on 02/03/2010 at [facility] Cage N/A: Neck MEDTRONIC- SOFAMOR DANEK 08/03/2017 [id number] / / [id number] Log [id number] - David Trinica Cervical Plating System - 1 - Plate Trinica Select 22mm [id number] Implanted:Qty: 1 on 02/03/2010 at [facility] Plate N/A: Neck zzzzZIMMER-SPIN E [id number] / [id number] / Log [id number] - David Trinica Cervical Plating System - 1 - Screw Trnca Sd Reyna 4.2x14mm [id number] Implanted:Qty: 4 on 02/03/2010 at [facility] Screw N/A: Neck zzzzZIMMER-SPIN E [id number] 05 / [id number] / Insurance [place], [place] [id number] [place]ICA[place] [facility] Advance Directives For more information, please contact: [phone] Documents on File Type Date Recorded Patient Clinical Editor Expl anation Advance Directive POA 11/17/2008 * [...] 8:44 AM 02/03/2010 12:32 PM Care Teams Brick Unloader Tender Relationship Specialty Start Date End Date Ruben Bernabe Jr., MD [address] [place] [address] PCP - General Family Practice 01/03/11
--- OUTSIDE RECORDS SUMMARY | 2025-10-29 06:43 | XMS_ITS | Patient Health Record ---
Author Organization [facility] Address [address] [place] [address] Care Team Providers Care Liquor Gallery Operator Name Role Phone Srinivasa Ruben Primary Care Provider [phone] Augustina Mckenzie Allergies Allergen (clinical drug ingredient) [...] Provider Speciality Nurse Prac titioner Referred Organization [facility] Inte rventional Pain Management Junior Referred Provider Chelsea Mckenzie Referred Address [address] [place], [place],[address], Referred Provider Specialty Pain Medicin e General [...] Risk Notes Problem Chronic pain syndrom e (460249986) Chronic pain syndrome (G89.4) Active confirmed Problem Essential hypertension (73337899) Essential hypertension (I10) Active confirmed Problem Cervical radiculopathy (13975508) Cervical radiculopathy (M54.12) Active confirmed Problem hypercholesterolemia (disorder) (53546651) Hypercholesteremia (E78.00) Active confirmed Problem Anxiety (21224132) Anxiety (F41.9) Active confi rmed Problem Severe recurrent major depression without psychotic features (65123899) Severe episode of recurrent major depressive disorder, without psychotic features (F33.2) Active confirmed Problem Hypothyroidism (34398114) Hypothyroidism (E03.9) Active confirmed Problem Lumbar spondylosis with myelopathy (disorder) (90185109) 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 confirmed Problem Hypothyroidism (29165090) Hypothyroidism (244.9) 2016 Active confirmed [id number]-98 [id number]- Problem Lumbosacral spondylosis without myelopathy (90989238) Lumbar spondylarthritis (721.3) 2016 Active confirmed [id number]-[id number] [id number]- Problem Moderate recurrent major depression (40194395) Major depression, recurrent episode, moderate (296.32) 2016 Active confirmed [id number]-[id number] [id number]- Problem Pure hypercholesterolemia (315536988) Essential hypercholesterolemia (272.0) 2014 Active confirmed [id number]-[id number] [id number]- Problem Osteoarthritis of shoulder (80609971) Osteoarthritis of shoulder (715.11) 2017 Active confirmed Gurjit-98 5911- Problem Eczema (16985006) Eczema (691.8) 2013 Active confirmed Gurjit-98 5911- Problem Essential hypertension (71525176) Essential hypertension (401.1) 2016 Active confirmed [id number]-98 [id number]- Problem Acute sinusitis (44360977) Acute sinusitis, unspecified (461.9) 2018 Problem resolved confirmed [id number]-98 [id number]- Problem Non-plaque induced gingival disease (622116719) Acute gingivitis, non-plaque induced (523.01) 2018 Problem resolved confirmed [id number]-[id number] [id number]- Problem Impetigo (76773491) Impetigo (684) 2017 Problem resolved confirmed [id number]-[id number] [id number]- Problem Pain in thoracic spine (889058502) Pain in thoracic spine (724.1) 2016 Problem resolved confirmed Gurjit-98 5911- Problem Weight decreased (747733325) Loss of weight (783.21) 2010 Problem resolved confirmed Gurjit-98 5911- Problem Shortness of breath (491332775) Shortness of breath (786.05) 2010 Problem resolved confirmed [id number]-98 5911- Problem Cough (48558272) Cough (786.2) 2013 Problem resolved confirmed Gurjit-98 5911- Problem Gynecological examination normal (357084291802559) Routine gynecological examination (V72.31) 2011 Problem resolved confirmed Gurjit-98 5911- Problem History of pulmonary embolus (306977216) Personal history of pulmonary embolism (V12.55) 2016 Problem resolved confirmed Gurjit-98 5911- Problem Fever blister (3057046) Fever blister (054.9) 2011 Problem resolved confirmed Gurjit-98 5911- Problem Generalized anxiety disorder (93025799) Anxiety, generalized (300.02) 2010 Problem resolved confirmed Gurjit-98 5911- Problem Fibromyalgia (318135566) Fibromyalgia (729.1) 2010 Problem resolved confirmed Gurjit-98 5911- Problem Rash (561243972) Rash (782.1) 2010 Problem resolved confirmed Gurjit-98 5911- Problem Low back pain (614126142) Low back pain (724.2) 2018 Problem resolved confirmed Gurjit-98 5911- Problem Neck pain (94355567) Neck pain (723.1) 2016 Problem resolved confirmed Gurjit-98 5911- Problem Vitamin D deficiency (29808001) Vitamin D deficiency (268.9) 2010 Problem resolved confirmed Gurjit-98 5911- Problem Thoracic back pain (463473497) Upper back pain (724.1) 2010 Problem resolved confirmed Gurjit-98 5911- Problem Spontaneous ecchymosis (592926986) Excessive bruising (782.7) 2010 Problem resolved confirmed Gurjit-98 5911- Problem Sleep disturbance (31069200) Insomnia secondary to hot flashes (780.59) 2012 Problem resolved confirmed Gurjit-98 5911- Problem Nondependent cannabi s abuse, continuous (808060186) Marijuana abuse - continuous (305.21) 2010 Problem resolved confirmed Gurjit-98 5911- Problem 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 Problem resolved confirmed Gurjit-98 5911- Problem Muscle weakness (38822841) Muscle weakness (729.89) 2010 Problem resolved confirmed Gurjit-98 5911- Problem Shoulder pain (73397707) Shoulder pain (719.41) 2016 Problem resolved confirmed Gurjit-98 5911- Problem Backache (515296407) Mid back pa in (724.5) 2017 Problem resolved confirmed Gurjit-98 5911- Problem Screening for colon cancer (955270221) Screening for colon cancer (V76.49) 2015 Problem resolved confirmed Gurjit-98 5911- Problem Acute sinusitis (91570583) Acute sinusitis (461.9) 2016 Problem resolved confirmed Gurjit-98 5911- Problem Allergic rhinitis caused by pollen (01444051) Allergies (477.0) 2010 Problem resolved confirmed Gurjit-98 5911- Problem Disorder of hematopoietic system (60503613) Other abnormal findings on blood examination (790.99) 2015 Problem resolved confirmed Gurjit-98 5911- Problem Convulsion (07483846) Seizure(s) ; other (780.39) 2015 Problem resolved confirmed Gurjit-98 5911- Problem Tobacco dependence (82334494) Tobacco dependence (305.1) 2011 Problem resolved confirmed Gurjit-98 5911- Problem Acute exacerbation o f chronic obstructive airways disease (173508677) Acute exacerbation of chronic obstructive pulmonary disease (COPD) (491.21) 2012 Problem resolved confirmed Gurjit-98 5911- Problem Generalized aches an d pains (57996466) Body aches (729.1) 2016 Problem resolved confirmed Gurjit-98 5911- Problem Chest pain (40438105) Chest pain (786.51) 2014 Problem resolved confirmed Gurjit-98 5911- Problem Emphysema (59052260) Emphysema (492.8) 2010 Problem resolved confirmed Gurjit-98 5911- Problem Influenza with non-respiratory manifestation (64992717) Flu like symptoms (487.8) 2010 Problem resolved confirmed Gurjit-98 5911- Problem Influenza (9843542) Influenza, w ith other respiratory manifestation (487.1) 2017 Problem resolved confirmed Gurjit-98 5911- Problem Pneumococcal pneumonia (862406112) Lobar pneumonia, organism unspecified (481) 2012 Problem resolved confirmed Gurjit-98 5911- Problem Herpes simplex without complication (492196375) Herpes simplex, without complication (054.9) 2016 Problem resolved confirmed Gurjit-98 5911- Problem Bursitis of shoulder (686972712) Shoulder bursitis (726.0) 2016 Problem resolved confirmed Gurjit-98 5911- Problem Disorder of cervical spine (557314405) Cervical root impingement (723.8) 2016 Problem resolved confirmed Gurjit-98 5911- Problem Continuous opioid dependence (921721765) Opioid dependence, continuous (304.01) 2018 Problem resolved confirmed Gurjit-98 5911- Problem Anxiety state (752035265) Situational stress with anxiety (300.09) 2015 Problem resolved confirmed Gurjit-98 5911- Problem Tobacco user (007895648) Tobacco abuse affecting health (305.1) 2013 Problem resolved confirmed Gurjit-98 5911- Problem Needs influenza immunization (878187427) Vaccination against other viral diseases, Influenza (V04.81) 2011 Problem resolved confirmed Gurjit-98 5911- Problem Allergic rhinitis (36349664) Allergic rhinitis, unspecified cause (477.9) 2015 Problem resolved confirmed Gurjit-98 5911- Problem Closed fracture of one rib (52630391) Closed rib fracture, of one rib (807.01) 2014 Problem resolved confirmed Gurjit-98 5911- Problem Persistent insomnia (361312974) Persistent insomnia (307.42) 2017 Problem resolved confirmed Gurjit-98 5911- Problem Akathisia (341837822) Akathisia (781.0) 0 2015 Problem resolved confirmed Gurjit-98 5911- Problem Contact dermatitis (13041770) Contact dermatitis (692.9) 2016 Problem resolved confirmed Gurjit-98 5911- Problem Thyroid function tests abnormal (267276944) Abnormal thyroid findings (794.5) 2014 Problem resolved confirmed Gurjit-98 5911- Problem Knee pain (3038914512) Knee pain (719.46) 2015 Problem resolved confirmed Gurjit-98 5911- Problem Acquired hypothyroidism (117633597) Acquired hypothyroidism (244.8) 2011 Problem resolved confirmed Gurjit-98 5911- Problem Erythrocyte sedimentation rate raised (452515581) Elevated sed rate (ESR) (790.1) 2013 Problem resolved confirmed Gurjit-98 5911- Problem Pneumococcal pneumonia (591188481) Acute lobar pneumonia (481) 2010 Problem resolved confirmed Gurjit-98 5911- Problem Administration of vaccine product containing only Streptococcus pneumoniae antigen (procedure) (60938974) Vaccination against pneumococcal pneumonia (V03.82) 2011 Problem resolved confirmed Gurjit-98 5911- Problem Mixed anxiety and depressive disorder (053350429) Depression with anxiety (300.4) 2010 Problem resolved confirmed Gurjit-98 5911- Problem Emphysema (48686583) Emphysema, other (492.8) 2017 Problem resolved confirmed Gurjit-98 5911- Problem Nausea and vomiting (23698084) Nausea and vomiting (787.01) 2010 Problem resolved confirmed Gurjit-98 5911- Problem Hypertrophy of tonsils (18805332) Hypertrophy of tonsils (474.11) 2017 Problem resolved confirmed Gurjit-98 5911- Problem Influenza vaccinatio n (19465169) Influenza vaccination (V04.81) 2013 Problem resolved confirmed Gurjit-98 5911- Problem Pleural thickening (55235977) Pleural thickening (511.0) 2016 Problem resolved confirmed Gurjit-98 5911- Problem Screening for malignant neoplasm of breast (849561788) Screening for breast cancer, unspecified (V76.10) 2015 Problem resolved confirmed Gurjit-98 5911- Problem Screening mammograph y (67121255) Screening mammogram - other (V76.12) 2015 Problem resolved confirmed Gurjit-98 5911- Plan Of Treatment No Information Insurance Providers Payer Name Payer Address Payer Phone Subscriber Number Group Number Insured Name Patient Relationship to Insured Coverage Start Date Coverage End Date BCBS [place] [address] [place] [address] [id number] Nola Mcguire Self - patient is the insured Out of Network [employer] Medicare Replacement [address] [address] [place] [address] [id number] Nola Mcguire Self - patient is the [...]
--- OUTSIDE RECORDS SUMMARY | 2025-10-29 06:43 | XMS_ITS | Clinical Summary ---
Author Organization [facility] Address [address] Attn: Epic Prelude ADT [place] [address] Care Team Providers Care Agriculture Laborer Name Role Phone Hyun Valentino Gladis SNYDER Primary Care Provider Allergies Active Allergy Reactions [...] mixed, mild Overview (03/10/2025): [facility]04[facility], Bipolar 1 disorder, mixed, mild. 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 Gender Identity Not on file Sexual Orientation [...] VACCINE (1 of 2) 02/05/2016 Medicare Advantage (SD) Prev entative Visit/Annual Wellness Visit 11/04/2024 INFLUENZA VACCINE (#1) 2025 10/19/2010 Medical Devices Implanted Type Area Supervisor [place] Device Identifier Shelf Expiration Date Model / Serial / Lot Log [id number] - Tissue Substitutes & Biologicals - 1 - Vitoss Foam Ba 1.2ml Implanted:Qty: 1 on 02/03/2010 Biological N/A: Neck ORTHOVITA 07/05/2011 / / [id number] Log [id number] - Tissue Substitutes & Biologicals - 1 - Cage Anatomic Peek [id number] Implanted:Qty: 1 on 02/03/2010 Cage N/A: Neck MEDTRONIC- SOFAMOR DANEK 08/03/2017 [id number] / / [id number] Log [id number] - David Trinica Cervical Plating System - 1 - Plate Trinica Select 22mm [id number] Implanted:Qty: 1 on 02/03/2010 Plate N/A: Neck zzzzZIMMER-SPIN E [id number] 01 / [id number] / Log [id number] - David Trinica Cervical Plating System - 1 - Screw Trnca Sd Reyna 4.2x14mm [id number] Implanted:Qty: 4 on 02/03/2010 Screw N/A: Neck zzzzZIMMER-SPIN E [id number] 05 / [id number] / [place] [address] MEDICAID [place] AD[place] [facility] Care Teams Agriculture Laborer Relationship Specialty Start Date End Date Hyun Valentino DO [address] [place] [address] PCP - General Family Practice 02/04/25
--- OUTSIDE RECORDS SUMMARY | 2025-10-29 06:43 | XMS_ITS | Encounter Summary ---
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
--- NOTE | 2025-10-29 06:48 | W.ED.SOB ---
HPI - SOB/Dyspnea General: Chief Complaint: Shortness of Breath/Dyspnea Stated Complaint: dyspnea Time Seen by Provider: 10/29/25 06:34 Source: patient and EMS Mode of arrival: EMS Limitations: no limitations History of Present Illness: HPI Narrative: 60-year-old female has a history of COPD wears 2 L oxygen at baseline states over the last 2 to 3 days she has felt she is getting a cold states she has had some increased cough and congestion along with increased shortness of breath and wheezing. Patient did not come in by ambulance did receive a DuoNeb states that helped her breathing but still having a slight hard time breathing. Patient is 90% here on her 2 L of oxygen. She denies any fevers denies any pain. Related Data Home Medications ?Medication ?Instructions ?Recorded ?Confirmed albuterol sulfate 90 mcg/actuation 2 puff inhalation Q6H PRN 01/04/25 05/08/25 aerosol inhaler Shortness Of Breath Or Wheezing budesonide 160 mcg-glycopyr 9 2 inh inhalation DAILY 05/08/25 05/08/25 mcg-formot 4.8 mcg/actuation HFA inhaler (Breztri Aerosphere) citalopram 40 mg tablet 40 mg PO DAILY 05/08/25 05/08/25 duloxetine 30 mg capsule,delayed 30 mg PO DAILY 05/08/25 05/08/25 release hydroxyzine HCl 25 mg tablet 25 mg PO TID PRN anxiety 05/08/25 05/08/25 ketorolac 10 mg tablet 10 mg PO Q6H PRN Pain 05/08/25 05/08/25 levothyroxine 100 mcg tablet 100 mcg PO QAM 05/08/25 05/08/25 trazodone 50 mg tablet 50 mg PO BEDTIME 05/08/25 05/08/25 Previous Rx's ?Medication ?Instructions ?Recorded cyclobenzaprine 10 mg tablet 10 mg PO TID PRN muscle spasm #30 05/08/25 tabs diclofenac sodium 75 mg 75 mg PO Q12H PRN pain #20 tabs 05/08/25 tablet,delayed release prednisone 20 mg tablet 20 mg PO TID #15 tabs 05/08/25 cyclobenzaprine 10 mg tablet 10 mg PO TID PRN muscle spasm #20 09/14/25 tabs diclofenac sodium 75 mg 75 mg PO Q12H PRN pain #20 tabs 09/14/25 tablet,delayed release prednisone 50 mg tablet 50 mg PO DAILY #5 tabs 10/29/25 Allergies Allergy/AdvReac Type Severity Reaction Status Date / Time aspirin Allergy hives Verified 09/14/25 14:18 Penicillins Allergy ALGY-Anaphy Verified 09/14/25 14:18 laxis tizanidine Allergy tongue Verified 09/14/25 14:18 swelling tramadol Allergy ALGY-Rash Verified 09/14/25 14:18 Review of Systems Resp: Reports: dyspnea PFSH ED PFSH: Medical History 3 para 2 Smoker decreased to 1/2 ppd 09/03/2023 Chronic neck and back pain Insomnia Bipolar 1 disorder, mixed, mild Mixed dyslipidemia Generalized anxiety disorder Acquired hypothyroidism History of Graves' disease Fibromyalgia COPD (chronic obstructive pulmonary disease) Surgical History History of carpal tunnel release right History of hernia repair History of thyroidectomy and thyroid ablation History of tubal ligation History of cervical spinal surgery C5/6 fusion Family History Mother Lung disease Psychiatric illness Father Psychiatric illness Other Stroke Denies family history of Diabetes CAD (coronary artery disease) Dementia Hyperlipidemia Chronic kidney disease (CKD) Suicide Anesthesia complication Bleeding disorder Family history of premature coronary artery disease Cancer Hypertension Social History Smoking and tobacco/nicotine status: current every day tobacco/nicotine user cigarettes [ Other cigarette details: Half pack a day] Quit status (tobacco/nicotine): has tried quititng Alcohol intake: never Substance/Drug Use: current Substance/Drug use frequency: daily Adopted: No Lives independently: Yes Household members: spouse, children and other Details: 3 grandchilden Housing: House Marital status: Number of children: 2 Number of grandchildren: 6 Highest education level completed: High School Graduate service: No Current occupational status: disabled Leisure activites: other Leisure activities details: swimming, playing w/ kids Agree to transfusion: Yes Female Reproductive History: Spontaneous abortions: No Physical Exam Const: COMMON NORMALS: patient oriented x3 HENMT: COMMON NORMALS: normocephalic and atraumatic HEAD & SCALP: normocephalic and atraumatic Neck/C-Spine: COMMON NORMALS: full ROM and supple Chest: COMMONS NORMALS: normal inspection of the chest Resp: COMMON NORMALS: No retractions and No use of accessory muscles AUSCULTATION: wheezes Cardio: COMMON NORMALS: regular rate, regular rhythm and No murmurs present (Cardio) RATE: regular rate RHYTHM: regular rhythm GI: COMMON NORMALS: Normal to inspection, nondistended, normoactive bowel sounds present, Soft to palpation, non-tender and no masses PALPATION: Yes Soft to palpation Extremity: COMMON NORMALS: normal to inspection and full ROM Neuro: COMMON NORMALS: patient oriented x3, moves all extremities and no focal motor deficits Psych: COMMON NORMALS: mental status grossly normal, Normal thought process present and cooperative THOUGHT PROCESS: Normal thought process present Skin: COMMON NORMALS: no rashes or lesions noted and no wounds GENERAL SKIN EXAM: no rashes or lesions noted Course Vital Signs: Vital signs: Vital Signs Temperature 98.3 F 10/29/25 06:33 Pulse Rate 65 10/29/25 07:36 Respiratory Rate 18 10/29/25 07:28 Blood Pressure 123/75 10/29/25 06:33 Pulse Oximetry 93 10/29/25 07:28 Oxygen Delivery Me thod Room Air 10/29/25 07:28 Oxygen Flow Rate 2 10/29/25 06:33 MDM - SOB/Dyspnea Medical Decision Making 60-year-old female history of COPD presents here with increased shortness of breath cough, differential includes pulm emboli, pneumonia, COPD exacerbation. History and physical shows no signs of pulm emboli chest x-ray was interpreted by me showed no signs of pneumonia. Likely a COPD exacerbation. She feels much improved after breathing treatment pulse ox here is 95% on her baseline oxygen she is in no distress here we will place her on 5 days of steroids she is stable for discharge follow-up with PCP and return if worsening she understands agrees to plan. EKG interpreted by me at 6:44 AM normal sinus rhythm heart rate [address] elevation QRS 81 QTc 403 Medical Records I reviewed the patient's medical records. Lab Data I reviewed the patient's lab results. 10/29/25 06:48 10/29/25 06:48 Labs/Radiology: Radiology Impressions Chest X-Ray 10/29/25 06:41 IMPRESSION: 1. Chronic emphysema. 2. No pneumonia. Normal vasculature. Laboratory Results WBC 7.41 10^3/uL (3.29-11.43) 10/29/25 06:48 RBC 3.79 10^6/uL (3.85-5.65) L 10/29/25 06:48 Hgb 13.00 g/dL (11.27-16.99) 10/29/25 06:48 Hct 39.7 % (36-47) 10/29/25 06:48 MCV 104.7 fl (85-98) H 10/29/25 06:48 MCH 34.3 pg (27-33) H 10/29/25 06:48 MCHC 32.7 g/dL (30-55) 10/29/25 06:48 RDW 14.6 % (12.1-15.1) 10/29/25 06:48 Plt Count 343 10^3/cmm (157-399) 10/29/25 06:48 MPV 10.5 fL (7.4-10.4) H 10/29/25 06:48 Neut % (Auto) 59.1 % 10/29/25 06:48 Lymph % (Auto) 27.1 % 10/29/25 06:48 [place]eton % (Auto) 9.0 % 10/29/25 06:48 Eos % (Auto) 3.5 % 10/29/25 06:48 Baso % (Auto) 0.8 % 10/29/25 06:48 Neut # (Auto) 4.37 10^3/uL (1.8-7.7) 10/29/25 06:48 Lymph # (Auto) 2.0 10^3/uL (0.8-4.8) 10/29/25 06:48 [place]eton # (Auto) 0.7 10^3/uL (0.2-0.9) 10/29/25 06:48 Eos # (Auto) 0.3 10^3/uL (0.0-0.8) 10/29/25 06:48 Baso # (Auto) 0.1 10^3/uL (0.0-0.1) 10/29/25 06:48 Nucleated RBC % (auto) 0 % 10/29/25 06:48 Nucleated RBCs # 0.0 /100WBC 10/29/25 06:48 Sodium 143 mmol/L (136-145) 10/29/25 06:48 Potassium 4.0 mmol/L (3.5-5.1) 10/29/25 06:48 Chloride 103 mmol/L (98-107) 10/29/25 06:48 Carbon Dioxide 29 mmol/L (22-29) 10/29/25 06:48 Anion Gap 15.0 (5-19) 10/29/25 06:48 BUN 22 mg/dL (6-20) H 10/29/25 06:48 Creatinine 0.9 mg/dL (0.5-0.9) 10/29/25 06:48 GFR Calculation 64.1 mL/min (90-130) L 10/29/25 06:48 Glucose 83 mg/dL (65-115) 10/29/25 06:48 Calculated Osmolality 298 mOsm/kg (285-295) H 10/29/25 06:48 Calcium 10.1 mg/dL (8.5-10.5) 10/29/25 06:48 Total Bilirubin 0.2 mg/dL (0.15-1.2) 10/29/25 06:48 AST 29 U/L (0-32) 10/29/25 06:48 ALT 28 U/L (0-33) 10/29/25 06:48 Alkaline Phosphatase 57 U/L (35-105) 10/29/25 06:48 NT-Pro-B Natriuret Pep < 36 pg/mL (0-125) 10/29/25 06:48 Total Protein 7.5 g/dL (6.6-8.7) 10/29/25 06:48 Albumin 4.8 g/dL (3.5-5.2) 10/29/25 06:48 Globulin 2.7 g/dL (1.3-4.6) 10/29/25 06:48 All radiology interpretation(s) finalized by discharge Discharge Plan Discharge Patient Disposition: Home Clinical Impression: Acute exacerbation of chronic obstructive airways disease Condition: Stable Prescriptions: New prednisone 50 mg tablet 50 mg PO DAILY Qty: 5 0RF No Action diclofenac sodium 75 mg tablet,delayed release (DR/EC) 75 mg PO Q12H PRN (Reason: pain) Qty: 20 0RF cyclobenzaprine 10 mg tablet 10 mg PO TID PRN (Reason: muscle spasm) Qty: 20 0RF albuterol sulfate 90 mcg/actuation HFA aerosol inhaler 2 puff inhalation Q6H PRN (Reason: Shortness Of Breath Or Wheezing) citalopram 40 mg tablet 40 mg PO DAILY ketorolac 10 mg tablet 10 mg PO Q6H PRN (Reason: Pain) levothyroxine 100 mcg tablet 100 mcg PO QAM hydroxyzine HCl 25 mg tablet 25 mg PO TID PRN (Reason: anxiety ) duloxetine 30 mg capsule,delayed release(DR/EC) 30 mg PO DAILY Breztri Aerosphere 160-9-4.8 mcg/actuation HFA aerosol inhaler 2 inh INHALATION DAILY trazodone 50 mg tablet 50 mg PO BEDTIME prednisone 20 mg tablet 20 mg PO TID Qty: 15 0RF Rx Instructions: 1 p.o. 3 times daily x3 days, 1 p.o. twice daily x2 days, 1 p.o. daily x2 days cyclobenzaprine 10 mg tablet 10 mg PO TID PRN (Reason: muscle spasm) Qty: 30 0RF diclofenac sodium 75 mg tablet,delayed release (DR/EC) 75 mg PO Q12H PRN (Reason: pain) Qty: 20 0RF Discharge Orders: Discharge ED (Routine); Ordered 10/29/25 Ordered By: Brendan Soto Referrals: Jt Levy MD [Physician, Family Practice] - 4-7 days Discharge Diet: Advance as tolerated Discharge Activity: Resume usual activity Patient Instructions: COPD (Chronic Obstructive Pulmonary Disease) (ED) Print Language: Luxembourgish Coding Level of Care Code ED Sheriff Deputy for Hannah Key
[2025-10-29 07:06] LABS: Hematocrit 39.7 % (36-47); Hemoglobin 13.00 g/dL (11.27-16.99); Mean Corpuscular HGB Conc 32.7 g/dL (30-55); Mean Corpuscular Hemoglobin 34.3 pg (27-33); Mean Corpuscular Volume 104.7 fl (85-98); Nucleated Red Blood Cells % 0 %; Platelet Count 343 10^3/cmm (157-399); Red Blood Count 3.79 10^6/uL (3.85-5.65); White Blood Count 7.41 10^3/uL (3.29-11.43)
--- NOTE | 2025-10-29 07:26 | PC.NURSE ---
took over pt care from Allen Mckeon RN
[2025-10-29 07:28] VITALS: PULSE 64; RESP 18; O2SAT 93
[2025-10-29 07:34] LABS: Alanine Aminotransferase 28 U/L (0-33); Albumin Level 4.8 g/dL (3.5-5.2); Alkaline Phosphatase 57 U/L (35-105); Anion Gap 15.0 (5-19); Aspartate Amino Transferase 29 U/L (0-32); Blood Urea Nitrogen 22 mg/dL (6-20); Calcium 10.1 mg/dL (8.5-10.5); Carbon Dioxide 29 mmol/L (22-29); Chloride 103 mmol/L (98-107); Globulin 2.7 g/dL (1.3-4.6); Glucose 83 mg/dL (65-115); NT Pro B Type Natriuretic Pept < 36 pg/mL (0-125); Osmolality Calculated 298 mOsm/kg (285-295); Potassium 4.0 mmol/L (3.5-5.1); Sodium 143 mmol/L (136-145); Total Protein 7.5 g/dL (6.6-8.7)
[2025-10-29 07:36] VITALS: PULSE 65
[2025-10-29] MEDS: methylPREDNISolone sod succ 125 mg/2 mL INJ IV (07:50)
[2025-10-29 07:53] VITALS: BP 110/65; PULSE 77; O2SAT 90
[2025-10-29 08:28] LABS: Respiratory Syncytial Virus Ce NEGATIVE (Negative); SARS-CoV-2 PCR NEGATIVE (Negative)
[2025-10-29 08:34] VITALS: BP 123/74; PULSE 67; O2SAT 95
== END 2025-10-29 08:34 | disposition home or self-care (01) ==
PROVIDERS: Emergency Provider Emergency Medicine
DX: J44.1 Chronic obstructive pulmonary disease with (acute) exacerbation (principal); F17.210 Nicotine dependence, cigarettes, uncomplicated; E78.2 Mixed hyperlipidemia
CPT/HCPCS: 71045; 80053; 83880; 85025; 87637; 93005; 94640; 96374; 99285; J2919; J7613